=== PATIENT | male | born 1945 | race Caucasian/White ===

== ENCOUNTER 2019-12-11 08:37 | Outpatient (CLI) | payer MEDICARE, MEDICAID, SELFPAY ==
[2019-12-11 08:50] VITALS: BP 82/54; PULSE 64; RESP 16; TEMP 36.8; O2SAT 98
[2019-12-11 09:40] VITALS: BP 81/53; BP 83/53; BP 90/60; PULSE 62; PULSE 67; PULSE 70
[2019-12-11 09:55] VITALS: BP 73/52; BP 75/48; BP 79/50; PULSE 61; PULSE 66; PULSE 79
[2019-12-11] MEDS: sodium chloride 0.9% 500 ML IV (10:30)
[2019-12-11 11:35] VITALS: BP 100/58; BP 101/57; BP 89/53; PULSE 61; PULSE 66; PULSE 71
[2019-12-11] MEDS: sodium chloride 0.9% 250 ML IV (11:50)
[2019-12-11] MEDS: rituximab 1,000 MG in sodium chloride 0.9% 250 ML, primary tubing onc 1 EACH 70 MG IV (12:26)
[2019-12-11] MEDS: diphenhydrAMINE 50 mg/mL SDV 1mL IVP (12:47)
--- NOTE | 2019-12-11 14:34 | PC.NURSE ---
0905 Noted hypotension. Pt states not feeling good, states tired with cramps in abd, pain in hands and legs. States recently lost weight and poor appetite. States recent medication change. Lungs clear. No swelling. Color yariel umanzor. Dr. Grayson notified. Dr. Grayson assessed pt. New orders noted.
[2019-12-11 14:44] VITALS: BP 110/64; PULSE 64; RESP 18; O2SAT 96
--- NOTE | 2019-12-11 14:45 | PC.NURSE ---
1135 NS Bolus 500ml complete. VS and status reported to Dr. Grayson. Orders for NS Bolus 250ml and proceed with Rituxin infusion. Continue to monitor.
--- NOTE | 2019-12-11 14:46 | PC.NURSE ---
1440 VS noted. A&O. Denies SOB. loose Cough clears exp wheezes. Fine faint rales noted bilat bases. States still smokes. Dr. Grayson notified.
--- NOTE | 2019-12-11 17:30 | PC.NURSE ---
[address] Foster's nurse and Dr. Frazier's nurse notified of hypotension, bolus orders, and labs.
[2019-12-11 18:18] VITALS: BP 107/61; PULSE 64; RESP 16; TEMP 36.5; O2SAT 96
--- NOTE | 2019-12-11 18:19 | PC.NURSE ---
1800 Fine rales in bilat bases. Loose cough noted, pt states has always had from smoking. Denies SOB. Instructed to take BP twice daily. Instructed to call cardiology office with bp results and if he feels he needs sooner appt. Instructed to go to ER if he develops SOB tonight. Discussed with pt we gave him fluid bolus for BP. Verbalized understanding.
== END 2019-12-11 08:38 | disposition home or self-care (01) ==
LOC: RHEOACUTE 08:39
PROVIDERS: Family Provider Internal Medicine; PCP Internal Medicine; Visit Provider Internal Medicine Rheumatology
DX: M05.79 Rheumatoid arthritis with rheumatoid factor of multiple sites without organ or systems involvement (principal); Z79.899 Other long term (current) drug therapy
CPT/HCPCS: 36415; 80048; 80076; 82728; 83540; 83550; 83735; 85025; 85651; 86140; 96365; 96366; 96374; 96375; J1200; J2930; J7040; J7050; J9312

== ENCOUNTER 2019-12-15 21:30 | Inpatient (IN) | payer MEDICARE, MEDICAID, SELFPAY ==
[2019-12-15 21:39] VITALS: BP 115/70; PULSE 84; RESP 14; TEMP 36.8; O2SAT 94; BMI 26.6
--- NOTE | 2019-12-15 21:58 | ECG_ITS ---
Measurements Intervals [place] Rate: 84 P: 52 NE: 146 QRS: 61 QRSD: 81 T: 76 QT: 353 QTc: 418 SINUS RHYTHM Compared to ECG 08/19/2018 11:35:38 Sinus bradycardia no longer present Electronically Signed On 12-16-2019 9:32:50 CDT by Jemma Gr M.D. [id number]
--- NOTE | 2019-12-15 21:59 | W.ED.GENADLT ---
HPI - General Adult General: Chief complaint: General Medical Stated complaint: ABNORMAL LABS/VITALS; FEVER; HX OF ANEMIA Time Seen by Provider: 12/15/19 21:49 History of Present Illness: HPI narrative: Mr. Lamb is a nice 74-year-old male who comes in complaining of generalized weakness, subjective fever and chills, black tarry stools and shortness of breath. States his symptoms have been going on for some time. Today he got progressively more weak and feels like he could not catch his breath and that is why he decided to come here to the hospital. The patient denies any headache, chest pain, abdominal pain or vomiting. The patient states that the symptoms have been going on for quite some time but this last week is gotten much worse. He has been monitoring his blood pressure and pulse oximetry at home he does notice his blood pressure is up and down and his pulse ox is been running as low as 86%. Again he denies any fever and denies any productive cough. He denies being exposed to anybody with the COVID virus. Associated symptoms: Reports dyspnea and malaise; Deny chest pain, confusion, diaphoresis, headache(s), nausea, rash, palpitations, syncope or vomiting Review of Systems Const: Reports: fatigue and malaise; Denies: fever(s), chills, body aches, night sweats or diaphoresis Eyes: Denies: change in vision, blurry vision or blind spots ENMT: Denies: throat pain, odynophagia, hoarseness, ear or mastoid pain, ear discharge, change in hearing or nasal discharge Card: Denies: chest pain, palpitations, irregular heart rhythm, lightheadedness, syncope, pre-syncope, dyspnea on exertion or orthopnea Resp: Reports: dyspnea; Denies: productive cough, non-productive cough, wheezing, hemoptysis or chest congestion GI: Reports: melena; Denies: abdominal pain, nausea, vomiting, hematemesis, coffee ground emesis, heartburn, diarrhea, constipation, GI cramping or hematochezia : Denies: flank pain, dysuria, urinary frequency, urinary urgency, oliguria, urinary incontinence or hematuria Musc: Denies: neck pain, back pain, extremity pain, extremity swelling, joint pain, joint swelling, joint redness, joint warmth or joint stiffness Skin/Breast: Denies: rash, pruritus, erythema, skin tenderness or jaundice Neuro: Denies: headache(s), numbness in extremities, weakness in extremities, sensory changes, lack of coordination, difficulty walking, dizziness, vertigo, confusion or Slurred speech present Endo: Denies: polyuria, polydipsia, tired all the time, cold intolerance, excessive sweating, flushing, hot flashes or heat intolerance Demar/Lymph: Denies: easy bruising, easy bleeding, petechiae, purpura or enlarged lymph nodes All/Imm: Denies: urticaria, throat swelling, tongue swelling, facial swelling or acute wheezing PFSH ED PFSH: Medical History Colon polyps COPD (chronic obstructive pulmonary disease) History of abdominal aortic aneurysm Mixed hyperlipidemia Pulmonary nodules Surgical History (Updated 11/29/19 @ 13:54 by Mike Foster MD) History of back surgery History of colonoscopy History of elbow surgery History of esophagogastroduodenoscopy (EGD) Family History Other Cancer Diabetes Social History Smoking and tobacco status: current every day smoker Alcohol intake: current Alcohol intake frequency: holidays/special occasions only Household members: spouse Housing: House Physical Exam Const: COMMON NORMALS: no acute distress, patient oriented x3, no limitations, healthy appearing and well nourished EXAM LIMITATIONS: no altered mental status GENERAL APPEARANCE: cooperative, well kempt and well developed HENMT: COMMON NORMALS: normocephalic, atraumatic, hearing grossly normal bilaterally, external ears normal, EAC's normal, Normal external nose present and moist oral mucous membranes HEAD & SCALP: normal to inspection, normocephalic and atraumatic FACE & SINUS: normal facial exam and face symmetric NOSE: Normal external nose present and Normal nares present EXTERNAL EAR: Yes external ears normal EXTERNAL AUDITORY CANAL: EAC's normal MOUTH: Normal oral and palatal mucosa present, lip normal and tongue normal Eye: COMMON NORMALS: Equal, round and reactive pupils present, EOMs intact bilaterally, conjunctivae normal and no scleral icterus GENERAL EYE: appearance normal, both eyes and all related structures ALIGNMENT: Yes alignment normal PERIORBITAL: periorbital findings normal EYELID: eyelids normal CONJUNCTIVA: Yes conjunctivae normal SCLERA: sclerae normal PUPIL: Yes Equal, round and reactive pupils present Neck/C-Spine: COMMON NORMALS: full ROM, no lymphadenopathy, supple, no meningeal signs and no JVD GENERAL: Yes normal visual inspection and Yes trachea midline CERVICAL SPINE: Yes cervical ROM normal Chest: COMMONS NORMALS: normal inspection of the chest and normal palpation of entire chest wall Resp: COMMON NORMALS: normal respiratory effort, No retractions, No use of accessory muscles and clear to auscultation bilaterally EFFORT & INSPECTION: Yes able to speak in complete sentences AUSCULTATION: clear to auscultation bilaterally, no crackles, no rales, no rhonchi and no wheezes Cardio: COMMON NORMALS: no JVD, regular rate, regular rhythm, S1 normal heart sound present, S2 normal heart sound present, No gallops present (Cardio), No clicks present (Cardio), No murmurs present (Cardio) and No rub (Cardio) RATE: regular rate RHYTHM: regular rhythm HEART SOUNDS: S1 normal heart sound present, S2 normal heart sound present, no click, no gallops, no murmurs and no rubs GI: COMMON NORMALS: Soft to palpation, non-tender, No hepatosplenomegaly present and no masses PALPATION: Yes Soft to palpation, No Tenderness to palpation present (GI), No Guarding due to palpation present (GI), No Rigid due to palpation, Yes No hepatosplenomegaly present, No Hernia present, No Palpable mass present and No Pulsatile mass present RECTAL EXAM: Yes normal sphincter tone and Yes heme positive stool OTHER: Melanotic stool : COMMON NORMALS: Yes no CVA tenderness BLADDER/KIDNEY EXAM: Yes no CVA tenderness Back/Pelvis: COMMON NORMALS: no CVA tenderness, thoracic and lumbar spine normal to inspection, no thoracic nor lumbar tenderness and thoraco-lumbar ROM normal Extremity: COMMON NORMALS: normal to inspection, full ROM, capillary refill normal, no joint enlargement, no clubbing, cyanosis or edema and no calf tenderness Neuro: COMMON NORMALS: patient oriented x3, CN's II-XII intact bilaterally, moves all extremities, no focal motor deficits and no sensory deficits noted MENINGEAL SIGNS: Yes no meningeal signs SPEECH: speech normal Psych: COMMON NORMALS: mental status grossly normal, Normal thought process present, cooperative, normal affect, speech normal and activity/motor behavior normal APPEARANCE: Yes well kempt SPEECH: Yes normal speech THOUGHT PROCESS: Normal thought process present Skin: COMMON NORMALS: no rashes or lesions noted, turgor normal, no jaundice, no petechiae and no mottling GENERAL SKIN EXAM: no rashes or lesions noted and turgor normal Course Vital Signs: Vital signs: Vital Signs Temperature 98.3 F 12/15/19 21:39 Pulse Rate 77 12/15/19 23:00 Respiratory Rate 14 12/15/19 21:39 Blood Pressure 113/70 12/15/19 23:00 Pulse Oximetry 94 12/15/19 21:39 MDM - General Adult MDM Narrative: Medical decision making narrative: Patient appears to be a GI bleed causing his dyspnea. This is likely from his anemia. He had melena present on exam here. The case was endorsed to Dr. Duran he agrees to admit for further evaluation and care and work-up. Lab Data: Attestation: I reviewed the patient's lab results. Labs: Lab Results 12/15/19 12/15/19 12/15/19 Range/Units 22:32 22:32 22:32 WBC 14.0 H (4.0-10.0) 10^3/ uL RBC 2.94 L (4.1-5.3) 10^6/u L Hgb 9.6 L (11.7-16.6) g/dL Hct 29.2 L (42.0-52.0) % MCV 99.3 H (80-94) fL MCH 32.7 (28.0-34.0) pg MCHC 32.9 (30.0-36.0) g/dL RDW 15.2 H (12.1-15.1) % Plt Count 207 (130-400) 10^3/c mm MPV 10.3 (7.4-10.4) fL Neut % (Auto) 79.8 % Lymph % (Auto) 8.7 % Meeker % (Auto) 7.7 % Eos % (Auto) 1.6 % Baso % (Auto) 0.2 % Neut # (Auto) 11.2 H (1.8-7.7) 10^3/u L Lymph # (Auto) 1.2 (0.8-4.8) 10^3/u L Meeker # (Auto) 1.1 H (0.2-0.9) 10^3/u L Eos # (Auto) 0.2 (0.0-0.8) 10^3/u L Baso # (Auto) 0.0 (0.0-0.1) 10^3/u L Nucleated RBC % (a uto) 0 % Nucleated RBCs # 0.0 /100WBC PT 13.40 H (10.5-13.3) SECO NDS INR 0.99 (0.8-1.2) APTT 30.6 (23.9-36.7) SECO NDS Specimen Type Sample Site ABG pH (7.35-7.45) ABG pCO2 (35-45) mmHg ABG pO2 (80.0-100.0) mmH g ABG HCO3 (22-26) mmol/L ABG Base Excess (-2.0-2.0) mmol/ L [place] Test Hematocrit (42-52) % O2 Delivery Device FiO2 % Business Analyst Intern ID Sodium 135 L (136-145) mmol/L Potassium 4.3 (3.5-5.1) mmol/L Chloride 97 L (98-107) mmol/L Carbon Dioxide 23 (22-29) mmol/L Anion Gap 19.3 H (5-19) BUN 30 H (8-23) mg/dL Creatinine 1.7 H (0.7-1.2) mg/dL Glucose 106 (65-115) mg/dL Calculated Osmolal ity 278 L (285-295) mOsm/k g Calcium 9.5 (8.5-10.5) mg/dL Magnesium 1.4 L (1.7-2.3) mg/dL Total Bilirubin 0.5 (0.15-1.2) mg/dL AST 12 (0-40) U/L ALT 18 (0-41) U/L Alkaline Phosphata se 78 (40-130) IU/L Creatine Kinase 29 L (39-308) U/L Troponin T Baselin e (0-15) ng/mL Troponin T 120 Min [place] (0-15) ng/mL Delta Troponin T (0-10) ABS# Total Protein 6.1 L (6.6-8.7) g/dL Albumin 3.7 (3.5-5.2) g/dL Globulin 2.4 (1.3-4.6) g/dL 12/15/19 12/15/19 12/16/19 Range/Units 22:32 22:40 00:40 WBC (4.0-10.0) 10^3/ uL RBC (4.1-5.3) 10^6/u L Hgb (11.7-16.6) g/dL Hct (42.0-52.0) % MCV (80-94) fL MCH (28.0-34.0) pg MCHC (30.0-36.0) g/dL RDW (12.1-15.1) % Plt Count (130-400) 10^3/c mm MPV (7.4-10.4) fL Neut % (Auto) % Lymph % (Auto) % [place]eker % (Auto) % Eos % (Auto) % Baso % (Auto) % Neut # (Auto) (1.8-7.7) 10^3/u L Lymph # (Auto) (0.8-4.8) 10^3/u L Meeker # (Auto) (0.2-0.9) 10^3/u L Eos # (Auto) (0.0-0.8) 10^3/u L Baso # (Auto) (0.0-0.1) 10^3/u L Nucleated RBC % (a uto) % Nucleated RBCs # /100WBC PT (10.5-13.3) SECO NDS INR (0.8-1.2) APTT (23.9-36.7) SECO NDS Specimen Type Arterial Sample Site Brachial, right ABG pH 7.42 (7.35-7.45) ABG pCO2 36.7 (35-45) mmHg ABG pO2 67.0 L (80.0-100.0) mmH g ABG HCO3 24.0 (22-26) mmol/L ABG Base Excess -0.2 (-2.0-2.0) mmol/ L [place] Test Pos Hematocrit 35.4 L (42-52) % O2 Delivery Device None FiO2 21.0 % Business Analyst Intern ID [id number] Sodium (136-145) mmol/L Potassium (3.5-5.1) mmol/L Chloride (98-107) mmol/L Carbon Dioxide (22-29) mmol/L Anion Gap (5-19) BUN (8-23) mg/dL Creatinine (0.7-1.2) mg/dL Glucose (65-115) mg/dL Calculated Osmolal ity (285-295) mOsm/k g Calcium (8.5-10.5) mg/dL Magnesium (1.7-2.3) mg/dL Total Bilirubin (0.15-1.2) mg/dL AST (0-40) U/L ALT (0-41) U/L Alkaline Phosphata se (40-130) IU/L Creatine Kinase (39-308) U/L Troponin T Baselin e 55 H (0-15) ng/mL Troponin T 120 Min [place] 42.34 H (0-15) ng/mL Delta Troponin T -12.66 L (0-10) ABS# Total Protein (6.6-8.7) g/dL Albumin (3.5-5.2) g/dL Globulin (1.3-4.6) g/dL EKG Data^: EKG 1: Attestation: I personally reviewed and interpreted this EKG as follows: EKG interpretation date: 12/15/19 EKG interpretation time: 22:25 Interpretation: Normal sinus rhythm at 84 beats a minute, nonspecific T wave findings, otherwise no acute findings. Computer generated interpretation: Abdomen/Pelvis CT 12/15/19 22:14 IMPRESSION: 1. No visible evidence of active or acute abdominal or pelvic pathologic process. 2. Active pulmonary parenchymal disease bilateral lung bases as detailed in text above that will require follow-up to exclude a potential for underlying malignancy. Please review details in text above. For patients at low risk (minimal or absent history of smoking and of other known risk factors), recommend CT at 3-6 months, then consider CT at 18-24 months. For patients at high risk (history of smoking or of other known risk factors), recommend CT at 3-6 months, then CT at 18-24 months. (Pollo et al., Fleischner Society, 2017) 3. Evidence of antecedent granulomatous disease. 4. Infrarenal fusiform abdominal aortic aneurysm with patent aorto bi-iliac stent in place. COMMENTS: Consistent with the [employer]'s Incidental Findings Committee white paper (J Am Ezio Radiol 2018): Any incidental cystic renal lesion classified in this report as too small to characterize or simple appearing is likely a benign cyst. No follow-up imaging is recommended for these lesions per consensus recommendations based on imaging criteria. Radiation Dose CTDIVOL = (mGy): DLP = 911.61 (mGy-cm) Discharge Plan Discharge Patient Disposition: Admitted As Inpatient Admit Provider: Nando Platt Clinical Impression: Acute GI bleeding, Acute dyspnea, Anemia Condition: Stable Coding Level of Care Code ED Marketing Trainee for Chg Fwd Exam Comprehensive
--- NOTE | 2019-12-15 22:14 | CTR_ITS ---
PROCEDURE INFORMATION: Exam: CT Abdomen And Pelvis With Contrast Exam date and time: 12/15/2019 10:15 PM Age: 74 years old Clinical indication: Abdominal pain; Generalized; Prior surgery; Surgery date: 6+ months; Surgery type: Aaa TECHNIQUE: Imaging protocol: Computed tomography of the abdomen and pelvis with intravenous contrast. Radiation optimization: All CT scans at this facility use at least one of these dose optimization techniques: automated exposure control; mA and/or kV adjustment per patient size (includes targeted exams where dose is matched to clinical indication); or iterative reconstruction. Contrast material: VISI; Contrast volume: 95 ml; Contrast route: IV; COMPARISON: CR Hips Bilat 3-4v wwo Pelv [id number] 12/28/2018 10:14 AM RADIATION DOSE METRICS: Total DLP: 911.61 mGy-cm FINDINGS: Lungs: Limited assessment lung bases reveals a densely consolidated nodular alveolar airspace disease process medial basal segment left lower lobe along the costovertebral margin measuring 25 mm in diameter. Shaggy borders. Surrounding patchy ground-glass and early consolidated alveolar airspace disease. Findings of coexistent bronchiolar disease. Where as this finding may represent round atelectasis or round pneumonia a neoplasm remains a differential consideration and follow-up is necessary. Coexistent active pneumonitis is a differential consideration. Also evidence of rare focus of peripheral acinar emphysema. In the right lower lobe is a 16 mm pulmonary nodule with shaggy borders. Same differential consideration. Evidence of antecedent granulomatous disease to include rare calcified pulmonary parenchyma granuloma. Liver: Calcified hepatic granulomas. No visible liver mass. Gallbladder and bile ducts: Tiny gallstone. No visible intra or extrahepatic biliary ectasia. Pancreas: Pancreas unremarkable. No visible pancreatic ductal ectasia. Spleen: Small calcified splenic granulomas. Adrenals: Adrenal glands unremarkable. Kidneys and ureters: Bilateral simple renal cortical cysts the largest inferior pole of the right kidney maximum diameter proximally 39 mm. No hydronephrosis or perinephric fluid. Stomach and bowel: Small hiatal hernia. Incomplete rotation of the gut with the duodenal jejunal junction right of midline. Nonobstructive bowel pattern. Diverticulosis coli without evidence for diverticulitis. No evidence for adynamic or reactive ileus. Appendix: The appendix is noninflamed. Intraperitoneal space: No visible intraperitoneal ascites. Vasculature: Infrarenal fusiform abdominal aortic aneurysm with aorto bi-iliac stent in place. The stent appears patent without leak. Maximum diameter the aneurysmal component at the stent site for 34 mm. 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 Moderately advanced arterial sclerotic disease. Lymph nodes: No visible mesenteritis/panniculitis or mesenteric lymphadenitis/lymphadenopathy. No visible retroperitoneal lymphadenopathy. Bladder: Unremarkable as visualized. Reproductive: Mild prostate hypertrophy. Bones/joints: Age-appropriate degenerative disease. No visible osteolytic or osteoblastic destructive process. Soft tissues: Unremarkable. CT/CT abdomen pelvis w con* [id number] IMPRESSION: 1. No visible evidence of active or acute abdominal or pelvic pathologic process. 2. Active pulmonary parenchymal disease bilateral lung bases as detailed in text above that will require follow-up to exclude a potential for underlying malignancy. Please review details in text above. For patients at low risk (minimal or absent history of smoking and of other known risk factors), recommend CT at 3-6 months, then consider CT at 18-24 months. For patients at high risk (history of smoking or of other known risk factors), recommend CT at 3-6 months, then CT at 18-24 months. (Pollo et al., Fleischner Society, 2017) 3. Evidence of antecedent granulomatous disease. 4. Infrarenal fusiform abdominal aortic aneurysm with patent aorto bi-iliac stent in place. COMMENTS: Consistent with the [employer]'s Incidental Findings Committee white paper (J Am Ezio Radiol 2018): Any incidental cystic renal lesion classified in this report as too small to characterize or simple appearing is likely a benign cyst. No follow-up imaging is recommended for these lesions per consensus recommendations based on imaging criteria. Radiation Dose CTDIVOL = (mGy): DLP = 911.61 (mGy-cm)
[2019-12-15 22:38] LABS: Basophils % 0.2 %; Eosinophils # 0.2 10^3/uL (0.0-0.8); Eosinophils % 1.6 %; Hematocrit 29.2 % (42.0-52.0); Hemoglobin 9.6 g/dL (11.7-16.6); Lymphocytes # 1.2 10^3/uL (0.8-4.8); Lymphocytes % 8.7 %; Mean Corpuscular HGB Conc 32.9 g/dL (30.0-36.0); Mean Corpuscular Hemoglobin 32.7 pg (28.0-34.0); Mean Corpuscular Volume 99.3 fL (80-94); Mean Platelet Volume 10.3 fL (7.4-10.4); Monocytes # 1.1 10^3/uL (0.2-0.9); Monocytes % 7.7 %; Neutrophils # 11.2 10^3/uL (1.8-7.7); Neutrophils % 79.8 %; Nucleated Red Blood Cells % 0 %; Platelet Count 207 10^3/cmm (130-400); Red Blood Count 2.94 10^6/uL (4.1-5.3); Red Cell Distribution Width 15.2 % (12.1-15.1)
[2019-12-15 22:46] LABS: INR 0.99 (0.8-1.2)
[2019-12-15 22:46] LABS: ABG PCO2 36.7 mmHg (35-45); ABG PH Result 7.42 (7.35-7.45); Arterial Blood Gas Hematocrit 35.4 % (42-52); Base Excess ABG -0.2 mmol/L (-2.0-2.0); Blood Gas Allen Test Pos; Blood Gas Sample Site Brachial, right; Blood Gas Sample Type Arterial
[2019-12-15 22:47] LABS: Partial Thromboplastin Time 30.6 SECONDS (23.9-36.7)
[2019-12-15 22:52] LABS: Alanine Aminotransferase 18 U/L (0-41); Albumin Level 3.7 g/dL (3.5-5.2); Alkaline Phosphatase 78 IU/L (40-130); Anion Gap 19.3 (5-19); Aspartate Amino Transferase 12 U/L (0-40); Blood Urea Nitrogen 30 mg/dL (8-23); Calcium 9.5 mg/dL (8.5-10.5); Carbon Dioxide 23 mmol/L (22-29); Chloride 97 mmol/L (98-107); Creatine Phosphokinase 29 U/L (39-308); Globulin 2.4 g/dL (1.3-4.6); Glucose 106 mg/dL (65-115); Magnesium 1.4 mg/dL (1.7-2.3); Osmolality Calculated 278 mOsm/kg (285-295); Potassium 4.3 mmol/L (3.5-5.1); Sodium 135 mmol/L (136-145); Total Bilirubin 0.5 mg/dL (0.15-1.2); Total Protein 6.1 g/dL (6.6-8.7)
[2019-12-15 22:53] LABS: Troponin(5th) Baseline 55 ng/mL (0-15)
[2019-12-15 23:00] VITALS: BP 113/70; BP 114/72; BP 125/66; PULSE 77; PULSE 82; PULSE 89
[2019-12-15] MEDS: iodixanol 320 mg/mL 100mL Btl IV (23:23)
--- NOTE | 2019-12-15 23:58 | ECG_ITS ---
Measurements Intervals [place] Rate: 127 P: [place]: 0 QRS: 118 QRSD: 104 T: -36 QT: 312 QTc: 455 ATRIAL FIBRILLATION WITH RAPID VENTRICULAR RESPONSE INDETERMINATE AXIS LOW QRS VOLTAGE IN PRECORDIAL LEADS INCOMPLETE RIGHT BUNDLE BRANCH BLOCK POSSIBLE INFERIOR MYOCARDIAL INFARCTION , OF INDETERMINATE AGE Compared to ECG 08/19/2018 11:35:38 Indeterminate axis now present Low QRS voltage now present Incomplete right bundle-branch block now present Myocardial infarct finding now present Sinus bradycardia no longer present Electronically Signed On 12-16-2019 9:44:49 CDT by Jemma Gr M.D. [id number]
[2019-12-16] VITALS (14 sets, daily range): BP systolic 100–129; BP diastolic 60–85; PULSE 16–106; RESP 16–72; TEMP 36.4–37.7; O2SAT 91–99
--- NOTE | 2019-12-16 00:12 | XRR_ITS ---
PROCEDURE INFORMATION: Exam: XR Chest, 1 View Exam date and time: 12/16/2019 12:29 AM Age: 74 years old Clinical indication: Cough and shortness of breath TECHNIQUE: Imaging protocol: XR of the chest Views: 1 view. COMPARISON: CR Chest 2 views* [id number] 12/28/2018 10:14 AM FINDINGS: Lungs: Minor oval configured opacity at the right upper lobe laterally measures 1.9 cm. Subtle retrocardiac left lower lung infiltrate likely present. Scattered punctate nodular densities which could be on the basis of granulomatous calcifications or underlying reticulonodular interstitial pattern. Pleural space: Unremarkable. No pleural effusion. No pneumothorax. Heart/Mediastinum: Accentuated heart size which could be on the basis of AP technique. Vasculature: Tortuous thoracic aorta. Bones/joints: Unremarkable. Soft tissues: Coarsening of the interstitium and slight accentuation of interstitial vasculature. XR/XR chest 1V portable [id number] IMPRESSION: 1. Suspect retrocardiac left lower lung infiltrate. 2. Oval nodular opacity of right upper lobe could not exclude pulmonary nodule. Surveillance CT follow-up of previously described pulmonary nodules and assessment for the possibility of newly developed right upper lobe nodule could be ascertain. 3. Scattered punctate nodular densities bilaterally and diffusely which could be on the basis of an underlying reticulonodular interstitial pattern or granulomatous calcifications. 4. Overall interstitial coarsening/thickening versus low-grade pulmonary venous congestion.
[2019-12-16 01:10] LABS: Troponin 5 2HR 42.34 ng/mL (0-15)
--- NOTE | 2019-12-16 02:03 | PM.HP ---
Providers/Chief Complaint Admitting Physician: Nando Platt Primary Care Provider: Mike Foster MD Chief Complaint: WEAKNESS, MELENA, DYSPNEA History of Present Illness Gabino Lamb is a 74 year old male with past medical history of rheumatoid arthritis, COPD, chronic kidney disease, AAA, aortic stent, peripheral neuropathy who presents with complaints of black tarry stool and generalized weakness. The patient is mildly hypoxic on presentation. He reports that he has been having black tarry stool for last week or so, several times a day. Denies associated nausea or vomiting, abdominal pain, dizziness or lightheadedness. Denies chest pain or shortness of breath. Reports cough with some mucus which is colored. No hemoptysis. He reports fever. Denies similar episodes in the past. Stool is occult positive. The patient has anemia which is currently stable. CT of the abdomen and pelvis was done. No acute intra-abdominal problems are identified. However the patient has bibasilar airspace disease. According to the radiologist it could be pneumonia versus malignancy. According to his chart he has history of pulmonary nodule which is being followed by his primary care physician. Review of Systems General: Reports: 10 or more systems reviewed and unremarkable except in HPI and below Medications/Allergies Home Medications Medication Instructions Recorded Confirmed Last Taken Type folic acid 1 mg tablet 1 mg PO DAILY #30 tab 09/10/19 11/29/19 Unknown Rx gabapentin 300 mg capsule 300 mg PO BID #60 cap 09/10/19 11/29/19 Unknown Rx pantoprazole 40 mg tablet,delayed 40 mg PO BID #60 tab 09/10/19 11/29/19 Unknown Rx release tizanidine 4 mg tablet 4 mg PO Q6H PRN #90 tab 09/10/19 11/29/19 Unknown Rx ipratropium bromide 42 mcg (0.06 1 spray INTRANASAL TID #15 ml 10/12/19 11/29/19 Unknown Rx %) nasal spray Allergies Allergy/AdvReac Type Severity Reaction Status Date / Time Penicillins Allergy unknown Verified 11/29/19 12:57 PFSH Acute PFSH: Medical History Colon polyps COPD (chronic obstructive pulmonary disease) History of abdominal aortic aneurysm Mixed hyperlipidemia Pulmonary nodules Surgical History (Updated 11/29/19 @ 13:54 by Mike Foster MD) History of back surgery History of colonoscopy History of elbow surgery History of esophagogastroduodenoscopy (EGD) Family History Other Cancer Diabetes Social History Smoking and tobacco status: current every day smoker Alcohol intake: current Alcohol intake frequency: holidays/special occasions only Household members: spouse Housing: House Vitals/I&O/Wt Last Vital Signs Temp 98.3 F 12/15/19 21:39 Pulse 77 12/15/19 23:00 Resp 14 12/15/19 21:39 BP 113/70 12/15/19 23:00 Pulse Ox 94 12/15/19 21:39 Weight last 48 hrs Weight 84.368 kg Physical Exam Narrative: EXAM NARRATIVE: The patient is awake alert and oriented. No acute distress. Mood and affect are appropriate. Looks tired. Skin is warm and dry. Moist mucous membranes. Eyes Jossie, extraocular muscles intact. No icterus. Neck supple. No JVD Lungs decreased breath sounds bibasilarly with very mild basilar crackles. No respiratory distress. Heart S1, S2, RRR Abdomen is soft, nontender, bowel sounds are present. Extremities trace edema no cyanosis no calf tenderness bilaterally Normal speech. No facial asymmetry. Moves all extremities Data : 12/15/19 22:32 12/15/19 22:32 Other Labs: Laboratory Results WBC 14.0 10^3/uL (4.0-10.0) H 12/15/19 22:32 RBC 2.94 10^6/uL (4.1-5.3) L 12/15/19 22:32 Hgb 9.6 g/dL (11.7-16.6) L 12/15/19 22:32 Hct 29.2 % (42.0-52.0) L 12/15/19 22:32 MCV 99.3 fL (80-94) H 12/15/19 22:32 MCH 32.7 pg (28.0-34.0) 12/15/19 22:32 MCHC 32.9 g/dL (30.0-36.0) 12/15/19 22:32 RDW 15.2 % (12.1-15.1) H 12/15/19 22:32 Plt Count 207 10^3/cmm (130-400) 12/15/19 22: MPV 10.3 fL (7.4-10.4) 12/15/19 22: Neut % (Auto) 79.8 % 12/15/19 22:32 Lymph % (Auto) 8.7 % 12/15/19: [place] % (Auto) 7.7 % 12/15/19: Eos % (Auto) 1.6 % 12/15/19: Baso % (Auto) 0.2 % 12/15/19: Neut # (Auto) 11.2 10^3/uL (1.8-7.7) H 12/15/19: Lymph # (Auto) 1.2 10^3/uL (0.8-4.8) 12/15/19: [place] # (Auto) 1.1 10^3/uL (0.2-0.9) H 12/15/19: Eos # (Auto) 0.2 10^3/uL (0.0-0.8) 12/15/19: Baso # (Auto) 0.0 10^3/uL (0.0-0.1) 12/15/19: Nucleated RBC % (auto) 0 % 12/15/19: Nucleated RBCs # 0.0 /100WBC 12/15/19: PT 13.40 SECONDS (10.5-13.3) H 12/15/19: INR 0.99 (0.8-1.2) 12/15/19: APTT 30.6 SECONDS (23.9-36.7) 12/15/19:32 Specimen Type Arterial 12/15/19 22:40 Sample Site Brachial, right 12/15/19 22:40 ABG pH 7.42 (7.35-7.45) 12/15/19:40 ABG pCO2 36.7 mmHg (35-45) 12/15/19 22:40 ABG pO2 67.0 mmHg (80.0-100.0) L 12/15/19 22:40 ABG HCO3 24.0 mmol/L (22-26) 12/15/19:40 ABG Base Excess -0.2 mmol/L (-2.0-2.0) 12/15/19 22:40 [place] Test Pos 12/15/19 22:40 Hematocrit 35.4 % (42-52) L 12/15/19 22:40 O2 Delivery Device None 12/15/19 22:40 FiO2 21.0 % 12/15/19 22:40 [employer] Scout ID [email or web address] 12/15/19 22:40 Sodium 135 mmol/L (136-145) L 12/15/19 22:32 Potassium 4.3 mmol/L (3.5-5.1) 12/15/19 22:32 Chloride 97 mmol/L (98-107) L 12/15/19 22:32 Carbon Dioxide 23 mmol/L (22-29) 12/15/19 22:32 Anion Gap 19.3 (5-19) H 12/15/19 22:32 BUN 30 mg/dL (8-23) H 12/15/19 22:32 Creatinine 1.7 mg/dL (0.7-1.2) H 12/15/19 22:32 Glucose 106 mg/dL (65-115) 12/15/19 22:32 Calculated Osmolality 278 mOsm/kg (285-295) L 12/15/19 22:32 Calcium 9.5 mg/dL (8.5-10.5) 12/15/19 22:32 Magnesium 1.4 mg/dL (1.7-2.3) L 12/15/19 22:32 Total Bilirubin 0.5 mg/dL (0.15-1.2) 12/15/19 22:32 AST 12 U/L (0-40) 12/15/19 22:32 ALT 18 U/L (0-41) 12/15/19 22:32 Alkaline Phosphatase 78 IU/L (40-130) 12/15/19 22:32 Creatine Kinase 29 U/L (39-308) L 12/15/19 22:32 Troponin T Baseline 55 ng/mL (0-15) H 12/15/19 22:32 Troponin T 120 Minute 42.34 ng/mL (0-15) H 12/16/19 00:40 Delta Troponin T -12.66 ABS# (0-10) L 12/16/19 00:40 Total Protein 6.1 g/dL (6.6-8.7) L 12/15/19 22:32 Albumin 3.7 g/dL (3.5-5.2) 12/15/19 22:32 Globulin 2.4 g/dL (1.3-4.6) 12/15/19 22:32 Impressions Abdomen/Pelvis CT 12/15/19 22:14 IMPRESSION: 1. No visible evidence of active or acute abdominal or pelvic pathologic process. 2. Active pulmonary parenchymal disease bilateral lung bases as detailed in text above that will require follow-up to exclude a potential for underlying malignancy. Please review details in text above. For patients at low risk (minimal or absent history of smoking and of other known risk factors), recommend CT at 3-6 months, then consider CT at 18-24 months. For patients at high risk (history of smoking or of other known risk factors), recommend CT at 3-6 months, then CT at 18-24 months. (Pollo et al., Fleischner Society, 2017) 3. Evidence of antecedent granulomatous disease. 4. Infrarenal fusiform abdominal aortic aneurysm with patent aorto bi-iliac stent in place. COMMENTS: Consistent with the [employer]'s Incidental Findings Committee white paper (J Am Ezio Radiol 2018): Any incidental cystic renal lesion classified in this report as too small to characterize or simple appearing is likely a benign cyst. No follow-up imaging is recommended for these lesions per consensus recommendations based on imaging criteria. Radiation Dose CTDIVOL = (mGy): DLP = 911.61 (mGy-cm) A&P Additional A&P Information 74-year-old male with past medical history of COPD, chronic kidney disease, rheumatoid arthritis, peripheral neuropathy, AAA who is presenting with complaints of black tarry stool. Suspected upper GI bleeding. Stool is positive for fecal occult. Hemodynamically stable. Hemoglobin is stable. Due to lack of ICU beds we will admit him to [facility] with close monitoring. I will ask for orthostatic vital signs each shift. We will closely monitor his H&H and transfuse if needed. He will receive PPI IV twice daily. Please consult surgery in the morning. Acute probably on top of chronic anemia secondary to acute blood loss and chronic disease. As above. Lung nodule versus pneumonia. The patient is allergic to penicillin. I will start him on Levaquin. Will order procalcitonin level. If it is negative please consider stopping the Levaquin. As for possible pulmonary nodule or malignancy probably the patient will need referral to see a air boatswain after stabilization and discharge or it can be deferred to his primary care physician. Mildly elevated troponin. This is probably secondary demand ischemia. He does not have any chest pain. If he develops any symptoms we will consider transfusion. Aspirin and beta-elena are not feasible at this time due to the bleeding. I will order Lipitor. Hypomagnesemia. Replace and monitor. COPD. Stable. PRN DuoNeb. CKD. Stable renal function. Continue monitoring. DVT prophylaxis. Teds and SCDs. No anticoagulation due to GI bleeding. CODE STATUS. The patient wants to be full code. The plan of care was discussed with the patient. He verbalized understanding and agreement. Attestations Medical Necessity Statement*: Based on my assessment of his current findings and condition and plan of care he will require more than 2 midnights in the hospital. Coding Level of Care Code Acute Clay Preparation Supervisor for Ne Haas
--- NOTE | 2019-12-16 03:58 | ECG_ITS ---
Measurements Intervals [place] Rate: 94 P: 50 OK: 148 QRS: 58 QRSD: 77 T: 67 QT: 332 QTc: 417 SINUS RHYTHM Compared to ECG 08/19/2018 11:35:38 Sinus bradycardia no longer present Electronically Signed On 12-16-2019 9:39:14 CDT by Jemma Gr M.D. [email or web address]
[2019-12-16 04:34] LABS: Urine Appearance Clear (CLEAR); Urine Color Yellow (Yellow); pH Urine 5 (5-7)
[2019-12-16 04:35] LABS: Bacteria Urine TRACE; Bilirubin Urine Neg (NEGATIVE); Blood Urine Neg (Negative); Glucose Urine UA Norm (Normal); Ketones Urine Negative (Negative); Leukocyte Esterase Urine Negative (Negative); Nitrate Urine Negative (Negative); Protein Urine Neg (Negative); RBC Urine RARE /hpf (0-2); Squamous Epithelial Cell Urine 0-4 (0-5); Urobilinogen Urine Norm (Negative); WBC Urine 0-4 /hpf (0-5)
[2019-12-16 04:36] LABS: Add Urine Culture? No; Hyaline Casts Urine 0-4; Mucus Urine TRACE
[2019-12-16] MEDS: magnesium sulfate premix 2 GM/50 ML PIGGYBACK IV ×2 (05:00→05:21)
[2019-12-16] MEDS: pantoprazole 40 mg SDV IVP ×2 (05:20→19:10)
[2019-12-16] MEDS: sodium chloride 0.9% 1,000 ML 75 ML IV ×2 (06:25→22:16)
[2019-12-16] MEDS: levofloxacin-dextrose 5 % 750 MG/150 ML PREMIX 100 MG IV (06:25)
[2019-12-16 06:52] LABS: Hematocrit 32.2 % (42.0-52.0); Hemoglobin 10.2 g/dL (11.7-16.6)
[2019-12-16 07:14] LABS: Magnesium 2.5 mg/dL (1.7-2.3); Phosphorus 3.3 mg/dL (2.5-4.5)
[2019-12-16 08:16] LABS: Troponin T (5th) Once 53 ng/mL (0-15)
[2019-12-16] MEDS: gabapentin 300 mg Capsule PO ×2 (09:09→17:09)
--- NOTE | 2019-12-16 13:35 | P.PN_ITS ---
Subjective Subjective: Interval history: History and physical reviewed. Patient reports dark tarry stools. He states he feels a little bit better than he did on admission. Believes this is been going on at least 3 to 4 days prior to him coming here. Denies any anti-inflammatory use. Medications: Reviewed: Yes Vitals/I&O/Wt Last Vital Signs Temp 98.8 F 12/16/19 11:45 Pulse 93 12/16/19 11:45 Resp 18 12/16/19 11:45 BP 100/62 12/16/19 11:45 Pulse Ox 91 12/16/19 11:45 12/15/19 12/16/19 12/16/19 22:59 06:59 14:59 Output Total 400 / 400 Balance -400 / -400 Weight last 48 hrs Weight 84.368 kg Physical Exam Narrative: EXAM NARRATIVE: General exam no apparent distress Cardiovascular regular rate and rhythm without murmur Lungs clear Abdomen is soft, positive bowel sounds. No tenderness. No obvious organomegaly Extremities no cyanosis clubbing or edema Data : 12/16/19 06:38 12/15/19 22:32 A&P Assessment and plan (1) Acute GI bleeding: Concern of upper GI bleed with history of black tarry stools. Hemoglobin is relatively stable. Stool Hemoccult is positive Surgery consult Continue Protonix IV Repeat CBC tomorrow Continue n.p.o. for now Status: Acute (2) Anemia: Acute on chronic anemia. Iron saturation recently done was normal, but in the face of an elevated ferritin. 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 Continue Levaquin at this point Status: Acute Additional A&P Information Acute kidney injury superimposed on chronic to the kidney disease. Repeat BMP tomorrow. Hydration. COPD, as needed nebulized treatments SCDs for DVT prophylaxis secondary to GI bleeding Full code Attestations Medical Necessity Statement*: Needs continued hospitalization for evaluation of GI bleeding. Coding Level of Care Code Acute Forensic Audit Expert for [employer] Haas Diagnoses Acute GI bleeding K92.2 Anemia D64.89 Anemia type: other cause Other causes of anemia: other cause, not classified Elevated troponin R79.89 Pneumonia J18.9
[2019-12-16 14:04] LABS: Hematocrit 36.1 % (42.0-52.0); Hemoglobin 11.1 g/dL (11.7-16.6)
--- NOTE | 2019-12-16 15:57 | PC.NURSE ---
Pt family notified regarding surgery tomorrow.
[2019-12-16] MEDS: atorvastatin 40 mg Tablet PO (17:09)
[2019-12-16 20:30] LABS: Hematocrit 31.7 % (42.0-52.0); Hemoglobin 10.4 g/dL (11.7-16.6)
[2019-12-17] VITALS (19 sets, daily range): BP systolic 89–122; BP diastolic 53–73; PULSE 69–93; RESP 16–21; TEMP 36.4–37.2; O2SAT 90–95
[2019-12-17] MEDS: pantoprazole 40 mg SDV IVP ×2 (05:53→21:14)
[2019-12-17 06:01] LABS: Basophils % 0.2 %; Eosinophils # 0.1 10^3/uL (0.0-0.8); Eosinophils % 0.9 %; Hematocrit 31.5 % (42.0-52.0); Hemoglobin 10.1 g/dL (11.7-16.6); Lymphocytes # 1.2 10^3/uL (0.8-4.8); Lymphocytes % 9.8 %; Mean Corpuscular HGB Conc 32.1 g/dL (30.0-36.0); Mean Corpuscular Hemoglobin 32.6 pg (28.0-34.0); Mean Corpuscular Volume 101.6 fL (80-94); Mean Platelet Volume 10.4 fL (7.4-10.4); Monocytes # 2.1 10^3/uL (0.2-0.9); Monocytes % 17.1 %; Neutrophils # 8.8 10^3/uL (1.8-7.7); Neutrophils % 71.1 %; Nucleated Red Blood Cells % 0 %; Platelet Count 218 10^3/cmm (130-400); Red Cell Distribution Width 15.6 % (12.1-15.1); White Blood Count 12.3 10^3/uL (4.0-10.0)
[2019-12-17 06:25] LABS: Anion Gap 19.5 (5-19); Blood Urea Nitrogen 29 mg/dL (8-23); Calcium 9.9 mg/dL (8.5-10.5); Carbon Dioxide 21 mmol/L (22-29); Chloride 102 mmol/L (98-107); Glucose 109 mg/dL (65-115); Osmolality Calculated 284 mOsm/kg (285-295); Potassium 4.5 mmol/L (3.5-5.1); Sodium 138 mmol/L (136-145)
--- NOTE | 2019-12-17 08:47 | P.HP_ITS ---
Same Day Surgery H&P Indication for Procedure/HPI DATE OF PROCEDURE: December 17, 2019 CHIEF COMPLAINT/INDICATIONFOR SURGICAL PROCEDURE: Melena, presumed GI bleed. PREOP DIAGNOSIS: gi bleed PLANNED PROCEDRUE: Operation Date: 12/17/19 11:35 Proposed Procedures p EGD with possible biopsy(Not Applicable) - Mike Foster MD Medications/Allergies* Allergies/Adverse Reactions Allergy/AdvReac Type Severity Reaction Status Date / Time Penicillins Allergy unknown Verified 11/29/19 12:57 Current Medications: Generic Name Dose Route Start Last Admin Trade Name Jerica PRN Reason Stop Dose Admin Atorvastatin Calcium 40 mg 12/16/19 02:05 12/16/19 21:06 Lipitor PO Not Given BEDTIME MAY Gabapentin 300 mg 12/16/19 09:00 12/16/19 17:09 Neurontin PO 300 mg BID MAY Administration Sodium Chloride 1,000 mls @ 75 mls/hr 12/16/19 02:00 12/16/19 22:16 Sodium Chloride 0.9% IV 75 mls/hr .[id number] MAY Administration Pantoprazole Sodium 40 mg 12/16/19 02:00 12/17/19 05:53 Protonix IVP 40 mg Q12H MAY Administration Pertinent History/Comorbid Conditions* Medical History (Updated 12/16/19 @ 13:39 by Slim Dixon MD) Colon polyps COPD (chronic obstructive pulmonary disease) History of abdominal aortic aneurysm Mixed hyperlipidemia Pulmonary nodules Surgical History (Updated 11/29/19 @ 13:54 by Mike Foster MD) History of back surgery History of colonoscopy History of elbow surgery History of esophagogastroduodenoscopy (EGD) Family History (Updated 11/29/19 @ 13:03 by Naina Chun LPN) Diabetes Cancer Social History Smoking and tobacco status: current every day smoker Alcohol intake: current Alcohol intake frequency: holidays/special occasions only Household members: spouse Housing: House Pertinent Exam Findings alert, oriented x 3, clear to auscultation bilaterally, regular rate & rhythm, operative site marked and procedure specific exam findings Recommendations Surgery/Procedure today Coding Level of Care Code Acute Human Factors Advisor Lead for [employer] [facility]
[2019-12-17] MEDS: gabapentin 300 mg Capsule PO (09:22)
--- NOTE | 2019-12-17 10:05 | PC.CHAP ---
Pastoral Care Encounter/Spiritual Assessment Type of Contact [] Declined customer liaison visit [] Patient/Family/Request visit [] Outpatient visit [] Follow-up visit [] Physician referral [] Code/Alert [x] Routine visit [] Staff referral [] Actively dying [] Patient sleeping [] Family support [] [] Out of room [] Palliative care [] [] Receiving care in room [] Pre-surgical visit [] Trauma [] Long length of stay [] ICU visit [] Other: Relational/Emotional Strength [] Patient feels connected with others/family/visitors/staff [] Distress [] Loneliness/isolation [] Abandonment Spirituality of Patient [] Person of Beatrice [] Attends Gnosticist of their Beatrice [] Believes in Prayer [] Reads Bible or Orthodox materials [] There are Spiritual issues to be addressed Engineering Technologist Interventions [x] Prayer [] Active listening [] Non-anxious presence [] Spiritual/emotional support [] Crisis/trauma care [] Spiritual counseling [] Bereavement support [] Provided bereavement packet [] Provided Bible/devotional materials [] Provided toy/stuffed animal, coloring book to patient or family member [] Provided Communion [] Anointing/[place] [] Salvation [x] Completed spiritual assessment [] Other: Impact on Illness or Injury [] Angry [] Fearful [] Anxious [] Often cries [] Exhaustion [] Unable to work [] Unable to attend moravian [] Unable to walk/stand [] Unable to read [] Unable to drive [] Unable to eat/drink [] Unable to sleep [] Unable to be with family [] Patient intubated [] Other: Summary Patient waiting for testing. We prayed for good results, and fast procedure . Time spent with patient 10min
[2019-12-17] MEDS: sodium chloride 0.9% 1,000 ML 75 ML IV (11:36)
--- NOTE | 2019-12-17 11:52 | PC.NURSE ---
PATIENT IS OFF UNIT IN OP SURGERY
[2019-12-17] MEDS: sodium chloride 0.9% 1,000 ML 30 ML IV (11:56)
--- NOTE | 2019-12-17 12:05 | ANES.PREANE2 ---
Pre-Anesthetic Assessment Pre-Anesthetic Assessment: Height/Weight: Height 1.78 m Weight 84.368 kg Temp Pulse Resp BP Pulse Ox 98.6 F 83 18 120/73 90 12/17/19 11:53 12/17/19 11:53 12/17/19 11:53 12/17/19 11:53 12/17/19 11:53 Preop Diagnosis: gi bleed Proposed Procedure: Operation Date: 12/17/19 11:35 Proposed Procedures p EGD with possible biopsy(Not Applicable) - Mike Foster MD Was Beta Manuel taken within 24 hours: N/A Last intake: Intake Last Liquid Date 12/17/19 Last Liquid Time 00:00 Last Solid Date 12/17/19 Last Solid Time 00:00 Social: Social History: Tobacco Exam: Pre-Anes Outpt Exam: alert, oriented x 3, clear to auscultation bilaterally and regular rate & rhythm Airway: Submandibular: WNL Cervical ROM: WNL MP: 2 Dentition: False (upper) History/ROS: No significant history except as noted Pulmonary: Pulmonary: COPD, Cough, GONGORA and SOB CV/HEM: CV/HEM: Anemia and HTN : : None reported Hepatic: Hepatic: None reported GI: GI: Hiatus hernia Metabolic: Metabolic: Hyperlipidemia Musc/skel: Musc/skel: RA Neuropsych: Neuropsych: None reported Anesthetic Plan: ASA status: 3 Anesthesia: Anesthesia Evaluation and MAC Risk of > 500 ml blood loss (7ml/kg in children): No Meds/Allergies Current Medications: Current Medications Generic Name Dose Route Start Last Admin Trade Name Freq PRN Reason Stop Dose Admin Atorvastatin Calci um 40 mg 12/16/19 02:05 12/16/19 21:06 Lipitor PO Not Given BEDTIME MAY Gabapentin 300 mg 12/16/19 09:00 12/17/19 09:22 Neurontin PO 300 mg BID MAY Administration Sodium Chloride 1,000 mls @ 75 ml s/hr 12/16/19 02:00 12/17/19 11:36 Sodium Chloride 0.9% IV 75 mls/hr .[id number] MAY Administration Sodium Chloride 1,000 mls @ 30 ml s/hr 12/17/19 12:00 12/17/19 11:56 Sodium Chloride 0.9% IV 12/18/19 11:59 30 mls/hr .Q24H MAY Administration Pantoprazole Sodiu m 40 mg 12/16/19 02:00 12/17/19 05:53 Protonix IVP 40 mg Q12H MAY Administration PFSH Anesthesia PFSH: Medical History Colon polyps COPD (chronic obstructive pulmonary disease) History of abdominal aortic aneurysm Mixed hyperlipidemia Pulmonary nodules Surgical History (Updated 11/29/19 @ 13:54 by Mike Foster MD) History of back surgery History of colonoscopy History of elbow surgery History of esophagogastroduodenoscopy (EGD) Family History Other Cancer Diabetes Social History Smoking and tobacco status: current every day smoker Alcohol intake: current Alcohol intake frequency: holidays/special occasions only Household members: spouse Housing: House Data Anesthesia CBC & Chem 7: 12/17/19 05:35 12/17/19 05:35 Other Labs: Laboratory Results - last 48 hr 12/15/19 12/15/19 12/15/19 22:32 22:32 22:32 WBC 14.0 H RBC 2.94 L Hgb 9.6 L Hct 29.2 L MCV 99.3 H MCH 32.7 MCHC 32.9 RDW 15.2 H Plt Count 207 MPV 10.3 Neut % (Auto) 79.8 Lymph % (Auto) 8.7 [place] % (Auto) 7.7 Eos % (Auto) 1.6 Baso % (Auto) 0.2 Neut # (Auto) 11.2 H Lymph # (Auto) 1.2 [place] # (Auto) 1.1 H Eos # (Auto) 0.2 Baso # (Auto) 0.0 Nucleated RBC % (auto) 0 Nucleated RBCs # 0.0 PT 13.40 H INR 0.99 APTT 30.6 Specimen Type Sample Site ABG pH ABG pCO2 ABG pO2 ABG HCO3 ABG Base Excess Uche Test Hematocrit O2 Delivery Device FiO2 Terminal Clerk ID Sodium 135 L Potassium 4.3 Chloride 97 L Carbon Dioxide 23 Anion Gap 19.3 H BUN 30 H Creatinine 1.7 H Glucose 106 Calculated Osmolality 278 L Calcium 9.5 Phosphorus Magnesium 1.4 L Total Bilirubin 0.5 AST 12 ALT 18 Alkaline Phosphatase 78 Creatine Kinase 29 L Troponin I 6 Hour Troponin I Hi Sens Del Troponin T Gen 5 ng/L Troponin T Baseline Troponin T 120 Minute Delta Troponin T Total Protein 6.1 L Albumin 3.7 Globulin 2.4 Procalcitonin Urine Color Urine Appearance Urine pH Ur Specific [place] Urine Protein Urine Glucose (UA) Urine Ketones Urine Blood Urine Nitrate Urine Bilirubin Urine Urobilinogen Ur Leukocyte Esterase Urine RBC Urine WBC Ur Squamous Epith Cells Urine Bacteria Hyaline Casts Urine Mucus 12/15/19 12/15/19 12/16/19 22:32 22:40 00:30 WBC RBC Hgb Hct MCV MCH MCHC RDW Plt Count MPV Neut % (Auto) Lymph % (Auto) [place] % (Auto) Eos % (Auto) Baso % (Auto) Neut # (Auto) Lymph # (Auto) [place] # (Auto) Eos # (Auto) Baso # (Auto) Nucleated RBC % (auto) Nucleated RBCs # PT INR APTT Specimen Type Arterial Sample Site Brachial, right ABG pH 7.42 ABG pCO2 36.7 ABG pO2 67.0 L ABG HCO3 24.0 ABG Base Excess -0.2 Uche Test Pos Hematocrit 35.4 L O2 Delivery Device None FiO2 21.0 Terminal Clerk ID [email or web address] Sodium Potassium Chloride Carbon Dioxide Anion Gap BUN Creatinine Glucose Calculated Osmolality Calcium Phosphorus Magnesium Total Bilirubin AST ALT Alkaline Phosphatase Creatine Kinase Troponin I 6 Hour Troponin I Hi Sens Del Troponin T Gen 5 ng/L Troponin T Baseline 55 H Troponin T 120 Minute Delta Troponin T Total Protein Albumin Globulin Procalcitonin Urine Color Yellow Urine Appearance Clear Urine pH 5 Ur Specific [place] 1.010 Urine Protein Neg Urine Glucose (UA) Norm Urine Ketones Negative Urine Blood Neg Urine Nitrate Negative Urine Bilirubin Neg Urine Urobilinogen Norm Ur Leukocyte Esterase Negative Urine RBC Rare Urine WBC 0-4 H Ur Squamous Epith Cells 0-4 H Urine Bacteria Trace Hyaline Casts 0-4 H Urine Mucus Trace 12/16/19 12/16/19 12/16/19 00:40 00:40 06:30 WBC RBC Hgb Hct MCV MCH MCHC RDW Plt Count MPV Neut % (Auto) Lymph % (Auto) [place] % (Auto) Eos % (Auto) Baso % (Auto) Neut # (Auto) Lymph # (Auto) [place] # (Auto) Eos # (Auto) Baso # (Auto) Nucleated RBC % (auto) Nucleated RBCs # PT INR APTT Specimen Type Sample Site ABG pH ABG pCO2 ABG pO2 ABG HCO3 ABG Base Excess Uche Test Hematocrit O2 Delivery Device FiO2 Terminal Clerk ID Sodium Potassium Chloride Carbon Dioxide Anion Gap BUN Creatinine Glucose Calculated Osmolality Calcium Phosphorus Magnesium Total Bilirubin AST ALT Alkaline Phosphatase Creatine Kinase Troponin I 6 Hour Troponin I Hi Sens Del Troponin T Gen 5 ng/L 53 H Troponin T Baseline Troponin T 120 Minute 42.34 H Delta Troponin T -12.66 L Total Protein Albumin Globulin Procalcitonin 0.20 Urine Color Urine Appearance Urine pH Ur Specific [place] Urine Protein Urine Glucose (UA) Urine Ketones Urine Blood Urine Nitrate Urine Bilirubin Urine Urobilinogen Ur Leukocyte Esterase Urine RBC Urine WBC Ur Squamous Epith Cells Urine Bacteria Hyaline Casts Urine Mucus 12/16/19 12/16/19 12/16/19 06:38 06:38 06:38 WBC RBC Hgb 10.2 L Hct 32.2 L MCV MCH MCHC RDW Plt Count MPV Neut % (Auto) Lymph % (Auto) [place] % (Auto) Eos % (Auto) Baso % (Auto) Neut # (Auto) Lymph # (Auto) [place] # (Auto) Eos # (Auto) Baso # (Auto) Nucleated RBC % (auto) Nucleated RBCs # PT INR APTT Specimen Type Sample Site ABG pH ABG pCO2 ABG pO2 ABG HCO3 ABG Base Excess Uche Test Hematocrit O2 Delivery Device FiO2 Terminal Clerk ID Sodium Potassium Chloride Carbon Dioxide Anion Gap BUN Creatinine Glucose Calculated Osmolality Calcium Phosphorus 3.3 Magnesium 2.5 H Total Bilirubin AST ALT Alkaline Phosphatase Creatine Kinase Troponin I 6 Hour Cancelled Troponin I Hi Sens Del Cancelled Troponin T Gen 5 ng/L Troponin T Baseline Troponin T 120 Minute Delta Troponin T Total Protein Albumin Globulin Procalcitonin Urine Color Urine Appearance Urine pH Ur Specific [place] Urine Protein Urine Glucose (UA) Urine Ketones Urine Blood Urine Nitrate Urine Bilirubin Urine Urobilinogen Ur Leukocyte Esterase Urine RBC Urine WBC Ur Squamous Epith Cells Urine Bacteria Hyaline Casts Urine Mucus 12/16/19 12/16/19 12/17/19 13:42 20:20 05:35 WBC 12.3 H RBC 3.10 L Hgb 11.1 L 10.4 L 10.1 L Hct 36.1 L 31.7 L 31.5 L MCV 101.6 H MCH 32.6 MCHC 32.1 RDW 15.6 H Plt Count 218 MPV 10.4 Neut % (Auto) 71.1 Lymph % (Auto) 9.8 [place] % (Auto) 17.1 Eos % (Auto) 0.9 Baso % (Auto) 0.2 Neut # (Auto) 8.8 H Lymph # (Auto) 1.2 [place] # (Auto) 2.1 H Eos # (Auto) 0.1 Baso # (Auto) 0.0 Nucleated RBC % (auto) 0 Nucleated RBCs # 0.0 PT INR APTT Specimen Type Sample Site ABG pH ABG pCO2 ABG pO2 ABG HCO3 ABG Base Excess Uche Test Hematocrit O2 Delivery Device FiO2 Terminal Clerk ID Sodium Potassium Chloride Carbon Dioxide Anion Gap BUN Creatinine Glucose Calculated Osmolality Calcium Phosphorus Magnesium Total Bilirubin AST ALT Alkaline Phosphatase Creatine Kinase Troponin I 6 Hour Troponin I Hi Sens Del Troponin T Gen 5 ng/L Troponin T Baseline Troponin T 120 Minute Delta Troponin T Total Protein Albumin Globulin Procalcitonin Urine Color Urine Appearance Urine pH Ur Specific [place] Urine Protein Urine Glucose (UA) Urine Ketones Urine Blood Urine Nitrate Urine Bilirubin Urine Urobilinogen Ur Leukocyte Esterase Urine RBC Urine WBC Ur Squamous Epith Cells Urine Bacteria Hyaline Casts Urine Mucus 12/17/19 05:35 WBC RBC Hgb Hct MCV MCH MCHC RDW Plt Count MPV Neut % (Auto) Lymph % (Auto) [place] % (Auto) Eos % (Auto) Baso % (Auto) Neut # (Auto) Lymph # (Auto) [place] # (Auto) Eos # (Auto) Baso # (Auto) Nucleated RBC % (auto) Nucleated RBCs # PT INR APTT Specimen Type Sample Site ABG pH ABG pCO2 ABG pO2 ABG HCO3 ABG Base Excess Uche Test Hematocrit O2 Delivery Device FiO2 Terminal Clerk ID Sodium 138 Potassium 4.5 Chloride 102 Carbon Dioxide 21 L Anion Gap 19.5 H BUN 29 H Creatinine 1.6 H Glucose 109 Calculated Osmolality 284 L Calcium 9.9 Phosphorus Magnesium Total Bilirubin AST ALT Alkaline Phosphatase Creatine Kinase Troponin I 6 Hour Troponin I Hi Sens Del Troponin T Gen 5 ng/L Troponin T Baseline Troponin T 120 Minute Delta Troponin T Total Protein Albumin Globulin Procalcitonin Urine Color Urine Appearance Urine pH Ur Specific [place] Urine Protein Urine Glucose (UA) Urine Ketones Urine Blood Urine Nitrate Urine Bilirubin Urine Urobilinogen Ur Leukocyte Esterase Urine RBC Urine WBC Ur Squamous Epith Cells Urine Bacteria Hyaline Casts Urine Mucus Cardiac Studies: No Data to Display
--- NOTE | 2019-12-17 12:36 | SUR.PHASEI ---
1230 PATIENT TO PACU AT THIS TIME. NO DISTRESS. RR EVEN AND UNLABORED. PLACED ON 3L NC, SPO2 93%.
--- NOTE | 2019-12-17 12:53 | SUR.PHASEI ---
1241 PATIENT TO MED SURG VIA GURPURYEAR. NO DISTRESS. DENIES PAIN. TOLERATING ICE CHIPS.
--- NOTE | 2019-12-17 13:08 | P.PN_ITS ---
Subjective Subjective: Interval history: He is doing okay after his procedure. Complains that he is hungry and requests for a diet to be started. Vitals/I&O/Wt Last Vital Signs Temp 98.6 F 12/17/19 12:45 Pulse 76 12/17/19 12:55 Resp 16 12/17/19 12:45 BP 103/64 12/17/19 12:55 Pulse Ox 94 12/17/19 12:45 12/16/19 12/17/19 12/17/19 22:59 06:59 14:59 Intake Total 1000 / 1000 0 / 1000 1000 / 1000 Output Total 325 / 725 300 / 1025 400 / 400 Balance 675 / 275 -300 / -25 600 / 600 Weight last 48 hrs Weight 84.368 kg Physical Exam Const: COMMON NORMALS: no acute distress and patient oriented x3 OTHER: Awake, alert, feeling comfortable. Pleasant, conversant gentleman. HENMT: COMMON NORMALS: oropharynx normal Neck/C-Spine: COMMON NORMALS: no JVD Resp: COMMON NORMALS: normal respiratory effort and clear to auscultation bilaterally AUSCULTATION: clear to auscultation bilaterally Cardio: COMMON NORMALS: no JVD, regular rhythm, S1 normal heart sound present, S2 normal heart sound present and No murmurs present (Cardio) RHYTHM: regular rhythm HEART SOUNDS: S1 normal heart sound present and S2 normal heart sound present GI: COMMON NORMALS: Normal to inspection, nondistended, normoactive bowel sounds present, Soft to palpation and non-tender PALPATION: Yes Soft to palpation Extremity: COMMON NORMALS: no joint enlargement and no pedal edema Neuro: COMMON NORMALS: patient oriented x3 and moves all extremities Skin: COMMON NORMALS: no rashes or lesions noted GENERAL SKIN EXAM: no rashes or lesions noted Data : 12/17/19 05:35 12/17/19 05:35 A&P Assessment and plan (1) Acute GI bleeding: Status post EGD this morning. Noted to have an IV esophageal diverticulum, but otherwise no active bleeding or source of bleeding identified. So far hemoglobin appears stable at 10.1. He reports he had a colonoscopy about 5 years ago at which time some polyps were found. He denies fresh blood. He does state have his stools were dark/black-colored. He asked whether he could return home today. Discussed with him that we would want to monitor his blood counts through the night, recheck hemoglobin in the morning. He denies taking any aspirin, blood thinners or NSAIDs at home. We would continue PPI twice a day as discussed with her primary care provider, and if everything is stable he could then follow-up with PCP in office for recheck hemoglobin, and further assessment and management. Discussed with him potentially that if there are signs of continuing/ongoing bleeding, he may at that point need referral for additional diagnostic evaluation, possibly deep enteroscopy or capsule endoscopy, likely in [place] as these procedures are not available here. He verbalized understanding and agreement. He is agreeable to staying overnight to monitor his hemoglobin with planned discharge tomorrow. Continue Protonix IV Repeat CBC tomorrow CLD Status: Acute (2) Anemia: Acute on chronic anemia. Iron saturation recently done was normal, but in the face of an elevated ferritin. 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 Clinically he is doing well. Appears there may be also degree of chronic underlying interstitial lung disease, possibly related to his abdomen condition. May benefit from additional follow-up with pulmonology if he is not already. Status: Acute Additional A&P Information Pulmonary nodules: This may be part of the overall reticulonodular pattern, but may need additional reassessment with CT for follow-up to exclude increases in size. Acute kidney injury superimposed on chronic to the kidney disease. Improving. COPD, as needed nebulized treatments SCDs for DVT prophylaxis secondary to GI bleeding Full code Attestations Medical Necessity Statement*: Continue admission for assessment of management of GI bleeding. 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
[2019-12-17] MEDS: sodium chloride 0.9% 250 ML IV (19:43)
[2019-12-17] MEDS: ipratropium-albuterol 3 mL Neb INHALATION (19:59)
[2019-12-17] MEDS: atorvastatin 40 mg Tablet PO (22:01)
[2019-12-17 22:50] LABS: Hemoglobin 6.9 g/dL (11.7-16.6)
[2019-12-18] VITALS (22 sets, daily range): BP systolic 91–149; BP diastolic 52–75; PULSE 63–93; RESP 16–20; TEMP 36.3–37.1; O2SAT 90–96
[2019-12-18] MEDS: ipratropium-albuterol 3 mL Neb INHALATION ×3 (03:11→14:47)
[2019-12-18] MEDS: sodium chloride 0.9% (100 ml) 100 ML 10 ML (04:05)
[2019-12-18] MEDS: pantoprazole 40 mg SDV IVP (08:43)
[2019-12-18 12:04] LABS: Basophils % 0.3 %; Eosinophils # 0.1 10^3/uL (0.0-0.8); Hematocrit 33.3 % (42.0-52.0); Lymphocytes # 0.7 10^3/uL (0.8-4.8); Lymphocytes % 7.6 %; Mean Corpuscular HGB Conc 32.4 g/dL (30.0-36.0); Mean Corpuscular Hemoglobin 30.9 pg (28.0-34.0); Mean Corpuscular Volume 95.4 fL (80-94); Mean Platelet Volume 11.2 fL (7.4-10.4); Monocytes # 2.2 10^3/uL (0.2-0.9); Monocytes % 23.9 %; Neutrophils % 66.5 %; Nucleated Red Blood Cells % 0 %; Platelet Count 252 10^3/cmm (130-400); Red Blood Count 3.49 10^6/uL (4.1-5.3); Red Cell Distribution Width 15.6 % (12.1-15.1)
[2019-12-18 12:16] LABS: Hemoglobin 10.8 g/dL (11.7-16.6)
[2019-12-18 12:27] LABS: Anion Gap 18.2 (5-19); Blood Urea Nitrogen 22 mg/dL (8-23); Calcium 9.1 mg/dL (8.5-10.5); Carbon Dioxide 22 mmol/L (22-29); Chloride 102 mmol/L (98-107); Glucose 138 mg/dL (65-115); Osmolality Calculated 285 mOsm/kg (285-295); Potassium 4.2 mmol/L (3.5-5.1); Sodium 138 mmol/L (136-145)
[2019-12-18] MEDS: nicotine 21 mg Patch 1 PATCH TRANSDERMA (14:35)
--- NOTE | 2019-12-18 14:53 | PC.NURSE ---
PT TO BE TRANSFERRED TO [facility] IN [place], [place]. REPORT GIVEN TO JAMILA TAPIA RN
--- NOTE | 2019-12-18 17:04 | PC.NURSE ---
1602 patient left facility via [facility] to [facility]
--- NOTE | 2019-12-18 18:36 | PM.TDS ---
Transfer Summary Providers Date of Admission: 12/16/19 00:50 Date of Discharge: 12/18/19 Attending Provider at Admission: Nando Platt Attending Provider at Transfer: Hemal Gamble Primary Care Provider: Mike Foster MD Anticipated Date of Transfer: Anticipated date of transfer: 12/18/19 Receiving Facility & Provider: Receiving Provider: [] Receiving facility: [] Diagnoses at Discharge Discharge Diagnosis (1) Acute GI bleeding: Status: Acute (2) Anemia: Status: Acute Qualifiers: Anemia type: other cause Other causes of anemia: other cause, not classified Qualified Code(s): D64.89 - Other specified anemias (3) Elevated troponin: Status: Acute (4) Pneumonia: Status: Acute Reason for Visit Reason for Visit: Reason For Visit: WEAKNESS, MELENA, DYSPNEA Hospital Course Hospital Course: Very pleasant 74-year-old gentleman with history of rheumatoid arthritis, COPD, chronic kidney disease, AAA status post aortic stent, peripheral neuropathy, was admitted after presenting on 12/15 with persistent black tarry stools, generalized weakness, with noted anemia hemoglobin 9.6, worse usual is 10-11, with multiple dark stools in the hospital, on presentation on CT scan in the chest portion noted with multiple areas of nodular interstitial disease which are chronic, also with larger new 25 mm appearing lesion, and possibly rounded atelectasis, but could not exclude pneumonia, or even possible malignancy for which will need follow-up imaging, but in the intervening time was started empirically on Levaquin. Mild troponin elevation on presentation thought to be secondary to demand ischemia, without any chest pain, suggestion of acute [place]. He received IV hydration, replacement of hypomagnesemia, and hemodynamic status and hemoglobin were monitored. Despite temperature of 99 9 at home on Tuesday, as well as possibility of pneumonia, his suspicion of COVID-19 was very low. He has been self isolating per discussion with him at home for the past 3 months on behest of his children, as well as his who is chronically ill with COPD and on oxygen. He says he is not left home at all, and he has been getting his groceries delivered by his children who would leave them outside, and the bags would all be disinfected prior to taking them in. He has been afebrile while in the hospital, and has not required any oxygen support. He is empirically continued on Levaquin at this time, and likely will need follow-up, possibly with pulmonology after discharge for additional evaluation of the chronic lung findings with acute worsening. With regards to acute blood loss anemia and recurrent black stools he was evaluated by EGD by his primary care provider on 12/16 with finding of perhaps small esophageal diverticulosis, multiple regain the stomach, but overall no active bleeding, and no suspicious source of bleeding. On the evening after the EGD her hemoglobin was rechecked, and was down to 6.9 necessitating blood transfusion, of which he received 2 units of PRBC. He does appear to have responded well with hemoglobin up to 10.8 this morning. Still again with dark stools this morning. He does report having a colonoscopy about 6 years ago which had shown some polyps. Due to recurrent GI bleeding without identified source on upper endoscopy, and despite not being on any antiplatelets or anticoagulation, as well as maintained on chronic twice daily PPI, per discussion with his PCP as well as with him decision was made for him to be closer evaluated on inpatient basis by gastroenterology, possibly with deep enteroscopy or capsule endoscopy, and likely with little additional benefit of trying to perform colonoscopy here beforehand, and he was kindly accepted for additional evaluation and care over at [facility]. His condition, as well as assessments and treatments done during his hospitalization were discussed in detail with both hospitalist team with Dr. Glass as well as gastroenterology Dr. [place]. Physical Exam Const: COMMON NORMALS: no acute distress and patient oriented x3 OTHER: Awake, alert, feeling comfortable. Pleasant, conversant gentleman. HENMT: COMMON NORMALS: oropharynx normal Neck/C-Spine: COMMON NORMALS: no JVD Resp: COMMON NORMALS: normal respiratory effort and clear to auscultation bilaterally AUSCULTATION: clear to auscultation bilaterally Cardio: COMMON NORMALS: no JVD, regular rhythm, S1 normal heart sound present, S2 normal heart sound present and No murmurs present (Cardio) RHYTHM: regular rhythm HEART SOUNDS: S1 normal heart sound present and S2 normal heart sound present GI: COMMON NORMALS: Normal to inspection, nondistended, normoactive bowel sounds present, Soft to palpation and non-tender PALPATION: Yes Soft to palpation Extremity: COMMON NORMALS: no joint enlargement and no pedal edema Neuro: COMMON NORMALS: patient oriented x3 and moves all extremities Skin: COMMON NORMALS: no rashes or lesions noted GENERAL SKIN EXAM: no rashes or lesions noted TS Data Data Completed and Pending: Completed Studies During Hospitalization Category Date Time Status CT abdomen pelvis w con* [id number] Stat Cat Scan 12/15/19 22:14 Completed XR chest 1V vinicio ble [id number] Stat Exams 12/16/19 00:12 Completed Labs from last 24 hours 12/18/19 12/18/19 12/17/19 11:29 11:29 19:50 WBC 9.0 RBC 3.49 L Hgb 10.8 L D 6.9 L D Hct 33.3 L D 21.0 L D MCV 95.4 H MCH 30.9 MCHC 32.4 RDW 15.6 H Plt Count 252 MPV 11.2 H Neut % (Auto) 66.5 Lymph % (Auto) 7.6 [place] % (Auto) 23.9 Eos % (Auto) 1.0 Baso % (Auto) 0.3 Neut # (Auto) 6.0 Lymph # (Auto) 0.7 L [place] # (Auto) 2.2 H Eos # (Auto) 0.1 Baso # (Auto) 0.0 Nucleated RBC % (a uto) 0 Nucleated RBCs # 0.0 Sodium 138 Potassium 4.2 Chloride 102 Carbon Dioxide 22 Anion Gap 18.2 BUN 22 Creatinine 1.5 H Glucose 138 H Calculated Osmolal ity 285 Calcium 9.1 Blood Type Rho(D) Type Antibody Screen Crossmatch 12/16/19 06:38 WBC RBC Hgb Hct MCV MCH MCHC RDW Plt Count MPV Neut % (Auto) Lymph % (Auto) [place] % (Auto) Eos % (Auto) Baso % (Auto) Neut # (Auto) Lymph # (Auto) [place] # (Auto) Eos # (Auto) Baso # (Auto) Nucleated RBC % (a uto) Nucleated RBCs # Sodium Potassium Chloride Carbon Dioxide Anion Gap BUN Creatinine Glucose Calculated Osmolal ity Calcium Blood Type A Positive Rho(D) Type Positive Antibody Screen Negative Crossmatch See Detail Vitals: Last Vital Signs Temp 98.1 F 12/18/19 17:07 Pulse 68 12/18/19 17:07 Resp 18 12/18/19 17:07 BP 116/72 12/18/19 17:07 Pulse Ox 95 12/18/19 17:07 TS Medications Medications Home Medications folic acid 1 mg tablet 1 mg PO DAILY #30 tab 09/10/19 [Rx Confirmed 11/29/19] gabapentin 300 mg capsule 300 mg PO BID #60 cap 09/10/19 [Rx Confirmed 11/29/19] pantoprazole 40 mg tablet,delayed release 40 mg PO BID #60 tab 09/10/19 [Rx Confirmed 11/29/19] tizanidine 4 mg tablet 4 mg PO Q6H PRN #90 tab 09/10/19 [Rx Confirmed 11/29/19] ipratropium bromide 42 mcg (0.06 %) nasal spray 1 spray INTRANASAL TID #15 ml 10/12/19 [Rx Confirmed 11/29/19] Discharge Plan Discharge Patient Disposition: Xfer Other Condition: Stable Prescriptions: No Action pantoprazole [Protonix] 40 mg tablet,delayed release (DR/EC) 40 mg PO BID Qty: 60 RF: 0 tizanidine 4 mg tablet 4 mg PO Q6H PRN (Reason: muscle spasticity) Qty: 90 RF: 0 folic acid 1 mg tablet 1 mg PO DAILY Qty: 30 RF: 3 gabapentin 300 mg capsule 300 mg PO BID Qty: 60 RF: 3 ipratropium bromide 42 mcg (0.06 %) spray,non-aerosol 1 spray INTRANASAL TID Qty: 15 RF: 5 Discharge Date/Time: 12/18/19 16:02 Transfer Attestations Time Spent in Transfer Care*: greater than 30 min Quality Metrics Clinical Quality Measures: During this hospital stay, did patient experience: None Coding Level of Care Code 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
== END 2019-12-18 16:02 | disposition short-term general hospital (02) | DRG 377 ==
LOC: ER 12-16 01:11 → MEDSURG 12-16 03:58
PROVIDERS: Internal Medicine; Admitting Provider Internal Medicine; Emergency Provider Emergency Medicine; Family Provider Internal Medicine; PCP Internal Medicine; Visit Provider Internal Medicine
PROC: 0DJ08ZZ Inspection of Upper Intestinal Tract, Via Natural or Artificial Opening Endoscopic (ICD-10-PCS; CPT 43235; principal; 2019-12-17 11:30)
DX: K92.2 Gastrointestinal hemorrhage, unspecified (principal); J18.9 Pneumonia, unspecified organism; N17.9 Acute kidney failure, unspecified; Q39.6 Congenital diverticulum of esophagus; M06.9 Rheumatoid arthritis, unspecified; J44.9 Chronic obstructive pulmonary disease, unspecified; N18.9 Chronic kidney disease, unspecified; G62.9 Polyneuropathy, unspecified; D64.9 Anemia, unspecified; Z86.010 Personal history of colon polyps; E78.2 Mixed hyperlipidemia; R91.8 Other nonspecific abnormal finding of lung field; F17.210 Nicotine dependence, cigarettes, uncomplicated; Z88.0 Allergy status to penicillin; E83.42 Hypomagnesemia; K44.9 Diaphragmatic hernia without obstruction or gangrene
CPT/HCPCS: 12345; 36415; 36430; 36600; 43235; 71045; 74177; 80048; 80053; 81001; 82550; 82803; 83735; 84100; 84145; 84484; 85014; 85018; 85025; 85610; 85730; 86850; 86900; 86920; 93005; 94640; 94762; 96375; 99284; A9270; C9113; J1956; J2704; J3475; J7030; J7050; P9016; Q9967

== ENCOUNTER → 2019-12-27 15:18 | Outpatient (BNVA) | payer MEDICARE, MEDICAID, SELFPAY | PROVIDERS: Family Provider Internal Medicine; PCP Internal Medicine; Visit Provider Internal Medicine | DX: Z72.0 Tobacco use (principal); D50.0 Iron deficiency anemia secondary to blood loss (chronic); M06.9 Rheumatoid arthritis, unspecified; J44.9 Chronic obstructive pulmonary disease, unspecified | CPT/HCPCS: 85025 ==

== ENCOUNTER 2020-01-24 14:33 | Inpatient (IN) | payer MEDICARE, MEDICAID, SELFPAY ==
[2020-01-24] VITALS (7 sets, daily range): BP systolic 107–125; BP diastolic 61–70; PULSE 68–95; RESP 14–32; TEMP 36.2–37.2; O2SAT 93–97; BMI 25.8; BMI 25.7
--- NOTE | 2020-01-24 15:03 | XR_ITS ---
WS: [id number] PORTABLE CHEST HISTORY: cough COMPARISON: 12/16/2019 Increased consolidation at the LEFT lung base is new. Superimposed on changes of emphysema. No pleura l effusion or pneumothorax. Cardiac size: Normal. Mediastinum/Aorta: Mild atherosclerosis aorta. No osseous abnormality seen. XR/XR chest 1V portable [id number] IMPRESSION: New LEFT basilar pneumonia or pneumonitis. Chronic emphysema.
--- NOTE | 2020-01-24 15:12 | P.HP_ITS ---
Providers/Chief Complaint Primary Care Provider: Mike Foster MD Chief Complaint: abnormal labs History of Present Illness Gabino Lamb is a 74 year old male who presents to the hospital with history of shortness of breath, severe fatigue, cough productive of whitish sputum, low- grade temperatures worse in the last week but has been going on since the end of November. Some nausea and at least one episode of vomiting 3 days ago. No diarrhea, or significant abdominal pain. No history of COVID exposure but has not been tested. 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 Patient reports no blood in his stool, black tarry stool, hematemesis since discharge there. He reports no hemoptysis. He states he is on medication for rheumatoid arthritis, and typically receives infusions of Rituxan but has not had one in the last 3 months. He visited his physician earlier today, received some lab work and was called back for admission secondary to concern of possible pneumonia and elevated white blood cell count. He has had multiple tick bites as well, and when seen by his primary care provider doxycycline was going to be initiated. No calf tenderness. Review of Systems General: Reports: 10 or more systems reviewed and unremarkable except in HPI and below Const: Reports: fever(s), chills, body aches, change in appetite and malaise Eyes: Denies: change in vision ENMT: Denies: throat pain Card: Denies: chest pain Resp: Reports: dyspnea and productive cough GI: Denies: abdominal pain : Denies: flank pain Musc: Denies: neck pain Skin/Breast: Denies: rash Neuro: Denies: headache(s) Psych: Denies: anxiety or depression Endo: Denies: polyuria Demar/Lymph: Denies: easy bruising All/Imm: Denies: urticaria Medications/Allergies Home Medications Medication Instructions Recorded Confirmed Last Taken Type tizanidine 4 mg tablet 4 mg PO Q6H PRN #90 tab 09/10/19 01/24/20 Unknown Rx ipratropium bromide 42 mcg (0.06 1 spray INTRANASAL TID #15 ml 10/12/19 01/24/20 Unknown Rx %) nasal spray celecoxib 200 mg capsule mg PO 12/27/19 01/24/20 Unknown History esomeprazole magnesium 40 mg ea PO 12/27/19 01/24/20 Unknown History capsule,delayed release fluticasone furoate 200 ea INHALATION 12/27/19 01/24/20 Unknown History mcg-vilanterol 25 mcg/dose inhalation powder ropinirole 2 mg tablet ea PO 12/27/19 01/24/20 Unknown History varenicline 0.5 mg (11)-1 mg (42) See Rx Instructions PO PER PKG DIR 12/27/19 01/24/20 Unknown Rx tablets in a dose pack #53 each cetirizine 10 mg tablet 10 mg PO DAILY #30 tab 01/08/20 01/24/20 Unknown Rx folic acid 1 mg tablet See Rx Instructions .ROUTE 01/08/20 01/24/20 Unknown Rx .COMPLEX #30 tab gabapentin 300 mg capsule 300 mg PO BID #60 cap 01/08/20 01/24/20 Unknown Rx doxycycline hyclate 100 mg capsule 100 mg PO BID #20 cap 01/24/20 01/24/20 Unknown Rx hydrocodone 5 mg-acetaminophen 325 1 tab PO Q8H PRN 30 Days #60 tab 01/24/20 01/24/20 Unknown Rx mg tablet Allergies Allergy/AdvReac Type Severity Reaction Status Date / Time Penicillins Allergy unknown Verified 01/24/20 11:32 PFSH Acute PFSH: Medical History (Updated 01/24/20 @ 15:27 by Slim Dixon MD) Chronic back pain Colon polyps COPD (chronic obstructive pulmonary disease) Essential (primary) hypertension GERD (gastroesophageal reflux disease) History of abdominal aortic aneurysm Mixed hyperlipidemia Neuropathy Personal history of arterial venous malformation (AVM) Pulmonary nodules Restless leg syndrome Rheumatic arteritis Surgical History History of back surgery History of colonoscopy History of elbow surgery History of esophagogastroduodenoscopy (EGD) Family History Other Cancer Diabetes Social History Smoking and tobacco status: current every day smoker Alcohol intake: current Alcohol intake frequency: holidays/special occasions only Household members: spouse Housing: House History of recent travel: No Vitals/I&O/Wt Last Vital Signs Temp 97.1 F L 06/25/20 14:43 Pulse 68 01/24/20 14:43 Resp 14 01/24/20 14:43 BP 107/63 01/24/20 14:43 Pulse Ox 95 01/24/20 14:43 Weight last 48 hrs Weight 81.647 kg Physical Exam Narrative: EXAM NARRATIVE: General exam demonstrates an elderly white male, who appears tired but is in no distress HEENT: Pupils equally round. Oropharynx clear. Neck is supple no lymphadenopathy or thyromegaly Cardiovascular regular rate and rhythm without murmur, no S3 or S4 Lungs clear but diminished bilaterally. No wheezing. Abdomen is soft nontender with positive bowel sounds. No obvious organomegaly was deferred Extremities no cyanosis clubbing or edema, cap refill brisk Skin no rash Neuro no focal deficits Data Other data: White blood cell count 24.2, hemoglobin 9.5, platelet count 298,000, left shift is noted. Sodium 136, potassium 5.0, chloride 102, bicarb 21, BUN 28, creatinine 1.5, glucose 280, LFTs normal, albumin 3.3 Will order a blood culture, lactate, TSH, sedimentation rate, CRP, pro calcitonin, chest x-ray, sputum culture, tick panel A&P Assessment and plan (1) Cough: Worsening cough over the last 3 weeks. Concern with his dyspnea that he may have pneumonia. Primary care provider wanted admission to the hospital which was arranged. He does have significant fatigue, history of fever at home. Check chest x-ray, sputum culture, blood culture Will await chest x-ray prior to initiation of IV antibiotics to determine if bronchitis or pneumonia is present. Combivent every 4 hours COVID testing, appropriate isolation. Doubt sepsis but will check lactate. Check procalcitonin. Status: Acute (2) Dyspnea: See above Status: Acute (3) Leukocytosis: See above Status: Acute (4) Tick bite: Continue doxycycline. Send tick panel. Status: Acute (5) Fatigue: Check sedimentation rate, CRP, TSH Status: Acute Additional A&P Information History of anemia with recent therapeutic intervention to artery vein malformation of the colon secondary to GI bleeding. Hemoglobin appears stable Rheumatoid arthritis with last Rituxan infusion 3 months ago Chronic back pain Restless leg syndrome GERD History of hypertension COPD with no evidence of exacerbation Multiple other medical problems as outlined in past medical history Full code SCDs for DVT prophylaxis. No anticoagulation secondary to recent GI bleeding. Attestations Medical Necessity Statement*: Will need greater than 2 midnight stay concerning probable pneumonia, clinical diagnosis . Time Spent in Patient Care: Greater than 35 minutes Coding Level of Care Code Acute Intensive Care Medicine Specialist for [facility] Fwd Diagnoses Cough R05 Dyspnea R06.00 Leukocytosis D72.829 Tick bite W57.XXXA Fatigue R53.83
[2020-01-24 17:04] LABS: Procalcitonin 0.19 ng/mL (0-0.5); Thyroid Stimulating Hormone 0.04 uIU/mL (0.27-4.20)
[2020-01-24 17:06] LABS: Erythrocyte Sedimentation Rate 113 mm/hr (0-10)
[2020-01-24] MEDS: sodium chloride 0.9% 1,000 ML 75 ML IV (17:09)
[2020-01-24] MEDS: levofloxacin-dextrose 5 % 750 MG/150 ML PREMIX 100 MG IV (17:13)
[2020-01-24 17:15] LABS: C Reactive Protein 82.5 mg/L (0.0-4.9); Lactate Dehydrogenase 268 U/L (135-225)
[2020-01-24] MEDS: doxycycline 100 mg Tablet PO (17:15)
[2020-01-24] MEDS: gabapentin 300 mg Capsule PO (17:16)
[2020-01-24] MEDS: ropinirole 2 mg Tablet PO (20:22)
--- NOTE | 2020-01-24 20:43 | PC.NURSE ---
Password: green Patient was offered a bed bath and stated not tonight.
--- NOTE | 2020-01-24 20:52 | PC.NURSE ---
Pt resting in bed. Cough persists. Instructed patient to cough sputum into cup for culture. Pt verbalized understanding. No complaints of pain. Remains on room air at this time. Spoke with patients daughter via telephone after password in place. No further needs at this time. Urine sent to lab per orders.
[2020-01-24 21:48] LABS: Bilirubin Urine Neg (NEGATIVE); Blood Urine Neg (Negative); Glucose Urine UA Norm (Normal); Ketones Urine Negative (Negative); Leukocyte Esterase Urine Negative (Negative); Nitrate Urine Negative (Negative); Protein Urine Neg (Negative); Urine Appearance Clear (CLEAR); Urine Color Yellow (Yellow); Urobilinogen Urine 1 mg/dL (Negative); pH Urine 5 (5-7)
[2020-01-24 21:49] LABS: Add Urine Culture? No; Bacteria Urine TRACE; Mucus Urine 1+; RBC Urine 0-4 /hpf (0-2)
[2020-01-25] VITALS (15 sets, daily range): BP systolic 93–119; BP diastolic 56–67; PULSE 67–92; RESP 16–26; TEMP 36.8–37.1; O2SAT 94–96
[2020-01-25 05:01] LABS: Basophils # 0.1 10^3/uL (0.0-0.1); Basophils % 0.5 %; Eosinophils # 0.9 10^3/uL (0.0-0.8); Eosinophils % 3.4 %; Hematocrit 28.8 % (42.0-52.0); Hemoglobin 8.9 g/dL (11.7-16.6); Lymphocytes # 2.8 10^3/uL (0.8-4.8); Lymphocytes % 10.8 %; Mean Corpuscular HGB Conc 30.9 g/dL (30.0-36.0); Mean Corpuscular Hemoglobin 30.8 pg (28.0-34.0); Mean Corpuscular Volume 99.7 fL (80-94); Mean Platelet Volume 10.5 fL (7.4-10.4); Monocytes # 2.5 10^3/uL (0.2-0.9); Monocytes % 9.6 %; Neutrophils # 19.3 10^3/uL (1.8-7.7); Neutrophils % 73.6 %; Nucleated Red Blood Cells % 0 %; Platelet Count 298 10^3/cmm (130-400); Red Blood Count 2.89 10^6/uL (4.1-5.3); Red Cell Distribution Width 16.4 % (12.1-15.1); White Blood Count 26.2 10^3/uL (4.0-10.0)
[2020-01-25] MEDS: sodium chloride 0.9% 1,000 ML 75 ML IV ×2 (05:22→17:52)
[2020-01-25 05:38] LABS: Anion Gap 13.9 (5-19); Blood Urea Nitrogen 25 mg/dL (8-23); Calcium 9.5 mg/dL (8.5-10.5); Carbon Dioxide 22 mmol/L (22-29); Chloride 104 mmol/L (98-107); Glucose 128 mg/dL (65-115); Osmolality Calculated 278 mOsm/kg (285-295); Potassium 4.9 mmol/L (3.5-5.1); Sodium 135 mmol/L (136-145)
--- NOTE | 2020-01-25 05:44 | PC.NURSE ---
Pt stable during this shift. Applied 2 L NC due to pulse ox 85-87%. Remains 92-94% with O2. No complaints of pain. Urine and sputum specimens sent to lab. Resting well in bed. Denies any needs.
[2020-01-25] MEDS: gabapentin 300 mg Capsule PO ×2 (09:32→17:51)
[2020-01-25] MEDS: losartan 50 mg Tablet PO (09:32)
[2020-01-25] MEDS: doxycycline 100 mg Tablet PO ×2 (09:32→17:50)
[2020-01-25] MEDS: pantoprazole DR 40 mg Tablet PO (09:32)
--- NOTE | 2020-01-25 11:03 | PC.CHAP ---
Pastoral Care Encounter/Spiritual Assessment Type of Contact [] Declined piping supervisor visit [] Patient/Family/Request visit [] Outpatient visit [] Follow-up visit [] Physician referral [] Code/Alert [x] Routine visit [] Staff referral [] Actively dying [] Patient sleeping [] Family support [] [] Out of room [] Palliative care [] [] Receiving care in room [] Pre-surgical visit [] Trauma [] Long length of stay [] ICU visit [x] Other: Isolated Relational/Emotional Strength [] Patient feels connected with others/family/visitors/staff [] Distress [] Loneliness/isolation [] Abandonment Spirituality of Patient [] Person of Beatrice [] Attends Islam of their Beatrice [] Believes in Prayer [] Reads Bible or Hoahaoism materials [] There are Spiritual issues to be addressed Cane Stripper Interventions [] Prayer [] Active listening [] Non-anxious presence [] Spiritual/emotional support [] Crisis/trauma care [] Spiritual counseling [] Bereavement support [] Provided bereavement packet [] Provided Bible/devotional materials [] Provided toy/stuffed animal, coloring book to patient or family member [] Provided Communion [] Anointing/Raritan [] Salvation [x] Completed spiritual assessment [] Other: Impact on Illness or Injury [] Angry [] Fearful [] Anxious [] Often cries [] Exhaustion [] Unable to work [] Unable to attend alevism [] Unable to walk/stand [] Unable to read [] Unable to drive [] Unable to eat/drink [] Unable to sleep [] Unable to be with family [] Patient intubated [] Other: Summary Time spent with patient
--- NOTE | 2020-01-25 12:29 | PM.PN ---
Subjective Subjective: Interval history: Gabino no chills overnight. Still short of breath and coughing. Medications: Reviewed: Yes Vitals/I&O/Wt Last Vital Signs Temp 98.8 F 01/25/20 04:00 Pulse 91 01/25/20 09:23 Resp 17 01/25/20 09:23 BP 103/67 01/25/20 04:00 Pulse Ox 96 01/25/20 09:23 01/24/20 01/25/20 01/25/20 22:59 06:59 14:59 Intake Total 400 / 400 766.25 / 1166.25 Output Total 300 / 300 875 / 1175 Balance 100 / 100 -108.75 / -8.75 Weight last 48 hrs Weight 80.603 kg Weight 81.284 kg Weight 81.647 kg Physical Exam Narrative: EXAM NARRATIVE: General exam demonstrates no apparent distress Cardiovascular regular rate and rhythm without murmur, no S3 or S4 Lungs clear but diminished bilaterally. No wheezing. Abdomen is soft nontender with positive bowel sounds. No obvious organomegaly Extremities without cyanosis clubbing or edema Data : 01/25/20 04:30 01/25/20 04:30 Micro: Microbiology 01/25/20 04:35 Gram Stain - Final Sputum - Expectorated Sputum 01/24/20 16:05 Blood Culture - Preliminary Blood SPECIMEN COLLECTED 01/24/20 16:08 Blood Culture - Preliminary Blood SPECIMEN COLLECTED A&P Assessment and plan (1) Cough: Worsening cough over the last 3 weeks. Concern with his dyspnea that he may have pneumonia. Primary care provider wanted admission to the hospital which was arranged. He does have significant fatigue, history of fever at home. Chest x-ray demonstrated pneumonia. Levaquin initiated. Combivent every 4 hours COVID testing, appropriate isolation. Awaiting results No evidence of sepsis Status: Acute (2) Dyspnea: See above Status: Acute (3) Leukocytosis: Still significantly elevated but early in course of illness Status: Acute (4) Tick bite: Continue doxycycline. Send tick panel. Status: Acute (5) Fatigue: TSH significantly diminished. 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 Hemoglobin appears stable Rheumatoid arthritis with last Rituxan infusion 3 months ago Chronic back pain Restless leg syndrome GERD History of hypertension COPD with no evidence of exacerbation Multiple other medical problems as outlined in past medical history Full code SCDs for DVT prophylaxis. No anticoagulation secondary to recent GI bleeding. Reduce fluids Attestations Medical Necessity Statement*: Needs continued hospitalization for IV antibiotics secondary to pneumonia. Coding Level of Care Code Acute Hot Plate Plywood Press Operator for [facility] Fwd Diagnoses Cough R05 Dyspnea R06.00 Leukocytosis D72.829 Tick bite W57.XXXA Fatigue R53.83
[2020-01-25 13:31] LABS: Lyme AB Screen <0.90 index
[2020-01-25 13:44] LABS: Free T4 Free Thyroxine 1.47 ng/dL (0.82-1.77); T3 Free 2.9 PG/ML (2.0-4.4)
[2020-01-25 14:53] LABS: Coronavirus Lab Test PTC NOT DETECTED
[2020-01-25] MEDS: ropinirole 2 mg Tablet PO (20:45)
[2020-01-26] VITALS (16 sets, daily range): BP systolic 124–142; BP diastolic 68–83; PULSE 73–92; RESP 16–30; TEMP 36.6–37.1; O2SAT 90–94
[2020-01-26 06:00] LABS: Basophils # 0.1 10^3/uL (0.0-0.1); Basophils % 0.6 %; Eosinophils # 0.6 10^3/uL (0.0-0.8); Hematocrit 30.2 % (42.0-52.0); Hemoglobin 9.3 g/dL (11.7-16.6); Lymphocytes % 14.1 %; Mean Corpuscular HGB Conc 30.8 g/dL (30.0-36.0); Mean Corpuscular Hemoglobin 30.4 pg (28.0-34.0); Mean Corpuscular Volume 98.7 fL (80-94); Mean Platelet Volume 10.4 fL (7.4-10.4); Monocytes # 2.2 10^3/uL (0.2-0.9); Monocytes % 10.7 %; Neutrophils # 14.4 10^3/uL (1.8-7.7); Neutrophils % 68.8 %; Nucleated Red Blood Cells % 0 %; Platelet Count 318 10^3/cmm (130-400); Red Blood Count 3.06 10^6/uL (4.1-5.3); Red Cell Distribution Width 16.2 % (12.1-15.1); White Blood Count 20.9 10^3/uL (4.0-10.0)
[2020-01-26 06:34] LABS: Anion Gap 18.9 (5-19); Blood Urea Nitrogen 21 mg/dL (8-23); Calcium 10.1 mg/dL (8.5-10.5); Carbon Dioxide 22 mmol/L (22-29); Chloride 104 mmol/L (98-107); Glucose 110 mg/dL (65-115); Osmolality Calculated 287 mOsm/kg (285-295); Potassium 4.9 mmol/L (3.5-5.1); Sodium 140 mmol/L (136-145)
--- NOTE | 2020-01-26 07:34 | PC.NURSE ---
Initial Rounding Pt in right side lying position. Noted his been coughing non-productive cough. I have been coughing my head off since last night. Asked pt if he has any pain and he reported of chest pain from coughing hard all night. Rate pain of 6. Pt stated he has taken cough medicine at home. Will notify doctor. VS- 98.2, HR-92, BP-124/68, RR-29. Will ask doctor if we can order a cough medicine.
[2020-01-26] MEDS: pantoprazole DR 40 mg Tablet PO (09:35)
[2020-01-26] MEDS: losartan 50 mg Tablet PO (09:35)
[2020-01-26] MEDS: doxycycline 100 mg Tablet PO ×2 (09:35→17:07)
[2020-01-26] MEDS: gabapentin 300 mg Capsule PO ×2 (09:35→17:07)
--- NOTE | 2020-01-26 11:50 | P.PN_ITS ---
Subjective Subjective: Interval history: Gabino reports he feels better. Still coughing and would like something for this. No nausea. Feels stronger. Less short of breath. Medications: Reviewed: Yes Vitals/I&O/Wt Last Vital Signs Temp 98.7 F 01/26/20 08:01 Pulse 83 01/26/20 08:41 Resp 18 01/26/20 08:39 BP 124/68 01/26/20 09:35 Pulse Ox 92 01/26/20 08:39 01/25/20 01/26/20 01/26/20 22:59 06:59 14:59 Intake Total 1527.5 / 2577.5 240 / 2817.5 1118 / 1118 Output Total 700 / 1900 700 / 700 Balance 827.5 / 677.5 240 / 917.5 418 / 418 Weight last 48 hrs Weight 80.603 kg Weight 81.284 kg Weight 81.647 kg Physical Exam Narrative: EXAM NARRATIVE: General exam demonstrates no apparent distress, seems happier Cardiovascular regular rate and rhythm without murmur, no S3 or S4 Lungs clear but diminished bilaterally. No wheezing. Abdomen is soft nontender with positive bowel sounds. No obvious organomegaly Extremities without cyanosis clubbing or edema Data : 01/26/20 04:57 01/26/20 04:57 Micro: Microbiology 01/25/20 14:55 MRSA Culture - Final Nose 01/25/20 04:35 Gram Stain - Final Sputum - Expectorated Sputum Sputum Culture - Preliminary 01/24/20 16:05 Blood Culture - Preliminary Blood NEGATIVE TO DATE 01/24/20 16:08 Blood Culture - Preliminary Blood NEGATIVE TO DATE A&P Assessment and plan (1) Cough: Worsening cough over the last 3 weeks. Concern with his dyspnea that he may have pneumonia. Primary care provider wanted admission to the hospital [facility] was arranged. He does have significant fatigue, history of fever at home. Chest x-ray demonstrated pneumonia. Levaquin initiated. Combivent every 4 hours COVID testing negative No evidence of sepsis He appears to be clinically improving and his white blood cell count is decreasing. Continue Levaquin. Status: Acute (2) Dyspnea: See above Status: Acute (3) Leukocytosis: Improving Status: Acute (4) Tick bite: Continue doxycycline. Tick panel was sent and pending Status: Acute (5) Fatigue: TSH significantly diminished. 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 Hemoglobin appears stable Rheumatoid arthritis with last Rituxan infusion 3 months ago Chronic back pain Restless leg syndrome GERD History of hypertension COPD with no evidence of exacerbation Multiple other medical problems as outlined in past medical history Full code SCDs for DVT prophylaxis. No anticoagulation secondary to recent GI bleeding. Discontinue fluids at this time Repeat laboratory tomorrow Attestations Medical Necessity Statement*: Needs continued hospital stay for IV antibiotics secondary to pneumonia. Coding Level of Care Code Acute Naphthalene Operator for Chg Fwd Diagnoses Cough R05 Dyspnea R06.00 Leukocytosis D72.829 Tick bite W57.XXXA Fatigue R53.83
[2020-01-26] MEDS: nicotine 21 mg Patch 1 PATCH TRANSDERMA (13:08)
[2020-01-26] MEDS: sodium chloride 0.9% (100 ml) 100 ML (17:06)
[2020-01-26] MEDS: levofloxacin-dextrose 5 % 750 MG/150 ML PREMIX 100 MG IV (17:06)
[2020-01-26] MEDS: ropinirole 2 mg Tablet PO (20:51)
[2020-01-27] VITALS (8 sets, daily range): BP systolic 106–122; BP diastolic 71–80; PULSE 76–90; RESP 16–25; TEMP 36.7–37.2; O2SAT 91–95
--- NOTE | 2020-01-27 03:45 | PC.NURSE ---
PT HAS HAD AN UNEVENTFUL NIGHT. PT REQUESTED THIS NURSE BRING SOME COUGH SYRUP WHEN THEY ARE READY FOR BE. PT NEVER CALLED FOR NURSE. WILL CONTINUE TO MONITOR.
[2020-01-27 04:57] LABS: Basophils # 0.2 10^3/uL (0.0-0.1); Basophils % 0.9 %; Eosinophils # 0.5 10^3/uL (0.0-0.8); Hematocrit 30.4 % (42.0-52.0); Hemoglobin 9.6 g/dL (11.7-16.6); Lymphocytes # 2.5 10^3/uL (0.8-4.8); Lymphocytes % 15.3 %; Mean Corpuscular HGB Conc 31.6 g/dL (30.0-36.0); Mean Corpuscular Hemoglobin 30.7 pg (28.0-34.0); Mean Corpuscular Volume 97.1 fL (80-94); Mean Platelet Volume 10.4 fL (7.4-10.4); Monocytes % 11.8 %; Neutrophils # 10.7 10^3/uL (1.8-7.7); Neutrophils % 64.8 %; Nucleated Red Blood Cells % 0 %; Platelet Count 339 10^3/cmm (130-400); Red Blood Count 3.13 10^6/uL (4.1-5.3); Red Cell Distribution Width 16.1 % (12.1-15.1); White Blood Count 16.5 10^3/uL (4.0-10.0)
[2020-01-27] MEDS: guaiFENesin-dextromethorphan UDC 10 mL PO (05:52)
--- NOTE | 2020-01-27 06:40 | PC.NURSE ---
PT CALLED TO [facility] WANTING COUGH MEDICINE. I BROUGHT THE PT THE COUGH MEDICINE AND WAITED APPROXIMATELY 10 MINUTES UNTIL SYMPTOMS RELIEVED. WILL GIVE REPORT THE ONCOMING NURSE.
[2020-01-27] MEDS: nicotine 21 mg Patch 1 PATCH TRANSDERMA (09:02)
[2020-01-27] MEDS: doxycycline 100 mg Tablet PO (09:03)
[2020-01-27] MEDS: gabapentin 300 mg Capsule PO (09:03)
[2020-01-27] MEDS: pantoprazole DR 40 mg Tablet PO (09:03)
[2020-01-27] MEDS: losartan 50 mg Tablet PO (09:04)
--- NOTE | 2020-01-27 10:20 | PM.DCS ---
Discharge Providers Date of Admission: 01/24/20 15:03 Date of Discharge: January 27, 2020 Attending Provider at Admission: Slim Dixon MD Attending Provider at Discharge: Slim Dixon MD Primary Care Provider: Mike Foster MD Diagnoses at Discharge Discharge Diagnosis (1) Cough: Status: Acute Problem details: Improved (2) Dyspnea: Status: Acute Problem details: Secondary to pneumonia, resolved (3) Leukocytosis: Status: Acute Problem details: Improving (4) Tick bite: Status: Acute Problem details: Will finish doxycycline (5) Fatigue: Status: Acute Problem details: Improved Reason for Visit Reason for Visit: abnormal labs Hospital Course Hospital Course: Gabino is a 74-year-old white male who presented with cough, shortness of breath, severe fatigue. He had not had any fevers. White blood cell count was noted to be markedly elevated and his primary care providers office. Upon admission left lower lobe pneumonia was found. He was placed on Levaquin. Secondary to multiple recent tick bites he was given doxycycline p.o. and a tick panel was sent. While in the hospital he remained afebrile. He did not require oxygen. White blood cell decrease significantly from 26-16. He was feeling much better coughing less and less dyspneic. It was thought he could go home on oral Levaquin. He will continue doxycycline. Primary care provider will consider chest x-ray in 2 to 3 weeks for follow-up of pneumonia, follow-up of tick panel on blood work drawn here. Patient encouraged to stop smoking. Counseling occurred 3 to 5 minutes. His chlorthalidone was discontinued, Celebrex was discontinued secondary to some renal dysfunction. Methotrexate and other rheumatologic meds will be held secondary to diagnosis of pneumonia until okayed by his primary care provider. Losartan dose was decreased. Of note patient's blood pressures were well controlled in the hospital with the above changes. Physical Exam Narrative: EXAM NARRATIVE: General exam no apparent distress Cardiovascular regular rate and rhythm without murmur Lungs clear no wheezing or crackles Abdomen is soft nontender with positive bowel sounds Extremities no cyanosis clubbing or edema Discharge Data Data Completed and Pending: Completed Studies During Hospitalization Category Date Time Status XR chest 1V vinicio ble [id number] Urgent Exams 01/24/20 15:03 Completed Pending at discharge Category Date Time Status Blood Culture Sta t Lab 01/24/20 16:05 Results Sputum Culture an d Gram Stain Routi ne Lab 01/25/20 04:35 Results Tick Panel Urgent Lab 01/24/20 16:05 Results Labs from last 24 hours 01/27/20 04:22 WBC 16.5 H RBC 3.13 L Hgb 9.6 L Hct 30.4 L MCV 97.1 H MCH 30.7 MCHC 31.6 RDW 16.1 H Plt Count 339 MPV 10.4 Neut % (Auto) 64.8 Lymph % (Auto) 15.3 [place] % (Auto) 11.8 Eos % (Auto) 3.0 Baso % (Auto) 0.9 Neut # (Auto) 10.7 H Lymph # (Auto) 2.5 [place] # (Auto) 2.0 H Eos # (Auto) 0.5 Baso # (Auto) 0.2 H Nucleated RBC % (a uto) 0 Nucleated RBCs # 0.0 Vitals: Last Vital Signs Temp 98.9 F 01/27/20 09:22 Pulse 87 01/27/20 09:22 Resp 18 01/27/20 09:22 BP 121/80 01/27/20 09:22 Pulse Ox 93 01/27/20 09:22 Discharge Plan Discharge Patient Disposition: Home, Self-Care Condition: Stable Prescriptions: New losartan 50 mg Tablet 50 mg PO DAILY Qty: 30 RF: 0 levofloxacin [Levaquin] 750 mg tablet 750 mg PO DAILY 7 Days Qty: 7 RF: 0 Continued ropinirole 2 mg tablet 2 mg PO BEDTIME RF: 0 esomeprazole magnesium 40 mg capsule,delayed release(DR/EC) 40 mg PO DAILY RF: 0 Breo Ellipta 200-25 mcg/dose blister with device 1 inh INHALATION DAILY RF: 0 doxycycline hyclate 100 mg capsule 100 mg PO BID Qty: 20 RF: 0 hydrocodone-acetaminophen [[place]] 5-325 mg tablet 1 tab PO Q8H PRN (Reason: pain) 30 Days Qty: 60 RF: 0 tizanidine 4 mg tablet 4 mg PO Q6H PRN (Reason: muscle spasticity) Qty: 90 RF: 0 ipratropium bromide 42 mcg (0.06 %) spray,non-aerosol 1 spray INTRANASAL TID Qty: 15 RF: 5 folic acid 1 mg tablet See Rx Instructions .ROUTE .COMPLEX Qty: 30 RF: 3 gabapentin 300 mg capsule 300 mg PO BID Qty: 60 RF: 3 cetirizine 10 mg tablet 10 mg PO DAILY Qty: 30 RF: 6 Discontinued celecoxib 200 mg capsule 200 mg PO DAILY RF: 0 chlorthalidone 25 mg Tablet 25 mg PO DAILY RF: 0 methotrexate sodium 2.5 mg Tablet See Rx Instructions .ROUTE .COMPLEX RF: 0 losartan 100 mg Tablet 50 mg PO DAILY RF: 0 Discharge Orders: Discharge Order (Routine); Ordered 01/27/20 Ordered By: Slim Dixon Referrals: Mike Foster MD [Primary Care Provider] - 4-7 days (Repeat CBC on follow-up Chest x-ray PA and lateral 2 to 3 weeks follow-up of pneumonia) Discharge Diet: Cardiac Discharge Activity: Increase activity as tolerated Activity Restrictions/Additional Instructions: Take all medicine as prescribed Do not restart your methotrexate or rheumatologic medication at this time until okayed by your primary care provider or rib chopper Repeat chest x-ray 2 to 3 weeks for follow-up of pneumonia Your chlorthalidone has been discontinued and your losartan dose has been changed. Celebrex has been discontinued. This is secondary to your renal function and blood pressure and your primary care provider will address on follow-up. No smoking Discharge Attestations Time Spent in Discharge Care*: greater than 30 min Quality Metrics Clinical Quality Measures During this hospital stay, did patient experience: None Coding Level of Care Code Acute Public Relations Officer for [place] Fwd Diagnoses Cough R05 Dyspnea R06.00 Leukocytosis D72.829 Tick bite W57.XXXA Fatigue R53.83
--- NOTE | 2020-01-27 10:42 | PC.SOCIAL ---
IMM Update Pg2 of IMM given and explained to patient. Initialed, dated, and timed a copy and placed in chart as well.
--- NOTE | 2020-01-27 12:53 | PC.NURSE ---
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 Educated pt on new meds actions, dosing, timing and possible side effects. Educated pt on smoking cessation and pneumonia stoplight. Pt verbalizes understanding. Called [place] to [facility] per pt request. Notified Dr. Dixon on his Combivent inhaler and he is okay to put an order for it as well as a nicotine patch. Discharge papers provided to pt. [place] via wheelchair to their private vehicle.
[2020-01-29 17:10] LABS: RMSF IGG NOT DETECTED; RMSF IGM NOT DETECTED
[2020-01-29 17:40] LABS: E. Chaffeensis AB IGG <1:64; E. Chaffeensis AB IGM <1:20
== END 2020-01-27 13:16 | disposition home or self-care (01) | DRG 195 ==
LOC: ER 14:42 → CSU 15:44
PROVIDERS: Admitting Provider Internal Medicine; PCP Internal Medicine; Visit Provider Internal Medicine
DX: J18.9 Pneumonia, unspecified organism (principal); T14.8XXA Other injury of unspecified body region, initial encounter; X58.XXXA Exposure to other specified factors, initial encounter; G89.29 Other chronic pain; M54.9 Dorsalgia, unspecified; J44.9 Chronic obstructive pulmonary disease, unspecified; K21.9 Gastro-esophageal reflux disease without esophagitis; I10 Essential (primary) hypertension; G25.81 Restless legs syndrome; E78.2 Mixed hyperlipidemia; G62.9 Polyneuropathy, unspecified; F17.210 Nicotine dependence, cigarettes, uncomplicated
CPT/HCPCS: 12345; 36415; 71045; 80048; 80053; 81001; 83615; 84145; 84439; 84443; 84481; 85025; 85651; 86140; 86618; 86666; 86757; 87040; 87070; 87205; 87635; 87641; 94640; 99283; J1956; J3535; J7030

== ENCOUNTER → 2020-02-21 10:12 | Outpatient (BNVA) | payer MEDICARE, MEDICAID, SELFPAY | PROVIDERS: Family Provider Internal Medicine; PCP Internal Medicine; Visit Provider Internal Medicine Rheumatology | DX: M05.79 Rheumatoid arthritis with rheumatoid factor of multiple sites without organ or systems involvement (principal); Z79.899 Other long term (current) drug therapy; M75.52 Bursitis of left shoulder; D50.0 Iron deficiency anemia secondary to blood loss (chronic); F17.210 Nicotine dependence, cigarettes, uncomplicated | CPT/HCPCS: 20610; 99214; J1030 ==

== ENCOUNTER 2020-02-26 11:36 | Outpatient (CLI) | payer MEDICARE, MEDICAID, SELFPAY ==
--- NOTE | 2020-02-26 11:44 | XRR_ITS ---
PROCEDURE INFORMATION: Exam: XR Chest, 2 Views Exam date and time: 02/26/2020 11:54 AM Age: 74 years old Clinical indication: Other: Follow pneumonia; Patient HX: Follow up pneumonia. Previous XR 01/24/20; Additional info: Abnormal cxr TECHNIQUE: Imaging protocol: XR of the chest Views: 2 views. COMPARISON: CR XR chest 1V portable [id number] 01/24/2020 3:16 PM FINDINGS: Lungs: Left lower lung opacity decreased. Pleural space: No definite pleural effusion. Heart/Mediastinum: Unremarkable. No cardiomegaly. Vasculature: Aortic stent/graft partially seen. Bones/joints: No acute findings. XR/XR chest 2V* [id number] IMPRESSION: Left lower lung pneumonia decreased since 01/24/2020.
== END 2020-02-26 11:37 | disposition home or self-care (01) ==
PROVIDERS: Family Provider Internal Medicine; PCP Internal Medicine; Visit Provider Internal Medicine
DX: R93.89 Abnormal findings on diagnostic imaging of other specified body structures (principal); J18.8 Other pneumonia, unspecified organism
CPT/HCPCS: 71046

== ENCOUNTER 2020-04-10 09:34 | Outpatient (CLI) | payer MEDICARE, MEDICAID, SELFPAY ==
--- NOTE | 2020-04-10 09:52 | CT_ITS ---
WS: [id number] CT CHEST WITH INTRAVENOUS CONTRAST HISTORY: ABNORMAL CHEST CT TECHNIQUE: Contiguous 5 mm axial imaging performed on the thorax. Coronal and sagittal reformats are submitted. All CT scans at [facility] use at least one of these dose optimization techniq ues: automated exposure control; mA and/or kV adjustment per patient size (includes targeted exams wh ere dose is matched to clinical indication); or iterative reconstruction. CONTRAST: Visipaque 320; 95 mL IV. DLP: 872.37 mGycm COMPARISON: 04/10/2019 and 10/24/2017 Lungs and central airway: Moderate chronic emphysema and hyperexpansion. No change in the 4 mm nodule along the diaphragmatic surface the RIGHT lower lobe near the inferior fissure. Nodule actually proj ects towards the RIGHT middle lobe. No change in the ovoid 5 mm nodule LEFT lower lobe. Benign granul prema at the LEFT lung base. There are no new or suspicious or enlarging nodules. Pleura: Normal. No pleural effusion. Heart and pericardium: Normal size heart with no pericardial effusion. Mediastinum and yogi: No enlarging or suspicious mediastinal or hilar lymph nodes. Calcified benign l ymph node at the LEFT hilum. Vessels: Mild atherosclerosis. No aneurysm. Normal size pulmonary artery. Chest wall and lower neck: Mildly enlarged thyroid gland with LEFT nodules. Nodules are poorly visual ized today. Upper abdomen: Small hiatal hernia. Hepatic steatosis. Indeterminate exophytic nodule from the medial upper LEFT kidney is stable in size at 5 mm. There is an additional exophytic mass laterally which i s probably a cyst measuring 2.2 cm from the cyst LEFT kidney. No interval change. Indeterminate subce ntimeter nodule which is too small to characterize from the mid lateral RIGHT kidney. Partially visua lized aortic stent graft. Suspect cholelithiasis. Osseous structures: Increase in thoracic kyphosis. Moderate spondylitic changes. No osteoblastic or o steolytic disease. CT/CT chest w con* [id number] IMPRESSION: 1. No interval change in the bilateral pulmonary nodules since 10/24/2017. Due to long-term stability no additional follow-up necessary. 2. Chronic emphysema. 3. Partially calcified aorta. 4. Indeterminate bilateral renal cystic masses. Several of these nodules are t oo small to characterize due to small size. The larger measuring 2.2 cm from th e upper pole LEFT kidney is probably a cyst which is unchanged since 04/10/2019.
[2020-04-10 11:40] LABS: Blood Urea Nitrogen 21 mg/dL (8-23)
[2020-04-10] MEDS: iodixanol 320 mg/mL 100mL Btl IV (11:55)
== END 2020-04-10 09:35 | disposition home or self-care (01) ==
LOC: RADWPI 09:41
PROVIDERS: Family Provider Internal Medicine; PCP Internal Medicine; Visit Provider Internal Medicine
DX: R93.89 Abnormal findings on diagnostic imaging of other specified body structures (principal); J43.9 Emphysema, unspecified; I70.0 Atherosclerosis of aorta; N28.89 Other specified disorders of kidney and ureter
CPT/HCPCS: 71260; 82565; 84520; Q9967

== ENCOUNTER → 2020-05-26 08:49 | Outpatient (BNVA) | payer MEDICARE, MEDICAID, SELFPAY | PROVIDERS: Family Provider Internal Medicine; PCP Internal Medicine; Visit Provider Internal Medicine Rheumatology | DX: M05.79 Rheumatoid arthritis with rheumatoid factor of multiple sites without organ or systems involvement (principal); Z79.899 Other long term (current) drug therapy; M75.52 Bursitis of left shoulder; F17.210 Nicotine dependence, cigarettes, uncomplicated; N18.9 Chronic kidney disease, unspecified | CPT/HCPCS: 36415; 80076; 82565; 85025; 86140; 99214 ==

== ENCOUNTER 2020-06-12 08:47 | Outpatient (CLI) | payer MEDICARE, MEDICAID, SELFPAY ==
[2020-06-12 08:59] VITALS: BP 129/77; PULSE 75; RESP 16; TEMP 36.8; O2SAT 98
[2020-06-12] MEDS: diphenhydrAMINE 50 mg/mL SDV 1mL 25 MG IVP (09:40)
[2020-06-12] MEDS: rituximab 1,000 MG in sodium chloride 0.9% 250 ML, primary tubing onc 1 EACH 70 MG IV (09:52)
[2020-06-12 10:32] VITALS: BMI 25.9
--- NOTE | 2020-06-12 10:32 | PC.NURSE ---
Pt states took Tylenol at 0830.
--- NOTE | 2020-06-12 12:43 | PC.NURSE ---
Infusion rate increased every 15min per orders.
[2020-06-12 14:55] VITALS: BP 143/78; PULSE 72; RESP 16; O2SAT 98
== END 2020-06-12 08:48 | disposition home or self-care (01) ==
LOC: RHEOACUTE 08:48
PROVIDERS: Family Provider Internal Medicine; PCP Internal Medicine; Visit Provider Internal Medicine Rheumatology
DX: R79.89 Other specified abnormal findings of blood chemistry (principal); Z79.899 Other long term (current) drug therapy; M05.79 Rheumatoid arthritis with rheumatoid factor of multiple sites without organ or systems involvement
CPT/HCPCS: 85025; 96365; 96366; 96375; J1200; J2930; J7050; J9312

== ENCOUNTER 2020-06-30 08:33 | Outpatient (CLI) | payer MEDICARE, MEDICAID, SELFPAY ==
[2020-06-30 08:49] VITALS: BP 136/84; PULSE 83; RESP 16; TEMP 36.7; O2SAT 91
[2020-06-30] MEDS: diphenhydrAMINE 50 mg/mL SDV 1mL 25 MG IVP (09:15)
[2020-06-30] MEDS: rituximab 1,000 MG in sodium chloride 0.9% 250 ML, primary tubing onc 1 EACH 70 MG IV (09:32)
[2020-06-30 09:52] VITALS: BMI 25.9
--- NOTE | 2020-06-30 10:04 | PC.NURSE ---
0932 Infusion started at 25ml/hr. Will increase rate per orders as pt tolerates.
--- NOTE | 2020-06-30 11:02 | PC.NURSE ---
Infusion rate increased to 100ml/hr. Pt sleeping. Resp even and unlabored.
--- NOTE | 2020-06-30 11:44 | PC.NURSE ---
0900 Pt states he took Tylenol at home this am.
[2020-06-30 14:27] VITALS: BP 120/57; PULSE 48; RESP 16; O2SAT 98
== END 2020-06-30 08:34 | disposition home or self-care (01) ==
LOC: RHEOACUTE 08:34
PROVIDERS: Family Provider Internal Medicine; PCP Internal Medicine; Visit Provider Internal Medicine Rheumatology
DX: M05.79 Rheumatoid arthritis with rheumatoid factor of multiple sites without organ or systems involvement (principal)
CPT/HCPCS: 96365; 96366; 96375; J1200; J2930; J7050; J9312

== ENCOUNTER → 2020-08-06 13:37 | Outpatient (BNVA) | payer MEDICARE, MEDICAID, SELFPAY | PROVIDERS: Family Provider Internal Medicine; PCP Internal Medicine; Visit Provider Internal Medicine Rheumatology | DX: M05.79 Rheumatoid arthritis with rheumatoid factor of multiple sites without organ or systems involvement (principal); Z79.899 Other long term (current) drug therapy; R91.8 Other nonspecific abnormal finding of lung field; J41.0 Simple chronic bronchitis; M75.52 Bursitis of left shoulder; Y93.9 Activity, unspecified; F17.210 Nicotine dependence, cigarettes, uncomplicated | CPT/HCPCS: 36415; 80076; 82565; 85025; 85651; 86140; 99214 ==

== ENCOUNTER → 2020-09-09 10:10 | Outpatient (BNVA) | payer MEDICARE, MEDICAID, SELFPAY | PROVIDERS: Family Provider Internal Medicine; PCP Internal Medicine; Visit Provider Internal Medicine Rheumatology | DX: D50.0 Iron deficiency anemia secondary to blood loss (chronic) (principal); M05.79 Rheumatoid arthritis with rheumatoid factor of multiple sites without organ or systems involvement; M19.90 Unspecified osteoarthritis, unspecified site; Z79.899 Other long term (current) drug therapy | CPT/HCPCS: 80076; 82565; 85025; 86140 ==

== ENCOUNTER 2020-10-27 21:31 | Emergency (ER) | payer MEDICARE, MEDICAID, SELFPAY ==
[2020-10-27 21:40] VITALS: BP 147/78; PULSE 60; RESP 16; TEMP 36.6; O2SAT 94; BMI 25.8
[2020-10-28 00:36] LABS: Basophils # 0.1 10^3/uL (0.0-0.1); Basophils % 0.6 %; Eosinophils # 0.2 10^3/uL (0.0-0.8); Eosinophils % 1.5 %; Hematocrit 43.5 % (42.0-52.0); Hemoglobin 13.7 g/dL (11.7-16.6); Lymphocytes # 4.4 10^3/uL (0.8-4.8); Lymphocytes % 33.9 %; Mean Corpuscular HGB Conc 31.5 g/dL (30.0-36.0); Mean Corpuscular Hemoglobin 30.6 pg (28.0-34.0); Mean Corpuscular Volume 97.3 fL (80-94); Mean Platelet Volume 11.3 fL (7.4-10.4); Monocytes % 15.7 %; Neutrophils # 6.12 10^3/uL (1.8-7.7); Neutrophils % 47.1 %; Nucleated Red Blood Cells % 0 %; Platelet Count 206 10^3/cmm (130-400); Red Blood Count 4.47 10^6/uL (4.1-5.3); Red Cell Distribution Width 13.2 % (12.1-15.1)
[2020-10-28 00:37] VITALS: BP 155/78; PULSE 63; RESP 16; O2SAT 98
--- NOTE | 2020-10-28 00:48 | CTR_ITS ---
PROCEDURE INFORMATION: Exam: CT Head Without Contrast Exam date and time: 10/28/2020 12:51 AM Age: 74 years old Clinical indication: Pain; Patient HX: Headache with vomiting; Additional info: TREVIZO TECHNIQUE: Imaging protocol: Computed tomography of the head without contrast. Radiation optimization: All CT scans at this facility use at least one of these dose optimization techniques: automated exposure control; mA and/or kV adjustment per patient size (includes targeted exams where dose is matched to clinical indication); or iterative reconstruction. COMPARISON: No relevant prior studies available. RADIATION DOSE METRICS: Total DLP (mGy-cm): 824.58 FINDINGS: Brain: No acute intracranial hemorrhage or mass effect. There is decreased attenuation in the periventricular white matter, likely from microvascular disease. There are small old lacunar infarcts in the right basal ganglia region. No definite acute infarct by CT. Cerebral ventricles: Ventricle size is normal for age. Bones/joints: No definite acute skull fracture. Paranasal sinuses: Moderate opacity/fluid in the included upper maxillary sinuses. This could represent acute sinusitis, please correlate clinically. Very mild mucosal thickening in the ethmoid sinuses. Mastoid air cells: Complete opacification/fluid involving the left mastoid air cells, with a small amount of fluid in the left middle ear cavity. This appearance could be secondary to acute or chronic mastoiditis/otitis. Please correlate clinically. Vasculature: Vascular calcifications in the internal carotid arteries. CT/CT head wo con* [id number] IMPRESSION: 1. No acute intracranial hemorrhage or mass effect. 2. Changes of microvascular disease, and small right lacunar infarcts. 3. Paranasal and mastoid sinus findings as discussed above. 4. Other findings discussed above. Radiation Dose CTDIVOL = (mGy): DLP = 824.58 (mGy-cm)
--- NOTE | 2020-10-28 00:55 | ED_ITS ---
HPI - Headache General: Chief Complaint: Nausea/Vomiting/Diarrhea Stated Complaint: H/A, IRREG PULSE, VOMITING X 2 Time Seen by Provider: 10/28/20 00:23 Source: patient Mode of arrival: ambulatory Limitations: no limitations History of Present Illness: HPI Narrative: 74-year-old male who states over the last 2 days been having intermittent headaches. States he had a severe hea dache earlier today around noon. He states it caused him to vomiting. He states the right temporal region. He denies any worsening improving factors. Denies any history of headaches. He states his headache is now 4 out of 10. Denies any chest pain. Denies any fevers. Associated symptoms: Reports nausea and vomiting; Deny chest pain, fever(s) or rash Review of Systems Const: Denies: fever(s), chills, body aches or change in appetite Eyes: Denies: blurry vision or eye discomfort ENMT: Denies: throat pain or dental pain Card: Denies: chest pain Resp: Denies: dyspnea GI: Reports: nausea and vomiting : Denies: dysuria Musc: Denies: neck pain or back pain Skin/Breast: Denies: rash Neuro: Reports: headache(s) Psych: Denies: depression Demar/Lymph: Denies: easy bruising All/Imm: Denies: urticaria PFSH ED PFSH: Medical History (Updated 10/28/20 @ 02:22 by Andrea Mendez MD) Abdominal aortic aneurysm Status post repair Chronic back pain Colon polyps COPD (chronic obstructive pulmonary disease) Essential (primary) hypertension GERD (gastroesophageal reflux disease) High risk medication use History of abdominal aortic aneurysm Immunization counseling Mixed hyperlipidemia Neuropathy Personal history of arterial venous malformation (AVM) Pulmonary nodules Restless leg syndrome 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 Subacromial bursitis of left shoulder joint s/p steroid injection, resolved Tick bite Surgical History History of back surgery History of colonoscopy History of elbow surgery History of esophagogastroduodenoscopy (EGD) Family History Other CAD (coronary artery disease) Cancer Diabetes Denies family history of Rheumatoid arthritis Lupus Chronic kidney disease (CKD) Stroke Social History (Reviewed 02/22/21 @ 14:21 by MEHDI Waters Smoking and tobacco status: current every day smoker Alcohol intake: current Alcohol intake frequency: holidays/special occasions only Household members: spouse Housing: House History of recent travel: No Course Vital Signs: Vital signs: Vital Signs Temperature 97.9 F 10/27/20 21:40 Pulse Rate 78 10/28/20 01:30 Respiratory Rate 18 10/28/20 01:30 Blood Pressure 140/82 10/28/20 01:30 Pulse Oximetry 98 10/28/20 01:30 MDM - Headache MDM Narrative: Medical decision making narrative: Patient presents here with a headache that has been intermittent throughout the day. CT and CTA showed no sign of aneurysm. His headache is since improved. He has no signs of temporal arteritis. Patient's also concerned as he had some palpitations and already was bradycardic. His heart rate here was anywhere from 58 to mid 70s. He is on metoprolol. I informed him to watch his heart rate at home but he is well- appearing here. Blood work is all normal. He is to follow-up his PCP and return if worsening. Lab Data: Labs: Lab Results 10/27/20 10/27/20 10/28/20 Range/Units 00:29 00:29 00:29 WBC 13.0 H (4.0-10.0) 10^3/ uL RBC 4.47 (4.1-5.3) 10^6/u L Hgb 13.7 (11.7-16.6) g/dL Hct 43.5 (42.0-52.0) % MCV 97.3 H (80-94) fL MCH 30.6 (28.0-34.0) pg MCHC 31.5 (30.0-36.0) g/dL RDW 13.2 (12.1-15.1) % Plt Count 206 (130-400) 10^3/c mm MPV 11.3 H (7.4-10.4) fL Neut % (Auto) 47.1 % Lymph % (Auto) 33.9 % Stephenson % (Auto) 15.7 % Eos % (Auto) 1.5 % Baso % (Auto) 0.6 % Neut # (Auto) 6.12 (1.8-7.7) 10^3/u L Lymph # (Auto) 4.4 (0.8-4.8) 10^3/u L Stephenson # (Auto) 2.0 H (0.2-0.9) 10^3/u L Eos # (Auto) 0.2 (0.0-0.8) 10^3/u L Baso # (Auto) 0.1 (0.0-0.1) 10^3/u L Nucleated RBC % (a uto) 0 % Nucleated RBCs # 0.0 /100WBC ESR 75 H (0-10) mm/hr Sodium 138 (136-145) mmol/L Potassium 3.8 (3.5-5.1) mmol/L Chloride 104 (98-107) mmol/L Carbon Dioxide 23 (22-29) mmol/L Anion Gap 14.8 (5-19) BUN 17 (8-23) mg/dL Creatinine 1.2 (0.7-1.2) mg/dL GFR Calculation Not Reportable Glucose 94 (65-115) mg/dL Calculated Osmolal ity 287 (285-295) mOsm/k g Calcium 8.5 (8.5-10.5) mg/dL Total Bilirubin 0.2 (0.15-1.2) mg/dL AST 15 (0-40) U/L ALT 12 (0-41) U/L Alkaline Phosphata se 93 (40-130) IU/L C-Reactive Protein (0.0-4.9) mg/L Total Protein 6.3 L (6.6-8.7) g/dL Albumin 3.1 L (3.5-5.2) g/dL Globulin 3.2 (1.3-4.6) g/dL Lipase 90 H (13-60) U/L Urine Color (Yellow) Urine Appearance (CLEAR) Urine pH (5-7) Ur Specific Gravit y (1.005-1.030) Urine Protein (Negative) Urine Glucose (UA) (Normal) Urine Ketones (Negative) Urine Blood (Negative) Urine Nitrate (Negative) Urine Bilirubin (Negative) Urine Urobilinogen (Negative) mg/dL Ur Leukocyte Veronique ase (Negative) Urine RBC (0-2) /hpf Urine WBC (0-5) /hpf Ur Squamous Epith Cells (0-5) /hpf Ur Transition Epit h Cell /hpf Amorphous Sediment Urine Bacteria (NONE) /hpf Hyaline Casts /lpf 10/28/20 10/28/20 Range/Units 00:29 01:40 WBC (4.0-10.0) 10^3/ uL RBC (4.1-5.3) 10^6/u L Hgb (11.7-16.6) g/dL Hct (42.0-52.0) % MCV (80-94) fL MCH (28.0-34.0) pg MCHC (30.0-36.0) g/dL RDW (12.1-15.1) % Plt Count (130-400) 10^3/c mm MPV (7.4-10.4) fL Neut % (Auto) % Lymph % (Auto) % Stephenson % (Auto) % Eos % (Auto) % Baso % (Auto) % Neut # (Auto) (1.8-7.7) 10^3/u L Lymph # (Auto) (0.8-4.8) 10^3/u L Stephenson # (Auto) (0.2-0.9) 10^3/u L Eos # (Auto) (0.0-0.8) 10^3/u L Baso # (Auto) (0.0-0.1) 10^3/u L Nucleated RBC % (a uto) % Nucleated RBCs # /100WBC ESR (0-10) mm/hr Sodium (136-145) mmol/L Potassium (3.5-5.1) mmol/L Chloride (98-107) mmol/L Carbon Dioxide (22-29) mmol/L Anion Gap (5-19) BUN (8-23) mg/dL Creatinine (0.7-1.2) mg/dL GFR Calculation Glucose (65-115) mg/dL Calculated Osmolal ity (285-295) mOsm/k g Calcium (8.5-10.5) mg/dL Total Bilirubin (0.15-1.2) mg/dL AST (0-40) U/L ALT (0-41) U/L Alkaline Phosphata se (40-130) IU/L C-Reactive Protein 16.3 H (0.0-4.9) mg/L Total Protein (6.6-8.7) g/dL Albumin (3.5-5.2) g/dL Globulin (1.3-4.6) g/dL Lipase (13-60) U/L Urine Color Yellow (Yellow) Urine Appearance Clear (CLEAR) Urine pH 5 (5-7) Ur Specific Gravit y 1.005 (1.005-1.030) Urine Protein 3+ H (Negative) Urine Glucose (UA) Norm (Normal) Urine Ketones Negative (Negative) Urine Blood Neg (Negative) Urine Nitrate Negative (Negative) Urine Bilirubin Neg (Negative) Urine Urobilinogen Norm (Negative) mg/dL Ur Leukocyte Veronique ase Negative (Negative) Urine RBC None (0-2) /hpf Urine WBC None (0-5) /hpf Ur Squamous Epith Cells 0-4 H (0-5) /hpf Ur Transition Epit h Cell None /hpf Amorphous Sediment Not Reportable Urine Bacteria None (NONE) /hpf Hyaline Casts 0-4 H /lpf Imaging Data^: CT Head: Radiologist's impression: [place] [address] CT Scan Report Signed Patient: Gabino Lamb Unit #: [id number] : 1945 Age/Sex: 74 / M ADM Date: 10/27/20 Loc: ER Room/Bed: Attending Dr: Ordering Provider/Ordering MD: Andrea Mendez MD Date of Service: 10/28/20 Procedure(s): CT head wo con* [id number] Accession Number(s): [id number] Report Number: [id number] PROCEDURE INFORMATION: Exam: CT Head Without Contrast Exam date and time: 10/28/2020 12:51 AM Age: 74 years old Clinical indication: Pain; Patient HX: Headache with vomiting; Additional info: TREVIZO TECHNIQUE: Imaging protocol: Computed tomography of the head without contrast. Radiation optimization: All CT scans at this facility use at least one of these dose optimization techniques: automated exposure control; mA and/or kV adjustment per patient size (includes targeted exams where dose is matched to clinical indication); or iterative reconstruction. COMPARISON: No relevant prior studies available. RADIATION DOSE METRICS: Total DLP (mGy-cm): 824.58 FINDINGS: Brain: No acute intracranial hemorrhage or mass effect. There is decreased attenuation in the periventricular white matter, likely from microvascular disease. There are small old lacunar infarcts in the right basal ganglia region. No definite acute infarct by CT. Cerebral ventricles: Ventricle size is normal for age. Bones/joints: No definite acute skull fracture. Paranasal sinuses: Moderate opacity/fluid in the included upper maxillary sinuses. This could represent acute sinusitis, please correlate clinically. Very mild mucosal thickening in the ethmoid sinuses. Mastoid air cells: Complete opacification/fluid involving the left mastoid air cells, with a small amount of fluid in the left middle ear cavity. This appearance could be secondary to acute or chronic mastoiditis/otitis. Please correlate clinically. Vasculature: Vascular calcifications in the internal carotid arteries. CT/CT head wo con* [id number] IMPRESSION: 1. No acute intracranial hemorrhage or mass effect. 2. Changes of microvascular disease, and small right lacunar infarcts. 3. Paranasal and mastoid sinus findings as discussed above. 4. Other findings discussed above. Radiation Dose CTDIVOL = (mGy): DLP = 824.58 (mGy Other CT: Radiologist's impression: [facility] [place] [address] CT Scan Report Signed Patient: Gabino Lamb Unit #: [id number] : 1945 Acct#:[id number] Age/Sex: 74 / M ADM Date: 10/27/20 Loc: ER Room/Bed: Attending Dr: Ordering Provider/Ordering MD: Andrea Mendez MD Date of Service: 10/28/20 Procedure(s): CT angio headneck* [id number] Accession Number(s): [id number] Report Number: [id number] PROCEDURE INFORMATION: Exam: CT Angiography Head With Contrast Exam date and time: 10/28/2020 1:32 AM Age: 74 years old Clinical indication: Pain; Patient HX: Headache with vomiting. ; Additional info: TREVIZO TECHNIQUE: Imaging protocol: Computed tomography angiography of the head with intravenous contrast. 3D rendering (Not supervised by radiologist): MIP and/or 3D reconstructed images were created by the technologist. Radiation optimization: All CT scans at this facility use at least one of these dose optimization techniques: automated exposure control; mA and/or kV adjustment per patient size (includes targeted exams where dose is matched to clinical indication); or iterative reconstruction. Contrast material: OMNI 350; Contrast volume: 95 ml; Contrast route: INTRAVENOUS (IV); COMPARISON: CT head wo con* [id number] 10/28/2020 1:12 AM RADIATION DOSE METRICS: Total DLP (mGy-cm): 2315.44 FINDINGS: ANTERIOR CIRCULATION: Right internal carotid artery: Unremarkable. Intracranial segment is patent with no significant stenosis. No aneurysm. Right middle cerebral artery: Unremarkable. No occlusion or significant stenosis. No aneurysm. Right anterior cerebral artery: Unremarkable. No occlusion or significant stenosis. No aneurysm. Left internal carotid artery: Unremarkable. Intracranial segment is patent with no significant stenosis. No aneurysm. Left middle cerebral artery: Unremarkable. No occlusion or significant stenosis. No aneurysm. Left anterior cerebral artery: Unremarkable. No occlusion or significant stenosis. No aneurysm. POSTERIOR CIRCULATION: Right vertebral artery: Unremarkable. No occlusion or significant stenosis. No aneurysm. Left vertebral artery: Unremarkable. No occlusion or significant stenosis. No aneurysm. Basilar artery: Unremarkable. No occlusion or significant stenosis. No aneurysm. Right posterior cerebral artery: Unremarkable. No occlusion or significant stenosis. No aneurysm. Left posterior cerebral artery: Unremarkable. No occlusion or significant stenosis. No aneurysm. IMPRESSION: No large vessel stenosis or occlusion. PROCEDURE INFORMATION: Exam: CT Angiography Neck With Contrast Exam date and time: 10/28/2020 1:32 AM Age: 74 years old Clinical indication: Pain; Patient HX: Headache with vomiting. ; Additional info: TREVIZO TECHNIQUE: Imaging protocol: Computed tomography angiography of the neck with intravenous contrast. 3D rendering (Not supervised by radiologist): MIP and/or 3D reconstructed images were created by the technologist. Radiation optimization: All CT scans at this facility use at least one of these dose optimization techniques: automated exposure control; mA and/or kV adjustment per patient size (includes targeted exams where dose is matched to clinical indication); or iterative reconstruction. Contrast material: OMNI 350; Contrast volume: 95 ml; Contrast route: INTRAVENOUS (IV); COMPARISON: CT head wo con* [id number] 10/28/2020 1:12 AM RADIATION DOSE METRICS: Total DLP (mGy-cm): 2315.44 FINDINGS: Right common carotid artery: No stenosis. No dissection or occlusion. Right internal carotid artery: 25% stenosis of the proximal right internal carotid artery with calcified and noncalcified plaque. Right external carotid artery: No occlusion or stenosis of the origin. Right vertebral artery: No stenosis. No dissection or occlusion. Left common carotid artery: No stenosis. No dissection or occlusion. Left internal carotid artery: Approximately 50% stenosis of the left internal carotid artery with calcified/noncalcified plaque. Left external carotid artery: No occlusion or stenosis of the origin. Left vertebral artery: No stenosis. No dissection or occlusion. Bones/joints: No acute fracture. Soft tissues: Normal. No significant soft tissue swelling. CT/CT angio headneck* [id number] IMPRESSION: 1. Right: Approximately 25% stenosis of the proximal right internal carotid artery with calcified/noncalcified plaque. Vertebral artery is patent. 2. Left: Approximately 50% stenosis of the left internal carotid artery with calcified/noncalcified plaque. Vertebral artery is patent. EKG Data^: EKG 1: Attestation: I personally reviewed and interpreted this EKG as follows: EKG interpretation date: 10/27/20 EKG interpretation time: 21:47 Interpretation: sinus venessa hr [address] or t wave abnormalities qrs 67 qtc 417 Discharge Plan Discharge Patient Disposition: Home Clinical Impression: Head ache Qualifiers: Headache type: unspecified Condition: Stable Prescriptions: No Action Nicoderm CQ 21 mg/24 hr patch 24 hour 1 patch TRANSDERMA Q24H Qty: 28 RF: 8 rituximab 10 mg/mL concentrate See Rx Instructions IVP .COMPLEX RF: 0 chlorthalidone 25 mg tablet 25 mg PO DAILY RF: 0 hydrocodone-acetaminophen 10-325 mg tablet 1 tab PO Q4H PRNRF: 0 leflunomide 20 mg tablet 20 mg PO DAILY Qty: 30 RF: 4 esomeprazole magnesium 40 mg capsule,delayed release(DR/EC) 40 mg PO DAILY RF: 0 prednisone 10 mg tablet See Rx Instructions .Route .COMPLEX Qty: 1 RF: 0 losartan 100 mg tablet 100 mg PO DAILY Qty: 90 RF: 3 ropinirole 2 mg tablet 2 mg PO BEDTIME Qty: 90 RF: 3 Combivent Respimat 20-100 mcg/actuation mist 1 puff INHALATION Q6H Qty: 4 RF: 3 ipratropium bromide 42 mcg (0.06 %) spray,non-aerosol 1 spray INTRANASAL TID Qty: 15 RF: 5 cetirizine 10 mg tablet 10 mg PO DAILY Qty: 30 RF: 5 metoprolol tartrate 25 mg tablet 25 mg PO BID Qty: 60 RF: 5 fluticasone propionate [Flonase Allergy Relief] 50 mcg/actuation spray,suspension 1 spray intranasal BID Qty: 15.8 RF: 3 gabapentin 300 mg capsule 300 mg PO BID Qty: 60 RF: 3 folic acid 1 mg tablet 1 mg PO DAILY Qty: 30 RF: 3 prednisone 10 mg tablet See Rx Instructions PO .COMPLEX PRN (Reason: joint pain) Qty: 30 RF: 2 silver sulfadiazine 1 % cream 1 applic topical DAILY Qty: 50 RF: 0 Breo Ellipta 200-25 mcg/dose blister with device 1 inh inhalation Q24H Qty: 28 RF: 3 Discharge Orders: Discharge ED (Routine); Ordered 10/28/20 Ordered By: Andrea Mendez Referrals: Mike Foster MD [Primary Care Provider] - 1-3 days Discharge Diet: Advance as tolerated Discharge Activity: Resume usual activity Patient Instructions: Acute Headache (ED) Coding Level of Care Code ED Blower [employer] 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
[2020-10-28 01:00] VITALS: BP 142/87; PULSE 78; RESP 16; O2SAT 99
[2020-10-28 01:02] LABS: Alanine Aminotransferase 12 U/L (0-41); Albumin Level 3.1 g/dL (3.5-5.2); Alkaline Phosphatase 93 IU/L (40-130); Anion Gap 14.8 (5-19); Aspartate Amino Transferase 15 U/L (0-40); Blood Urea Nitrogen 17 mg/dL (8-23); Calcium 8.5 mg/dL (8.5-10.5); Carbon Dioxide 23 mmol/L (22-29); Chloride 104 mmol/L (98-107); Globulin 3.2 g/dL (1.3-4.6); Glucose 94 mg/dL (65-115); Lipase 90 U/L (13-60); Osmolality Calculated 287 mOsm/kg (285-295); Potassium 3.8 mmol/L (3.5-5.1); Sodium 138 mmol/L (136-145); Total Bilirubin 0.2 mg/dL (0.15-1.2); Total Protein 6.3 g/dL (6.6-8.7)
[2020-10-28 01:03] LABS: C Reactive Protein 16.3 mg/L (0.0-4.9)
--- NOTE | 2020-10-28 01:29 | CTR_ITS ---
PROCEDURE INFORMATION: Exam: CT Angiography Head With Contrast Exam date and time: 10/28/2020 1:32 AM Age: 74 years old Clinical indication: Pain; Patient HX: Headache with vomiting. ; Additional info: TREVIZO TECHNIQUE: Imaging protocol: Computed tomography angiography of the head with intravenous contrast. 3D rendering (Not supervised by radiologist): MIP and/or 3D reconstructed images were created by the technologist. Radiation optimization: All CT scans at this facility use at least one of these dose optimization techniques: automated exposure control; mA and/or kV adjustment per patient size (includes targeted exams where dose is matched to clinical indication); or iterative reconstruction. Contrast material: OMNI 350; Contrast volume: 95 ml; Contrast route: INTRAVENOUS (IV); COMPARISON: CT head wo con* [id number] 10/28/2020 1:12 AM RADIATION DOSE METRICS: Total DLP (mGy-cm): 2315.44 FINDINGS: ANTERIOR CIRCULATION: Right internal carotid artery: Unremarkable. Intracranial segment is patent with no significant stenosis. No aneurysm. Right middle cerebral artery: Unremarkable. No occlusion or significant stenosis. No aneurysm. Right anterior cerebral artery: Unremarkable. No occlusion or significant stenosis. No aneurysm. Left internal carotid artery: Unremarkable. Intracranial segment is patent with no significant stenosis. No aneurysm. Left middle cerebral artery: Unremarkable. No occlusion or significant stenosis. No aneurysm. Left anterior cerebral artery: Unremarkable. No occlusion or significant stenosis. No aneurysm. POSTERIOR CIRCULATION: Right vertebral artery: Unremarkable. No occlusion or significant stenosis. No aneurysm. Left vertebral artery: Unremarkable. No occlusion or significant stenosis. No aneurysm. Basilar artery: Unremarkable. No occlusion or significant stenosis. No aneurysm. Right posterior cerebral artery: Unremarkable. No occlusion or significant stenosis. No aneurysm. Left posterior cerebral artery: Unremarkable. No occlusion or significant stenosis. No aneurysm. IMPRESSION: No large vessel stenosis or occlusion. PROCEDURE INFORMATION: Exam: CT Angiography Neck With Contrast Exam date and time: 10/28/2020 1:32 AM Age: 74 years old Clinical indication: Pain; Patient HX: Headache with vomiting. ; Additional info: TREVIZO TECHNIQUE: Imaging protocol: Computed tomography angiography of the neck with intravenous contrast. 3D rendering (Not supervised by radiologist): MIP and/or 3D reconstructed images were created by the technologist. Radiation optimization: All CT scans at this facility use at least one of these dose optimization techniques: automated exposure control; mA and/or kV adjustment per patient size (includes targeted exams where dose is matched to clinical indication); or iterative reconstruction. Contrast material: OMNI 350; Contrast volume: 95 ml; Contrast route: INTRAVENOUS (IV); COMPARISON: CT head wo con* [id number] 10/28/2020 1:12 AM RADIATION DOSE METRICS: Total DLP (mGy-cm): 2315.44 FINDINGS: Right common carotid artery: No stenosis. No dissection or occlusion. Right internal carotid artery: 25% stenosis of the proximal right internal carotid artery with calcified and noncalcified plaque. Right external carotid artery: No occlusion or stenosis of the origin. Right vertebral artery: No stenosis. No dissection or occlusion. Left common carotid artery: No stenosis. No dissection or occlusion. Left internal carotid artery: Approximately 50% stenosis of the left internal carotid artery with calcified/noncalcified plaque. Left external carotid artery: No occlusion or stenosis of the origin. Left vertebral artery: No stenosis. No dissection or occlusion. Bones/joints: No acute fracture. Soft tissues: Normal. No significant soft tissue swelling. CT/CT angio headneck* [id number] IMPRESSION: 1. Right: Approximately 25% stenosis of the proximal right internal carotid artery with calcified/noncalcified plaque. Vertebral artery is patent. 2. Left: Approximately 50% stenosis of the left internal carotid artery with calcified/noncalcified plaque. Vertebral artery is patent. REFERENCES: NASCET CRITERIA. The degree of internal carotid artery stenosis is based on NASCET criteria. Normal is no stenosis. Mild is less than 50% stenosis. Moderate is 50-69% stenosis. Severe is 70% to 99% stenosis. Total occlusion is no detectable patent lumen. Radiation Dose CTDIVOL = (mGy): DLP = 2315.44~2315.44 (mGy-cm)
[2020-10-28 01:30] VITALS: BP 140/82; PULSE 78; RESP 18; O2SAT 98
[2020-10-28 01:41] LABS: Erythrocyte Sedimentation Rate 75 mm/hr (0-10)
[2020-10-28] MEDS: iohexol 350 mg/mL 100 mL Btl IV (01:45)
[2020-10-28 02:00] VITALS: BP 124/78; PULSE 78; RESP 18; O2SAT 97
[2020-10-28 02:01] LABS: Add Urine Microscopic? YES; Bilirubin Urine Neg (Negative); Blood Urine Neg (Negative); Glucose Urine UA Norm (Normal); Ketones Urine Negative (Negative); Leukocyte Esterase Urine Negative (Negative); Nitrate Urine Negative (Negative); Protein Urine 3+ (Negative); Specific Gravity, Urine 1.005 (1.005-1.030); Urine Appearance Clear (CLEAR); Urine Color Yellow (Yellow); Urobilinogen Urine Norm (Negative); pH Urine 5 (5-7)
[2020-10-28 02:02] LABS: Squamous Epithelial Cell Urine 0-4 /hpf (0-5)
[2020-10-28 02:03] LABS: Add Urine Culture? No; Hyaline Casts Urine 0-4 /lpf
[2020-10-28 02:30] VITALS: BP 142/78; PULSE 72; RESP 16; O2SAT 97
[2020-10-28 02:37] VITALS: BP 142/78; PULSE 71; RESP 16; O2SAT 95
== END 2020-10-28 02:38 | disposition home or self-care (01) ==
PROVIDERS: Nurse Practitioner Family; Emergency Provider Emergency Medicine; PCP Internal Medicine
DX: R51.9 Headache, unspecified (principal); J44.9 Chronic obstructive pulmonary disease, unspecified; I10 Essential (primary) hypertension; E78.2 Mixed hyperlipidemia; F17.210 Nicotine dependence, cigarettes, uncomplicated
CPT/HCPCS: 70450; 70496; 70498; 80053; 81001; 83690; 85025; 85651; 86140; 99284; Q9967

== ENCOUNTER → 2020-10-30 11:00 | Outpatient (BNVA) | payer MEDICARE, MEDICAID, SELFPAY | PROVIDERS: PCP Internal Medicine; Visit Provider Internal Medicine | DX: R51.9 Headache, unspecified (principal); R21 Rash and other nonspecific skin eruption; M05.79 Rheumatoid arthritis with rheumatoid factor of multiple sites without organ or systems involvement | CPT/HCPCS: 85651; 86140 ==

== ENCOUNTER → 2020-12-08 14:47 | Outpatient (BNVA) | payer MEDICARE, MEDICAID, SELFPAY | PROVIDERS: PCP Internal Medicine; Visit Provider Internal Medicine Rheumatology | DX: M05.79 Rheumatoid arthritis with rheumatoid factor of multiple sites without organ or systems involvement (principal); M31.6 Other giant cell arteritis; Z79.899 Other long term (current) drug therapy; Z79.52 Long term (current) use of systemic steroids; F17.210 Nicotine dependence, cigarettes, uncomplicated | CPT/HCPCS: 99214 ==

== ENCOUNTER 2021-01-05 14:53 | Outpatient (CLI) | payer MEDICARE, MEDICAID, SELFPAY ==
--- NOTE | 2021-01-05 15:04 | XRR_ITS ---
PROCEDURE INFORMATION: Exam: XR Left Femur Exam date and time: 01/05/2021 3:23 PM Age: 75 years old Clinical indication: Thigh; Patient HX: Left leg pain since Tuesday, no known injury; Additional info: Left thigh pain TECHNIQUE: Imaging protocol: XR Left femur. Views: 2 views. Total images: 4 COMPARISON: No relevant prior studies available. FINDINGS: Bones/joints: No visible acute osseous abnormality, fracture, subluxation, or dislocation. No radiographically visible joint effusion. 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 Moderately advanced primary osteoarthritis of the left knee with medial joint space height loss. Soft tissues: Soft tissues without evidence of edema, swelling, contusion, emphysema, or radiopaque foreign body. Vasculature: Arteriosclerosis. XR/XR femur LT min 2V* [id number] IMPRESSION: Nonacute.
--- NOTE | 2021-01-05 15:04 | USCV_ITS ---
Gabino Lamb Age: 75 Gender: M : 1945 Exam Date: 01/05/2021 15:12 Ordering Phys: Alyx De Leno APRN Technologist: Lizett Rodriguez Exam Location: [facility] [place]_ Indication: LLE PAIN HISTORY: Lower extremity pain. PROCEDURES: Venous duplex imaging was performed in only the left lower extremity. The following venous structures were evaluated: common femoral vein, profunda vein, proximal portion of the greater saphenous vein, superficial femoral vein, and the popliteal vein. In addition, the posterior tibial and peroneal trunk were evaluated. Serial compression, augmentation maneuvers, and spectral Doppler flow evaluation were performed. FINDINGS: Normal 2-D Doppler and augmentation and compressibility throughout the lower extremity venous structures. Additional imaging through the proximal calf veins also reveals no thrombus. Limited evaluation of the greater saphenous vein is patent with no thrombus.. Complex cystic mass with low level echos and no vascularity measuring 2.5 x 3.5 cm in the left popliteal fossa. CONCLUSIONS No DVT left lower extremity. Left popliteal fossa Seo's cyst. Dr. Lor Philip DO (Electronically Signed) Final Date: 06 January 2021 09:45 S
== END 2021-01-05 14:54 | disposition home or self-care (01) ==
PROVIDERS: PCP Internal Medicine; Visit Provider Internal Medicine
DX: M79.652 Pain in left thigh (principal); M79.605 Pain in left leg; M71.22 Synovial cyst of popliteal space [Baker], left knee
CPT/HCPCS: 73552; 93971

== ENCOUNTER 2021-01-07 10:34 | Inpatient (IN) | payer MEDICARE, MEDICAID, SELFPAY ==
[2021-01-07] VITALS (8 sets, daily range): BP systolic 101–124; BP diastolic 55–70; PULSE 63–79; RESP 16–20; TEMP 36.2–36.7; O2SAT 87–96; BMI 27.2
--- NOTE | 2021-01-07 11:04 | USCV_ITS ---
Gabino Lamb Age: 75 Gender: M : 1945 Exam Date: 01/07/2021 11:31 Ordering Phys: Ceasar Nathan DO Technologist: JOHNNA Exam Location: [facility] [place] Indication: SWELLING AND PAIN HISTORY: Lower extremity swelling. Lower extremity pain. PROCEDURES: Venous duplex imaging was performed in only the left lower extremity. The following venous structures were evaluated: common femoral vein, profunda vein, proximal portion of the greater saphenous vein, superficial femoral vein, and the popliteal vein. In addition, the posterior tibial and peroneal trunk were evaluated. Serial compression, augmentation maneuvers, and spectral Doppler flow evaluation were performed. FINDINGS: Normal 2-D Doppler and augmentation and compressibility throughout the lower extremity venous structures. Additional imaging through the proximal calf veins also reveals no thrombus. Limited evaluation of the greater saphenous vein is patent with no thrombus. Complex cystic mass with low level echos and no vascularity measuring 3.8 cm in the left popliteal fossa. CONCLUSIONS No DVT left lower extremity. Left popliteal fossa Seo's cyst. Dr. Lor Philip DO (Electronically Signed) Final Date: 07 January 2021 12:09 S
--- NOTE | 2021-01-07 11:17 | CT_ITS ---
WS: [id number] CT CHEST ANGIOGRAPHY WITH REFORMATS HISTORY: dyspnea, hypoxia TECHNIQUE: Contiguous axial images are obtained through the chest during arterial injection of intrav enous contrast. Images are reconstructed to evaluate the pulmonary arteries. MIP imaging also reviewe d. All CT scans at [facility] use at least one of these dose optimization techniques: aut omated exposure control; mA and/or kV adjustment per patient size (includes targeted exams where dose is matched to clinical indication); or iterative reconstruction. CONTRAST: Visipaque 320; 95 mL IV. DLP: 1238.31 mGy.cm COMPARISON: 04/10/2020 Limited opacification of the pulmonary arteries. Poor opacification of the upper lobe pulmonary arter ies. No pulmonary emboli identified. Normal size pulmonary artery. No RIGHT heart strain. Mild athero sclerosis thoracic aorta. Calcified plaque and intimal thickening. No aneurysm. Heart size is normal. No pericardial or pleural effusion. No mediastinal or hilar adenopathy. Lungs are hyperinflated. Multifocal areas of groundglass attenuation are new bilaterally but greatest in the RIGHT upper lobe. Ill-defined areas of groundglass attenuation. Similar findings to a lesser extent in the LEFT upper lobe. No dense areas of consolidation. Ovoid 6 mm nodule in the LEFT lower l obe is stable over multiple prior years. Mid to distal esophageal wall thickening with intraluminal debris. Small hiatal hernia. Substernal thyroid goiter. Bilateral renal masses are identified. Some of these are cyst and some are of increased density and m ild peripheral enhancement. These need to be further evaluated with a dedicated evaluation for renal masses. Proximal endovascular stent graft is noted. Cholelithiasis without acute cholecystitis. Increase in thoracic kyphosis. CT/CT angio chest PE protcl [id number] IMPRESSION: 1. Limited opacification of the pulmonary arteries. No large central or lower lobe pulmonary embolism. Poor opacification of the upper lobe pulmonary arterie s. 2. No RIGHT heart strain. 3. Multifocal bilateral ill-defined pulmonary opacifications are new since 04/01. Greatest distribution in the RIGHT upper lobe. Differential includes pn eumonitis and septic embolic disease. 4. Mild esophageal wall thickening with debris in the lumen. Probably due to r eflux disease. 5. Mild atherosclerosis aorta. 6. Bilateral renal cystic and complex cystic or solid masses. These are not si mple cysts. Recommend follow-up dedicated renal mass CT protocol to evaluate fo r solid renal mass.
--- NOTE | 2021-01-07 11:18 | W.ED.EXTPRO ---
HPI - Extremity Problem General: Chief complaint: Extremity Injury, Lower Stated complaint: LLE pain and swelling Time Seen by Provider: 01/07/21 10:53 History of Present Illness: HPI Narrative: 75-year-old male comes in complaining of left leg pain he has some redness on the medial side he was seen yesterday and evaluated for leg pain and swelling a venous duplex. . There is no DVT but did show left popliteal fossa Seo's cyst. He is having increased discomfort today in addition to that he is having some shortness of breath and was mildly hypoxic on arrival here. And is requiring oxygen use 87% on room air. He denies any chest pain or fever. MD Complaint: extremity pain and extremity swelling Onset (ago): minute(s) Pain Consistency: constant Location: left and lower extremity Quality: aching Radiation: none Relieving factors: nothing Exacerbating factors: nothing Associated symptoms: Deny arthralgias, chest pain, fever(s), myalgias, rash or short of breath Review of Systems Const: Denies: fever(s) ENMT: Denies: throat pain, ear or mastoid pain, nasal discharge or nasal congestion Card: Denies: chest pain Resp: Denies: dyspnea, productive cough or non-productive cough GI: Denies: abdominal pain, nausea, vomiting, hematemesis, coffee ground emesis, diarrhea, constipation, bloating, hematochezia or melena : Denies: flank pain, dysuria, urinary frequency or urinary urgency Skin/Breast: Denies: rash PFSH ED PFSH: Medical History Abdominal aortic aneurysm Status post repair Chronic back pain Chronic steroid use Colon polyps COPD (chronic obstructive pulmonary disease) Essential (primary) hypertension GERD (gastroesophageal reflux disease) Giant cell arteritis clinical diagnosis High risk medication use History of abdominal aortic aneurysm Immunization counseling Immunization counseling Mixed hyperlipidemia Neuropathy Personal history of arterial venous malformation (AVM) Pulmonary nodules Restless leg syndrome 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 Subacromial bursitis of left shoulder joint s/p steroid injection, resolved Tick bite Surgical History History of back surgery History of colonoscopy History of elbow surgery History of esophagogastroduodenoscopy (EGD) Family History Other CAD (coronary artery disease) Cancer Diabetes Denies family history of Rheumatoid arthritis Lupus Chronic kidney disease (CKD) Stroke Social History Smoking and tobacco status: current every day smoker Alcohol intake: current Alcohol intake frequency: holidays/special occasions only Household members: spouse Housing: House History of recent travel: No Physical Exam Const: COMMON NORMALS: no acute distress GENERAL APPEARANCE: cooperative and comfortable ORIENTATION/CONSCIOUSNESS: Yes awake, Yes oriented to person, Yes oriented to place and Yes oriented to time HENMT: COMMON NORMALS: normocephalic, atraumatic, hearing grossly normal bilaterally and external ears normal HEAD & SCALP: normocephalic and atraumatic EXTERNAL EAR: Yes external ears normal Neck/C-Spine: COMMON NORMALS: no JVD Resp: COMMON NORMALS: normal respiratory effort, No retractions, No use of accessory muscles and clear to auscultation bilaterally AUSCULTATION: clear to auscultation bilaterally Cardio: COMMON NORMALS: no JVD, regular rate, regular rhythm and No murmurs present (Cardio) RATE: regular rate RHYTHM: regular rhythm GI: COMMON NORMALS: Soft to palpation and No hepatosplenomegaly present AUSCULTATION: Yes normoactive bowel sounds PALPATION: Yes Soft to palpation, No Tenderness to palpation present (GI), No Guarding due to palpation present (GI) and Yes No hepatosplenomegaly present Extremity: NARRATIVE EXTREMITY EXAM: Swelling of the medial L thigh with mild erythema and slightly warm to the touch no induration. Neuro: SENSORIUM/ORIENTATION: Yes oriented to person, Yes oriented to place and Yes oriented to time Skin: COMMON NORMALS: no rashes or lesions noted GENERAL SKIN EXAM: no rashes or lesions noted Course Vital Signs: Vital signs: Vital Signs Temperature 97.2 F L 01/07/21 11:00 Pulse Rate 78 01/07/21 15:12 Respiratory Rate 18 01/07/21 15:12 Blood Pressure 124/55 01/07/21 15:12 Pulse Oximetry 94 01/07/21 15:12 MDM - Extremity (Nontraumatic) MDM Narrative: Medical decision making narrative: Patient has pneumonitis on CT with questionable septic pulmonary emboli. There is no abscess in the leg and no DVT. Repeated the scan today there is still what looks like a Seo's cyst. He is symptomatically hypoxic. Will admit him start him on antibiotics. Lab Data: Labs: Lab Results 01/07/21 01/07/21 01/07/21 Range/Units 11:17 11:17 11:17 WBC 20.0 H (4.0-10.0) 10^3/ uL RBC 4.06 L (4.1-5.3) 10^6/u L Hgb 12.5 (11.7-16.6) g/dL Hct 37.8 L (42.0-52.0) % MCV 93.1 (80-94) fL MCH 30.8 (28.0-34.0) pg MCHC 33.1 (30.0-36.0) g/dL RDW 15.9 H (12.1-15.1) % Plt Count 144 (130-400) 10^3/c mm MPV 11.6 H (7.4-10.4) fL Neut % (Auto) 89.2 % Lymph % (Auto) 5.1 % [place] % (Auto) 2.7 % Eos % (Auto) 0.8 % Baso % (Auto) 0.3 % Neut # (Auto) 17.82 H (1.8-7.7) 10^3/u L Lymph # (Auto) 1.0 (0.8-4.8) 10^3/u L [place] # (Auto) 0.5 (0.2-0.9) 10^3/u L Eos # (Auto) 0.2 (0.0-0.8) 10^3/u L Baso # (Auto) 0.1 (0.0-0.1) 10^3/u L Nucleated RBC % (a uto) 0 % Nucleated RBCs # 0.0 /100WBC Sodium 134 L (136-145) mmol/L Potassium 4.6 (3.5-5.1) mmol/L Chloride 99 (98-107) mmol/L Carbon Dioxide 25 (22-29) mmol/L Anion Gap 14.6 (5-19) BUN 27 H (8-23) mg/dL Creatinine 1.4 H (0.7-1.2) mg/dL GFR Calculation Not Reportable Glucose 178 H (65-115) mg/dL Calculated Osmolal ity 288 (285-295) mOsm/k g Calcium 8.2 L (8.5-10.5) mg/dL Total Bilirubin 0.4 (0.15-1.2) mg/dL AST 15 (0-40) U/L ALT 19 (0-41) U/L Alkaline Phosphata se 94 (40-130) IU/L Troponin T Baselin e 56 H (0-15) ng/L Troponin T 120 Min [place] (0-15) ng/L Delta Troponin T (0-10) ABS# Total Protein 4.9 L (6.6-8.7) g/dL Albumin 3.0 L (3.5-5.2) g/dL Globulin 1.9 (1.3-4.6) g/dL 01/07/21 Range/Units 13:05 WBC (4.0-10.0) 10^3/ uL RBC (4.1-5.3) 10^6/u L Hgb (11.7-16.6) g/dL Hct (42.0-52.0) % MCV (80-94) fL MCH (28.0-34.0) pg MCHC (30.0-36.0) g/dL RDW (12.1-15.1) % Plt Count (130-400) 10^3/c mm MPV (7.4-10.4) fL Neut % (Auto) % Lymph % (Auto) % [place] % (Auto) % Eos % (Auto) % Baso % (Auto) % Neut # (Auto) (1.8-7.7) 10^3/u L Lymph # (Auto) (0.8-4.8) 10^3/u L [place] # (Auto) (0.2-0.9) 10^3/u L Eos # (Auto) (0.0-0.8) 10^3/u L Baso # (Auto) (0.0-0.1) 10^3/u L Nucleated RBC % (a uto) % Nucleated RBCs # /100WBC Sodium (136-145) mmol/L Potassium (3.5-5.1) mmol/L Chloride (98-107) mmol/L Carbon Dioxide (22-29) mmol/L Anion Gap (5-19) BUN (8-23) mg/dL Creatinine (0.7-1.2) mg/dL GFR Calculation Glucose (65-115) mg/dL Calculated Osmolal ity (285-295) mOsm/k g Calcium (8.5-10.5) mg/dL Total Bilirubin (0.15-1.2) mg/dL AST (0-40) U/L ALT (0-41) U/L Alkaline Phosphata se (40-130) IU/L Troponin T Baselin e (0-15) ng/L Troponin T 120 Min [place] 44.85 H (0-15) ng/L Delta Troponin T -11.15 L (0-10) ABS# Total Protein (6.6-8.7) g/dL Albumin (3.5-5.2) g/dL Globulin (1.3-4.6) g/dL Discharge Plan Discharge Patient Disposition: Admitted As Inpatient Admit Provider: Farida Reyes Clinical Impression: Pneumonia, Pulmonary emboli Condition: Stable Coding Level of Care Code ED [employer] Waste Technician for Chg Fwd Exam Detailed
[2021-01-07 11:36] LABS: Basophils # 0.1 10^3/uL (0.0-0.1); Basophils % 0.3 %; Eosinophils # 0.2 10^3/uL (0.0-0.8); Eosinophils % 0.8 %; Hematocrit 37.8 % (42.0-52.0); Hemoglobin 12.5 g/dL (11.7-16.6); Lymphocytes % 5.1 %; Mean Corpuscular HGB Conc 33.1 g/dL (30.0-36.0); Mean Corpuscular Hemoglobin 30.8 pg (28.0-34.0); Mean Corpuscular Volume 93.1 fL (80-94); Mean Platelet Volume 11.6 fL (7.4-10.4); Monocytes # 0.5 10^3/uL (0.2-0.9); Monocytes % 2.7 %; Neutrophils # 17.82 10^3/uL (1.8-7.7); Neutrophils % 89.2 %; Nucleated Red Blood Cells % 0 %; Platelet Count 144 10^3/cmm (130-400); Positive M 1; Red Blood Count 4.06 10^6/uL (4.1-5.3); Red Cell Distribution Width 15.9 % (12.1-15.1)
[2021-01-07 11:58] LABS: Alanine Aminotransferase 19 U/L (0-41); Alkaline Phosphatase 94 IU/L (40-130); Anion Gap 14.6 (5-19); Aspartate Amino Transferase 15 U/L (0-40); Blood Urea Nitrogen 27 mg/dL (8-23); Calcium 8.2 mg/dL (8.5-10.5); Carbon Dioxide 25 mmol/L (22-29); Chloride 99 mmol/L (98-107); Globulin 1.9 g/dL (1.3-4.6); Glucose 178 mg/dL (65-115); Osmolality Calculated 288 mOsm/kg (285-295); Potassium 4.6 mmol/L (3.5-5.1); Sodium 134 mmol/L (136-145); Total Bilirubin 0.4 mg/dL (0.15-1.2); Total Protein 4.9 g/dL (6.6-8.7)
[2021-01-07 12:09] LABS: Slide Review Slide Review Perform
[2021-01-07] MEDS: iodixanol 320 mg/mL 100mL Btl IV ×2 (12:37→12:40)
--- NOTE | 2021-01-07 12:55 | ECG_ITS ---
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 Measurements Intervals [place] Rate: 80 P: 53 MN: 132 QRS: 60 QRSD: 86 T: 68 QT: 364 QTc: 420 Interpretive Statements SINUS RHYTHM MODERATE ST DEPRESSION [0.05+ mV ST DEPRESSION] Compared to ECG 12/16/2019 05:59:17 ST (T wave) deviation now present Electronically Signed On 01-07-2021 16:26:27 CDT by Jemma Gr M.D. [email or web address] general [id number]
[2021-01-07 13:36] LABS: Troponin 5 2HR 44.85 ng/L (0-15)
[2021-01-07 13:36] LABS: Troponin(5th) Baseline 56 ng/L (0-15)
[2021-01-07 13:42] LABS: Troponin 5 2HR Delta -11.15 ABS# (0-10)
[2021-01-07] MEDS: sodium chloride 0.9% 500 ML 999 ML IV (13:48)
--- NOTE | 2021-01-07 14:55 | ECG_ITS ---
[facility] Test Date: 2021-01-07 Pat Name: Gabino Lamb Department: Room: 261 Gender: Male Is Manager: : 1945 Requested By: Ceasar Harvey Order Number: [id number] Tania MD: Jemma Gr M.D. Measurements Intervals [place] Rate: 78 P: 46 [place]: 136 QRS: 55 QRSD: 85 T: 65 QT: 366 QTc: 419 Interpretive Statements SINUS RHYTHM WITH OCCASIONAL SUPRAVENTRICULAR PREMATURE COMPLEXES Compared to ECG 01/07/2021 13:06:53 ST (T wave) deviation no longer present Electronically Signed On 01-07-2021 16:31:50 CDT by Jemma Gr M.D. [email or web address] [email or web address] ([id number]
--- NOTE | 2021-01-07 16:25 | PM.HP ---
Providers/Chief Complaint Admitting Physician: Farida Reyes MD Primary Care Provider: Mike Foster MD Chief Complaint: LLE pain and swelling History of Present Illness Gabino Lamb is a 75 year old male with complicated PMH as noted below , chiefly GCA, RA on rituximab until one month ago, switched to Actemra, Leflulonamide, prednisone 30g daily presents with left medial thigh swelling, warmth and redness that started on Tuesday (today is tuesday) and continued to become more painful. He was seen by PCP On tuesday and LE duplex was perfromed-negative for DVT. No fever. Rash also noted over left hand radial aspect, however different in appearance in looking more vesicular. Few scattered follicles also noted over abdomen and right arm. Also c/o cough, sputum production and dyspnea over the same period. On presentation to ER saturation was noted to be 80% on RA, improved to 96% on 3lpm NC. Does not usually wear 02 at home. NO fever. ROS+ for left side flank pain radiating to groin area. Review of Systems General: Reports: 10 or more systems reviewed and unremarkable except in HPI and below Const: Denies: fever(s), chills or body aches Eyes: Denies: change in vision, blurry vision or photophobia ENMT: Reports: hoarseness; Denies: throat pain, enlarged tonsils, odynophagia or nasal congestion Card: Denies: chest pain, palpitations, irregular heart rhythm, edema, swelling of feet/ankles, lightheadedness, pre-syncope, dyspnea on exertion or orthopnea Resp: Denies: dyspnea, productive cough, non-productive cough, wheezing, stridor, pain on inspiration, change in phlegm color, hemoptysis or chest congestion GI: Denies: abdominal pain, nausea, vomiting, hematemesis, coffee ground emesis, dysphagia, heartburn, diarrhea, constipation, GI cramping, change in stool character, hematochezia or melena : Denies: flank pain, dysuria, urinary frequency, urinary urgency, urinary hesitancy or hematuria Musc: Denies: neck pain, back pain, extremity pain, joint swelling, joint warmth or deformity Neuro: Denies: headache(s), numbness in extremities, weakness in extremities, sensory changes, difficulty walking, frequent falls, dizziness, vertigo, behavioral changes, Slurred speech present or seizure-like activity Psych: Denies: anxiety, depression, suicidal ideation or homicidal ideation Endo: Denies: polyuria, polydipsia, tired all the time, cold intolerance or hot flashes Demar/Lymph: Denies: easy bruising or easy bleeding Medications/Allergies Home Medications Medication Instructions Recorded Confirmed Last Taken Type losartan 100 mg tablet 100 mg PO DAILY #90 tab 04/08/20 01/07/21 01/07/21 Rx ropinirole 2 mg tablet 2 mg PO BEDTIME #90 tab 07/08/20 01/07/21 01/06/21 Rx ipratropium bromide 42 mcg (0.06 1 spray INTRANASAL TID #15 ml 08/05/20 01/07/21 Unknown Rx %) nasal spray metoprolol tartrate 25 mg tablet 25 mg PO BID #60 tab 08/08/20 01/07/21 01/07/21 Rx gabapentin 300 mg capsule 300 mg PO BID #60 cap 09/12/20 01/07/21 01/07/21 Rx silver sulfadiazine 1 % topical 1 applic TOPICAL DAILY #50 g 09/26/20 01/07/21 Unknown Rx cream fluticasone furoate 200 1 inh INHALATION Q24H #28 ea 10/09/20 01/07/21 01/07/21 Rx mcg-vilanterol 25 mcg/dose inhalation powder ipratropium 20 mcg-albuterol 100 1 puff INHALATION Q6H #4 gm 11/10/20 01/07/21 Unknown Rx mcg/actuation mist for inhalation nicotine 21 mg/24 hr daily 1 patch TRANSDERMA Q24H #28 each 11/10/20 01/07/21 Unknown Rx transdermal patch leflunomide 20 mg tablet 20 mg PO DAILY #30 tab 12/08/20 01/07/21 01/07/21 Rx fluticasone propionate 50 1 spray INTRANASAL BID #15.8 ml 12/10/20 01/07/21 Unknown Rx mcg/actuation nasal spray,suspension cholecalciferol (vitamin D3) 50 50 mcg PO DAILY #30 cap 12/16/20 01/07/21 01/07/21 Rx mcg (2,000 unit) capsule pantoprazole 40 mg tablet,delayed 40 mg PO QAM #30 tab 05/01/07/21 01/07/21 Rx release amlodipine 10 mg tablet 10 mg PO DAILY #30 tab 12/17/20 01/07/21 01/07/21 Rx glycopyrrolate 1 mg tablet 1 mg PO TID #90 tab 12/31/20 01/07/21 01/07/21 Rx hydrocodone 10 mg-acetaminophen 1 tab PO Q4H PRN 30 Days #60 tab 12/31/20 01/07/21 01/07/21 Rx 325 mg tablet prednisone 20 mg tablet 30 mg PO QAM #45 tab 12/31/20 01/07/21 01/07/21 Rx aspirin 81 mg PO DAILY 01/07/21 01/07/21 01/07/21 History cetirizine 10 mg PO DAILY PRN 01/07/21 01/07/21 Unknown History tocilizumab [Actemra] 162 mg SUBCUT Q7D 01/07/21 01/07/21 01/01/21 History Allergies Allergy/AdvReac Type Severity Reaction Status Date / Time Penicillins Allergy unknown Verified 01/05/21 13:58 PFSH Acute PFSH: Medical History Abdominal aortic aneurysm Status post repair Chronic back pain Chronic steroid use Colon polyps COPD (chronic obstructive pulmonary disease) Essential (primary) hypertension GERD (gastroesophageal reflux disease) Giant cell arteritis clinical diagnosis High risk medication use History of abdominal aortic aneurysm Immunization counseling Immunization counseling Mixed hyperlipidemia Neuropathy Personal history of arterial venous malformation (AVM) Pulmonary nodules Restless leg syndrome 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 Subacromial bursitis of left shoulder joint s/p steroid injection, resolved Tick bite Surgical History History of back surgery History of colonoscopy History of elbow surgery History of esophagogastroduodenoscopy (EGD) Family History Other CAD (coronary artery disease) Cancer Diabetes Denies family history of Rheumatoid arthritis Lupus Chronic kidney disease (CKD) Stroke Social History Smoking and tobacco status: current every day smoker Alcohol intake: current Alcohol intake frequency: holidays/special occasions only Household members: spouse Housing: House History of recent travel: No Vitals/I&O/Wt Last Vital Signs Temp 98.1 F 01/07/21 16:00 Pulse 78 01/07/21 16:00 Resp 17 01/07/21 16:00 BP 118/70 01/07/21 16:00 Pulse Ox 94 01/07/21 16:00 01/07/21 01/07/21 01/07/21 06:59 14:59 22:59 Intake Total 600 / 600 Balance 600 / 600 Weight last 48 hrs Weight 86.183 kg Physical Exam Narrative: EXAM NARRATIVE: General: No acute distress, AO x3 HEENT: NC in place HEENT: PERRLA, pupils bilaterally equal and reactive, pallors not present Chest: Normal vesicular breath sounds, no added sounds, equal good air entry bilaterally CVS: S1-S2 regular, no murmurs, no tachycardia, no gallops, no rubs Abdomen: Soft, nontender, no organomegaly, bowel sounds present Neuro: No focal deficits, no facial deformity, AO x3, power 5/5 in all limbs Extremities: left medial thigh with area of warmth, tenderness and erythema, no joint swelling, left hand radial aspect with herpetic appearing skin rash with few lesions crusted over, multiple areas of skin excoriation noted over right hand, abdomen Data : 01/07/21 11:17 01/07/21 11:17 Other Labs: Laboratory Results WBC 20.0 10^3/uL (4.0-10.0) H 01/07/21 11:17 RBC 4.06 10^6/uL (4.1-5.3) L 01/07/21 11:17 Hgb 12.5 g/dL (11.7-16.6) 01/07/21 11:17 Hct 37.8 % (42.0-52.0) L 01/07/21 11:17 MCV 93.1 fL (80-94) 01/07/21 11:17 MCH 30.8 pg (28.0-34.0) 01/07/21 11:17 MCHC 33.1 g/dL (30.0-36.0) 01/07/21 11:17 RDW 15.9 % (12.1-15.1) H 01/07/21 11:17 Plt Count 144 10^3/cmm (130-400) 01/07/21 11:17 MPV 11.6 fL (7.4-10.4) H 01/07/21 11:17 Neut % (Auto) 89.2 % 01/07/21 11:17 Lymph % (Auto) 5.1 % 01/07/21 11:17 [place] % (Auto) 2.7 % 01/07/21 11:17 Eos % (Auto) 0.8 % 01/07/21 11:17 Baso % (Auto) 0.3 % 01/07/21 11:17 Neut # (Auto) 17.82 10^3/uL (1.8-7.7) H 01/07/21 11:17 Lymph # (Auto) 1.0 10^3/uL (0.8-4.8) 01/07/21 11:17 [place] # (Auto) 0.5 10^3/uL (0.2-0.9) 01/07/21 11:17 Eos # (Auto) 0.2 10^3/uL (0.0-0.8) 01/07/21 11:17 Baso # (Auto) 0.1 10^3/uL (0.0-0.1) 01/07/21 11:17 Nucleated RBC % (auto) 0 % 01/07/21 11:17 Nucleated RBCs # 0.0 /100WBC 01/07/21 11:17 Sodium 134 mmol/L (136-145) L 01/07/21 11:17 Potassium 4.6 mmol/L (3.5-5.1) 01/07/21 11:17 Chloride 99 mmol/L (98-107) 01/07/21 11:17 Carbon Dioxide 25 mmol/L (22-29) 01/07/21 11:17 Anion Gap 14.6 (5-19) 01/07/21 11:17 BUN 27 mg/dL (8-23) H 01/07/21 11:17 Creatinine 1.4 mg/dL (0.7-1.2) H 01/07/21 11:17 GFR Calculation Not Reportable 01/07/21 11:17 Glucose 178 mg/dL (65-115) H 01/07/21 11:17 Calculated Osmolality 288 mOsm/kg (285-295) 01/07/21 11:17 Calcium 8.2 mg/dL (8.5-10.5) L 01/07/21 11:17 Total Bilirubin 0.4 mg/dL (0.15-1.2) 01/07/21 11:17 AST 15 U/L (0-40) 01/07/21 11:17 ALT 19 U/L (0-41) 01/07/21 11:17 Alkaline Phosphatase 94 IU/L (40-130) 01/07/21 11:17 Troponin T Baseline 56 ng/L (0-15) H 01/07/21 11:17 Troponin T 120 Minute 44.85 ng/L (0-15) H 01/07/21 13:05 Delta Troponin T -11.15 ABS# (0-10) L 01/07/21 13:05 Total Protein 4.9 g/dL (6.6-8.7) L 01/07/21 11:17 Albumin 3.0 g/dL (3.5-5.2) L 01/07/21 11:17 Globulin 1.9 g/dL (1.3-4.6) 01/07/21 11:17 Impressions Chest CTA 01/07/21 11:17 IMPRESSION: 1. Limited opacification of the pulmonary arteries. No large central or lower lobe pulmonary embolism. Poor opacification of the upper lobe pulmonary arteries. 2. No RIGHT heart strain. 3. Multifocal bilateral ill-defined pulmonary opacifications are new since 04/10/2020. Greatest distribution in the RIGHT upper lobe. Differential includes pneumonitis and septic embolic disease. 4. Mild esophageal wall thickening with debris in the lumen. Probably due to reflux disease. 5. Mild atherosclerosis aorta. 6. Bilateral renal cystic and complex cystic or solid masses. These are not simple cysts. Recommend follow-up dedicated renal mass CT protocol to evaluate for solid renal mass. Micro: Microbiology 01/07/21 12:13 Blood Culture - Preliminary Blood SPECIMEN COLLECTED 01/07/21 12:10 Blood Culture - Preliminary Blood SPECIMEN COLLECTED A&P Assessment and plan (1) Cellulitis: Over left medial thigh Cefepime, vancomycin empirically for treatment Blood culture monitor clinically Status: Acute Qualifiers: Site of cellulitis: extremity Site of cellulitis of extremity: lower extremity Laterality: left Qualified Code(s): L03.116 - Cellulitis of left lower limb (2) Ground glass opacity present on imaging of lung: GGOs noted over B/L lung sanchez Radiology report with possible septic emboli however I am unable to appreciate at this time Blood culture as noted above GGOs may be related to acute viral illness- check COVID ag and influenza ag Alternatively could be representataive of air trapping as result of emphysema low suspicion for PJP given lack of characeteristic CT findings however patient has risk factors by way of mcc steroid use. Check peripheral markers incl serum LDH, BDG and induced sputum PJP PCR. Add bactrim ppx in the interim Status: Acute (3) Giant cell arteritis: continue prednisone at home dose Status: Acute (4) High risk medication use: Status: Acute (5) Seropositive rheumatoid arthritis of multiple sites: Hold actemra for now continue steroids Status: Acute (6) Acute dyspnea: CTA negative for PE may be related to COPD Status: Acute (7) COPD (chronic obstructive pulmonary disease): duonebs every 6h scheduled + budesonide 0.5mg BID inhalaation Status: Acute Qualifiers: COPD type: chronic bronchitis Chronic bronchitis type: simple Qualified Code(s): J41.0 - Simple chronic bronchitis (8) Shingles rash: rash over left hand appeasr to be herpetic has a h/o recurrent mucocutaneous herpes simplex around lips start valtrex 1000mg bid , monitor renal function standard precautions Status: Acute Attestations Medical Necessity Statement*: anticipate >2midnight admission for need of iv antibiotics, close monitoring for sepsis in immunocompromised patient Coding Level of Care Code Acute Oracle Pl Sql Developer for [facility] Fwd Diagnoses Cellulitis L03.116 Site of cellulitis: extremity Site of cellulitis of extremity: lower extremity Laterality: left Ground glass opacity present on imaging of lung R91.8 Giant cell arteritis M31.6 High risk medication use Z79.899 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 Acute dyspnea R06.00 COPD (chronic obstructive pulmonary disease) J41.0 COPD type: chronic bronchitis Chronic bronchitis type: simple Shingles rash B02.9
[2021-01-07] MEDS: enoxaparin 100 mg/mL Syringe 90 MG SUBCUT (16:58)
[2021-01-07] MEDS: cefepime 2,000 MG in sodium chloride 0.9% (plus) 50 ML 100 MG IV (17:22)
[2021-01-07] MEDS: gabapentin 300 mg Capsule PO (17:23)
[2021-01-07] MEDS: valACYclovir 1,000 mg Tablet 1000 MG PO (17:23)
[2021-01-07] MEDS: nicotine 21 mg Patch 1 PATCH TRANSDERMA (17:23)
[2021-01-07] MEDS: metoprolol tartrate 25 mg Tablet PO (17:23)
[2021-01-07] MEDS: nystatin 100,000 unit/mL UDC 5 mL 500000 UNIT PO ×2 (17:26→22:00)
--- NOTE | 2021-01-07 17:29 | CTR_ITS ---
PROCEDURE INFORMATION: Exam: CT Abdomen And Pelvis Without Contrast Exam date and time: 01/07/2021 5:29 PM Age: 75 years old Clinical indication: Abnormal findings; Abnormal radiologic finding of the abdomen; Radiologic exam and body structure: Renal mass identified on CT of chest w contrast; Prior surgery; Surgery type: Aaa; Additional info: Incidentaly identified new renal masses on CT chest TECHNIQUE: Imaging protocol: Computed tomography of the abdomen and pelvis without contrast. Radiation optimization: All CT scans at this facility use at least one of these dose optimization techniques: automated exposure control; mA and/or kV adjustment per patient size (includes targeted exams where dose is matched to clinical indication); or iterative reconstruction. COMPARISON: CT abdomen pelvis w con* [id number] 12/15/2019 11:34 PM RADIATION DOSE METRICS: Total DLP (mGy-cm): 1291.81 FINDINGS: Liver: Normal. No mass. Gallbladder and bile ducts: Normal. No calcified stones. No ductal dilation. Pancreas: Normal. No ductal dilation. Spleen: Stable calcified splenic granulomas. Adrenal glands: Normal. No mass. Kidneys and ureters: Residual contrast in the collecting system from previous CTA chest with contrast earlier today. Stable multiple simple bilateral renal cysts with the largest measuring > 1.0 cm. Stable 1.4 cm low-density partially exophytic lesion in lower pole left kidney which on the previous CT with contrast appeared somewhat complex. Nonemergent MRI abdomen with and without contrast may be helpful to compare with previous MRI dated August 27, 2019. Stomach and bowel: Unremarkable. No obstruction. No mucosal thickening. Appendix: No evidence of appendicitis. Intraperitoneal space: Unremarkable. No free air. No significant fluid collection. Vasculature: Stable aortic bilateral iliac artery endovascular stent. 4 cm fusiform abdominal aortic aneurysm without rupture. Lymph nodes: Unremarkable. No enlarged lymph nodes. Urinary bladder: Unremarkable as visualized. Reproductive: Unremarkable as visualized. Bones/joints: Moderate to severe multilevel spine degenerative changes including degenerative disc disease, spondylosis and facet degenerative changes. Soft tissues: Unremarkable. Other findings: Mild to moderate retained feces. CT/CT abdomen pelvis wo con [id number] IMPRESSION: 1. Residual contrast in the collecting system from previous CTA chest with contrast earlier today. 2. Stable multiple simple bilateral renal cysts with the largest measuring > 1.0 cm. 3. Stable 1.4 cm low-density partially exophytic lesion in lower pole left kidney which on the previous CT with contrast appeared somewhat complex. Nonemergent MRI abdomen with and without contrast may be helpful to compare with previous MRI dated August 27, 2019. Radiation Dose CTDIVOL = (mGy): DLP = 1291.81 (mGy-cm)
[2021-01-07 17:34] LABS: Add Urine Microscopic? NO; Charge for UA Resulting for Rev
[2021-01-07 17:52] LABS: SARS Covid-2 Antigen Negative (Negative)
[2021-01-07 18:07] LABS: Bilirubin Urine Neg (Negative); Blood Urine Neg (Negative); Glucose Urine UA 2+ (Normal); Ketones Urine Negative (Negative); Leukocyte Esterase Urine Negative (Negative); Nitrate Urine Negative (Negative); Protein Urine 3+ (Negative); Urine Appearance Clear (CLEAR); Urine Color Yellow (Yellow); Urobilinogen Urine Norm (Negative); pH Urine 5 (5-7)
[2021-01-07 18:08] LABS: Influenza A by IFA Negative (Negative); Influenza B by IFA Negative (Negative)
[2021-01-07 18:17] LABS: Troponin 5 6HR 35.17 ng/L (0-15)
[2021-01-07] MEDS: sulfamethoxazole-trimeth DS 160-800 mg Tablet 1 TAB PO (18:49)
[2021-01-07] MEDS: vancomycin 1,250 MG/250 ML PIGGYBACK 250 MG IV (18:50)
--- NOTE | 2021-01-07 18:55 | ECG_ITS ---
[facility] ED Test Date: 2021-01-07 Pat Name: Gabino Lamb Department: Room: 261 Gender: Male Travel Ot: : 1945 Requested By: Ceasar Harvey Order Number: [id number] Tania MD: Jemma Gr M.D. Measurements Intervals [place] Rate: 77 P: 56 TX: 141 QRS: 69 QRSD: 73 T: 81 QT: 366 QTc: 415 Interpretive Statements SINUS RHYTHM WITH MARKED SINUS ARRHYTHMIA Compared to ECG 01/07/2021 14:51:20 No significant changes Electronically Signed On 01-07-2021 22:07:00 CDT by Jemma Gr M.D. [id number]
[2021-01-07] MEDS: ipratropium-albuterol 3 mL Neb INHALATION (21:52)
[2021-01-07] MEDS: budesonide 0.5 mg/2 mL Neb INHALATION (21:52)
[2021-01-07] MEDS: ropinirole 2 mg Tablet PO (22:00)
[2021-01-08] VITALS (17 sets, daily range): BP systolic 90–142; BP diastolic 54–70; PULSE 73–97; RESP 14–18; TEMP 36.8–37.4; O2SAT 90–97
[2021-01-08] MEDS: ipratropium-albuterol 3 mL Neb INHALATION ×4 (03:12→22:26)
[2021-01-08] MEDS: cefepime 2,000 MG in sodium chloride 0.9% (plus) 50 ML 100 MG IV ×2 (05:12→16:06)
[2021-01-08] MEDS: pantoprazole DR 40 mg Tablet PO (05:13)
[2021-01-08] MEDS: predniSONE 20 mg Tablet 30 MG PO (05:13)
[2021-01-08 06:41] LABS: Hematocrit 37.2 % (42.0-52.0); Hemoglobin 11.6 g/dL (11.7-16.6); Mean Corpuscular HGB Conc 31.2 g/dL (30.0-36.0); Mean Corpuscular Hemoglobin 30.8 pg (28.0-34.0); Mean Corpuscular Volume 98.7 fL (80-94); Mean Platelet Volume 12.4 fL (7.4-10.4); Platelet Count 134 10^3/cmm (130-400); Red Blood Count 3.77 10^6/uL (4.1-5.3); Red Cell Distribution Width 15.9 % (12.1-15.1); White Blood Count 21.8 10^3/uL (4.0-10.0)
[2021-01-08 07:05] LABS: Anion Gap 14.4 (5-19); Blood Urea Nitrogen 31 mg/dL (8-23); Calcium 7.9 mg/dL (8.5-10.5); Carbon Dioxide 25 mmol/L (22-29); Chloride 103 mmol/L (98-107); Glucose 150 mg/dL (65-115); Osmolality Calculated 295 mOsm/kg (285-295); Potassium 4.4 mmol/L (3.5-5.1); Sodium 138 mmol/L (136-145)
[2021-01-08 07:17] LABS: Lactate Dehydrogenase 262 U/L (135-225)
[2021-01-08 07:32] LABS: Slide Review Slide Review Perform
[2021-01-08 07:34] LABS: Absolute Segmented Neutrophil 9.4 10/cmm (1.6-7.1); Band Neutrophils Absolute 10.2 10^3/cmm (0.0-1.2); Lymphocytes 7 %; Monocytes Absolute 0.4 10^3/cmm (0.1-0.6); Segmented Neutrophils 43 %; Total Cells Counted 100 (0-100)
[2021-01-08 07:35] LABS: Absolute Neutrophil 19.6 10^3/cmm (1.4-6.5); Platelet Estimate Normal (Normal); Toxic Granulation 1+
[2021-01-08 07:36] LABS: Eosinophils 0 %; Lymphocytes Absolute 1.5 10^3/cmm (1.2-3.4)
[2021-01-08] MEDS: nystatin 100,000 unit/mL UDC 5 mL 500000 UNIT PO ×4 (09:14→21:21)
[2021-01-08] MEDS: metoprolol tartrate 25 mg Tablet PO ×2 (09:14→17:21)
[2021-01-08] MEDS: losartan 50 mg Tablet 100 MG PO (09:14)
[2021-01-08] MEDS: gabapentin 300 mg Capsule PO ×2 (09:15→17:21)
[2021-01-08] MEDS: valACYclovir 1,000 mg Tablet 1000 MG PO ×2 (09:15→17:21)
[2021-01-08] MEDS: aspirin 81 mg Chew Tablet PO (09:15)
[2021-01-08] MEDS: amlodipine 10 mg Tablet PO (09:15)
[2021-01-08] MEDS: budesonide 0.5 mg/2 mL Neb INHALATION (09:25)
[2021-01-08] MEDS: silver sulfadiazine cream 1% 50 gm 1 APPLIC TOPICAL (10:53)
--- NOTE | 2021-01-08 11:14 | PC.CHAP ---
Pastoral Care Encounter/Spiritual Assessment Type of Contact [] Declined change management director visit [] Patient/Family/Request visit [] Outpatient visit [] Follow-up visit [] Physician referral [] Code/Alert [] Routine visit [] Staff referral [] Actively dying [] Patient sleeping [] Family support [] [] Out of room [] Palliative care [] [] Receiving care in room [] Pre-surgical visit [] Trauma [] Long length of stay [] ICU visit [x] Other: Isolation Relational/Emotional Strength [] Patient feels connected with others/family/visitors/staff [] Distress [] Loneliness/isolation [] Abandonment Spirituality of Patient [] Person of Beatrice [] Attends Mu-Ism of their Beatrice [] Believes in Prayer [] Reads Bible or Episcopalian materials [] There are Spiritual issues to be addressed Physician Gynecologist Interventions [] Prayer [] Active listening [] Non-anxious presence [] Spiritual/emotional support [] Crisis/trauma care [] Spiritual counseling [] Bereavement support [] Provided bereavement packet [] Provided Bible/devotional materials [] Provided toy/stuffed animal, coloring book to patient or family member [] Provided Communion [] Anointing/[place] [] Salvation [] Completed spiritual assessment [] Other: Impact on Illness or Injury [] Angry [] Fearful [] Anxious [] Often cries [] Exhaustion [] Unable to work [] Unable to attend sabianism [] Unable to walk/stand [] Unable to read [] Unable to drive [] Unable to eat/drink [] Unable to sleep [] Unable to be with family [] Patient intubated [] Other: Summary Isolation Time spent with patient 5 mins
--- NOTE | 2021-01-08 11:34 | PC.NURSE ---
Retook blood pressure and it was 95/53. Nurse Ame Ta notified.
[2021-01-08] MEDS: vancomycin 1,250 MG/250 ML PIGGYBACK 250 MG IV (12:16)
[2021-01-08] MEDS: enoxaparin 40 mg/0.4 mL Syringe SUBCUT (16:06)
[2021-01-08] MEDS: nicotine 21 mg Patch 1 PATCH TRANSDERMA (16:06)
--- NOTE | 2021-01-08 17:52 | P.PN_ITS ---
Subjective Subjective: Interval history: 75-year-old male with a past medical history significant for hypertension, hyperlipidemia, abdominal aortic aneurysm status post repair, neuropathy, restless leg syndrome, rheumatoid arthritis on Actemra, Leflulonamide, prednisone 30g daily , and chronic obstructive pulmonary disease presented to the hospital with left lower extremity cellulitis. Patient did have a recent LE duplex which was negative for DVT. Patient was also noted to have a rash over left hand which appear to be shingles. Upon arrival to ER he had also noted have hypoxia with oxygen saturation in the 80s. He was placed on supplemental o2. Required 3L of o2 via NC. Laboratory workup on arrival showed a WBC of 20.0, hemoglobin 12.5, hematocrit of 37.8 and a platelet count of 144. Sodium 134, potassium 4.6, chloride 99, bicarb 25, BUN 27 and creatinine of 1.4. Glucose of 178. Delta troponin T was -11 and -20. Influenza A/B and covered antigen were negative. CTA chest PE protocol was done which showed multifocal bilateral ill-defined pulmonary opacifications with her new since prior imaging in April 2020. Also noted to have mild esophageal wall thickening with debris in the lumen. Incidentally also noted to have a stable 1.4 cm low-density partially exophytic lesion in lower pole left kidney. He was started on cefepime 2g IV q12hr and vancomycin pharmacy to dose. Additionally continued on Bactrim DS M/W/ for PCP ppx and valtrex 1g PO BID for left hand shingles. Subjective 01/08/21 No new clinical events. Patient denied any respiratory distress. Noted left lower extremity swelling, tenderness and difficulty ambulating due to edema Medications: Reviewed: Yes Vitals/I&O/Wt Last Vital Signs Temp 98.2 F 01/08/21 15:30 Pulse 81 01/08/21 15:30 Resp 15 01/08/21 15:30 BP 110/69 01/08/21 15:30 Pulse Ox 90 01/08/21 15:30 01/08/21 01/08/21 01/08/21 06:59 14:59 22:59 Intake Total 440 / 1440.000 850 / 850 50 / 900 Output Total 1225 / 1225 520 / 520 Balance -785 / 215.000 330 / 330 50 / 380 Weight last 48 hrs Weight 86.183 kg Physical Exam Narrative: EXAM NARRATIVE: General: No acute distress, AO x3 HEENT: Grossly unremarkable Chest: Normal vesicular breath sounds, no added sounds, equal good air entry bilaterally CVS: S1-S2 regular, no murmurs, no tachycardia, no gallops, no rubs Abdomen: Soft, nontender, no organomegaly, bowel sounds present Neuro: No focal deficits, no facial deformity, AO x3, power 5/5 in all limbs Extremities: left medial thigh with area of warmth, tenderness and erythema, no joint swelling, left hand radial aspect with herpetic appearing skin rash with few lesions crusted over, multiple areas of skin excoriation noted over right hand, abdomen- unchanged since admission Data : 01/08/21 06:02 01/08/21 06:02 Micro: Microbiology 01/07/21 12:13 Blood Culture - Preliminary Blood NEGATIVE TO DATE 01/07/21 12:10 Blood Culture - Preliminary Blood NEGATIVE TO DATE 01/07/21 16:20 MARTA Preparation - Final Mouth A&P Assessment and plan (1) Cellulitis: Status: Acute Qualifiers: Site of cellulitis: extremity Site of cellulitis of extremity: lower extremity Laterality: left Qualified Code(s): L03.116 - Cellulitis of left lower limb (2) Ground glass opacity present on imaging of lung: Status: Acute (3) Shingles rash: Status: Acute (4) Pneumonia: Status: Acute (5) Chronic steroid use: Status: Acute (6) PMR (polymyalgia rheumatica): Status: Acute (7) Rheumatoid arthritis: Status: Acute (8) COPD (chronic obstructive pulmonary disease): Status: Acute Qualifiers: COPD type: chronic bronchitis Chronic bronchitis type: simple Qual ified Code(s): J41.0 - Simple chronic bronchitis (9) Mixed hyperlipidemia: Status: Acute Left Proximal LE Cellulitis - Vancomycin pharmacy to dose - Cefepime 2g IV BID - Follow up on blood culture x 2 - Keep elevated when possible - Recent LE venous duplex - No DVT - May consider CT LLE if no improvement Left Hand Shingles - Started on Valtrex 1g PO BID - Pain control - Contact precautions Acute respiratory failure with hypoxia due to possible pneumonia with underlying COPD - CTA chest - Multifocal opacification - Wean o2 as tolerated - Breo resumed - Will d/c pulmicort. - Antibiotics as above - Will d/w pulmonary - Obtain ECHO - Pneumocystis sent Rheumatoid Arthritis - Hold actemera - Continue prednisone 30 mg Po qam - Bactrim DS M/W/F for PCP ppx Hypertension - Norvasc 10 mg PO daily - Metoprolol 25 mg PO BID - Losartan 100 mg PO daily Restless Leg syndrome - Requip 2 mg PO qhs GI ppx - Protonix 40 mg PO daily DVT ppx - Lovenox 40 mg SQ q24hr Attestations Medical Necessity Statement*: Will require further hospitalization for management of left lower extremity cellulitis, respiratory distress requiring IV antibiotics Time Spent in Patient Care: Greater than 35 minutes (>than 50% of time spent in counselling and/or direct pt care on unit) . Coding Level of Care Code Acute Cigarette Carton Sealer for [facility] Fwd Diagnoses Cellulitis L03.116 Site of cellulitis: extremity Site of cellulitis of extremity: lower extremity Laterality: left Ground glass opacity present on imaging of lung R91.8 Shingles rash B02.9 Pneumonia J18.9 Chronic steroid use PMR (polymyalgia rheumatica) M35.3 Rheumatoid arthritis M06.9 COPD (chronic obstructive pulmonary disease) J41.0 COPD type: chronic bronchitis Chronic bronchitis type: simple Mixed hyperlipidemia E78.2
[2021-01-08] MEDS: ropinirole 2 mg Tablet PO (21:21)
[2021-01-09] VITALS (15 sets, daily range): BP systolic 96–134; BP diastolic 63–84; PULSE 71–92; RESP 15–20; TEMP 36.6–37.2; O2SAT 92–97
[2021-01-09] MEDS: ipratropium-albuterol 3 mL Neb INHALATION ×4 (04:15→21:56)
[2021-01-09] MEDS: cefepime 2,000 MG in sodium chloride 0.9% (plus) 50 ML 100 MG IV ×2 (04:45→16:52)
[2021-01-09] MEDS: vancomycin 1,250 MG/250 ML PIGGYBACK 250 MG IV (05:27)
[2021-01-09] MEDS: pantoprazole DR 40 mg Tablet PO (05:29)
[2021-01-09] MEDS: predniSONE 20 mg Tablet 30 MG PO (05:29)
[2021-01-09] MEDS: valACYclovir 1,000 mg Tablet 1000 MG PO ×2 (08:07→17:10)
[2021-01-09] MEDS: amlodipine 10 mg Tablet PO (08:07)
[2021-01-09] MEDS: nystatin 100,000 unit/mL UDC 5 mL 500000 UNIT PO ×4 (08:07→21:12)
[2021-01-09] MEDS: metoprolol tartrate 25 mg Tablet PO ×2 (08:07→17:10)
[2021-01-09] MEDS: losartan 50 mg Tablet 100 MG PO (08:07)
[2021-01-09] MEDS: gabapentin 300 mg Capsule PO ×2 (08:08→17:10)
[2021-01-09] MEDS: silver sulfadiazine cream 1% 50 gm 1 APPLIC TOPICAL (08:08)
[2021-01-09] MEDS: aspirin 81 mg Chew Tablet PO (08:08)
--- NOTE | 2021-01-09 15:23 | PC.RESP ---
Smoking Cessation and Pulmonary Rehab information sent to patient
[2021-01-09] MEDS: HYDROcodone-acetaminophen 10-325 mg Tablet 1 TAB PO (15:47)
[2021-01-09] MEDS: nicotine 21 mg Patch 1 PATCH TRANSDERMA (15:48)
[2021-01-09] MEDS: enoxaparin 40 mg/0.4 mL Syringe SUBCUT (15:48)
[2021-01-09] MEDS: sulfamethoxazole-trimeth DS 160-800 mg Tablet 1 TAB PO (16:53)
--- NOTE | 2021-01-09 17:59 | P.PN_ITS ---
Subjective Subjective: Interval history: 75-year-old male with a past medical history significant for hypertension, hyperlipidemia, abdominal aortic aneurysm status post repair, neuropathy, restless leg syndrome, rheumatoid arthritis on Actemra, Leflulonamide, prednisone 30g daily , and chronic obstructive pulmonary disease presented to the hospital with left lower extremity cellulitis. Patient did have a recent LE duplex which was negative for DVT. Patient was also noted to have a rash over left hand which appear to be shingles. Upon arrival to ER he had also noted have hypoxia with oxygen saturation in the 80s. He was placed on supplemental o2. Required 3L of o2 via [place]. Laboratory workup on arrival showed a WBC of 20.0, hemoglobin 12.5, hematocrit of 37.8 and a platelet count of 144. Sodium 134, potassium 4.6, chloride 99, bicarb 25, BUN 27 and creatinine of 1.4. Glucose of 178. Delta troponin T was -11 and -20. Influenza A/B and covered antigen were negative. CTA chest PE protocol was done which showed multifocal bilateral ill-defined pulmonary opacifications with her new since prior imaging in April 2020. Also noted to have mild esophageal wall thickening with debris in the lumen. Incidentally also noted to have a stable 1.4 cm low-density partially exophytic lesion in lower pole left kidney. He was started on cefepime 2g IV q12hr and vancomycin pharmacy to dose. Additionally continued on Bactrim DS M/W/ for PCP ppx and valtrex 1g PO BID for left hand shingles. Subjective 01/08/21 No new clinical events. Patient denied any respiratory distress. Noted left lower extremity swelling, tenderness and difficulty ambulating due to edema 01/09/21 Unchanged no new clinical events. continued to have difficult moving left lower extremity Medications: Reviewed: Yes Vitals/I&O/Wt Last Vital Signs Temp 98.3 F 01/09/21 15:34 Pulse 92 01/09/21 15:41 Resp 20 H 01/09/21 15:35 BP 123/72 01/09/21 15:34 Pulse Ox 95 01/09/21 15:35 01/09/21 01/09/21 01/09/21 06:59 14:59 22:59 Intake Total 300 / 1680 290 / 290 Output Total 350 / 870 350 / 350 375 / 725 Balance -50 / 810 -350 / -350 -85 / -435 Physical Exam Narrative: EXAM NARRATIVE: General: No acute distress, AO x3 HEENT: Grossly unremarkable Chest: Normal vesicular breath sounds, no added sounds, equal good air entry bilaterally CVS: S1-S2 regular, no murmurs, no tachycardia, no gallops, no rubs Abdomen: Soft, nontender, no organomegaly, bowel sounds present Neuro: No focal deficits, no facial deformity, AO x3, power 5/5 in all limbs Extremities: left medial thigh with area of warmth, tenderness and erythema, no joint swelling, left hand radial aspect with herpetic appearing skin rash with few lesions crusted over, multiple areas of skin excoriation noted over right hand, abdomen- unchanged since admission Data : 01/08/21 06:02 01/08/21 06:02 A&P Assessment and plan (1) Cellulitis: Status: Acute Qualifiers: Site of cellulitis: extremity Site of cellulitis of extremity: lower extremity Laterality: left Qualified Code(s): L03.116 - Cellulitis of left lower limb (2) Ground glass opacity present on imaging of lung: Status: Acute (3) Shingles rash: Status: Acute (4) Pneumonia: Status: Acute (5) Chronic steroid use: Status: Acute (6) PMR (polymyalgia rheumatica): Status: Acute (7) Rheumatoid arthritis: Status: Acute (8) COPD (chronic obstructive pulmonary disease): Status: Acute Qualifiers: COPD type: chronic bronchitis Chronic bronchitis type: simple Qualifi ed Code(s): J41.0 - Simple chronic bronchitis (9) Mixed hyperlipidemia: Status: Acute Left Proximal LE Cellulitis - Vancomycin pharmacy to dose - Cefepime 2g IV BID - Follow up on blood culture x 2 - Keep elevated when possible - Recent LE venous duplex - No DVT - Minimal to no improvemnet - CT left leg w contrast for eval - Fall precautions - May consider ID consult Left Hand Shingles - Started on Valtrex 1g PO BID - Pain control - Contact precautions Acute respiratory failure with hypoxia due to possible pneumonia with underlying COPD - CTA chest - Multifocal opacification - Wean o2 as tolerated - Breo resumed - Will d/c pulmicort. - Antibiotics as above - Will d/w pulmonary - Obtain ECHO - pending - Pneumocystis sent Rheumatoid Arthritis - Hold actemera - Continue prednisone 30 mg Po qam - Bactrim DS M/W/F for PCP ppx Hypertension - Norvasc 10 mg PO daily - Metoprolol 25 mg PO BID - Losartan 100 mg PO daily Restless Leg syndrome - Requip 2 mg PO qhs GI ppx - Protonix 40 mg PO daily DVT ppx - Lovenox 40 mg SQ q24hr Attestations Medical Necessity Statement*: Will require further hospialization for management of LLE cellulitis on IV abx Time Spent in Patient Care: Greater than 35 minutes (>than 50% of time spent in counselling and/or direct pt care on unit) . 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
--- NOTE | 2021-01-09 21:00 | CTR_ITS ---
PROCEDURE INFORMATION: Exam: CT Left Lower Extremity With Contrast; Thigh Exam date and time: 01/09/2021 9:00 PM Age: 75 years old Clinical indication: Hip and knee and thigh; Patient HX: Cellulitis to left upper leg. ; Additional info: Cellulitis - difficulty ambulating - minimal improvement TECHNIQUE: Imaging protocol: CT of the Left lower extremity with intravenous contrast was performed. Exam focused on the thigh. Radiation optimization: All CT scans at this facility use at least one of these dose optimization techniques: automated exposure control; mA and/or kV adjustment per patient size (includes targeted exams where dose is matched to clinical indication); or iterative reconstruction. Contrast material: VISI 320; Contrast volume: 95 ml; Contrast route: INTRAVENOUS (IV); COMPARISON: CR XR femur LT min 2V* [id number] 01/05/2021 3:36 PM RADIATION DOSE METRICS: Total DLP (mGy-cm): 1777.05 FINDINGS: Bones/joints: Normal. No acute fracture or dislocation. Soft tissues: Strandy opacities are seen in the subcutaneous fat and fascia of the left thigh likely representing edema. However, inflammatory changes and cellulitis cannot be entirely excluded. There is some fluid attenuation within the fascial planes between the rectus femoris, vastus medialis and sartorius muscles. There is mild enhancement of the investing fascia the rectus femoris muscle and the sartorius muscle. A small fat attenuation lesion is seen within the posterior aspect of the semimembranosis muscle measuring approximately 8.6 mm transverse dimension by 18.6 mm AP dimension by 39 mm craniocaudal dimension compatible with a intramuscular lipoma. A small amount fluid is seen surrounding the muscle in this region. There is inhomogeneous perfusion seen within the vastus medialis muscle. Relative low attenuation is surrounded by thin parameter of hypoperfusion within the vastus medialis muscle measuring 2 cm AP dimension by 2.3 cm transverse dimension and extending approximately 6 cm in craniocaudal dimension, findings could represent myositis versus intramuscular abscess formation. 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 There is some mural thrombus seen within the aneurysm anteriorly. CT/CT femur LT w con [id number] IMPRESSION: 1. Diffuse subcutaneous edema versus cellulitis of the left thigh 2. There is inhomogeneous perfusion of the vastus medialis muscle with low attenuation surrounded by a thin perimeter of hyperperfusion, findings that may represent myositis versus an intramuscular abscess as described above. 3. Some fluid attenuation seen between the rectus femoris, vastus medialis and sartorius muscles in this region. There is mild enhancement of the investing fascia the rectus femoris and sartorius muscle as well. 4. 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 5. 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 There is no evidence for dissection or extravasation. There is no evidence for pseudoaneurysm. Radiation Dose CTDIVOL = (mGy): DLP = 1777.05 (mGy-cm)
[2021-01-09] MEDS: ropinirole 2 mg Tablet PO (21:12)
[2021-01-09] MEDS: iodixanol 320 mg/mL 100mL Btl IV (22:43)
[2021-01-10] VITALS (12 sets, daily range): BP systolic 111–123; BP diastolic 65–73; PULSE 63–91; RESP 15–20; TEMP 36.6–37.1; O2SAT 92–96
[2021-01-10 00:04] LABS: Vancomycin Trough 16.8 ug/mL (10-15)
[2021-01-10] MEDS: vancomycin 1,250 MG/250 ML PIGGYBACK 250 MG IV ×2 (00:27→18:44)
[2021-01-10] MEDS: ipratropium-albuterol 3 mL Neb INHALATION ×3 (02:43→20:18)
[2021-01-10] MEDS: cefepime 2,000 MG in sodium chloride 0.9% (plus) 50 ML 100 MG IV ×2 (05:08→17:34)
[2021-01-10] MEDS: HYDROcodone-acetaminophen 10-325 mg Tablet 1 TAB PO (05:58)
[2021-01-10] MEDS: predniSONE 20 mg Tablet 30 MG PO (05:58)
[2021-01-10] MEDS: pantoprazole DR 40 mg Tablet PO (05:59)
[2021-01-10 07:00] LABS: Basophils # 0.1 10^3/uL (0.0-0.1); Basophils % 0.7 %; Eosinophils # 0.2 10^3/uL (0.0-0.8); Hemoglobin 11.1 g/dL (11.7-16.6); Lymphocytes # 1.3 10^3/uL (0.8-4.8); Lymphocytes % 6.1 %; Mean Corpuscular HGB Conc 31.7 g/dL (30.0-36.0); Mean Corpuscular Hemoglobin 31.1 pg (28.0-34.0); Mean Platelet Volume 11.8 fL (7.4-10.4); Monocytes # 0.4 10^3/uL (0.2-0.9); Monocytes % 1.8 %; Neutrophils # 18.65 10^3/uL (1.8-7.7); Neutrophils % 88.3 %; Nucleated Red Blood Cells % 0 %; Platelet Count 161 10^3/cmm (130-400); Red Blood Count 3.57 10^6/uL (4.1-5.3); Red Cell Distribution Width 15.9 % (12.1-15.1); White Blood Count 21.1 10^3/uL (4.0-10.0)
[2021-01-10 07:29] LABS: Alanine Aminotransferase 20 U/L (0-41); Albumin Level 2.5 g/dL (3.5-5.2); Alkaline Phosphatase 124 IU/L (40-130); Anion Gap 13.4 (5-19); Aspartate Amino Transferase 14 U/L (0-40); Blood Urea Nitrogen 34 mg/dL (8-23); Calcium 8.2 mg/dL (8.5-10.5); Carbon Dioxide 24 mmol/L (22-29); Chloride 103 mmol/L (98-107); Globulin 2.2 g/dL (1.3-4.6); Glucose 139 mg/dL (65-115); Osmolality Calculated 292 mOsm/kg (285-295); Potassium 4.4 mmol/L (3.5-5.1); Sodium 136 mmol/L (136-145); Total Bilirubin 0.2 mg/dL (0.15-1.2); Total Protein 4.7 g/dL (6.6-8.7)
[2021-01-10 07:30] LABS: Procalcitonin 0.49 ng/mL (0-0.5)
[2021-01-10 07:37] LABS: Slide Review Slide Review Perform
--- NOTE | 2021-01-10 07:56 | PC.NURSE ---
at approximately 0630Patient called nurse into room and stated that he should be honest about something. When asked to elaborate, patient stated that his daughter has assisted him into the bathroom without help of staff. He stated I had to use the bathroom and while I was in there I fell. That is probably why my leg and back hurts this morning. I did hit my head on the toilet but not very hard. I didn't tell anyone about it and told my daughter not to either. Patient was educated about the importance of informing staff about falls in the future. Physician was notified and no new orders received.
[2021-01-10] MEDS: nystatin 100,000 unit/mL UDC 5 mL 500000 UNIT PO ×4 (09:09→21:38)
[2021-01-10] MEDS: valACYclovir 1,000 mg Tablet 1000 MG PO ×2 (09:10→17:35)
[2021-01-10] MEDS: aspirin 81 mg Chew Tablet PO (09:10)
[2021-01-10] MEDS: metoprolol tartrate 25 mg Tablet PO ×2 (09:10→17:35)
[2021-01-10] MEDS: losartan 50 mg Tablet 100 MG PO (09:10)
[2021-01-10] MEDS: gabapentin 300 mg Capsule PO ×2 (09:11→17:35)
[2021-01-10] MEDS: amlodipine 10 mg Tablet PO (09:11)
[2021-01-10] MEDS: silver sulfadiazine cream 1% 50 gm 1 APPLIC TOPICAL (09:12)
[2021-01-10] MEDS: enoxaparin 40 mg/0.4 mL Syringe SUBCUT (15:44)
[2021-01-10] MEDS: nicotine 21 mg Patch 1 PATCH TRANSDERMA (15:44)
--- NOTE | 2021-01-10 17:40 | DCPLANNER ---
Pg 2 of IM updated and reviewed with pt via the phone, copy sent in with his nurse.
--- NOTE | 2021-01-10 17:48 | PM.PN ---
Subjective Subjective: Interval history: 75-year-old male with a past medical history significant for hypertension, hyperlipidemia, abdominal aortic aneurysm status post repair, neuropathy, restless leg syndrome, rheumatoid arthritis on Actemra, Leflulonamide, prednisone 30g daily , and chronic obstructive pulmonary disease presented to the hospital with left lower extremity cellulitis. Patient did have a recent LE duplex which was negative for DVT. Patient was also noted to have a rash over left hand which appear to be shingles. Upon arrival to ER he had also noted have hypoxia with oxygen saturation in the 80s. He was placed on supplemental o2. Required 3L of o2 via [place]. Laboratory workup on arrival showed a WBC of 20.0, hemoglobin 12.5, hematocrit of 37.8 and a platelet count of 144. Sodium 134, potassium 4.6, chloride 99, bicarb 25, BUN 27 and creatinine of 1.4. Glucose of 178. Delta troponin T was -11 and -20. Influenza A/B and covered antigen were negative. CTA chest PE protocol was done which showed multifocal bilateral ill-defined pulmonary opacifications with her new since prior imaging in April 2020. Also noted to have mild esophageal wall thickening with debris in the lumen. Incidentally also noted to have a stable 1.4 cm low-density partially exophytic lesion in lower pole left kidney. He was started on cefepime 2g IV q12hr and vancomycin pharmacy to dose. Additionally continued on Bactrim DS M/W/ for PCP ppx and valtrex 1g PO BID for left hand shingles. Subjective 01/08/21 No new clinical events. Patient denied any respiratory distress. Noted left lower extremity swelling, tenderness and difficulty ambulating due to edema 01/09/21 Unchanged no new clinical events. continued to have difficult moving left lower extremity 01/10/21 continued to have LE cellulitis, afebrile Medications: Reviewed: Yes Vitals/I&O/Wt Last Vital Signs Temp 97.8 F 01/10/21 16:00 Pulse 65 01/10/21 16:00 Resp 16 01/10/21 16:00 BP 120/66 01/10/21 16:00 Pulse Ox 95 01/10/21 16:00 01/10/21 01/10/21 01/10/21 06:59 14:59 22:59 Intake Total 300 / 590 600 / 600 Output Total 0 / 925 425 / 425 250 / 675 Balance 300 / -335 175 / 175 -250 / -75 Physical Exam Narrative: EXAM NARRATIVE: General: No acute distress, AO x3 HEENT: Grossly unremarkable Chest: Normal vesicular breath sounds, no added sounds, equal good air entry bilaterally CVS: S1-S2 regular, no murmurs, no tachycardia, no gallops, no rubs Abdomen: Soft, nontender, no organomegaly, bowel sounds present Neuro: No focal deficits, no facial deformity, AO x3, power 5/5 in all limbs Extremities: left medial thigh with area of warmth, tenderness and erythema, no joint swelling, left hand radial aspect with herpetic appearing skin rash with few lesions crusted over, multiple areas of skin excoriation noted over right hand, abdomen- unchanged since admission Data : 01/10/21 06:29 01/10/21 06:29 A&P Assessment and plan (1) Cellulitis: Status: Acute Qualifiers: Laterality: left Site of cellulitis: extremity Site of cellulitis of extremity: lower extremity Qualified Code(s): L03.116 - Cellulitis of left lower limb (2) Ground glass opacity present on imaging of lung: Status: Acute (3) Shingles rash: Status: Acute (4) Pneumonia: Status: Acute (5) Chronic steroid use: Status: Acute (6) PMR (polymyalgia rheumatica): Status: Acute (7) Rheumatoid arthritis: Status: Acute (8) COPD (chronic obstructive pulmonary disease): Status: Acute Qualifiers: COPD type: chronic bronchitis Chronic bronchitis type: simple Qualified Code(s): J41.0 - Simple chronic bronchitis (9) Mixed hyperlipidemia: Status: Acute Left Proximal LE Cellulitis - Vancomycin pharmacy to dose - Cefepime 2g IV BID - Follow up on blood culture x 2 - Keep elevated when possible - Recent LE venous duplex - No DVT - Minimal to no improvemnet - CT left leg w contrast Possible intramuscular abscess/myositis - Will consult surgery in am - Fall precautions - May consider ID consult Acute Renal Failure - Cr 1.4 - Will check CPK - May consider nephrology consult - Hold losartan Left Hand Shingles - Started on Valtrex 1g PO BID - Pain control - Contact precautions Acute respiratory failure with hypoxia due to possible pneumonia with underlying COPD - CTA chest - Multifocal opacification - Wean o2 as tolerated - Breo resumed - Will d/c pulmicort. - Antibiotics as above - Will d/w pulmonary - ECHO - Pneumocystis sent Rheumatoid Arthritis - Hold actemera - Continue prednisone 30 mg Po qam - Bactrim DS M/W/F for PCP ppx Hypertension - Norvasc 10 mg PO daily - Metoprolol 25 mg PO BID - Losartan 100 mg PO daily - Hold Restless Leg syndrome - Requip 2 mg PO qhs GI ppx - Protonix 40 mg PO daily DVT ppx - Lovenox 40 mg SQ q24hr Attestations Medical Necessity Statement*: Continue hospitalization for managmenet of cellulitis Time Spent in Patient Care: Greater than 35 minutes (>than 50% of time spent in counselling and/or direct pt care on unit). 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
[2021-01-10 19:30] LABS: Creatine Phosphokinase 46 U/L (39-308)
[2021-01-10] MEDS: ropinirole 2 mg Tablet PO (21:37)
[2021-01-11] VITALS (13 sets, daily range): BP systolic 107–148; BP diastolic 64–96; PULSE 71–84; RESP 16–22; TEMP 36.4–37; O2SAT 92–96
[2021-01-11] MEDS: ipratropium-albuterol 3 mL Neb INHALATION ×3 (03:13→20:27)
[2021-01-11] MEDS: HYDROcodone-acetaminophen 10-325 mg Tablet 1 TAB PO ×3 (03:49→14:53)
[2021-01-11] MEDS: predniSONE 20 mg Tablet 30 MG PO (06:47)
[2021-01-11] MEDS: cefepime 2,000 MG in sodium chloride 0.9% (plus) 50 ML 100 MG IV ×2 (06:47→16:28)
[2021-01-11] MEDS: pantoprazole DR 40 mg Tablet PO (06:47)
[2021-01-11] MEDS: metoprolol tartrate 25 mg Tablet PO ×2 (08:21→16:53)
[2021-01-11] MEDS: gabapentin 300 mg Capsule PO ×2 (08:21→16:53)
[2021-01-11] MEDS: nystatin 100,000 unit/mL UDC 5 mL 500000 UNIT PO ×4 (08:22→20:52)
[2021-01-11] MEDS: silver sulfadiazine cream 1% 50 gm 1 APPLIC TOPICAL (08:22)
[2021-01-11] MEDS: aspirin 81 mg Chew Tablet PO (08:22)
[2021-01-11] MEDS: losartan 50 mg Tablet 100 MG PO (08:22)
[2021-01-11] MEDS: amlodipine 10 mg Tablet PO (08:22)
[2021-01-11] MEDS: valACYclovir 1,000 mg Tablet 1000 MG PO ×2 (08:30→16:53)
[2021-01-11] MEDS: vancomycin 1,250 MG/250 ML PIGGYBACK 250 MG IV (11:21)
[2021-01-11 14:42] LABS: Fungitell 1-3-B Glucan Assay >500; Interpretation POSITIVE
[2021-01-11] MEDS: enoxaparin 40 mg/0.4 mL Syringe SUBCUT (14:54)
--- NOTE | 2021-01-11 15:31 | P.PN_ITS ---
Subjective Subjective: Interval history: 75-year-old male with a past medical history significant for hypertension, hyperlipidemia, abdominal aortic aneurysm status post repair, neuropathy, restless leg syndrome, rheumatoid arthritis on Actemra, Leflulonamide, prednisone 30g daily , and chronic obstructive pulmonary disease presented to the hospital with left lower extremity cellulitis. Patient did have a recent LE duplex which was negative for DVT. Patient was also noted to have a rash over left hand which appear to be shingles. Upon arrival to ER he had also noted have hypoxia with oxygen saturation in the 80s. He was placed on supplemental o2. Required 3L of o2 via [place]. Laboratory workup on arrival showed a WBC of 20.0, hemoglobin 12.5, hematocrit of 37.8 and a platelet count of 144. Sodium 134, potassium 4.6, chloride 99, bicarb 25, BUN 27 and creatinine of 1.4. Glucose of 178. Delta troponin T was -11 and -20. Influenza A/B and covered antigen were negative. CTA chest PE protocol was done which showed multifocal bilateral ill-defined pulmonary opacifications with her new since prior imaging in April 2020. Also noted to have mild esophageal wall thickening with debris in the lumen. Incidentally also noted to have a stable 1.4 cm low-density partially exophytic lesion in lower pole left kidney. He was started on cefepime 2g IV q12hr and vancomycin pharmacy to dose. Additionally continued on Bactrim DS M/W/ for PCP ppx and valtrex 1g PO BID for left hand shingles. Subjective 01/08/21 No new clinical events. Patient denied any respiratory distress. Noted left lower extremity swelling, tenderness and difficulty ambulating due to edema 01/09/21 Unchanged no new clinical events. continued to have difficult moving left lower extremity 01/10/21 Continued to have LE cellulitis, afebrile 01/11/21 Unchanged Left proximal LE cellulitis/pain/tenderness. Medications: Reviewed: Yes Vitals/I&O/Wt Last Vital Signs Temp 98.5 F 01/11/21 12:00 Pulse 71 01/11/21 12:00 Resp 17 01/11/21 12:00 BP 112/65 01/11/21 12:00 Pulse Ox 92 01/11/21 12:00 01/11/21 01/11/21 01/11/21 06:59 14:59 22:59 Intake Total 300 / 300 Output Total 200 / 1175 850 / 850 Balance -200 / -35 -550 / -550 Physical Exam Narrative: EXAM NARRATIVE: General: No acute distress, AO x3 HEENT: Grossly unremarkable Chest: Normal vesicular breath sounds, no added sounds, equal good air entry bilaterally CVS: S1-S2 regular, no murmurs, no tachycardia, no gallops, no rubs Abdomen: Soft, nontender, no organomegaly, bowel sounds present Neuro: No focal deficits, no facial deformity, AO x3, power 5/5 in all limbs Extremities: left medial thigh with area of warmth, tenderness and erythema, no joint swelling, left hand radial aspect with herpetic appearing skin rash with few lesions crusted over, multiple areas of skin excoriation noted over right hand, abdomen- unchanged since admission Data : 01/10/21 06:29 01/10/21 06:29 A&P Assessment and plan (1) Cellulitis: Status: Acute Qualifiers: Site of cellulitis: extremity Site of cellulitis of extremity: lower extremity Laterality: left Qualified Code(s): L03.116 - Cellulitis of left lower limb (2) Ground glass opacity present on imaging of lung: Status: Acute (3) Shingles rash: Status: Acute (4) Pneumonia: Status: Acute (5) Chronic steroid use: Status: Acute (6) PMR (polymyalgia rheumatica): Status: Acute (7) Rheumatoid arthritis: Status: Acute (8) COPD (chronic obstructive pulmonary disease): Status: Acute Qualifiers: COPD type: chronic bronchitis Chronic bronchitis type: simple Qualified Code(s): J41.0 - Simple chronic bronchitis (9) Mixed hyperlipidemia: Status: Acute Left Proximal LE Cellulitis possible Intramuscular abscess - Vancomycin pharmacy to dose - Cefepime 2g IV BID - Follow up on blood culture x 2 - Keep elevated when possible - Recent LE venous duplex - No DVT - Minimal to no improvement - CT left leg w contrast Possible intramuscular abscess/myositis - Will consult surgery vs IR for possible drainage. - Fall precautions - May consider ID consult Acute Renal Failure - Cr 1.4 - CPK - negative - May consider nephrology consult - Hold losartan - BMP today Left Hand Shingles - Valtrex 1g PO BID - Pain control - Contact precautions - Improved Acute respiratory failure with hypoxia due to possible pneumonia with underlying COPD - CTA chest - Multifocal opacification - Wean o2 as tolerated - Breo daily - Antibiotics as above - Will d/w pulmonary - ECHO - pending - Pneumocystis pending - Home o2 eval prior to d/c Rheumatoid Arthritis - Hold actemera - Continue prednisone 30 mg Po qam - Bactrim DS M/W/F for PCP ppx Hypertension - Norvasc 10 mg PO daily - Metoprolol 25 mg PO BID - Losartan 100 mg PO daily - Hold Restless Leg syndrome - Requip 2 mg PO qhs GI ppx - Protonix 40 mg PO daily DVT ppx - Lovenox 40 mg SQ q24hr Attestations Medical Necessity Statement*: Will continue hospitalization for management of cellulitis possible abscess rq IV abx Time Spent in Patient Care: Greater than 35 minutes (>than 50% of time spent in counselling and/or direct pt care on unit) . 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
[2021-01-11] MEDS: nicotine 21 mg Patch 1 PATCH TRANSDERMA (16:28)
[2021-01-11 18:00] LABS: Blood Urea Nitrogen 37 mg/dL (8-23); Calcium 7.8 mg/dL (8.5-10.5); Carbon Dioxide 16 mmol/L (22-29); Chloride 100 mmol/L (98-107); Osmolality Calculated 307 mOsm/kg (285-295); Sodium 129 mmol/L (136-145)
[2021-01-11 18:01] LABS: Anion Gap 18.6 (5-19); Potassium 5.6 mmol/L (3.5-5.1)
[2021-01-11 18:02] LABS: Glucose 647 mg/dL (65-115)
[2021-01-11 18:11] LABS: Glucose Point of Care > 600 mg/dL (70-110)
--- NOTE | 2021-01-11 18:21 | PC.NURSE ---
Lab called critical lab result see documentation, this nurse to room, accucheck tested meter read high, patient awake alert and oriented, denies pain, no distress noted, physician notified and reports will place appropriate orders.
[2021-01-11] MEDS: sodium polystyrene sulfonate 15 gm/60 mL Btl PO (18:38)
--- NOTE | 2021-01-11 18:40 | PC.NURSE ---
insulin given per Dr. Montero order of 14units SQ now and recheck fingerstick in 4 hours.
[2021-01-11] MEDS: ropinirole 2 mg Tablet PO (20:52)
[2021-01-11] MEDS: acetaminophen 325 mg Tablet 650 MG PO (20:52)
[2021-01-11 21:05] LABS: Glucose Point of Care 404 mg/dL (70-110)
[2021-01-12] VITALS (14 sets, daily range): BP systolic 95–123; BP diastolic 44–73; PULSE 67–89; RESP 12–20; TEMP 36.4–36.7; O2SAT 88–97
--- NOTE | 2021-01-12 | CT_ITS ---
WS: [id number] INDICATION: Abscess drainage TECHNIQUE: CT-guided abscess aspiration FINDINGS: The procedure including risks, benefits, and complications were discussed with the patient who agreed to proceed. Conscious sedation was utilized. After 1% lidocaine, using fluoroscopic guidan ce, the fluid collection in the left upper thigh was localized. Subsequently a 13-gauge 5 cm needle w as advanced into the fluid collection and 15 cc of bloody purulent fluid was aspirated. Fluid was sen t for cultures. No immediate complications. CT/CT drain terry/ero/fluid [id number] IMPRESSION: 1. CT-guided aspiration left proximal thigh abscess with drainage of 15 cc pur ulent bloody fluid. Fluid was sent for cultures. 2. No immediate complications.
[2021-01-12 00:44] LABS: Glucose Point of Care 163 mg/dL (70-110)
[2021-01-12 01:37] LABS: Potassium 4.3 mmol/L (3.5-5.1)
[2021-01-12] MEDS: ipratropium-albuterol 3 mL Neb INHALATION ×4 (02:52→20:36)
[2021-01-12] MEDS: acetaminophen 325 mg Tablet 650 MG PO (03:36)
[2021-01-12] MEDS: cefepime 2,000 MG in sodium chloride 0.9% (plus) 50 ML 100 MG IV (04:54)
[2021-01-12] MEDS: predniSONE 20 mg Tablet 30 MG PO (05:00)
[2021-01-12] MEDS: pantoprazole DR 40 mg Tablet PO (05:00)
[2021-01-12 05:25] LABS: Basophils # 0.1 10^3/uL (0.0-0.1); Basophils % 0.8 %; Eosinophils # 0.2 10^3/uL (0.0-0.8); Eosinophils % 0.9 %; Hematocrit 35.2 % (42.0-52.0); Hemoglobin 11.2 g/dL (11.7-16.6); Lymphocytes % 5.8 %; Mean Corpuscular HGB Conc 31.8 g/dL (30.0-36.0); Mean Corpuscular Hemoglobin 31.1 pg (28.0-34.0); Mean Corpuscular Volume 97.8 fL (80-94); Mean Platelet Volume 11.1 fL (7.4-10.4); Monocytes # 0.5 10^3/uL (0.2-0.9); Monocytes % 2.7 %; Neutrophils # 14.99 10^3/uL (1.8-7.7); Neutrophils % 87.7 %; Nucleated Red Blood Cells % 0 %; Platelet Count 184 10^3/cmm (130-400); Red Cell Distribution Width 15.8 % (12.1-15.1); White Blood Count 17.1 10^3/uL (4.0-10.0)
[2021-01-12] MEDS: vancomycin 1,250 MG/250 ML PIGGYBACK 250 MG IV (05:30)
[2021-01-12 05:50] LABS: Procalcitonin 0.51 ng/mL (0-0.5)
[2021-01-12 05:51] LABS: Alanine Aminotransferase 34 U/L (0-41); Albumin Level 2.6 g/dL (3.5-5.2); Alkaline Phosphatase 115 IU/L (40-130); Anion Gap 14.3 (5-19); Aspartate Amino Transferase 19 U/L (0-40); Blood Urea Nitrogen 34 mg/dL (8-23); Calcium 8.4 mg/dL (8.5-10.5); Carbon Dioxide 22 mmol/L (22-29); Chloride 107 mmol/L (98-107); Globulin 2.1 g/dL (1.3-4.6); Glucose 139 mg/dL (65-115); Osmolality Calculated 298 mOsm/kg (285-295); Potassium 4.3 mmol/L (3.5-5.1); Sodium 139 mmol/L (136-145); Total Bilirubin 0.2 mg/dL (0.15-1.2); Total Protein 4.7 g/dL (6.6-8.7)
[2021-01-12 06:02] LABS: Glucose Point of Care 147 mg/dL (70-110)
[2021-01-12] MEDS: aspirin 81 mg Chew Tablet PO (10:35)
[2021-01-12] MEDS: amlodipine 10 mg Tablet PO (10:35)
[2021-01-12] MEDS: gabapentin 300 mg Capsule PO ×2 (10:35→17:39)
[2021-01-12] MEDS: valACYclovir 1,000 mg Tablet 1000 MG PO ×2 (10:35→17:39)
[2021-01-12] MEDS: metoprolol tartrate 25 mg Tablet PO ×2 (10:35→17:40)
[2021-01-12] MEDS: nystatin 100,000 unit/mL UDC 5 mL 500000 UNIT PO ×4 (10:36→20:47)
[2021-01-12] MEDS: silver sulfadiazine cream 1% 50 gm 1 APPLIC TOPICAL (10:36)
--- NOTE | 2021-01-12 10:43 | PM.CONSULT ---
Providers/Reason For Consult Consulting Physician/Specialty*: Adolfo Mena MD Reason for Consult*: Left thigh myositis/cellulitis Attending Physician: Sarina Montero Primary Care Provider: Mike Foster MD History of Present Illness History of Present Illness Chief Complaint: Left leg hurts History of present illness: Mr. 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 Concern of DVT was ruled out based on ultrasound of the left lower extremity yet as the cellulitis got worse a CT scan of the left lower extremity was obtained that showed; 1. Diffuse subcutaneous edema versus cellulitis of the left thigh 2. There is inhomogeneous perfusion of the vastus medialis muscle with low attenuation surrounded by a thin perimeter of hyperperfusion, findings that may represent myositis versus an intramuscular abscess as described above. 3. Some fluid attenuation seen between the rectus femoris, vastus medialis and sartorius muscles in this region. There is mild enhancement of the investing fascia the rectus femoris and sartorius muscle as well. 4. 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 5. 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 There is no evidence for dissection or extravasation. There is no evidence for pseudoaneurysm. Ultrasound left thigh venous duplex shows Normal 2-D Doppler and augmentation and compressibility throughout the lower extremity venous structures. Additional imaging through the proximal calf veins also reveals no thrombus. Limited evaluation of the greater saphenous vein is patent with no thrombus.. Complex cystic mass with low level echos and no vascularity measuring 2.5 x 3.5 cm in the left popliteal fossa. CONCLUSIONS No DVT left lower extremity. Left popliteal fossa Seo's cyst. Per patient's daughter reporting that the swelling was appreciated 10 days ago with worsening pain and then cellulitis started last Tuesday, patient reports no fevers or chills. In the interim he did develop vesicular rash of the left hand particularly on the dorsum consistent with shingles. Patient also denies any history of trauma or tick bites to the area WBC count went up to 21.1 thousand and today is 17.1 General surgery was consulted for further evaluation and potential intervention Review of Systems General: Reports: 10 or more systems reviewed and unremarkable except in HPI and below Meds/Allergies Home Medications and Allergies Home Medications Medication Instructions Recorded Confirmed Last Taken Type losartan 100 mg tablet 100 mg PO DAILY #90 tab 04/08/20 01/07/21 01/07/21 Rx ropinirole 2 mg tablet 2 mg PO BEDTIME #90 tab 07/08/20 01/07/21 01/06/21 Rx ipratropium bromide 42 mcg (0.06 1 spray INTRANASAL TID #15 ml 08/05/20 01/07/21 Unknown Rx %) nasal spray metoprolol tartrate 25 mg tablet 25 mg PO BID #60 tab 08/08/20 01/07/21 01/07/21 Rx gabapentin 300 mg capsule 300 mg PO BID #60 cap 09/12/20 01/07/21 01/07/21 Rx silver sulfadiazine 1 % topical 1 applic TOPICAL DAILY #50 g 09/26/20 01/07/21 Unknown Rx cream fluticasone furoate 200 1 inh INHALATION Q24H #28 ea 10/09/20 01/07/21 01/07/21 Rx mcg-vilanterol 25 mcg/dose inhalation powder ipratropium 20 mcg-albuterol 100 1 puff INHALATION Q6H #4 gm 11/10/20 01/07/21 Unknown Rx mcg/actuation mist for inhalation nicotine 21 mg/24 hr daily 1 patch TRANSDERMA Q24H #28 each 11/10/20 01/07/21 Unknown Rx transdermal patch leflunomide 20 mg tablet 20 mg PO DAILY #30 tab 12/08/20 01/07/21 01/07/21 Rx fluticasone propionate 50 1 spray INTRANASAL BID #15.8 ml 12/10/20 01/07/21 Unknown Rx mcg/actuation nasal spray,suspension cholecalciferol (vitamin D3) 50 50 mcg PO DAILY #30 cap 12/16/20 01/07/21 01/07/21 Rx mcg (2,000 unit) capsule pantoprazole 40 mg tablet,delayed 40 mg PO QAM #30 tab 12/16/20 01/07/21 01/07/21 Rx release amlodipine 10 mg tablet 10 mg PO DAILY #30 tab 12/17/20 01/07/21 01/07/21 Rx glycopyrrolate 1 mg tablet 1 mg PO TID #90 tab 12/31/20 01/07/21 01/07/21 Rx hydrocodone 10 mg-acetaminophen 1 tab PO Q4H PRN 30 Days #60 tab 12/31/20 01/07/21 01/07/21 Rx 325 mg tablet prednisone 20 mg tablet 30 mg PO QAM #45 tab 12/31/20 01/07/21 01/07/21 Rx aspirin 81 mg PO DAILY 01/07/21 01/07/21 01/07/21 History cetirizine 10 mg PO DAILY PRN 01/07/21 01/07/21 Unknown History tocilizumab [Actemra] 162 mg SUBCUT Q7D 01/07/21 01/07/21 01/01/21 History Allergies Allergy/AdvReac Type Severity Reaction Status Date / Time Penicillins Allergy unknown Verified 01/05/21 13:58 Current Medications Current Medications Generic Name Dose Route Start Last Admin Trade Name Freq PRN Reason Stop Dose Admin Acetaminophen 650 mg 01/07/21 16:13 01/12/21 03:36 Acetaminophen 325 Mg Tablet PO 650 mg Q6H PRN Administration Mild/Mod Pain Or Temp >/= 101 Albuterol/Ipratropium 3 ml 01/07/21 21:00 01/12/21 09:09 Ipratropium-Albuterol 3 Ml Neb INHALATION 3 ml Q6H.RESPIRATORY MAY Administration Amlodipine Besylate 10 mg 01/08/21 09:00 01/11/21 08:22 Amlodipine 10 Mg Tablet PO 10 mg DAILY MAY Administration Aspirin 81 mg 01/08/21 09:00 01/11/21 08:22 Aspirin 81 Mg Chew Tablet PO 81 mg DAILY MAY Administration Enoxaparin Sodium 40 mg 01/08/21 16:00 01/11/21 14:54 Enoxaparin 40 Mg/0.4 Ml Syringe SUBCUT 40 mg Q24H MAY Administration Gabapentin 300 mg 01/07/21 18:00 01/11/21 16:53 Gabapentin 300 Mg Capsule PO 300 mg BID MAY Administration Cefepime HCl 2,000 mg/ Sodium 50 mls @ 100 mls/hr 01/07/21 17:00 01/12/21 05:38 Chloride IV Infused Q12H MAY Infusion Protocol Vancomycin/PEG/NADA/Lysine/Water 1,250 mg in 250 mls @ 250 mls/hr 01/07/21 18:00 01/12/21 06:39 Vancocin IV Infused Q18H MAY Infusion Insulin Aspart 0 unit 01/11/21 18:45 01/12/21 07:34 Insulin Aspart 100 Unit/1 Ml SUBCUT 2 unit WM&BEDTIME MAY Administration Protocol Metoprolol Tartrate 25 mg 01/07/21 18:00 01/11/21 16:53 Metoprolol Tartrate 25 Mg Tablet PO 25 mg BID MAY Administration Nicotine 1 patch 01/07/21 16:30 01/11/21 16:28 Nicotine 21 Mg Patch TRANSDERMA 1 patch Q24H MAY Administration Non-Formulary 1 each 01/09/21 09:00 01/11/21 09:15 Medication: Breo INHALATION 1 each DAILY MAY Administration Nystatin 500,000 unit 01/07/21 17:00 01/11/21 20:52 Nystatin 100,000 Unit/Ml Udc 5 Ml PO 500,000 unit QID MAY Administration Pantoprazole Sodium 40 mg 01/08/21 06:00 01/12/21 05:[address] 40 Mg Tablet PO 40 mg QAM MAY Administration Prednisone 30 mg 01/08/21 06:00 01/12/21 05:00 Prednisone 20 Mg Tablet PO 30 mg QAM MAY Administration Ropinirole HCl 2 mg 01/07/21 21:00 01/11/21 20:52 Ropinirole 2 Mg Tablet PO 2 mg BEDTIME MAY Administration Silver Sulfadiazine 1 applic 01/08/21 09:00 01/11/21 08:22 Silver Sulfadiazine Cream 1% 50 Gm TOPICAL 1 applic DAILY MAY Administration Trimethoprim/Sulfamethoxazole 1 tab 01/07/21 17:00 01/09/21 16:53 Sulfamethoxazole-Trimeth Ds 160-800 Mg Tablet PO 1 tab MOWEFR MAY Administration Protocol Valacyclovir HCl 1,000 mg 01/07/21 18:00 01/11/21 16:53 Valacyclovir 1,000 Mg Tablet PO 1,000 mg BID MAY Administration PFSH Acute PFSH: Medical History Abdominal aortic aneurysm Status post repair Chronic back pain Chronic steroid use Colon polyps COPD (chronic obstructive pulmonary disease) Essential (primary) hypertension GERD (gastroesophageal reflux disease) Giant cell arteritis clinical diagnosis High risk medication use History of abdominal aortic aneurysm Immunization counseling Immunization counseling Mixed hyperlipidemia Neuropathy Personal history of arterial venous malformation (AVM) Pulmonary nodules Restless leg syndrome 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 Subacromial bursitis of left shoulder joint s/p steroid injection, resolved Tick bite Surgical History History of back surgery History of colonoscopy History of elbow surgery History of esophagogastroduodenoscopy (EGD) Family History Other CAD (coronary artery disease) Cancer Diabetes Denies family history of Rheumatoid arthritis Lupus Chronic kidney disease (CKD) Stroke Social History Smoking and tobacco status: current every day smoker Alcohol intake: current Alcohol intake frequency: holidays/special occasions only Household members: spouse Housing: House History of recent travel: No Vitals/I&O/Wt Last Vital Signs Temp 97.6 F 01/12/21 08:00 Pulse 87 01/12/21 09:18 Resp 18 01/12/21 09:12 BP 109/73 01/12/21 08:00 Pulse Ox 96 01/12/21 09:12 01/11/21 01/12/21 01/12/21 22:59 06:59 14:59 Intake Total 645 / 945 300 / 1245 0 / 0 Output Total 725 / 1575 Balance -80 / -630 300 / -330 0 / 0 Physical Exam Narrative: EXAM NARRATIVE: Patient is conscious alert oriented X3 BMI 27.3 Head and neck examination PERRLA no masses no cervical lymphadenopathy no jaundice Cardiac examination audible S1-S2 no murmurs no gallops no arrhythmias Chest is clear bilateral,abscence of Rhonchi or wheezes,no surgical emphysema Abdomen nontender nondistended soft no organomegaly guarding or rigidity/no signs of peritonitis Left thigh shows circumferential cellulitic changes of the skin with tenderness appreciated more towards the medial compartment on deeper palpation, neurovascular examination grossly intact. No signs of compartment syndrome of the left lower extremity at this point.Cellulitis is not involving the perineum or genitalia or left buttock. No skin breaks appreciated of the left foot or other injuries or wounds of the left lower extremity A&P Assessment and plan (1) Cellulitis: After thorough history physical examination reviewing the chart and images with my personal interpretation of the CT scan of the left femur, there is a concern and suspicious of deep-seated abscess and surrounding myositis yet it is not distinct on the images at this point consideration of image guided percutaneous drainage and obtaining fluid for culture and sensitivity may help with narrowing the antimicrobial therapy. Otherwise with regard to the myositis and further involvement of the surrounding muscle group I would recommend at this point to have Ortho consultation for their professional opinion and potential intervention if indicated from their perspective. I did discuss the case in person with Dr. Grewal interventional radiologist and he will be able to aspirate some of the fluid and send it for cultures but less likely he would be able to leave a drain behind. Patient and daughter agree on the plan of care. Thank you for consulting general surgery to participate taking care Mr. Lamb Status: Acute Qualifiers: Laterality: left Site of cellulitis: extremity Site of cellulitis of extremity: lower extremity Qualified Code(s): L03.116 - Cellulitis of left lower limb Consult Attestations Medical Necessity Statement: Patient required inpatient hospitalization passing 2 midnights for medical care and IV antimicrobial therapy Time Spent in Patient Care: (>than 50% of time spent in counselling and/or direct pt care on unit). Coding Level of Care Code Acute Supervisor Cd Area for [employer] [facility] Diagnoses Cellulitis L03.116 Laterality: left Site of cellulitis: extremity Site of cellulitis of extremity: lower extremity
--- NOTE | 2021-01-12 10:58 | PM.PN ---
Subjective Subjective: Interval history: Daughter RN at bedside. She speaks for patient. Patient initally says he is fine, but then admits to frustration. Dgter gives hx of temporal artertitis, placed on prednsione, drooling side effect. Leg pain started 1.5 weeks ago. 3 days later started to get streaks on left inner thigh. Became increasingly red. Very painful especially at night. also has shingles left hand Medications: Reviewed: Yes Vitals/I&O/Wt Last Vital Signs Temp 97.6 F 01/12/21 08:00 Pulse 87 01/12/21 09:18 Resp 18 01/12/21 09:12 BP 109/73 01/12/21 08:00 Pulse Ox 96 01/12/21 09:12 01/11/21 01/12/21 01/12/21 22:59 06:59 14:59 Intake Total 645 / 945 300 / 1245 0 / 0 Output Total 725 / 1575 Balance -80 / -630 300 / -330 0 / 0 Physical Exam Narrative: EXAM NARRATIVE: Gen: NAD appears stated age Reg without sign murmur L: diminished throughtout no wheezes, poor expiration A: soft nt/nd nl BS E: large clearly demarcated erythematous and edematous area over medial and anterior thigh to ingulinal area. Induration in medial aspect. N: alert and oriented, non focal Data : 01/12/21 05:00 01/12/21 05:00 Other Labs: improved WBC from 21.1 stable BUN/sCr. Albumin low at 2.6 Procalcitonin just high at 0.51 A&P Assessment and plan (1) Cellulitis: Currently on Vancomycin and maxipime without improvement. Status: Acute Qualifiers: Site of cellulitis: extremity Site of cellulitis of extremity: lower extremity Laterality: left Qualified Code(s): L03.116 - Cellulitis of left lower limb (2) Shingles rash: left hand. on ValAcyclovir Status: Acute (3) Chronic steroid use: Currently taking prednisone 30 mg. Feel strongly that must wean inorder to control and prevent further infections. Reduced to 20 mg. Status: Acute (4) Giant cell arteritis: Not certain the time frame, currently on prednisone 30--20mg daily. Status: Acute (5) PMR (polymyalgia rheumatica): similar to above Status: Acute (6) Essential (primary) hypertension: stable on current meds Status: Acute (7) Seropositive rheumatoid arthritis of multiple sites: Status: Acute (8) Tobacco abuse: on nicotine patch Status: Acute (9) COPD (chronic obstructive pulmonary disease): appears stable on home regimen Status: Acute Qualifiers: COPD type: chronic bronchitis Chronic bronchitis type: simple Qualified Code(s): J41.0 - Simple chronic bronchitis (10) Acute pain: due to left thigh infection. added tramadol 100 mg q6 hr prn. may need something to assist with sleep. will re-eval Status: Acute (11) Myositis: per CT report. Possible abscess. consulted surgery Dr. Mena. Recommends ortho consult. waiting on return phone call. also attempting to reach an ID consult. Spoke to pharmacist who believes Id is consulted behind the scenes. It appears an abx change would be advised? Status: Acute Attestations Medical Necessity Statement*: pt remains acutely ill with infection in innumocompromised states. very concerned with worsening. will require more than 2 MN. Coding Level of Care Code Acute Survey Research Analyst for [facility] Diagnoses Cellulitis L03.116 Site of cellulitis: extremity Site of cellulitis of extremity: lower extremity Laterality: left Shingles rash B02.9 Chronic steroid use Giant cell arteritis M31.6 PMR (polymyalgia rheumatica) M35.3 Essential (primary) hypertension I10 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 Tobacco abuse Z72.0 COPD (chronic obstructive pulmonary disease) J41.0 COPD type: chronic bronchitis Chronic bronchitis type: simple Acute pain R52 Myositis M60.9
[2021-01-12 12:24] LABS: Glucose Point of Care 343 mg/dL (70-110)
--- NOTE | 2021-01-12 12:47 | P.CONIM_ITS ---
Providers/Reason For Consult Consulting Physician/Specialty*: Bear Vega MD; orthopedic surgery Reason for Consult*: Infection left leg Attending Physician: Sarina Montero Primary Care Provider: Mike Foster MD History of Present Illness History of Present Illness Gabino Lamb is a 75 year old immunocompromise male with a history of pain and swelling in his left leg. He has a history of giant cell arteritis and rheumatoid arthritis and is managed with multiple immunosuppressive's and within the past 2 weeks higher doses of prednisone. He describes Tuesday 10 days ago developing tenderness and swelling on the medial aspect of his left leg. He states that it continued to progress over time. This past Tuesday he was seen by his primary care physician and a Doppler ultrasound was obtained which was negative. He was seen in the emergency room on 01/07/2021 and diagnosed with cellulitis. He was admitted for IV antibiotics but really states that he has not had that much more improvement. A CT scan obtained on 01/09/2021 revealed irregular perfusion the vastus medialis with some areas of low signal attenuation suggestive possibly of small areas of myositis versus intramuscular abscesses. The patient was seen by general surgery who suggested orthopedic evaluation. Meds/Allergies Home Medications and Allergies Home Medications Medication Instructions Recorded Confirmed Last Taken Type losartan 100 mg tablet 100 mg PO DAILY #90 tab 04/08/20 01/07/21 01/07/21 Rx ropinirole 2 mg tablet 2 mg PO BEDTIME #90 tab 07/08/20 01/07/21 01/06/21 Rx ipratropium bromide 42 mcg (0.06 1 spray INTRANASAL TID #15 ml 08/05/20 01/07/21 Unknown Rx %) nasal spray metoprolol tartrate 25 mg tablet 25 mg PO BID #60 tab 08/08/20 01/07/21 01/07/21 Rx gabapentin 300 mg capsule 300 mg PO BID #60 cap 09/12/20 01/07/21 01/07/21 Rx silver sulfadiazine 1 % topical 1 applic TOPICAL DAILY #50 g 09/26/20 01/07/21 Unknown Rx cream fluticasone furoate 200 1 inh INHALATION Q24H #28 ea 10/09/20 01/07/21 01/07/21 Rx mcg-vilanterol 25 mcg/dose inhalation powder ipratropium 20 mcg-albuterol 100 1 puff INHALATION Q6H #4 gm 04/12/21 06/09/21 Unknown Rx mcg/actuation mist for inhalation nicotine 21 mg/24 hr daily 1 patch TRANSDERMA Q24H #28 each 11/10/20 01/07/21 Unknown Rx transdermal patch leflunomide 20 mg tablet 20 mg PO DAILY #30 tab 12/08/20 01/07/21 01/07/21 Rx fluticasone propionate 50 1 spray INTRANASAL BID #15.8 ml 12/10/20 01/07/21 Unknown Rx mcg/actuation nasal spray,suspension cholecalciferol (vitamin D3) 50 50 mcg PO DAILY #30 cap 12/16/20 01/07/21 01/07/21 Rx mcg (2,000 unit) capsule pantoprazole 40 mg tablet,delayed 40 mg PO QAM #30 tab 12/16/20 01/07/21 01/07/21 Rx release amlodipine 10 mg tablet 10 mg PO DAILY #30 tab 12/17/20 01/07/21 01/07/21 Rx glycopyrrolate 1 mg tablet 1 mg PO TID #90 tab 12/31/20 01/07/21 01/07/21 Rx hydrocodone 10 mg-acetaminophen 1 tab PO Q4H PRN 30 Days #60 tab 12/31/20 01/07/21 01/07/21 Rx 325 mg tablet prednisone 20 mg tablet 30 mg PO QAM #45 tab 12/31/20 01/07/21 01/07/21 Rx aspirin 81 mg PO DAILY 01/07/21 01/07/21 01/07/21 History cetirizine 10 mg PO DAILY PRN 01/07/21 01/07/21 Unknown History tocilizumab [Actemra] 162 mg SUBCUT Q7D 01/07/21 01/07/21 01/01/21 History Allergies Allergy/AdvReac Type Severity Reaction Status Date / Time Penicillins Allergy unknown Verified 01/05/21 13:58 Current Medications Current Medications Generic Name Dose Route Start Last Admin Trade Name Freq PRN Reason Stop Dose Admin Acetaminophen 650 mg 01/07/21 16:13 01/12/21 03:36 Acetaminophen 325 Mg Tablet PO 650 mg Q6H PRN Administration Mild/Mod Pain Or Temp >/= 101 Albuterol/Ipratropium 3 ml 01/07/21 21:00 01/12/21 09:09 Ipratropium-Albuterol 3 Ml Neb INHALATION 3 ml Q6H.RESPIRATORY MAY Administration Amlodipine Besylate 10 mg 01/08/21 09:00 01/12/21 10:35 Amlodipine 10 Mg Tablet PO 10 mg DAILY MAY Administration Aspirin 81 mg 01/08/21 09:00 01/12/21 10:35 Aspirin 81 Mg Chew Tablet PO 81 mg DAILY MAY Administration Enoxaparin Sodium 40 mg 01/08/21 16:00 01/11/21 14:54 Enoxaparin 40 Mg/0.4 Ml Syringe SUBCUT 40 mg Q24H MAY Administration Gabapentin 300 mg 01/07/21 18:00 01/12/21 10:35 Gabapentin 300 Mg Capsule PO 300 mg BID MAY Administration Vancomycin/PEG/NADA/Lysine/Water 1,250 mg in 250 mls @ 250 mls/hr 01/07/21 18:00 01/12/21 06:39 Vancocin IV Infused Q18H MAY Infusion Insulin Aspart 0 unit 01/11/21 18:45 01/12/21 07:34 Insulin Aspart 100 Unit/1 Ml SUBCUT 2 unit WM&BEDTIME MAY Administration Protocol Metoprolol Tartrate 25 mg 01/07/21 18:00 01/12/21 10:35 Metoprolol Tartrate 25 Mg Tablet PO 25 mg BID MAY Administration Nicotine 1 patch 01/07/21 16:30 01/11/21 16:28 Nicotine 21 Mg Patch TRANSDERMA 1 patch Q24H MAY Administration Non-Formulary 1 each 01/09/21 09:00 01/12/21 10:48 Medication: Breo INHALATION 1 each DAILY MAY Administration Nystatin 500,000 unit 01/07/21 17:00 01/12/21 10:36 Nystatin 100,000 Unit/Ml Udc 5 Ml PO 500,000 unit QID AMY Administration Pantoprazole Sodium 40 mg 01/08/21 06:00 01/12/21 05:[address] 40 Mg Tablet PO 40 mg QAM MAY Administration Ropinirole HCl 2 mg 01/07/21 21:00 01/11/21 20:52 Ropinirole 2 Mg Tablet PO 2 mg BEDTIME MAY Administration Silver Sulfadiazine 1 applic 01/08/21 09:00 01/12/21 10:36 Silver Sulfadiazine Cream 1% 50 Gm TOPICAL 1 applic DAILY MAY Administration Trimethoprim/Sulfamethoxazole 1 tab 01/07/21 17:00 01/09/21 16:53 Sulfamethoxazole-Trimeth Ds 160-800 Mg Tablet PO 1 tab MOWEFR MAY Administration Protocol Valacyclovir HCl 1,000 mg 01/07/21 18:00 01/12/21 10:35 Valacyclovir 1,000 Mg Tablet PO 1,000 mg BID MAY Administration PFSH Acute PFSH: Medical History Abdominal aortic aneurysm Status post repair Chronic back pain Chronic steroid use Colon polyps COPD (chronic obstructive pulmonary disease) Essential (primary) hypertension GERD (gastroesophageal reflux disease) Giant cell arteritis clinical diagnosis High risk medication use History of abdominal aortic aneurysm Immunization counseling Immunization counseling Mixed hyperlipidemia Neuropathy Personal history of arterial venous malformation (AVM) Pulmonary nodules Restless leg syndrome 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 Subacromial bursitis of left shoulder joint s/p steroid injection, resolved Tick bite Surgical History History of back surgery History of colonoscopy History of elbow surgery History of esophagogastroduodenoscopy (EGD) Family History Other CAD (coronary artery disease) Cancer Diabetes Denies family history of Rheumatoid arthritis Lupus Chronic kidney disease (CKD) Stroke Social History Smoking and tobacco status: current every day smoker Alcohol intake: current Alcohol intake frequency: holidays/special occasions only Household members: spouse Housing: House History of recent travel: No Vitals/I&O/Wt Last Vital Signs Temp 97.7 F 01/12/21 12:00 Pulse 75 01/12/21 12:00 Resp 18 01/12/21 12:00 BP 118/67 01/12/21 12:00 Pulse Ox 92 01/12/21 12:00 01/11/21 01/12/21 01/12/21 22:59 06:59 14:59 Intake Total 645 / 945 300 / 1245 0 / 0 Output Total 725 / 1575 Balance -80 / -630 300 / -330 0 / 0 Physical Exam Narrative: EXAM NARRATIVE: Patient has diffuse enlargement of his left thigh. There is erythema beginning from proximal thigh extending down medially to the level of the knee extending a bit more distally medially and laterally. There is some induration of the posterior medial skin no fluctuant I can appreciate. He is able to fully extend his knee and flex to 110 degrees. There is some pain with extremes of flexion. He will flex his toes and his ankle without any motor deficits. Sensation intact light touch. Data Micro: Micro: Microbiology 01/07/21 12:13 Blood Culture - Fi nal Blood NO GROWTH AFTER 5 DAYS 01/07/21 12:10 Blood Culture - Fi nal Blood NO GROWTH AFTER 5 DAYS A&P Assessment and plan (1) Cellulitis: The patient at least has cellulitis in the left upper thigh. It is difficult for me to make surgical decisions on the minimal CT scan findings. I think an MRI would provide better imaging for surgical purposes. There are no contraindications to the MRI that I can identify. I will review the MRI and make a subsequent treatment plan. Status: Acute Qualifiers: Site of cellulitis: extremity Site of cellulitis of extremity: lower extremity Laterality: left Qualified Code(s): L03.116 - Cellulitis of left lower limb Coding Level of Care Code Acute Sand Mixer Operator for [facility] Diagnoses Cellulitis L03.116 Site of cellulitis: extremity Site of cellulitis of extremity: lower extremity Laterality: left
[2021-01-12 14:19] LABS: Lactate (Lactic Acid level) 3.3 mmol/L (0.5-2.2)
--- NOTE | 2021-01-12 16:12 | PC.NURSE ---
Patient to have MRI. Radiology gas plant technician called and asked that more information be obtained from patient's abdominal aortic aneurism graft surgery he had in 2013. Patient signed Medical Records release form to be faxed to [facility] in [place]. MRI checklist completed by patient's daughter and faxed to [facility].
[2021-01-12] MEDS: enoxaparin 40 mg/0.4 mL Syringe SUBCUT (16:43)
[2021-01-12] MEDS: sulfamethoxazole-trimeth DS 160-800 mg Tablet 1 TAB PO (16:43)
[2021-01-12] MEDS: nicotine 21 mg Patch 1 PATCH TRANSDERMA (16:44)
--- NOTE | 2021-01-12 16:49 | DCPLANNER ---
Pg 2 of IM updated and reviewed with pt via the phone. Copy sent into the room.
[2021-01-12 17:07] LABS: Glucose Point of Care 391 mg/dL (70-110)
[2021-01-12] MEDS: HYDROcodone-acetaminophen 10-325 mg Tablet 1 TAB PO (17:39)
[2021-01-12] MEDS: ropinirole 2 mg Tablet PO (20:47)
[2021-01-12 21:18] LABS: Glucose Point of Care 337 mg/dL (70-110)
[2021-01-13] VITALS (20 sets, daily range): BP systolic 101–134; BP diastolic 64–78; PULSE 67–88; RESP 11–20; TEMP 36.2–36.8; O2SAT 92–98; BMI 27.2
[2021-01-13 00:11] LABS: Vancomycin Trough 22.7 ug/mL (10-15)
[2021-01-13] MEDS: ipratropium-albuterol 3 mL Neb INHALATION ×3 (02:13→15:23)
[2021-01-13] MEDS: HYDROcodone-acetaminophen 10-325 mg Tablet 1 TAB PO ×3 (02:19→15:13)
[2021-01-13 06:20] LABS: Glucose Point of Care 179 mg/dL (70-110)
[2021-01-13] MEDS: predniSONE 20 mg Tablet PO (06:23)
[2021-01-13] MEDS: vancomycin 1,250 MG/250 ML PIGGYBACK 250 MG IV (06:23)
[2021-01-13] MEDS: pantoprazole DR 40 mg Tablet PO (06:23)
[2021-01-13] MEDS: amlodipine 10 mg Tablet PO (08:24)
[2021-01-13] MEDS: metoprolol tartrate 25 mg Tablet PO (08:24)
[2021-01-13] MEDS: gabapentin 300 mg Capsule PO (08:24)
[2021-01-13] MEDS: aspirin 81 mg Chew Tablet PO (08:24)
[2021-01-13] MEDS: valACYclovir 1,000 mg Tablet 1000 MG PO (08:25)
[2021-01-13] MEDS: silver sulfadiazine cream 1% 50 gm 1 APPLIC TOPICAL (08:25)
[2021-01-13] MEDS: nystatin 100,000 unit/mL UDC 5 mL 500000 UNIT PO (08:35)
[2021-01-13 08:55] LABS: INR 0.88 (0.8-1.2)
[2021-01-13 12:26] LABS: Glucose Point of Care 218 mg/dL (70-110)
--- NOTE | 2021-01-13 12:26 | PC.NUTR ---
Nutritional assessment: Assessed for LOS. Recommend obtain HgbA1C given glucose in 300-400s. Recommend to encourage po intakes of meals/fluids to optimize nutrition. Goal: pt will consume 75% or greater at meals. See RD assessment for further details.
[2021-01-13] MEDS: sodium chloride 0.9% 1,000 ML 30 ML IV (12:55)
[2021-01-13] MEDS: fentaNYL 50 mcg/mL INJ 2mL 25 MCG IVP ×2 (13:05→13:09)
[2021-01-13] MEDS: midazolam 1 mg/mL INJ 2 mL IVP (13:08)
[2021-01-13] MEDS: midazolam 1 mg/mL INJ 2 mL 2 MG IVP (13:09)
--- NOTE | 2021-01-13 13:50 | PC.NURSE ---
Report called to Roselyn PERSON with [facility].
--- NOTE | 2021-01-13 16:30 | PM.DCS ---
Discharge Providers Date of Admission: 01/07/21 13:33 Date of Discharge: January 13, 2021 Attending Provider at Admission: Farida Reyes MD Attending Provider at Discharge: Gonzalo Rodriguez DO Primary Care Provider: Mike Foster MD Diagnoses at Discharge Discharge Diagnosis (1) Cellulitis: Status: Acute Qualifiers: Site of cellulitis: extremity Site of cellulitis of extremity: lower extremity Laterality: left Qualified Code(s): L03.116 - Cellulitis of left lower limb (2) Myositis: Status: Acute (3) Acute pain: Status: Acute (4) Shingles rash: Status: Acute (5) Chronic steroid use: Status: Acute (6) Giant cell arteritis: Status: Acute Permanent problem details: clinical diagnosis (7) PMR (polymyalgia rheumatica): Status: Acute (8) Essential (primary) hypertension: Status: Acute (9) Seropositive rheumatoid arthritis of multiple sites: Status: Acute (10) Tobacco abuse: Status: Acute (11) COPD (chronic obstructive pulmonary disease): Status: Acute Qualifiers: COPD type: chronic bronchitis Chronic bronchitis type: simple Qualified Code(s): J41.0 - Simple chronic bronchitis Reason for Visit Reason for Visit: LLE pain and swelling Hospital Course Hospital Course Patient was admitted for suspected cellulitis. Patient was started on broad-spectrum antibiotics. Patient was admitted on January 07 by January 12 5 days later the patient has no improvement in symptoms. CT scan of the leg showed myositis of the medial aspect of left thigh and possible fluid collection. With much concern vocalized by both the patient and his daughter who is an RN as well as his lack of improvement from antibiotics I discussed with 2 surgeons and ID physician about the appropriate approach. Since the patient is immunocompromised there is much concern about atypical infection or opportunistic infection. It is likely that the patient will require biopsy we plan to do an aspiration of the fluid seen on CAT scan. It does not look like it was able to be done prior to transfer. 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 Physical Exam Narrative: EXAM NARRATIVE: EXAM NARRATIVE: Gen: NAD appears stated age Reg without sign murmur L: diminished throughout no wheezes, poor expiration A: soft nt/nd nl BS E: large clearly demarcated erythematous and edematous area over medial and anterior thigh to inguinal area. Induration in medial aspect. unchanged to worse. N: alert and oriented, non focal Discharge Data Data Completed and Pending: Completed Studies During Hospitalization Category Date Time Status CT abdomen pelvis wo con [id number] Rout ine Cat Scan 01/07/21 17:[address] angio chest PE protcl [id number] Stat Cat Scan 01/07/21 11:[address] femur LT w con [id number] Routine Cat Scan 01/09/21 21:00 [place] [id number] Stat Ultrasound 01/07/21 11:04 Completed Pending at discharge Category Date [place] [id number] Urgent Cat Scan 01/13/21 12:00 Taken Body Fluid Cultur e & GS Routine Lab 01/13/21 13:10 Received Fungal Culture no t HR/SK/BL Routine Lab 01/13/21 13:10 Received Pneumocystis jiro veci Qual PCR Rout ine Lab 01/07/21 06:30 Received MR femur LT wo/w con [id number] Routine MRI 01/13/21 12:27 Ordered Labs from last 24 hours 01/13/21 01/13/21 01/13/21 12:08 08:28 06:11 PT 12.20 INR 0.88 POC Glucose 218 H 179 H Vancomycin Trough Pneumocystis Sourc e Pneumocyst jirovec i PCR 01/12/21 01/12/21 01/12/21 23:16 21:04 16:39 PT INR POC Glucose 337 H 391 H Vancomycin Trough 22.7 H Pneumocystis Sourc e Pneumocyst jirovec i PCR 01/07/21 06:30 PT INR POC Glucose Vancomycin Trough Pneumocystis Sourc e Pending Pneumocyst jirovec i PCR Pending Vitals: Last Vital Signs Temp 97.9 F 01/13/21 15:49 Pulse 67 01/13/21 15:49 Resp 18 01/13/21 15:49 BP 117/73 01/13/21 15:49 Pulse Ox 97 01/13/21 15:49 Discharge Plan Discharge Patient Disposition: Xfer Short-Term Hosp Condition: Stable Prescriptions: No Action glycopyrrolate 1 mg tablet 1 mg PO TID Qty: 90 RF: 8 hydrocodone-acetaminophen 10-325 mg tablet 1 tab PO Q4H PRN (Reason: pain) 30 Days Qty: 60 RF: 0 leflunomide 20 mg tablet 20 mg PO DAILY Qty: 30 RF: 4 losartan 100 mg tablet 100 mg PO DAILY Qty: 90 RF: 3 ropinirole 2 mg tablet 2 mg PO BEDTIME Qty: 90 RF: 3 ipratropium bromide 42 mcg (0.06 %) spray,non-aerosol 1 spray INTRANASAL TID Qty: 15 RF: 5 silver sulfadiazine 1 % cream 1 applic topical DAILY Qty: 50 RF: 0 Breo Ellipta 200-25 mcg/dose blister with device 1 inh inhalation Q24H Qty: 28 RF: 3 Combivent Respimat 20-100 mcg/actuation mist 1 puff INHALATION Q6H Qty: 4 RF: 3 Nicoderm CQ 21 mg/24 hr patch 24 hour 1 patch TRANSDERMA Q24H Qty: 28 RF: 8 fluticasone propionate [Flonase Allergy Relief] 50 mcg/actuation spray,suspension 1 spray intranasal BID Qty: 15.8 RF: 3 cholecalciferol (vitamin D3) 50 mcg (2,000 unit) capsule 50 mcg PO DAILY Qty: 30 RF: 3 pantoprazole 40 mg tablet,delayed release (DR/EC) 40 mg PO QAM Qty: 30 RF: 3 amlodipine 10 mg tablet 10 mg PO DAILY Qty: 30 RF: 0 prednisone 20 mg tablet 30 mg PO QAM Qty: 45 RF: 1 gabapentin 300 mg capsule 300 mg PO BID Qty: 60 RF: 3 metoprolol tartrate 25 mg tablet 25 mg PO BID Qty: 60 RF: 5 cetirizine 10 mg tablet 10 mg PO DAILY PRN (Reason: Allergy Symptoms) RF: 0 Actemra 162 mg/0.9 mL syringe 162 mg SUBCUT Q7D RF: 0 aspirin 81 mg Tablet,Chewable 81 mg PO DAILY RF: 0 Patient Instructions: Opioid Safety Discharge Attestations Time Spent in Discharge Care*: greater than 30 min Specific Discharge Activities: educating and/or supporting family/caregiver, discussing with pcp/other providers, discussing with rehabilitation caseworker/social workers/dc planners and documenting/other paperwork Quality Metrics Clinical Quality Measures During this hospital stay, did patient experience: None Coding Level of Care Code Acute Chg FW DC note Diagnoses Cellulitis L03.116 Site of cellulitis: extremity Site of cellulitis of extremity: lower extremity Laterality: left Myositis M60.9 Acute pain R52 Shingles rash B02.9 Chronic steroid use Giant cell arteritis M31.6 PMR (polymyalgia rheumatica) M35.3 Essential (primary) hypertension I10 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 Tobacco abuse Z72.0 COPD (chronic obstructive pulmonary disease) J41.0 COPD type: chronic bronchitis Chronic bronchitis type: simple
[2021-01-16 05:07] LABS: P. Jirovecii DNA QL PCR DETECTED; P. Jirovecii DNA QL PCR Source SPUTUM
== END 2021-01-13 15:51 | disposition short-term general hospital (02) | DRG 602 ==
LOC: ER 14:11 → MEDSURG 14:40
PROVIDERS: Hospitalist; Radiology Neuroradiology; Student in an Organized Health Care Education/Training Program; Surgery; Admitting Provider Student in an Organized Health Care Education/Training Program; Emergency Provider Family Medicine; PCP Internal Medicine; Visit Provider Internal Medicine
DX: L03.116 Cellulitis of left lower limb (principal); J18.9 Pneumonia, unspecified organism; J96.01 Acute respiratory failure with hypoxia; J44.0 Chronic obstructive pulmonary disease with (acute) lower respiratory infection; I76 Septic arterial embolism; N17.9 Acute kidney failure, unspecified; L02.416 Cutaneous abscess of left lower limb; M05.9 Rheumatoid arthritis with rheumatoid factor, unspecified; Z79.899 Other long term (current) drug therapy; Z79.52 Long term (current) use of systemic steroids; I71.4 Abdominal aortic aneurysm, without rupture; G89.29 Other chronic pain; M54.9 Dorsalgia, unspecified; Z86.010 Personal history of colon polyps; I10 Essential (primary) hypertension; K21.9 Gastro-esophageal reflux disease without esophagitis; E78.2 Mixed hyperlipidemia; G62.9 Polyneuropathy, unspecified; R91.8 Other nonspecific abnormal finding of lung field; G25.81 Restless legs syndrome; F17.210 Nicotine dependence, cigarettes, uncomplicated; B02.9 Zoster without complications; Z79.82 Long term (current) use of aspirin; M60.9 Myositis, unspecified; M31.5 Giant cell arteritis with polymyalgia rheumatica
CPT/HCPCS: 10030; 36415; 36416; 71275; 73552; 73701; 74176; 77012; 80048; 80053; 80202; 81003; 82550; 82962; 83605; 83615; 84132; 84145; 84484; 85007; 85025; 85610; 87040; 87070; 87075; 87077; 87102; 87186; 87205; 87206; 87210; 87426; 87449; 87798; 87804; 93005; 93971; 94640; 96365; 96367; 96372; 96374; 96375; 97110; 97116; 97161; 97165; 99285; J0692; J0743; J1650; J1815; J1956; J2250; J3010; J3370; J7030; J7040; J7512; J7626; Q9967

== ENCOUNTER 2021-01-25 08:40 | Inpatient (IN) | payer MEDICARE, MEDICAID, SELFPAY ==
[2021-01-25] VITALS (15 sets, daily range): BP systolic 88–128; BP diastolic 54–88; PULSE 78–99; RESP 18–23; TEMP 37; O2SAT 95–100; BMI 24.7
--- NOTE | 2021-01-25 08:47 | XRR_ITS ---
PROCEDURE INFORMATION: Exam: XR Chest Exam date and time: 01/25/2021 8:47 AM Age: 75 years old Clinical indication: Cough TECHNIQUE: Imaging protocol: XR of the chest. Views: 1 view. COMPARISON: CT angio chest PE protcl [id number] 01/07/2021 12:29 PM FINDINGS: Lungs: Patchy left upper and lower lobe ground-glass opacities increased from prior. Diffuse prominent interstitial markings. No focal consolidation seen on the right. Pleural spaces: No pleural effusion or pneumothorax. Heart/Mediastinum: Cardiac silhouette upper normal. Bones/joints: No acute bony abnormality. XR/XR chest 1V portable [id number] IMPRESSION: Increasing patchy left upper and lower lobe ground-glass opacities, correlate for atypical pneumonia.
--- NOTE | 2021-01-25 08:48 | CTR_ITS ---
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 ; Additional info: Pelvic abscess PT had surgery day for necrotizing faciatis of the l-thigh, he has a wound vac in place. TECHNIQUE: Imaging protocol: Computed tomography of the abdomen and pelvis without contrast. Radiation optimization: All CT scans at this facility use at least one of these dose optimization techniques: automated exposure control; mA and/or kV adjustment per patient size (includes targeted exams where dose is matched to clinical indication); or iterative reconstruction. COMPARISON: 1. CT abdomen pelvis wo con [id number] 01/07/2021 7:[address] chest w con* [id number] 04/10/2020 11:44:[address] angio chest PE protcl [id number] 01/07/2021 12:29:[address] chest w con* [id number] 04/10/2019 8:47:[address] abdomen pelvis w con* [id number] 12/15/2019 11:34:[address] chest w con* [id number] 10/24/2017 9:21:02 AM 7. MRI Abdomen w/wo* [id number] 02/22/2020 8:30:00 AM RADIATION DOSE METRICS: Total DLP (mGy-cm): 1393.62 FINDINGS: Lungs: Basilar atelectasis/scarring. Patchy ground-glass opacity left lower lobe laterally on image 1 series 2 is partially imaged and new since January 07, 2021 CT chest. Subcentimeter left lower lobe base calcified granuloma incidentally noted. Liver: Normal. Gallbladder and bile ducts: Gallbladder partially filled with a few punctate dependent calcified stones. No evidence of cholecystitis or biliary obstruction on noncontrast CT. Pancreas: Normal. No ductal dilation. Spleen: Normal. No splenomegaly. Adrenal glands: Normal. No mass. Kidneys and ureters: No hydroureteronephrosis or urinary tract calculi. There are again multiple bilateral hyperattenuating renal lesions previously characterize as Bosniak type 1 and type 2 by MRI and appearing grossly unchanged; largest of these include 2.3 cm 20 Hounsfield units at the left lateral upper pole on image 28 series 2 and right lower pole 4.0 cm 18 Hounsfield units on image 42 series 2. 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 Stomach and bowel: Sigmoid diverticulosis. No evidence of active diverticulitis. Appendix: No evidence of appendicitis. Intraperitoneal space: No free air. No significant fluid collection. 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 Lymph nodes: Unremarkable. No enlarged lymph nodes. Urinary bladder: Bladder partially filled. No stones. Reproductive: Unremarkable as visualized. Bones/joints: Unremarkable. No acute fracture. Soft tissues: Left anterior upper thigh wound with wound VAC device noted. No associated fluid collection identified on non-contrast CT. CT/CT abdomen pelvis wo con [id number] IMPRESSION: 1. Wound VAC noted left anterior upper thigh. No fluid collection/abscess visible on non-contrast CT. 2. Patchy ground-glass opacity left lower lobe is partially imaged and new since January 07, 2021 CT chest, which did show multiple additional patchy ground-glass opacities, nonspecific but consistent with atypical pneumonia. 3. Uncomplicated cholelithiasis. 4. Sigmoid diverticulosis. No evidence of active diverticulitis. 5. 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 6. Bilateral hypodense and hyperdense renal lesions are grossly unchanged and previously characterized by MRI. Radiation Dose CTDIVOL = (mGy): DLP = 1393.62 (mGy-cm)
--- NOTE | 2021-01-25 08:49 | ED_ITS ---
HPI - General Adult General: Chief complaint: Fever Stated complaint: FEVER; FATIGUE Time Seen by Provider: 01/25/21 08:46 History of Present Illness: HPI narrative: This patient is a 75-year-old male who presents to the emergency department complaint of fever. Patient recently was discharged out of the hospital at [facility] after having necrotizing fasciitis and debridement left groin area. Patient does have a wound VAC in place. Patient is being treated with 2 g of Rocephin as an outpatient daily. Through a midline left upper arm. Patient states he been feeling well but had a fever of 103 earlier today. Also complained of shortness of breath. Patient does wear oxygen has been placed on oxygen since discharge from [facility]. Due to low oxygen sats with ambulation. Patient has had 2 - Covid test. Patient states that he just started having these breathing issues. Patient states he is coughing up phlegm and other family members in the household do have upper respiratory infection. Wound VAC is in place and is here to be working properly. Patient does have a history of COPD will do medical evaluation treat as needed Onset (ago): hour(s) Associated symptoms: Deny chest pain, dyspnea, headache(s), nausea, rash, palpitations or vomiting Review of Systems General: Reports: 10 or more systems reviewed and unremarkable except in HPI and below Const: Reports: fever(s); Denies: chills, body aches or fatigue Eyes: Denies: change in vision or blurry vision ENMT: Denies: throat pain, hoarseness or mouth pain Card: Denies: chest pain, palpitations, irregular heart rhythm, edema, swelling of feet/ankles or lightheadedness Resp: Reports: productive cough; Denies: dyspnea, non-productive cough, wheezing or pain on inspiration GI: Denies: abdominal pain, nausea or vomiting : Denies: flank pain, dysuria, urinary frequency, urinary urgency or urinary hesitancy Musc: Denies: neck pain, back pain, extremity pain, extremity swelling, joint pain, joint swelling, joint redness, joint warmth or limited range of motion Skin/Breast: Reports: surgical incision and other (Wound VAC left groin); Denies: rash, pruritus, erythema or skin tenderness Neuro: Denies: headache(s), numbness in extremities or weakness in extremities Psych: Denies: anxiety or depression PFSH ED PFSH: Medical History Abdominal aortic aneurysm Status post repair Chronic back pain Chronic steroid use Colon polyps COPD (chronic obstructive pulmonary disease) Essential (primary) hypertension GERD (gastroesophageal reflux disease) Giant cell arteritis clinical diagnosis High risk medication use History of abdominal aortic aneurysm Immunization counseling Immunization counseling Mixed hyperlipidemia Neuropathy Personal history of arterial venous malformation (AVM) Pulmonary emboli Pulmonary nodules Restless leg syndrome Rheumatic arteritis Rheumatoid arthritis Seropositive rheumatoid arthritis of multiple sites Subacromial bursitis of left shoulder joint s/p steroid injection, resolved Tick bite Surgical History History of back surgery History of colonoscopy History of elbow surgery History of esophagogastroduodenoscopy (EGD) Family History Other CAD (coronary artery disease) Cancer Diabetes Denies family history of Rheumatoid arthritis Lupus Chronic kidney disease (CKD) Stroke Social History Smoking and tobacco status: current every day smoker Alcohol intake: current Alcohol intake frequency: holidays/special occasions only Household members: spouse Housing: House History of recent travel: No Physical Exam Const: COMMON NORMALS: no acute distress, average body habitus, patient oriented x3, no limitations, healthy appearing, alert and well nourished HENMT: COMMON NORMALS: normocephalic, atraumatic, hearing grossly normal bilaterally, external ears normal, EAC's normal, TM's normal bilaterally, Normal external nose present, Normal nasal mucous membranes and turbinates present, moist oral mucous membranes, oropharynx normal, dentition normal and gingiva normal HEAD & SCALP: normocephalic and atraumatic NOSE: Normal external nose present and Normal nasal mucous membranes and turbinates present EXTERNAL EAR: Yes external ears normal EXTERNAL AUDITORY CANAL: EAC's normal TYMPANIC MEMBRANE: TM's normal bilaterally Neck/C-Spine: COMMON NORMALS: full ROM, no lymphadenopathy, supple, no meningeal signs, no JVD, Thyroid normal and No carotid bruits THYROID: Thyroid normal Chest: COMMONS NORMALS: normal inspection of the chest, normal palpation of entire chest wall, normal inspection of the breasts and normal palpation of the breasts Breast/axilla inspection: Yes normal inspection of the breasts BREAST/AXILLA PALPATION: Yes normal palpation of the breasts Resp: COMMON NORMALS: normal respiratory effort, No retractions, No use of accessory muscles, clear to auscultation bilaterally and percussion normal EFFORT & INSPECTION: Yes able to speak in complete sentences AUSCULTATION: clear to auscultation bilaterally PERCUSSION: percussion normal Cardio: COMMON NORMALS: no JVD, regular rate, regular rhythm, S1 normal heart sound present, S2 normal heart sound present, No gallops present (Cardio), No clicks present (Cardio), No murmurs present (Cardio), No rub (Cardio) and Peripheral pulses 2+ throughout RATE: regular rate RHYTHM: regular rhythm HEART SOUNDS: S1 normal heart sound present and S2 normal heart sound present PERIPHERAL PULSES: Peripheral pulses 2+ throughout GI: COMMON NORMALS: Normal to inspection, nondistended, normoactive bowel sounds present, Soft to palpation, non-tender, No hepatosplenomegaly present, no masses and no bruits PALPATION: Yes Soft to palpation and Yes No hepatosplenomegaly present : COMMON NORMALS: Yes no CVA tenderness BLADDER/KIDNEY EXAM: Yes no CVA tenderness Back/Pelvis: COMMON NORMALS: no CVA tenderness, thoracic and lumbar spine normal to inspection, no thoracic nor lumbar tenderness, thoraco-lumbar ROM normal and straight leg raise negative bilaterally Extremity: COMMON NORMALS: normal to inspection, full ROM, capillary refill normal, no joint enlargement, no clubbing, cyanosis or edema, no calf tenderness and no pedal edema Neuro: COMMON NORMALS: patient oriented x3 SENSORIUM/ORIENTATION: Yes alert MENINGEAL SIGNS: Yes no meningeal signs Skin: SKIN IMAGES (MALE): 1. Wound VAC in place left groin. No erythema Course Reevaluation(s): Reevaluation #1: Patient is stable at this time O2 saturation 97% on 3 L by nasal cannula blood pressure stable 116/60. Patient is agreeable to admission. Patient be admitted to the floor for pneumonia. Time: 11:21 Consultations: Consultation #1: I did discuss at length with Dr. Gamble hospitalist. He is accepted this patient to the cardiac stepdown unit. Time: 11:22 Vital Signs: Vital signs: Vital Signs Temperature 98.6 F 01/25/21 08:42 Pulse Rate 90 01/25/21 11:09 Respiratory Rate 22 H 01/25/21 11:09 Blood Pressure 117/56 01/25/21 11:09 Pulse Oximetry 97 01/25/21 11:09 MDM - General Adult MDM Narrative: Medical decision making narrative: This patient is a 75-year-old male who presents to the emergency department complaint of fever. Patient recently was discharged out of the hospital at [facility] after having necrotizing fasciitis and debridement left groin area. Patient does have a wound VAC in place. Patient is being treated with 2 g of Rocephin as an outpatient daily. Through a midline left upper arm. Patient states he been feeling well but had a fever of 103 earlier today. Also complained of shortness of breath. Patient does wear oxygen has been placed on oxygen since discharge from [facility]. Due to low oxygen sats with ambulation. Patient has had 2 - Covid test. Patient states that he just started having these breathing issues. Patient states he is coughing up phlegm and other family members in the household do have upper respiratory infection. Wound VAC is in place and is here to be working properly. Patient does have a history of COPD Lab Data: Labs: Lab Results 01/25/21 01/25/21 01/25/21 Range/Units 08:54 08:54 08:54 WBC 23.9 H (4.0-10.0) 10^3/ uL RBC 3.13 L (4.1-5.3) 10^6/u L Hgb 9.7 L (11.7-16.6) g/dL Hct 31.5 L (42.0-52.0) % MCV 100.6 H (80-94) fL MCH 31.0 (28.0-34.0) pg MCHC 30.8 (30.0-36.0) g/dL RDW 14.8 (12.1-15.1) % Plt Count 248 (130-400) 10^3/c mm MPV 11.7 H (7.4-10.4) fL Neut % (Auto) 73.9 % Lymph % (Auto) 8.7 % [place] % (Auto) 13.0 % Eos % (Auto) 0.4 % Baso % (Auto) 0.7 % Neut # (Auto) 17.65 H (1.8-7.7) 10^3/u L Lymph # (Auto) 2.1 (0.8-4.8) 10^3/u L [place] # (Auto) 3.1 H (0.2-0.9) 10^3/u L Eos # (Auto) 0.1 (0.0-0.8) 10^3/u L Baso # (Auto) 0.2 H (0.0-0.1) 10^3/u L Nucleated RBC % (a uto) 0 % Nucleated RBCs # 0.0 /100WBC Sodium 139 (136-145) mmol/L Potassium 4.3 (3.5-5.1) mmol/L Chloride 100 (98-107) mmol/L Carbon Dioxide 28 (22-29) mmol/L Anion Gap 15.3 (5-19) BUN 25 H (8-23) mg/dL Creatinine 1.7 H (0.7-1.2) mg/dL GFR Calculation Not Reportable Glucose 124 H (65-115) mg/dL Calculated Osmolal ity 294 (285-295) mOsm/k g Lactic Acid 0.8 (0.5-2.2) mmol/L Calcium 8.5 (8.5-10.5) mg/dL Total Bilirubin 0.3 (0.15-1.2) mg/dL AST 15 (0-40) U/L ALT < 5 (0-41) U/L Alkaline Phosphata se 103 (40-130) IU/L Troponin T Baselin e (0-15) ng/L Troponin T [address] [place] (0-15) ng/L Delta Troponin T (0-10) ABS# Total Protein 5.3 L (6.6-8.7) g/dL Albumin 2.6 L (3.5-5.2) g/dL Globulin 2.7 (1.3-4.6) g/dL SARS-CoV-2 Ag (Rap id) (Negative) 01/25/21 01/25/21 01/25/21 Range/Units 08:54 09:00 10:45 WBC (4.0-10.0) 10^3/ uL RBC (4.1-5.3) 10^6/u L Hgb (11.7-16.6) g/dL Hct (42.0-52.0) % MCV (80-94) fL MCH (28.0-34.0) pg MCHC (30.0-36.0) g/dL RDW (12.1-15.1) % Plt Count (130-400) 10^3/c mm MPV (7.4-10.4) fL Neut % (Auto) % Lymph % (Auto) % [place] % (Auto) % Eos % (Auto) % Baso % (Auto) % Neut # (Auto) (1.8-7.7) 10^3/u L Lymph # (Auto) (0.8-4.8) 10^3/u L [place] # (Auto) (0.2-0.9) 10^3/u L Eos # (Auto) (0.0-0.8) 10^3/u L Baso # (Auto) (0.0-0.1) 10^3/u L Nucleated RBC % (a uto) % Nucleated RBCs # /100WBC Sodium (136-145) mmol/L Potassium (3.5-5.1) mmol/L Chloride (98-107) mmol/L Carbon Dioxide (22-29) mmol/L Anion Gap (5-19) BUN (8-23) mg/dL Creatinine (0.7-1.2) mg/dL GFR Calculation Glucose (65-115) mg/dL Calculated Osmolal ity (285-295) mOsm/k g Lactic Acid (0.5-2.2) mmol/L Calcium (8.5-10.5) mg/dL Total Bilirubin (0.15-1.2) mg/dL AST (0-40) U/L ALT (0-41) U/L Alkaline Phosphata se (40-130) IU/L Troponin T Baselin e 98 H (0-15) ng/L Troponin T [address] [place] 92.77 H (0-15) ng/L Delta Troponin T -5.23 L (0-10) ABS# Total Protein (6.6-8.7) g/dL Albumin (3.5-5.2) g/dL Globulin (1.3-4.6) g/dL SARS-CoV-2 Ag (Rap id) Negative (Negative) Imaging Data^: CXR: Attestation: I personally reviewed and interpreted this imaging study as follows: Radiologist's impression: IMPRESSION: Increasing patchy left upper and lower lobe ground-glass opacities, correlate for atypical pneumonia. CT Abd/Pel: Attestation: I personally reviewed and interpreted this imaging study as follows: Radiologist's impression: MPRESSION: 1. Wound VAC noted left anterior upper thigh. No fluid collection/abscess visible on non-contrast CT. 2. Patchy ground-glass opacity left lower lobe is partially imaged and new since January 07, 2021 CT chest, which did show multiple additional patchy ground-glass opacities, nonspecific but consistent with atypical pneumonia. 3. Uncomplicated cholelithiasis. 4. Sigmoid diverticulosis. No evidence of active diverticulitis. 5. 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 6. Bilateral hypodense and hyperdense renal lesions are grossly unchanged and previously characterized by MRI EKG Data^: EKG 1: Attestation: I personally reviewed and interpreted this EKG as follows: EKG interpretation date: 01/25/21 EKG interpretation time: 09:07 Prior EKG tracings: not available for review Interpretation: Sinus rhythm with multiple PVCs heart rate 92. Computer analysis is trying to read a type II heart block second-degree questionable. We will have cardiology review Computer generated interpretation: Chest X-Ray 01/25/21 08:47 IMPRESSION: Increasing patchy left upper and lower lobe ground-glass opacities, correlate for atypical pneumonia. Abdomen/Pelvis CT 01/25/21 08:48 IMPRESSION: 1. Wound VAC noted left anterior upper thigh. No fluid collection/abscess visible on non-contrast CT. 2. Patchy ground-glass opacity left lower lobe is partially imaged and new since January 07, 2021 CT chest, which did show multiple additional patchy ground-glass opacities, nonspecific but consistent with atypical pneumonia. 3. Uncomplicated cholelithiasis. 4. Sigmoid diverticulosis. No evidence of active diverticulitis. 5. 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 6. Bilateral hypodense and hyperdense renal lesions are grossly unchanged and previously characterized by MRI. Radiation Dose CTDIVOL = (mGy): DLP = 1393.62 (mGy-cm) EKG 2: Attestation: I personally reviewed and interpreted this EKG as follows: EKG interpretation date: 01/25/21 EKG interpretation time: 10:57 Prior EKG tracings: available for review Interpretation: Sinus rhythm with frequent PVCs. Bigeminal pattern. Heart rate 91 Computer generated interpretation: Chest X-Ray 01/25/21 08:47 IMPRESSION: Increasing patchy left upper and lower lobe ground-glass opacities, correlate for atypical pneumonia. Abdomen/Pelvis CT 01/25/21 08:48 IMPRESSION: 1. Wound VAC noted left anterior upper thigh. No fluid collection/abscess visible on non-contrast CT. 2. Patchy ground-glass opacity left lower lobe is partially imaged and new since January 07, 2021 CT chest, which did show multiple additional patchy ground-glass opacities, nonspecific but consistent with atypical pneumonia. 3. Uncomplicated cholelithiasis. 4. Sigmoid diverticulosis. No evidence of active diverticulitis. 5. 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 6. Bilateral hypodense and hyperdense renal lesions are grossly unchanged and previously characterized by MRI. Radiation Dose CTDIVOL = (mGy): DLP = 1393.62 (mGy-cm) Discharge Plan Discharge Patient Disposition: Admitted As Inpatient Clinical Impression: Pneumonia, Cellulitis, Encounter for management of wound VAC, Bigeminy, COPD (chronic obstructive pulmonary disease) Condition: Stable Prescriptions: No Action glycopyrrolate 1 mg tablet 1 mg PO TID Qty: 90 RF: 8 hydrocodone-acetaminophen 10-325 mg tablet 1 tab PO Q4H PRN (Reason: pain) 30 Days Qty: 60 RF: 0 leflunomide 20 mg tablet 20 mg PO DAILY Qty: 30 RF: 4 losartan 100 mg tablet 100 mg PO DAILY Qty: 90 RF: 3 ropinirole 2 mg tablet 2 mg PO BEDTIME Qty: 90 RF: 3 ipratropium bromide 42 mcg (0.06 %) spray,non-aerosol 1 spray INTRANASAL TID Qty: 15 RF: 5 silver sulfadiazine 1 % cream 1 applic topical DAILY Qty: 50 RF: 0 Breo Ellipta 200-25 mcg/dose blister with device 1 inh inhalation Q24H Qty: 28 RF: 3 Combivent Respimat 20-100 mcg/actuation mist 1 puff INHALATION Q6H Qty: 4 RF: 3 Nicoderm CQ 21 mg/24 hr patch 24 hour 1 patch TRANSDERMA Q24H Qty: 28 RF: 8 fluticasone propionate [Flonase Allergy Relief] 50 mcg/actuation spray,suspension 1 spray intranasal BID Qty: 15.8 RF: 3 cholecalciferol (vitamin D3) 50 mcg (2,000 unit) capsule 50 mcg PO DAILY Qty: 30 RF: 3 pantoprazole 40 mg tablet,delayed release (DR/EC) 40 mg PO QAM Qty: 30 RF: 3 amlodipine 10 mg tablet 10 mg PO DAILY Qty: 30 RF: 0 prednisone 20 mg tablet 30 mg PO QAM Qty: 45 RF: 1 gabapentin 300 mg capsule 300 mg PO BID Qty: 60 RF: 3 metoprolol tartrate 25 mg tablet 25 mg PO BID Qty: 60 RF: 5 cetirizine 10 mg tablet 10 mg PO DAILY PRN (Reason: Allergy Symptoms) RF: 0 Actemra 162 mg/0.9 mL syringe 162 mg SUBCUT Q7D RF: 0 aspirin 81 mg Tablet,Chewable 81 mg PO DAILY RF: 0 Referrals: Mike Foster MD [Primary Care Provider] - Coding Level of Care Code ED Head Mixer for Chg Fwd Exam Comprehensive
--- NOTE | 2021-01-25 08:55 | ECG_ITS ---
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 Measurements Intervals [place] Rate: 92 P: [place]: QRS: 57 QRSD: 86 T: 73 QT: 359 QTc: 446 Interpretive Statements SINUS RHYTHM WITH FREQUENT VENTRICULAR PREMATURE COMPLEXES IN A BIGEMINAL PATTERN MODERATE ST DEPRESSION [0.05+ mV ST DEPRESSION] Compared to ECG 01/07/2021 18:19:46 ST (T wave) deviation now present Sinus arrhythmia no longer present Electronically Signed On 01-26-2021 21:02:46 CDT by Nadiya Carlson M.D. [id number]
[2021-01-25] MEDS: sodium chloride 0.9% 500 ML IV (09:11)
[2021-01-25 09:12] LABS: Basophils # 0.2 10^3/uL (0.0-0.1); Basophils % 0.7 %; Eosinophils # 0.1 10^3/uL (0.0-0.8); Eosinophils % 0.4 %; Hematocrit 31.5 % (42.0-52.0); Hemoglobin 9.7 g/dL (11.7-16.6); Lymphocytes # 2.1 10^3/uL (0.8-4.8); Lymphocytes % 8.7 %; Mean Corpuscular HGB Conc 30.8 g/dL (30.0-36.0); Mean Corpuscular Volume 100.6 fL (80-94); Mean Platelet Volume 11.7 fL (7.4-10.4); Monocytes # 3.1 10^3/uL (0.2-0.9); Neutrophils # 17.65 10^3/uL (1.8-7.7); Neutrophils % 73.9 %; Nucleated Red Blood Cells % 0 %; Platelet Count 248 10^3/cmm (130-400); Red Blood Count 3.13 10^6/uL (4.1-5.3); Red Cell Distribution Width 14.8 % (12.1-15.1); White Blood Count 23.9 10^3/uL (4.0-10.0)
[2021-01-25 09:37] LABS: Lactic Sepsis W/Reflex 0.8 mmol/L (0.5-2.2)
[2021-01-25 09:41] LABS: Alanine Aminotransferase < 5 U/L (0-41); Albumin Level 2.6 g/dL (3.5-5.2); Alkaline Phosphatase 103 IU/L (40-130); Anion Gap 15.3 (5-19); Aspartate Amino Transferase 15 U/L (0-40); Blood Urea Nitrogen 25 mg/dL (8-23); Calcium 8.5 mg/dL (8.5-10.5); Carbon Dioxide 28 mmol/L (22-29); Chloride 100 mmol/L (98-107); Globulin 2.7 g/dL (1.3-4.6); Glucose 124 mg/dL (65-115); Osmolality Calculated 294 mOsm/kg (285-295); Potassium 4.3 mmol/L (3.5-5.1); Sodium 139 mmol/L (136-145); Total Bilirubin 0.3 mg/dL (0.15-1.2); Total Protein 5.3 g/dL (6.6-8.7)
[2021-01-25 09:52] LABS: SARS Covid-2 Antigen Negative (Negative)
[2021-01-25 09:59] LABS: Troponin(5th) Baseline 98 ng/L (0-15)
[2021-01-25] MEDS: vancomycin 1,000 MG in sodium chloride 0.9% 250 ML 250 MG IV (10:48)
[2021-01-25] MEDS: azithromycin 500 MG in sodium chloride 0.9% 250 ML 250 MG IV (10:48)
[2021-01-25] MEDS: sodium chloride 0.9% 1,000 ML 999 ML IV (10:48)
[2021-01-25 11:06] LABS: Troponin 5 2HR 92.77 ng/L (0-15)
--- NOTE | 2021-01-25 11:11 | ECG_ITS ---
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 Measurements Intervals [place] Rate: 91 P: 53 NV: 141 QRS: 64 QRSD: 86 T: 70 QT: 370 QTc: 456 Interpretive Statements SINUS RHYTHM WITH FREQUENT VENTRICULAR PREMATURE COMPLEXES IN A BIGEMINAL PATTERN ABNORMAL RHYTHM ECG Compared to ECG 01/25/2021 09:07:04 Ventricular premature complex(es) now present ST (T wave) deviation no longer present Electronically Signed On 01-26-2021 21:23:02 CDT by Nadiya Carlson M.D. [id number]
[2021-01-25 11:13] LABS: Troponin 5 2HR Delta -5.23 ABS# (0-10)
[2021-01-25] MEDS: pantoprazole DR 40 mg Tablet PO (13:52)
[2021-01-25] MEDS: aspirin 81 mg Chew Tablet PO (13:52)
[2021-01-25] MEDS: nicotine 21 mg Patch 1 PATCH TRANSDERMA (13:52)
[2021-01-25] MEDS: heparin 5,000 unit/mL INJ 1 mL 5000 UNIT SUBCUT ×2 (13:52→20:57)
--- NOTE | 2021-01-25 14:08 | P.HP_ITS ---
Providers/Chief Complaint Admitting Physician: Hemal Gamble Primary Care Provider: Mike Foster MD Chief Complaint: FEVER; FATIGUE History of Present Illness Pleasant 75 gentleman recently discharged from [facility] after treatment of pyomyositis and possible necrotizing fasciitis of left upper thigh, herpes zoster of dorsal left hand, and new oxygen requirement, discharged on last week with wound VAC, midline catheter with IV Rocephin treatment for 2 weeks at 2 g daily. At his and daughter who is an RN noted fever 103.4. He has been having shortness of breath, intermittent cough. He says otherwise has been doing all right. Thigh has been doing quite well, swelling has decreased quite significantly. He is due for first wound VAC [facility] on and has an appointment in [place] which she intends to attend. Chest x-ray in ER with noted increasing patchy left upper and lower lobe groundglass opacities suspicious of atypical pneumonia. CT abdomen pelvis obtained in ER showing wound VAC in left upper anterior thigh without fluid collection or abscess on the noncontrast study. Patchy groundglass opacity left lower lobe partially imaged and new since January 07, 2021. At that time chest CT did show multiple additional patchy groundglass opacities, nonspecific but consistent with atypical pneumonia. Incidentally noted uncomplicated cholelithiasis, sigmoid diverticulosis, aorto biiliac stent graft with excluded AAA measuring 4.1 cm in caliber. Bilateral hypodense and hyperdense renal lesions grossly unchanged and previously seen on MRI. He is found to have leukocytosis 23.9, predominantly neutrophilic. BP 124/69, pulse 83, respiratory rate 22, saturating 98% on 5 L nasal cannula. Rapid COVID-19 is negative. With known chronic kidney disease, creatinine here is noted 1.7, BUN 25. Normal liver parameters. Troponin noted 98 and a 2 hours 92.77. EKG-one of the studies computer read as second-degree Mobitz type II block, but not observed on telemetry as per ER physician. Is noted to have frequent bigeminy. Review of Systems Const: Denies: fever(s), chills, body aches or malaise Eyes: Denies: change in vision or eye redness ENMT: Denies: throat pain, oral sores or ear or mastoid pain Card: Denies: chest pain, edema, pre-syncope or dyspnea on exertion Resp: Reports: dyspnea and non-productive cough; Denies: hemoptysis GI: Denies: abdominal pain, nausea, vomiting, diarrhea, constipation, hematoch ezia or melena : Denies: flank pain, difficulty urinating, urinary frequency or hematuria Musc: Reports: other (l thigh swelling resolved. Wound vac); Denies: back pain, joint swelling or joint redness Skin/Breast: Denies: rash, sores or new lesions Neuro: Denies: headache(s), numbness in extremities, weakness in extremities, dizziness, confusion or seizure-like activity Endo: Denies: polyuria or polydipsia Demar/Lymph: Denies: easy bleeding or purpura All/Imm: Denies: urticaria, throat swelling or tongue swelling Medications/Allergies Home Medications Medication Instructions Recorded Confirmed Last Taken Type losartan 100 mg tablet 100 mg PO DAILY #90 tab 04/08/20 01/25/21 01/24/21 Rx ropinirole 2 mg tablet 2 mg PO BEDTIME #90 tab 07/08/20 01/25/21 01/24/21 Rx ipratropium bromide 42 mcg (0.06 1 spray INTRANASAL TID #15 ml 08/05/20 01/25/21 Unknown Rx %) nasal spray silver sulfadiazine 1 % topical 1 applic TOPICAL DAILY #50 g 09/26/20 01/25/21 Unknown Rx cream fluticasone furoate 200 1 inh INHALATION Q24H #28 ea 10/09/20 01/25/21 01/24/21 Rx mcg-vilanterol 25 mcg/dose inhalation powder ipratropium 20 mcg-albuterol 100 1 puff INHALATION Q6H #4 gm 11/10/20 01/25/21 Unknown Rx mcg/actuation mist for inhalation nicotine 21 mg/24 hr daily 1 patch TRANSDERMA Q24H #28 each 11/10/20 01/25/21 Unknown Rx transdermal patch fluticasone propionate 50 1 spray INTRANASAL BID #15.8 ml 12/10/20 01/25/21 01/24/21 Rx mcg/actuation nasal spray,suspension cholecalciferol (vitamin D3) 50 50 mcg PO DAILY #30 cap 12/16/20 01/25/21 01/24/21 Rx mcg (2,000 unit) capsule hydrocodone 10 mg-acetaminophen 1 tab PO Q4H PRN 30 Days #60 tab 12/31/2012/3101/07/21 Rx 325 mg tablet aspirin 81 mg PO DAILY 01/07/21 01/25/21 01/24/21 History cetirizine 10 mg PO DAILY PRN 01/07/21 01/25/21 Unknown History tocilizumab [Actemra] 162 mg SUBCUT Q7D 01/07/21 01/25/21 01/22/21 History gabapentin 300 mg capsule 300 mg PO BID #60 cap 01/12/21 01/25/21 01/24/21 Rx ceftriaxone 2 g IV DAILY 01/25/21 01/25/21 01/24/21 History esomeprazole magnesium [Nexium] 40 mg PO DAILY 01/25/21 01/25/21 01/24/21 History ferrous sulfate 325 mg PO DAILY 01/25/21 01/25/21 01/24/21 History krill oil 1 cap PO DAILY 01/25/21 01/25/21 01/24/21 History multivitamin 1 tab PO DAILY 01/25/21 01/25/21 01/24/21 History naloxone [Narcan] 1 spray INTRANASAL Q3M PRN 01/25/21 01/25/21 Unknown History Allergies Allergy/AdvReac Type Severity Reaction Status Date / Time Penicillins Allergy unknown Verified 01/05/21 13:58 PFSH Acute PFSH: Medical History (Updated 01/25/21 @ 14:26 by Hemal Gamble MD) Abdominal aortic aneurysm Status post repair Chronic back pain Chronic steroid use Colon polyps COPD (chronic obstructive pulmonary disease) Essential (primary) hypertension GERD (gastroesophageal reflux disease) Giant cell arteritis clinical diagnosis High risk medication use History of abdominal aortic aneurysm Immunization counseling Immunization counseling Mixed hyperlipidemia Neuropathy Personal history of arterial venous malformation (AVM) Pulmonary emboli Pulmonary nodules Restless leg syndrome Rheumatic arteritis Rheumatoid arthritis Seropositive rheumatoid arthritis of multiple sites Shingles rash Subacromial bursitis of left shoulder joint s/p steroid injection, resolved Tick bite Surgical History (Updated 01/25/21 @ 14:21 by Hemal Gamble MD) History of back surgery History of colonoscopy History of elbow surgery History of esophagogastroduodenoscopy (EGD) S/P excisional debridement Family History Other CAD (coronary artery disease) Cancer Diabetes Denies family history of Rheumatoid arthritis Lupus Chronic kidney disease (CKD) Stroke Social History Smoking and tobacco status: current every day smoker cigarettes [ Other cigarette details: trying to quit, wearing patches ] Alcohol intake: current Alcohol intake frequency: holidays/special occasions only Substance/Drug Use: never Lives independently: Yes Household members: spouse Housing: House Marital status: Current occupational status: retired History of recent travel: No Vitals/I&O/Wt Last Vital Signs Temp 98.6 F 01/25/21 08:42 Pulse 83 01/25/21 13:00 Resp 22 H 01/25/21 13:00 BP 124/69 01/25/21 13:00 Pulse Ox 98 01/25/21 13:00 01/24/21 01/25/21 01/25/21 22:59 06:59 14:59 Intake Total 1999 Balance 1999 Weight last 48 hrs Weight 78.018 kg Physical Exam Const: COMMON NORMALS: no acute distress, patient oriented x3 and alert GENERAL APPEARANCE: cooperative and frail appearing ORIENTATION/CONSCIOUSNESS: Yes awake HENMT: COMMON NORMALS: oropharynx normal Neck/C-Spine: COMMON NORMALS: no JVD Resp: COMMON NORMALS: normal respiratory effort and clear to auscultation bilaterally AUSCULTATION: clear to auscultation bilaterally Cardio: COMMON NORMALS: no JVD, regular rhythm, S1 normal heart sound present, S2 normal heart sound present and No murmurs present (Cardio) RHYTHM: regular rhythm HEART SOUNDS: S1 normal heart sound present and S2 normal heart sound present GI: COMMON NORMALS: Normal to inspection, nondistended, normoactive bowel sounds present, Soft to palpation and non-tender PALPATION: Yes Soft to palpation Extremity: COMMON NORMALS: no joint enlargement and no pedal edema Neuro: COMMON NORMALS: patient oriented x3 and moves all extremities Skin: COMMON NORMALS: no rashes or lesions noted GENERAL SKIN EXAM: no rashes or lesions noted Data : 01/25/21 08:54 01/25/21 08:54 A&P Assessment and plan (1) Sepsis with acute hypoxic respiratory failure: Leukocytosis 23.9, respiratory rate 23, sepsis without septic shock. Lactic acid normal. Blood cultures collected in ER, but requested repeat cultures specifically collected from periphery and midline catheter and labeled individually. Continue ceftriaxone. And vancomycin. Received azithromycin in ER as well. Recent staphylococcal infections with pyomyositis with staph growing from the wound, another culture noted staphylococcal positive growth at [facility], but was not labeled specifically whether it was blood culture. Formal records requested. Suspect he may be having bacteremia with septic embolic disease responsible for his pulmonary findings, sepsis, hypoxia. I do not see that a TTE or GAUTAM was performed at [facility]. Again please see records. Patient and daughter deny the study being done, and I did not see it on my [facility] when we reviewed it with his daughter. Requested additional work-up with CT cervical, thoracic, lumbar spine as well as CT chest for closer evaluation of embolic disease. He does not appear to have stigmata on his skin. Please monitor. Requested ESR, CRP. The CT studies are noncontrast due to chronic kidney disease, however, in case of suspicious findings or clinically not improving, consider additional evaluation by contrast study or MRI depending on additional findings. Requested TTE. Discussed with his daughter, would also plan for GAUTAM unless TTE shows vegetation. Discussed with him, discussed with his daughter. Status: Acute (2) Ground glass opacity present on imaging of lung: Covid 19 tested several times including COVID-19 PCR at [facility] negative on 01/14. Of note he has not had vaccinations. Rapid COVID-19 negative today. Requested respiratory viral panel, but again suspect groundglass opacities are likely secondary to septic embolic disease rather than pulmonary infection. Continue Rocephin, vancomycin. Follow-up cultures. Sputum culture if able to provide. Possible pneumonia. Status: Acute (3) Bigeminy: Additional work-up with TTE, with plan for GAUTAM as well unless TTE is positive. Complete troponin and EKG series. He denies any chest pain or pressure. Potassium is normal. Check magnesium. Status: Acute (4) Pyomyositis: Continue ceftriaxone for MSSA. Underwent debridement/drainage at [facility] wound VAC placement. Has first appointment for first wound VAC change on next week. Status: Acute (5) Giant cell arteritis: Previously on chronic prednisone but was taken off, has not taken any prednisone since being admitted at [facility]. Monitor for adrenal insufficiency. Status: Acute (6) Chronic steroid use: Has not taken any prednisone since being admitted at [facility]. Monitor for adrenal insufficiency. Status: Acute (7) Seropositive rheumatoid arthritis of multiple sites: States he is off leflunomide. Has not had any Actemra since recent hospitalization. Status: Acute (8) Tobacco abuse: States he is quitting, has been wearing nicotine patches, not smoking since recent hospitalizations. Continue to encourage cessation. Status: Acute (9) PAD (peripheral artery disease): Noted at [facility], please see full report. Appears to have some significant stenosis on the left noted at transition from common iliac to external iliac artery, and again at femoral artery. Has history of aortobiiliac stent graft for AAA. Status: Acute Additional A&P Information Iron deficiency: Hold iron with active infection. COPD: Does not appear in current exacerbation. Not previously on supplemental oxygen therapy. Continue beta agonist, anticholinergic. Neb treatments. Re ceived steroid in ER, will not continue for now. HTN: Resume losartan at lower dose for now, monitor blood pressures. GERD: Continue PPI History of AAA status post aortobiiliac stent graft Other chronic medical problems noted. Attestations Medical Necessity Statement*: Admission of over 2 midnights is going to be needed for assessment of management of hypoxic respiratory failure, possible pneumonia, in the setting of chronic immunosuppression, possible septic embolic disease with recent staphylococcal infection, pyomyositis in a gentleman with multiple underlying comorbidities. Coding Level of Care Code Acute Media Relations Coordinator for [facility] Diagnoses Sepsis with acute hypoxic respiratory failure A41.9; R65.20; J96.01 Ground glass opacity present on imaging of lung R91.8 Bigeminy I49.8 Pyomyositis M60.009 Giant cell arteritis M31.6 Chronic steroid use 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 Tobacco abuse Z72.0 PAD (peripheral artery disease) I73.9
--- NOTE | 2021-01-25 14:08 | USCV_ITS ---
Gabino Lamb Age: 75 Gender: M : 1945 Exam Date: 01/25/2021 16:07 Ordering Phys: Hemal Gamble MD Technologist: Doris Toussaint Exam Location: [facility] [place] Indication: Staph infection, possible septic embolic disease BP: 124 / 69 HR: 90 Rhythm: Sinus Technical Quality: Technically difficult study MEASUREMENTS (Male / Female) Normal Values 2D ECHO LV Diastolic Diameter PLAX 4.3 cm 4.2 - 5.9 / 3.9 - 5.3 cm LV Systolic Diameter PLAX 2.4 cm LV Chamber Size 4.2 cm IVS Diastolic Thickness 1.1 cm 0.6 - 1.0 / 0.6 - 0.9 cm IVS Systolic Thickness 1.6 cm LVPW Diastolic Thickness 1.2 cm 0.6 - 1.0 / 0.6 - 0.9 cm LVPW Systolic Thickness 1.0 cm RV Chamber Size 3.5 cm LVOT Diameter 2.1 cm LV Ejection Fraction 2D Teich 77.1 % LV Ejection Fraction MOD 2C 53.3 % LV Ejection Fraction 2C AL 54.2 % LA Diameter 2.7 cm LA Width 3.0 cm LA Height 6.8 cm RA Width 3.7 cm RA Height 4.9 cm Aorta at Sinotubular Diameter 2.4 cm M-MODE Aortic Annulus Diameter 3.5 cm LA Ao Ratio MM 0.9 DOPPLER AV Peak Velocity 139.0 cm/s LVOT Peak Velocity 105.0 cm/s AV Area Cont Eq vti 2.6 cm squared AV Area Cont Eq pk 2.5 cm squared MV Area PHT 2.8 cm squared Mitral E to A Ratio 0.7 MV E' Velocity 42.0 cm/s Mitral E to MV E' Ratio 7.5 Mitral E to LV E' Lateral Ratio 7.3 Mitral E to LV E' Septal Ratio 7.8 TV Peak E Velocity 73.0 cm/s Right Atrial Pressure 3.0 mmHg PV Peak Velocity 81.0 cm/s RV Acceleration Time 0.1 s RV Ejection Time 0.3 s RV AcT/ET 0.4 FINDINGS Left Ventricle Normal left ventricular size and systolic function, EF 63 %. No regional wall motion abnormalities. Grade I/IV diastolic dysfunction (abnormal relaxation filling pattern), normal to mildly elevated filling pressures. Mild left ventricular hypertrophy. Right Ventricle The right ventricle is normal in size and function. Right Atrium The right atrium is normal in size. Left Atrium The left atrium is normal in size. Mitral Valve Trace mitral valve regurgitation. No masses or vegetations noted Aortic Valve Thickened aortic valve. Tricuspid Valve The tricuspid leaflet could not visualized well. No obvious masses or vegetations noted. No significant regurgitation Pulmonic Valve Pulmonic valve not well visualized. Pericardium Mildly dilated inferior vena cava measuring 2.2 cm Aorta Normal ascending aorta dimension. CONCLUSIONS Normal left ventricular size and systolic function, EF 63 %. No regional wall motion abnormalities. Grade I/IV diastolic dysfunction (abnormal relaxation filling pattern), normal to mildly elevated filling pressures. Mild left ventricular hypertrophy. Trace mitral valve regurgitation. No masses or vegetations noted. The tricuspid leaflet could not visualized well. No obvious masses or vegetations noted. Thickened aortic valve. There is no pericardial effusion. Technically somewhat difficult study because of the suboptimal apical window. Consider GAUTAM, if clinically indicated Dr Nadiya Carlson MD FACC (Electronically Signed) Final Date: 25 January 2021 18:54 S
--- NOTE | 2021-01-25 14:09 | CTR_ITS ---
PROCEDURE INFORMATION: Exam: CT Thoracic Spine Without Contrast Exam date and time: 01/25/2021 2:09 PM Age: 75 years old Clinical indication: Pain in thoracic spine; Without myelpathy or radiculopathy; Patient HX: Fever, infection, body aches; Additional info: Staph infection, suspected septic embolic disease TECHNIQUE: Imaging protocol: Computed tomography images of the thoracic spine without contrast. Radiation optimization: All CT scans at this facility use at least one of these dose optimization techniques: automated exposure control; mA and/or kV adjustment per patient size (includes targeted exams where dose is matched to clinical indication); or iterative reconstruction. COMPARISON: 1. CT abdomen pelvis wo con [id number] 01/25/2021 9:[address] lumbar spine wo con* [id number] 01/25/2021 3:39:[address] chest wo con [id number] 01/25/2021 3:42:[address] cervical spin wo con* [id number] 01/25/2021 3:33:28 PM RADIATION DOSE METRICS: Total DLP (mGy-cm): 2171.89 FINDINGS: Vertebrae: Vertebral bodies and posterior elements intact and normally aligned. Discs/Spinal canal/Neural foramina: Disc space narrowing and small osteophytes throughout the thoracic spine. No evidence of significant stenosis. Soft tissues: Soft tissues unremarkable. CT/CT thoracic spin wo con* [id number] IMPRESSION: No acute findings on non-contrast CT. Radiation Dose CTDIVOL = (mGy): DLP = 2171.89 (mGy-cm)
--- NOTE | 2021-01-25 14:09 | CTR_ITS ---
PROCEDURE INFORMATION: Exam: CT Cervical Spine Without Contrast Exam date and time: 01/25/2021 2:09 PM Age: 75 years old Clinical indication: Neck pain; Patient HX: Fever, infection, body aches; Additional info: Staph infection, suspected septic embolic disease TECHNIQUE: Imaging protocol: Computed tomography images of the cervical spine without contrast. Radiation optimization: All CT scans at this facility use at least one of these dose optimization techniques: automated exposure control; mA and/or kV adjustment per patient size (includes targeted exams where dose is matched to clinical indication); or iterative reconstruction. COMPARISON: CT angio headneck* [id number] 10/28/2020 1:58 AM RADIATION DOSE METRICS: Total DLP (mGy-cm): 517.53 FINDINGS: Bones/joints: Vertebral bodies and posterior elements intact and normally aligned. Discs/Spinal canal/Neural foramina: Cervical degenerative changes with marked loss of disc height at C3/4 and C5 through 7, with uncovertebral joint hypertrophy and small osteophytes contributing to mild stenosis of the central canal. Moderate to severe bilateral neural foraminal stenosis at C3 through 7. Mastoid air cells: Fluid throughout the bilateral mastoid air cells and left middle ear cavity. Included paranasal sinuses clear. Lungs: Lung apices are normal. Soft tissues: Soft tissues unremarkable. CT/CT cervical spin wo con* [id number] IMPRESSION: 1. Cervical spine intact and normally aligned. 2. Cervical spondylosis. 3. Fluid throughout the bilateral mastoid air cells and left middle ear cavity, correlate for otomastoiditis. Radiation Dose CTDIVOL = (mGy): DLP = 517.53 (mGy-cm)
--- NOTE | 2021-01-25 14:09 | CTR_ITS ---
PROCEDURE INFORMATION: Exam: CT Chest Without Contrast; Diagnostic Exam date and time: 01/25/2021 2:09 PM Age: 75 years old Clinical indication: Fever and shortness of breath; Patient HX: Fever, infection, body aches; Additional info: Staph infection, suspected septic embolic disease TECHNIQUE: Imaging protocol: Diagnostic computed tomography of the chest without contrast. Radiation optimization: All CT scans at this facility use at least one of these dose optimization techniques: automated exposure control; mA and/or kV adjustment per patient size (includes targeted exams where dose is matched to clinical indication); or iterative reconstruction. COMPARISON: 1. CT angio chest PE protcl [id number] 01/07/2021 12:[address] thoracic spin wo con* [id number] 01/25/2021 3:36:[address] abdomen pelvis wo con [id number] 01/25/2021 9:29:44 AM RADIATION DOSE METRICS: Total DLP (mGy-cm): 758.22 FINDINGS: Lungs: Patchy ground-glass opacities in a centrilobular distribution throughout the left upper lobe and superior segment the left lower lobe, increased since January [address] There is also a small area of more confluent consolidation in the posterior segment of the left upper lobe (image 24 series 3) is new. There are similar but milder findings within the right lung which are not significantly changed in compared to January 07. No dense lobar consolidation. Dependent atelectasis at the lung bases with trace left pleural effusion. The central airways are normal in caliber and patent. No pneumothorax. Heart: Unremarkable. No cardiomegaly. No pericardial effusion. Aorta: Unremarkable. No aortic aneurysm. Lymph nodes: No evidence of lymphadenopathy on non-contrast CT. Bones/joints: Unremarkable. No acute fracture. Soft tissues: Unremarkable. CT/CT chest wo con [id number] IMPRESSION: Patchy centrilobular ground-glass opacities throughout the left upper lobe and superior segment of the lower lobe, as well as a small more confluent area within the left upper lobe posterior segment, progressing since January 07, 2021. There are similar but milder findings within the right lung which appears similar on the comparison exam. Pattern is consistent with atypical pneumonia. This is not a typical pattern for septic emboli. Radiation Dose CTDIVOL = (mGy): DLP = 758.22 (mGy-cm)
--- NOTE | 2021-01-25 14:09 | CTR_ITS ---
PROCEDURE INFORMATION: Exam: CT Lumbar Spine Without Contrast Exam date and time: 01/25/2021 2:09 PM Age: 75 years old Clinical indication: Low back pain; Patient HX: Fever, infection, body aches; Additional info: Staph infection, suspected septic embolic disease TECHNIQUE: Imaging protocol: Computed tomography images of the lumbar spine without contrast. Radiation optimization: All CT scans at this facility use at least one of these dose optimization techniques: automated exposure control; mA and/or kV adjustment per patient size (includes targeted exams where dose is matched to clinical indication); or iterative reconstruction. COMPARISON: 1. CR Lumbar Spine 2-3 views* [id number] 12/28/2018 10:[address] thoracic spin wo con* [id number] 01/25/2021 3:36:[address] abdomen pelvis wo con [id number] 01/25/2021 9:29:[address] abdomen pelvis wo con [id number] 01/07/2021 7:42:11 PM RADIATION DOSE METRICS: Total DLP (mGy-cm): 1967.13 FINDINGS: Vertebrae: Lumbar vertebral bodies and posterior elements intact and normally aligned. Discs/Spinal canal/Neural foramina: L1/2: Complete loss of the disc space with small osteophytes. Mild stenosis of the central canal and bilateral neural foramina. L2/3: Disc height preserved. Mild broad-based disc bulge. No significant stenosis. L3/4: Moderate loss of disc height with vacuum phenomenon. Mild broad-based disc bulge causing mild narrowing the central canal. No significant neural foraminal narrowing. L4/5: Near complete loss of the disc height with vacuum phenomenon. Osteophytes contributing to mild stenosis of the central canal and moderate stenosis of the left neural foramen. L5/S1: Mild loss of disc height with vacuum phenomenon. Mild Ross days broad-base disc bulge with no significant narrowing the central canal. Facet arthropathy contributes to moderate stenosis of the left neural foramen. Soft tissues: Paraspinal soft tissues unremarkable. CT/CT lumbar spine wo con* [id number] IMPRESSION: 1. No acute findings on non-contrast CT. 2. Lumbar degenerative changes as described. Radiation Dose CTDIVOL = (mGy): DLP = 1967.13 (mGy-cm)
[2021-01-25 14:54] LABS: C Reactive Protein 113.3 mg/L (0.0-4.9)
--- NOTE | 2021-01-25 15:11 | ECG_ITS ---
[facility] Test Date: 2021-01-25 Pat Name: Gabino Lamb Department: Room: 105 Gender: Male Press Writer: : 1945 Requested By: Desmond Theodore Order Number: [id number] Tania MD: Nadiya Carlson M.D. Measurements Intervals [place] Rate: 91 P: 50 MS: 149 QRS: 46 QRSD: 84 T: 75 QT: 367 QTc: 453 Interpretive Statements SINUS RHYTHM WITH FREQUENT VENTRICULAR PREMATURE COMPLEXES IN A BIGEMINAL PATTERN ABNORMAL RHYTHM ECG Compared to ECG 01/25/2021 10:57:07 No significant changes Electronically Signed On 01-28-2021 0:32:32 CDT by Nadiya Carlson M.D. [email or web address]
[2021-01-25] MEDS: cefTRIAXone 2,000 MG in sodium chloride 0.9% (plus) 50 ML 100 MG IV (15:20)
[2021-01-25 15:31] LABS: Add Urine Microscopic? YES; Bilirubin Urine Neg (Negative); Blood Urine 2+ (Negative); Glucose Urine UA Norm (Normal); Ketones Urine Negative (Negative); Leukocyte Esterase Urine Negative (Negative); Nitrate Urine Negative (Negative); Protein Urine 2+ (Negative); Urine Appearance Clear (CLEAR); Urine Color Yellow (Yellow); Urobilinogen Urine Norm (Negative); pH Urine 5 (5-7)
[2021-01-25 15:32] LABS: Bacteria Urine TRACE /hpf; Mucus Urine TRACE /hpf
[2021-01-25 15:33] LABS: Add Urine Culture? No
[2021-01-25 15:46] LABS: Erythrocyte Sedimentation Rate 104 mm/hr (0-10)
[2021-01-25 15:55] LABS: Troponin 5 6HR 68.89 ng/L (0-15)
[2021-01-25 16:00] LABS: Magnesium 1.4 mg/dL (1.7-2.3)
[2021-01-25] MEDS: ipratropium-albuterol 3 mL Neb INHALATION ×2 (16:55→20:13)
[2021-01-25 18:11] LABS: Glucose Point of Care 507 mg/dL (70-110)
[2021-01-25 18:11] LABS: Glucose Point of Care 427 mg/dL (70-110)
[2021-01-25] MEDS: gabapentin 300 mg Capsule PO (18:13)
[2021-01-25] MEDS: fluticasone nasal spray 16gm Btl 1 SPRAY INTRANASAL (18:13)
[2021-01-25 20:20] LABS: Glucose Point of Care 438 mg/dL (70-110)
[2021-01-25] MEDS: ropinirole 2 mg Tablet PO (20:57)
[2021-01-26] VITALS (18 sets, daily range): BP systolic 101–132; BP diastolic 59–81; PULSE 75–103; RESP 15–25; TEMP 36.3–37.2; O2SAT 95–99
[2021-01-26] MEDS: ipratropium-albuterol 3 mL Neb INHALATION ×4 (03:11→20:33)
[2021-01-26 04:26] LABS: Basophils # 0.1 10^3/uL (0.0-0.1); Basophils % 0.4 %; Hematocrit 28.2 % (42.0-52.0); Hemoglobin 8.5 g/dL (11.7-16.6); Lymphocytes # 0.8 10^3/uL (0.8-4.8); Lymphocytes % 4.1 %; Mean Corpuscular HGB Conc 30.1 g/dL (30.0-36.0); Mean Corpuscular Hemoglobin 30.9 pg (28.0-34.0); Mean Corpuscular Volume 102.5 fL (80-94); Mean Platelet Volume 12.5 fL (7.4-10.4); Monocytes # 1.3 10^3/uL (0.2-0.9); Monocytes % 6.4 %; Neutrophils # 17.02 10^3/uL (1.8-7.7); Neutrophils % 85.7 %; Nucleated Red Blood Cells % 0 %; Platelet Count 251 10^3/cmm (130-400); Red Blood Count 2.75 10^6/uL (4.1-5.3); Red Cell Distribution Width 14.7 % (12.1-15.1); White Blood Count 19.8 10^3/uL (4.0-10.0)
[2021-01-26] MEDS: heparin 5,000 unit/mL INJ 1 mL 5000 UNIT SUBCUT ×2 (05:27→14:06)
[2021-01-26 05:36] LABS: Alanine Aminotransferase 6 U/L (0-41); Albumin Level 2.1 g/dL (3.5-5.2); Alkaline Phosphatase 93 IU/L (40-130); Blood Urea Nitrogen 26 mg/dL (8-23); Calcium 8.2 mg/dL (8.5-10.5); Carbon Dioxide 22 mmol/L (22-29); Chloride 102 mmol/L (98-107); Globulin 2.8 g/dL (1.3-4.6); Glucose 252 mg/dL (65-115); Osmolality Calculated 295 mOsm/kg (285-295); Sodium 136 mmol/L (136-145); Total Bilirubin 0.2 mg/dL (0.15-1.2); Total Protein 4.9 g/dL (6.6-8.7)
[2021-01-26 05:52] LABS: Anion Gap 16.2 (5-19); Aspartate Amino Transferase 17 U/L (0-40); Potassium 4.2 mmol/L (3.5-5.1)
--- NOTE | 2021-01-26 06:11 | PC.NURSE ---
NURSE NOTE: PT'S ACCUCHECK AT HS = 438. NOTIFIED DR. BAILEY OF RESULTS/NO SS ORDERED AT HS AND RECEIVED ORDERS FOR NOVOLOG 15 UNITS NOW X1. INSULIN GIVEN ORDERED.
[2021-01-26 06:36] LABS: Glucose Point of Care 243 mg/dL (70-110)
[2021-01-26] MEDS: losartan 50 mg Tablet 25 MG PO (07:50)
[2021-01-26] MEDS: gabapentin 300 mg Capsule PO ×2 (07:50→17:46)
[2021-01-26] MEDS: aspirin 81 mg Chew Tablet PO (07:50)
[2021-01-26] MEDS: pantoprazole DR 40 mg Tablet PO (07:52)
--- NOTE | 2021-01-26 09:47 | PC.NURSE ---
pt wants bath tonight
[2021-01-26 11:00] LABS: Glucose Point of Care 407 mg/dL (70-110)
[2021-01-26] MEDS: vancomycin 1,000 MG in sodium chloride 0.9% 250 ML 250 MG IV (11:03)
[2021-01-26] MEDS: fluticasone nasal spray 16gm Btl 1 SPRAY INTRANASAL ×2 (12:29→17:51)
--- NOTE | 2021-01-26 13:30 | PC.NURSE ---
Wound Vac removal Dr. Rhodes at bedside and remove pt's wound vac on left upper inner thigh. verbal order for wound dressing in the wound area. wet to dry dressing as ordered.
--- NOTE | 2021-01-26 13:49 | P.PN_ITS ---
Vitals/I&O/Wt Last Vital Signs Temp 97.4 F L 01/26/21 10:40 Pulse 92 01/26/21 10:40 Resp 20 H 01/26/21 10:40 BP 103/59 01/26/21 10:40 Pulse Ox 96 01/26/21 10:40 01/25/21 01/26/21 01/26/21 22:59 06:59 14:59 Intake Total 410 / 2410 490 / 490 Output Total 825 / 825 225 / 1050 Balance -415 / 1585 -225 / 1360 490 / 490 Weight last 48 hrs Weight 78.018 kg Data : 01/26/21 02:34 01/26/21 02:34 Micro: Microbiology 01/25/21 13:42 Blood Culture - Preliminary Blood SPECIMEN COLLECTED 01/25/21 13:40 Blood Culture - Preliminary Blood SPECIMEN COLLECTED A&P Assessment and plan (1) Sepsis with acute hypoxic respiratory failure: Status: Acute (2) Pneumocystis jiroveci pneumonia: Status: Acute (3) Ground glass opacity present on imaging of lung: PJP PNA. D- glucan elevated. PJP PCR positive. Covid 19 tested several times including COVID-19 PCR at [facility] negative on 01/14. Of note he has not had vaccinations. Rapid COVID-19 negative today. Respiratory viral panel awaited. Status: Acute (4) Pyomyositis: Continue ceftriaxone for MSSA. Underwent debridement/drainage at [facility] with wound VAC placement. Has first appointment for first wound VAC change on next week. Status: Acute (5) Encounter for management of wound VAC: Status: Acute (6) Chronic steroid use: Has not taken any prednisone since being admitted at [facility]. Monitor for adrenal insufficiency. Status: Acute (7) Chronic kidney disease: Status: Acute (8) Essential (primary) hypertension: Status: Acute (9) Giant cell arteritis: Previously on chronic prednisone but was taken off, has not taken any prednisone since being admitted at [facility]. Monitor for adrenal insufficiency. Status: Acute (10) Bigeminy: Additional work-up with TTE, with plan for GAUTAM as well unless TTE is positive. Complete troponin and EKG series. He denies any chest pain or pressure. Potassium is normal. Check magnesium. Status: Acute (11) PAD (peripheral artery disease): Noted at [facility], please see full report. Appears to have some significant stenosis on the left noted at transition from common iliac to external iliac artery, and again at femoral artery. Has history of aortobiiliac stent graft for AAA. Status: Acute (12) Tobacco abuse: States he is quitting, has been wearing nicotine patches, not smoking since recent hospitalizations. Continue to encourage cessation. Status: Acute (13) Seropositive rheumatoid arthritis of multiple sites: States he is off leflunomide. Has not had any Actemra since recent hospitalization. Status: Acute Additional A&P Information Sepsis: Could be multifactorial. Recent admission for MSSA pyomyositis. Post Wound vac placement, PNA- Hospital acquired along PJP. UA negative for UTI, Bcx prelim negative. Sputum Cx awaited. CT spine and GAUTAM negative any source Check Procal, MRSA, Bacterial Antigen, Legionella Antigen, Stool for Cdiff C/w Vanc and Ceftriaxone 1 gm QD. Will d/c Abx as per Cx results. Add bactrim IV 5-10 mg/kg wt Q8h. Torres scan w/o contrast to r/o infection source. Consult Sx for Wound vac management. Consult ID for further recs. Keep MAP over 65. Iron deficiency: Check Iron panel, Ferritin, Vit B12, folate. COPD: Mild exacerberation. Not previously on supplemental oxygen therapy. Duoneb Q6h, Budesonide BID HTN: Goal bp less than 140/90 mmhg. bp soft. Hold home losartan for now, monitor blood pressures. CKD: Baseline creat 1.1-1.4 Mildly elevated. Med reconciliation done. IVF NS @ 50 cc/hr Hyperglycemia: Check HBA1c ISS at high dose protocol. GERD: Continue PPI History of AAA status post aortobiiliac stent graft Other chronic medical problems noted. Check TIBC, ferritin, Vit B12, Folate, TSH Limited resuscitation. Protonix Heparin Q8h Attestations Medical Necessity Statement*: Management of sepsis, Hypoxia, PJP PNA Time Spent in Patient Care: Greater than 35 minutes (>than 50% of time spent in counselling and/or direct pt care on unit) . Coding Level of Care Code Acute Computer Compositor for [facility] Fwd Diagnoses Sepsis with acute hypoxic respiratory failure A41.9; R65.20; J96.01 Pneumocystis jiroveci pneumonia B59 Ground glass opacity present on imaging of lung R91.8 Pyomyositis M60.009 Encounter for management of wound VAC Z46.89 Chronic steroid use Chronic kidney disease N18.9 Essential (primary) hypertension I10 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
--- NOTE | 2021-01-26 13:49 | P.CONIM_ITS ---
Providers/Reason For Consult Consulting Physician/Specialty*: General Surgery Dr. Rhodes Reason for Consult*: Left thigh wound Attending Physician: Marshal Mixon MD Primary Care Provider: Mike Foster MD History of Present Illness History of Present Illness Gabino Lamb is a 75 year old male who was discharged from [facility] in [place] after being treated for polymyositis and wound debridement of the left thigh with wound VAC in place. Patient presented to the ER with complaint of fever and fatigue and was noted to have findings on chest x-ray concerning for atypical pneumonia CT abdomen pelvis did not any acute pathology. Patient states that he has been tolerating the wound VAC well and is due for a wound VAC change this week.He has been having low-grade fevers. Review of Systems General: Reports: 10 or more systems reviewed and unremarkable except in HPI and below Meds/Allergies Home Medications and Allergies Home Medications Medication Instructions Recorded Confirmed Last Taken Type losartan 100 mg tablet 100 mg PO DAILY #90 tab 04/08/20 01/25/21 01/24/21 Rx ropinirole 2 mg tablet 2 mg PO BEDTIME #90 tab 07/08/20 01/25/21 01/24/21 Rx ipratropium bromide 42 mcg (0.06 1 spray INTRANASAL TID #15 ml 08/05/20 01/25/21 Unknown Rx %) nasal spray silver sulfadiazine 1 % topical 1 applic TOPICAL DAILY #50 g 09/26/20 01/25/21 Unknown Rx cream fluticasone furoate 200 1 inh INHALATION Q24H #28 ea 10/09/20 01/25/21 01/24/21 Rx mcg-vilanterol 25 mcg/dose inhalation powder ipratropium 20 mcg-albuterol 100 1 puff INHALATION Q6H #4 gm 11/10/20 01/25/21 Unknown Rx mcg/actuation mist for inhalation nicotine 21 mg/24 hr daily 1 patch TRANSDERMA Q24H #28 each 11/10/20 01/25/21 Unknown Rx transdermal patch fluticasone propionate 50 1 spray INTRANASAL BID #15.8 ml 12/10/20 01/25/21 01/24/21 Rx mcg/actuation nasal spray,suspension cholecalciferol (vitamin D3) 50 50 mcg PO DAILY #30 cap 12/16/20 01/25/21 01/24/21 Rx mcg (2,000 unit) capsule hydrocodone 10 mg-acetaminophen 1 tab PO Q4H PRN 30 Days #60 tab 12/31/20 01/25/21 01/07/21 Rx 325 mg tablet aspirin 81 mg PO DAILY 01/07/21 01/25/21 01/24/21 History cetirizine 10 mg PO DAILY PRN 01/07/21 01/25/21 Unknown History tocilizumab [Actemra] 162 mg SUBCUT Q7D 01/07/21 01/25/21 01/22/21 History gabapentin 300 mg capsule 300 mg PO BID #60 cap 01/12/21 01/25/21 01/24/21 Rx ceftriaxone 2 g IV DAILY 01/25/21 01/25/21 01/24/21 History esomeprazole magnesium [Nexium] 40 mg PO DAILY 01/25/21 01/25/21 01/24/21 History ferrous sulfate 325 mg PO DAILY 01/25/21 01/25/21 01/24/21 History krill oil 1 cap PO DAILY 01/25/21 01/25/21 01/24/21 History multivitamin 1 tab PO DAILY 01/25/21 01/25/21 01/24/21 History naloxone [Narcan] 1 spray INTRANASAL Q3M PRN 01/25/21 01/25/21 Unknown History Allergies Allergy/AdvReac Type Severity Reaction Status Date / Time Penicillins Allergy unknown Verified 01/05/21 13:58 Current Medications Current Medications Generic Name Dose Route Start Last Admin Trade Name Freq PRN Reason Stop Dose Admin Albuterol/Ipratropium 3 ml 01/25/21 15:00 01/26/21 08:56 Ipratropium-Albuterol 3 Ml Neb INHALATION 3 ml Q6H.RESPIRATORY MAY Administration Aspirin 81 mg 01/25/21 13:35 01/26/21 07:50 Aspirin 81 Mg Chew Tablet PO 81 mg DAILY MAY Administration Fluticasone Propionate 1 spray 01/25/21 18:00 01/26/21 12:29 Fluticasone Nasal Union 16gm Btl INTRANASAL 1 spray BID MAY Administration Gabapentin 300 mg 01/25/21 18:00 01/26/21 07:50 Gabapentin 300 Mg Capsule PO 300 mg BID MAY Administration Heparin Sodium (Beef Lung) 5,000 unit 01/25/21 14:00 01/26/21 05:27 Heparin 5,000 Unit/Ml Inj 1 Ml SUBCUT 5,000 unit Q8H MAY Administration Ceftriaxone Sodium 2,000 mg/ 50 mls @ 100 mls/hr 01/25/21 15:00 01/25/21 16:22 Sodium Chloride IV Infused Q24H MAY Infusion Vancomycin HCl 1,000 mg/ 250 mls @ 250 mls/hr 01/26/21 11:00 01/26/21 12:15 Sodium Chloride IV Infused Q24H MAY Infusion Protocol Insulin Aspart 0 unit 01/25/21 18:00 01/26/21 12:27 Insulin Aspart 100 Unit/1 Ml SUBCUT 14 unit TIDWM MAY Administration Protocol Nicotine 1 patch 01/25/21 13:30 01/25/21 13:52 Nicotine 21 Mg Patch TRANSDERMA 1 patch Q24H MAY Administration Pantoprazole Sodium 40 mg 01/25/21 14:00 01/26/21 07:[address] 40 Mg Tablet PO 40 mg DAILY MAY Administration Ropinirole HCl 2 mg 01/25/21 21:00 01/25/21 20:57 Ropinirole 2 Mg Tablet PO 2 mg BEDTIME MAY Administration PFSH Acute PFSH: Medical History (Updated 01/26/21 @ 13:48 by Renaldo Rhodes MD) Abdominal aortic aneurysm Status post repair Chronic back pain Colon polyps COPD (chronic obstructive pulmonary disease) Essential (primary) hypertension GERD (gastroesophageal reflux disease) Giant cell arteritis clinical diagnosis Mixed hyperlipidemia Neuropathy Personal history of arterial venous malformation (AVM) Pulmonary emboli Restless leg syndrome 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 Subacromial bursitis of left shoulder joint s/p steroid injection, resolved Tick bite Surgical History History of back surgery History of colonoscopy History of elbow surgery History of esophagogastroduodenoscopy (EGD) S/P excisional debridement Family History Other CAD (coronary artery disease) Cancer Diabetes Denies family history of Rheumatoid arthritis Lupus Chronic kidney disease (CKD) Stroke Social History Smoking and tobacco status: current every day smoker cigarettes [ Other cigarette details: trying to quit, wearing patches ] Alcohol intake: current Alcohol intake frequency: holidays/special occasions only Substance/Drug Use: never Lives independently: Yes Household members: spouse Housing: House Marital status: Current occupational status: retired History of recent travel: No Vitals/I&O/Wt Last Vital Signs Temp 97.4 F L 01/26/21 10:40 Pulse 92 01/26/21 10:40 Resp 20 H 01/26/21 10:40 BP 103/59 01/26/21 10:40 Pulse Ox 96 01/26/21 10:40 01/25/21 01/26/21 01/26/21 22:59 06:59 14:59 Intake Total 410 / 2410 490 / 490 Output Total 825 / 1050 225 / 1050 Balance -415 / 1360 -225 / 1360 490 / 490 Weight last 48 hrs Weight 172 lb Physical Exam Narrative: EXAM NARRATIVE: HEENT: Normocephalic Eye: Sclera /conjunctiva normal Abdomen: Soft to palpation Neurological: Oriented to place person and time Skin: Intact, wound left thigh: Excellent granulation tissue, no significant purulent drainage or cellulitis noted Data Micro: Micro: Microbiology 01/25/21 13:42 Blood Culture - Pr eliminary Blood SPECIMEN [facility] 01/25/21 13:40 Blood Culture - Pr eliminary Blood SPECIMEN [facility] A&P Assessment and plan (1) Leg wound, left: 75-year-old male with history of polymyositis status post debridement of left thigh for suspected necrotizing fasciitis. Patient has been running low- grade fevers with white count of 23.4. He had a wound VAC placed last week. Will discontinue the wound VAC for now and start him on wet-to-dry once daily dressing changes with Kerlix. Once he is ready for discharge will place the wound VAC again. 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
[2021-01-26] MEDS: nicotine 21 mg Patch 1 PATCH TRANSDERMA (14:03)
[2021-01-26 14:09] LABS: Estmated Average Glucose 157; Hemoglobin A1C 7.1 % (4.0-6.0)
[2021-01-26 14:14] LABS: Iron 18 ug/dL (59-158)
[2021-01-26 14:16] LABS: Total Iron Binding Capacity 120 mcg/dl; Unsaturated Iron Binding 102 ug/dL (112-347)
[2021-01-26 14:28] LABS: Vitamin B12 1601 pg/mL (232-1245)
[2021-01-26 14:30] LABS: Folate Level 13.1 ng/mL (4.5-32.2)
[2021-01-26 14:49] LABS: Thyroid Stimulating Hormone 0.08 uIU/mL (0.27-4.20)
--- NOTE | 2021-01-26 15:07 | PC.RESP ---
Sputum sample taken to lab @ 0916 today.Duplicate order for sample.
[2021-01-26] MEDS: insulin glargine 100 units/1 mL 10 UNIT SUBCUT (15:12)
[2021-01-26] MEDS: sulfamethoxazole-trimeth inj 480 MG in dextrose 5 % 500 ML 500 MG IV ×2 (15:15→22:07)
[2021-01-26] MEDS: cefTRIAXone 2,000 MG in sodium chloride 0.9% (plus) 50 ML 100 MG IV (15:18)
[2021-01-26 16:23] LABS: Influenza A by IFA Negative (Negative); Influenza B by IFA Negative (Negative)
[2021-01-26] MEDS: sodium chloride 0.9% 1,000 ML 50 ML IV (16:24)
[2021-01-26] MEDS: iron sucrose 200 MG in sodium chloride 0.9% (100 ml) 100 ML 220 MG IV (16:26)
[2021-01-26 16:33] LABS: Glucose Point of Care 315 mg/dL (70-110)
--- NOTE | 2021-01-26 19:49 | PM.CONSULT ---
Providers/Reason For Consult Consulting Physician/Specialty*: Farida Reyes MD/Infectious Disease Reason for Consult*: Pneumocytis pneumonia, pyomyositis Attending Physician: Marshal Mixon MD Primary Care Provider: Mike Foster MD History of Present Illness History of Present Illness Gabino Lamb is a 75 year old male with complicated PMH as noted below , chiefly GCA, RA on rituximab until one month ago, switched to Actemra, Leflulonamide, prednisone 30g daily for presumed GCA [place] [facility] thigh swelling, warmth and redness and CT leg imaging indicative of pyomyositis. He underwent I&D of underlying abscess and cx grew out MSSA. Other significant findings on previous admission included new hypoxia 80% on RA, B/L GGOs on CT chest, elevated BDG >500 and sputum + for PJP PCR. He was eventually transferred to [facility] where he underwent I&D and placement of a wound vac over the thigh. This is currently improving. he was discharged with iv ceftriaxone 2g daily. Blood cx remained negative. His steroids were discontinued, actemra continued. He also had shingles over his left hand which eventually resolved with treatment with Valtrex. Results of PJP PCR were not available at the tome of transfer and per his daughter he was not treated for this condition. He was started on bactrim ppx prior to transfer, uncertain if this was continued at [place]. He was discharged last week. He returned to the ER on 01/25 with c/o fever to 103.4F. CT abdomen pelvis obtained in ER showing wound VAC in left upper anterior thigh without fluid collection or abscess on the noncontrast study. Patchy groundglass opacity left lower lobe partially imaged and new since January 07, 2021. His continues to have persistent leukocytosis >20K. He underwent extnsive w/up as summarized below to evaluate for any secondary MSSA seeding. CT chest demonstrates increased B/L GGOs. CT abd/pelvis/spine without any gross signs of infection. TTE without gross vegetations, blood cx negative to date Review of Systems General: Reports: 10 or more systems reviewed and unremarkable except in HPI and below Const: Denies: fever(s), chills or body aches Eyes: Denies: change in vision, blurry vision or photophobia ENMT: Reports: hoarseness; Denies: throat pain, enlarged tonsils, odynophagia or nasal congestion Card: Denies: chest pain, palpitations, irregular heart rhythm, edema, swelling of feet/ankles, lightheadedness, pre-syncope, dyspnea on exertion or orthopnea Resp: Denies: dyspnea, productive cough, non-productive cough, wheezing, stridor, pain on inspiration, change in phlegm color, hemoptysis or chest congestion GI: Denies: abdominal pain, nausea, vomiting, hematemesis, coffee ground emesis, dysphagia, heartburn, diarrhea, constipation, GI cramping, change in stool character, hematochezia or melena : Denies: flank pain, dysuria, urinary frequency, urinary urgency, urinary hesitancy or hematuria Musc: Denies: neck pain, back pain, extremity pain, joint swelling, joint warmth or deformity Neuro: Denies: headache(s), numbness in extremities, weakness in extremities, sensory changes, difficulty walking, frequent falls, dizziness, vertigo, behavioral changes, Slurred speech present or seizure-like activity Psych: Denies: anxiety, depression, suicidal ideation or homicidal ideation Endo: Denies: polyuria, polydipsia, tired all the time, cold intolerance or hot flashes Demar/Lymph: Denies: easy bruising or easy bleeding Meds/Allergies Home Medications and Allergies Home Medications Medication Instructions Recorded Confirmed Last Taken Type losartan 100 mg tablet 100 mg PO DAILY #90 tab 04/08/20 01/25/21 01/24/21 Rx ropinirole 2 mg tablet 2 mg PO BEDTIME #90 tab 07/08/20 01/25/21 01/24/21 Rx ipratropium bromide 42 mcg (0.06 1 spray INTRANASAL TID #15 ml 08/05/20 01/25/21 Unknown Rx %) nasal spray silver sulfadiazine 1 % topical 1 applic TOPICAL DAILY #50 g 09/26/20 01/25/21 Unknown Rx cream fluticasone furoate 200 1 inh INHALATION Q24H #28 ea 10/09/20 01/25/21 01/24/21 Rx mcg-vilanterol 25 mcg/dose inhalation powder ipratropium 20 mcg-albuterol 100 1 puff INHALATION Q6H #4 gm 11/10/20 01/25/21 Unknown Rx mcg/actuation mist for inhalation nicotine 21 mg/24 hr daily 1 patch TRANSDERMA Q24H #28 each 11/10/20 01/25/21 Unknown Rx transdermal patch fluticasone propionate 50 1 spray INTRANASAL BID #15.8 ml 12/10/20 01/25/21 01/24/21 Rx mcg/actuation nasal spray,suspension cholecalciferol (vitamin D3) 50 50 mcg PO DAILY #30 cap 12/16/20 01/25/21 01/24/21 Rx mcg (2,000 unit) capsule hydrocodone 10 mg-acetaminophen 1 tab PO Q4H PRN 30 Days #60 tab 12/31/20 01/25/21 01/07/21 Rx 325 mg tablet aspirin 81 mg PO DAILY 01/07/21 01/25/21 01/24/21 History cetirizine 10 mg PO DAILY PRN 01/07/21 01/25/21 Unknown History tocilizumab [Actemra] 162 mg SUBCUT Q7D 01/07/21 01/25/21 01/22/21 History gabapentin 300 mg capsule 300 mg PO BID #60 cap 01/12/21 01/25/21 01/24/21 Rx ceftriaxone 2 g IV DAILY 01/25/21 01/25/21 01/24/21 History esomeprazole magnesium [Nexium] 40 mg PO DAILY 01/25/21 01/25/21 01/24/21 History ferrous sulfate 325 mg PO DAILY 01/25/21 01/25/21 01/24/21 History krill oil 1 cap PO DAILY 01/25/21 01/25/21 01/24/21 History multivitamin 1 tab PO DAILY 01/25/21 01/25/21 01/24/21 History naloxone [Narcan] 1 spray INTRANASAL Q3M PRN 01/25/21 01/25/21 Unknown History Allergies Allergy/AdvReac Type Severity Reaction Status Date / Time Penicillins Allergy unknown Verified 01/05/21 13:58 Current Medications Current Medications Generic Name Dose Route Start Last Admin Trade Name Freq PRN Reason Stop Dose Admin Albuterol/Ipratropium 3 ml 01/25/21 15:00 01/26/21 15:01 Ipratropium-Albuterol 3 Ml Neb INHALATION 3 ml Q6H.RESPIRATORY MAY Administration Aspirin 81 mg 01/25/21 13:35 01/26/21 07:50 Aspirin 81 Mg Chew Tablet PO 81 mg DAILY MAY Administration Fluticasone Propionate 1 spray 01/25/21 18:00 01/26/21 17:51 Fluticasone Nasal [place] 16gm Btl INTRANASAL 1 spray BID MAY Administration Gabapentin 300 mg 01/25/21 18:00 01/26/21 17:46 Gabapentin 300 Mg Capsule PO 300 mg BID MAY Administration Heparin Sodium (Beef Lung) 5,000 unit 01/25/21 14:00 01/26/21 14:06 Heparin 5,000 Unit/Ml Inj 1 Ml SUBCUT 5,000 unit Q8H MAY Administration Ceftriaxone Sodium 2,000 mg/ 50 mls @ 100 mls/hr 01/25/21 15:00 01/26/21 16:34 Sodium Chloride IV Infused Q24H MAY Infusion Vancomycin HCl 1,000 mg/ 250 mls @ 250 mls/hr 01/26/21 11:00 01/26/21 12:15 Sodium Chloride IV Infused Q24H MAY Infusion Protocol Sodium Chloride 1,000 mls @ 50 mls/hr 01/26/21 13:45 01/26/21 16:24 Sodium Chloride 0.9% IV 50 mls/hr .Q20H MAY Administration Trimethoprim/Sulfamethoxazole 530 mls @ 500 mls/hr 01/26/21 15:00 01/26/21 16:26 480 mg/ Dextrose IV Infused TID MAY Infusion Iron Sucrose 200 mg/ Sodium 110 mls @ 220 mls/hr 01/26/21 15:30 01/26/21 18:34 Chloride IV 01/30/21 15:59 Infused Q24H MAY Infusion Insulin Aspart 0 unit 01/26/21 18:00 01/26/21 17:47 Insulin Aspart 100 Unit/1 Ml SUBCUT 14 unit WM&BEDTIME MAY Administration Protocol Insulin Glargine 10 unit 01/26/21 13:45 01/26/21 15:12 Insulin Glargine 100 Units/1 Ml SUBCUT 10 unit QAM MAY Administration Nicotine 1 patch 01/25/21 13:30 01/26/21 14:03 Nicotine 21 Mg Patch TRANSDERMA 1 patch Q24H MAY Administration Pantoprazole Sodium 40 mg 01/25/21 14:00 01/26/21 07:[address] 40 Mg Tablet PO 40 mg DAILY MAY Administration Ropinirole HCl 2 mg 01/25/21 21:00 01/25/21 20:57 Ropinirole 2 Mg Tablet PO 2 mg BEDTIME MAY Administration PFSH Acute PFSH: Medical History Abdominal aortic aneurysm Status post repair Acute pain Chronic back pain Colon polyps COPD (chronic obstructive pulmonary disease) Essential (primary) hypertension Gastritis GERD (gastroesophageal reflux disease) Giant cell arteritis clinical diagnosis Immunization counseling Leg wound, left Mixed hyperlipidemia Neuropathy 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 Pulmonary emboli Renal cyst Restless leg syndrome 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 Subacromial bursitis of left shoulder joint s/p steroid injection, resolved Tick bite Trochanteric bursitis, right hip Surgical History History of back surgery History of colonoscopy History of elbow surgery History of esophagogastroduodenoscopy (EGD) S/P excisional debridement Family History Other CAD (coronary artery disease) Cancer Diabetes Denies family history of Rheumatoid arthritis Lupus Chronic kidney disease (CKD) Stroke Social History Smoking and tobacco status: current every day smoker cigarettes [ Other cigarette details: trying to quit, wearing patches ] Alcohol intake: current Alcohol intake frequency: holidays/special occasions only Substance/Drug Use: never Lives independently: Yes Household members: spouse Housing: House Marital status: Current occupational status: retired History of recent travel: No Vitals/I&O/Wt Last Vital Signs Temp 97.9 F 01/26/21 14:29 Pulse 92 01/26/21 15:02 Resp 20 H 01/26/21 15:02 BP 132/81 01/26/21 14:29 Pulse Ox 98 01/26/21 15:02 01/26/21 01/26/21 01/26/21 06:59 14:59 22:59 Intake Total 490 / 490 690 / 1180 Output Total 225 / 1050 300 / 300 Balance -225 / 1360 490 / 490 390 / 880 Weight last 48 hrs Weight 78.018 kg Physical Exam Narrative: EXAM NARRATIVE: GEN: Awake, alert and oriented, no acute distress CVS: S1S2 N RS: B/L scattered crackles Abd: Soft, nt/nd , bs+ HEALTH TECHNICAL WRITER: no focal neuro deficits Data Micro: Micro: Microbiology 01/25/21 13:42 Blood Culture - Pr eliminary Blood SPECIMEN [facility] 01/25/21 13:40 Blood Culture - Pr eliminary Blood SPECIMEN [facility] K[facility] Other Data: Attestation for Other Data: I personally reviewed and interpreted the following: Other data: Laboratory Results WBC 16.8 10^3/uL (4.0 -10.0) H 01/28/21 02:14 RBC 2.88 10^6/uL (4.1 -5.3) L 01/28/21 02:14 Hgb 8.9 g/dL (11.7-16 .6) L 01/28/21 02:14 Hct 28.9 % (42.0-52.0 ) L 01/28/21 02:14 MCV 100.3 fL (80-94) H 01/28/21 02:14 MCH 30.9 pg (28.0-34. 0) 01/28/21 02:14 MCHC 30.8 g/dL (30.0-3 6.0) 01/28/21 02:14 RDW 14.7 % (12.1-15.1 ) 01/28/21 02:14 Plt Count 319 10^3/cmm (130 -400) 01/28/21 02:14 MPV 11.7 fL (7.4-10.4 ) H 01/28/21 02:14 Neut % (Auto) 74.2 % 01/28/21 02:14 Lymph % (Auto) 11.0 % 01/28/21 02:14 [place] % (Auto) 11.5 % 01/28/21 02:14 Eos % (Auto) 0.1 % 01/28/21 02:14 Baso % (Auto) 0.5 % 01/28/21 02:14 Neut # (Auto) 12.45 10^3/uL (1. 8-7.7) H 01/28/21 02:14 Lymph # (Auto) 1.9 10^3/uL (0.8- 4.8) 01/28/21 02:14 [place]ran # (Auto) 1.9 10^3/uL (0.2- 0.9) H 01/28/21 02:14 Eos # (Auto) 0.0 10^3/uL (0.0- 0.8) 01/28/21 02:14 Baso # (Auto) 0.1 10^3/uL (0.0- 0.1) 01/28/21 02:14 Nucleated RBC % (a uto) 0 % 01/28/21 02:14 Nucleated RBCs # 0.0 /100WBC 01/28/21 02:14 ESR 73 mm/hr (0-10) H 01/27/21 04:37 Sodium 139 mmol/L (136-1 45) 01/28/21 02:14 Potassium 4.2 mmol/L (3.5-5 .1) 01/28/21 02:14 Chloride 104 mmol/L (98-10 7) 01/28/21 02:14 Carbon Dioxide 26 mmol/L (22-29) 01/28/21 02:14 Anion Gap 13.2 (5-19) 01/28/21 02:14 BUN 17 mg/dL (8-23) 01/28/21 02:14 Creatinine 1.5 mg/dL (0.7-1. 2) H 01/28/21 02:14 GFR Calculation Not Reportable 01/28/21 02:14 Glucose 95 mg/dL (65-115) 01/28/21 02:14 POC Glucose 123 mg/dL (70-110 ) H 01/28/21 20:36 Estimat Average Gl ucose 157 01/27/21 04:37 Hemoglobin A1c 7.1 % (4.0-6.0) H 01/27/21 04:37 Calculated Osmolal ity 289 mOsm/kg (285- 295) 01/28/21 02:14 Lactic Acid 0.8 mmol/L (0.5-2 .2) 01/25/21 08:54 Calcium 8.2 mg/dL (8.5-10 .5) L 01/28/21 02:14 Magnesium 1.4 mg/dL (1.7-2. 3) L 01/25/21 15:00 Iron 18 ug/dL (59-158) L 01/26/21 02:34 TIBC 120 mcg/dl 01/26/21 02:34 % Saturation 15.0 % (20-50) L 01/26/21 02:34 Unsat Iron Binding 102 ug/dL (112-34 7) L 01/26/21 02:34 Total Bilirubin 0.2 mg/dL (0.15-1 .2) 01/28/21 02:14 AST 16 U/L (0-40) 01/28/21 02:14 ALT 10 U/L (0-41) 01/28/21 02:14 Alkaline Phosphata se 86 IU/L (40-130) 01/28/21 02:14 Lactate Dehydrogen ase 259 U/L (135-225) H 01/28/21 02:14 Creatine Kinase 34 U/L (39-308) L 01/27/21 04:37 Troponin T Baselin e 98 ng/L (0-15) H 01/25/21 08:54 Troponin T 120 Min table [place] 92.77 ng/L (0-15) H 01/25/21 10:45 Delta Troponin T -5.23 ABS# (0-10) L 01/25/21 10:45 Troponin T Hi Sens 6Hr 68.89 ng/L (0-15) H 01/25/21 15:00 Troponin T Hi Sens 6Hr Delta -29.11 ng/L (0-12 ) L 01/25/21 15:00 C-Reactive Protein 46.1 mg/L (0.0-4. 9) H 01/27/21 04:37 NT-Pro-B Natriuret Pep 3123 pg/mL (0-125 ) H 01/28/21 02:14 Total Protein 4.3 g/dL (6.6-8.7 ) L 01/28/21 02:14 Albumin 2.6 g/dL (3.5-5.2 ) L 01/28/21 02:14 Globulin 1.7 g/dL (1.3-4.6 ) 01/28/21 02:14 Vitamin B12 1601 pg/mL (232-1 245) H 01/26/21 02:34 Folate 13.1 ng/mL (4.5-3 2.2) 01/26/21 02:34 Procalcitonin 0.40 ng/mL (0-0.5 ) 01/26/21 02:34 TSH 0.08 uIU/mL (0.27 -4.20) L 01/26/21 02:34 Free T4 1.89 ng/dL (0.82- 1.77) H 01/27/21 04:37 Free T3 3.8 PG/ML (2.0-4. 4) 01/27/21 04:37 Urine Color Yellow (Yellow) 01/25/21 15:10 Urine Appearance Clear (CLEAR) 01/25/21 15:10 Urine pH 5 (5-7) 01/25/21 15:10 Ur Specific Gravit y 1.010 (1.005-1.0 30) 01/25/21 15:10 Urine Protein 2+ (Negative) H 01/25/21 15:10 Urine Glucose (UA) Norm (Normal) 01/25/21 15:10 Urine Ketones Negative (Negati ve) 01/25/21 15:10 Urine Blood 2+ (Negative) H 01/25/21 15:10 Urine Nitrate Negative (Negati ve) 01/25/21 15:10 Urine Bilirubin Neg (Negative) 01/25/21 15:10 Urine Urobilinogen Norm mg/dL (Negat magdi) 01/25/21 15:10 Ur Leukocyte Veronique ase Negative (Negati ve) 01/25/21 15:10 Urine RBC None /hpf (0-2) 01/25/21 15:10 Urine WBC None /hpf (0-5) 01/25/21 15:10 Ur Squamous Epith Cells None /hpf (0-5) 01/25/21 15:10 Amorphous Sediment Not Reportable 01/25/21 15:10 Urine Bacteria Trace /hpf (NONE) 01/25/21 15:10 Urine Mucus Trace /hpf 01/25/21 15:10 Influenza Type A A g Negative (Negati ve) 01/26/21 14:45 Influenza Type B A g Negative (Negati ve) 01/26/21 14:45 SARS-CoV-2 Ag (Rap id) Negative (Negati ve) 01/25/21 09:00 Impressions Abdomen/Pelvis CT 01/25/21 08:48 IMPRESSION: 1. Wound VAC noted left anterior upper thigh. No fluid collection/abscess visible on non-contrast CT. 2. Patchy ground-glass opacity left lower lobe is partially imaged and new since January 07, 2021 CT chest, which did show multiple additional patchy ground-glass opacities, nonspecific but consistent with atypical pneumonia. 3. Uncomplicated cholelithiasis. 4. Sigmoid diverticulosis. No evidence of active diverticulitis. 5. 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 6. Bilateral hypodense and hyperdense renal lesions are grossly unchanged and previously characterized by MRI. Radiation Dose CTDIVOL = (mGy): DLP = 1393.62 (mGy-cm) Cervical Spine CT 01/25/21 14:09 IMPRESSION: 1. Cervical spine intact and normally aligned. 2. Cervical spondylosis. 3. Fluid throughout the bilateral mastoid air cells and left middle ear cavity, correlate for otomastoiditis. Radiation Dose CTDIVOL = (mGy): DLP = 517.53 (mGy-cm) Chest CT 01/25/21 14:09 IMPRESSION: Patchy centrilobular ground-glass opacities throughout the left upper lobe and superior segment of the lower lobe, as well as a small more confluent area within the left upper lobe posterior segment, progressing since January 07, 2021. There are similar but milder findings within the right lung which appears similar on the comparison exam. Pattern is consistent with atypical pneumonia. This is not a typical pattern for septic emboli. Radiation Dose CTDIVOL = (mGy): DLP = 758.22 (mGy-cm) Lumbar Spine CT 01/25/21 14:09 IMPRESSION: 1. No acute findings on non-contrast CT. 2. Lumbar degenerative changes as described. Radiation Dose CTDIVOL = (mGy): DLP = 1967.13 (mGy-cm) Thoracic Spine CT 01/25/21 14:09 IMPRESSION: No acute findings on non-contrast CT. Radiation Dose CTDIVOL = (mGy): DLP = 2171.89 (mGy-cm) Chest/Abdomen/Pelvis CT 01/26/21 20:49 IMPRESSION: 1. Aortic stent graft noted. The aorta currently measures 4.1 cm in transverse diameter. This is unchanged from 01/25/2021. 2. Tiny gallstones are demonstrated in the gallbladder. There are no secondary signs of cholecystitis. 3. Diverticulosis of the colon. No evidence of acute diverticulitis. 4. Multiple hypodense and hyperdense renal lesions are noted measuring up to 2 cm. These are unchanged from the previous study. 5. There is a surgical wound partially demonstrated in the anterior upper left thigh. 6. There is no interval change from the prior examination of 01/25/2021. COMMENTS: Consistent with the [employer]'s Incidental Findings Committee white paper (J Am Ezio Radiol 2018): Any incidental renal lesion less than 1 cm or classified as too small to characterize, or any incidental cystic renal lesion characterized as simple-appearing, is likely benign. No follow-up imaging is recommended for these lesions per consensus recommendations based on imaging criteria. Radiation Dose CTDIVOL = (mGy): DLP = 1532.47~1532.47 (mGy-cm) Chest X-Ray 01/28/21 11:31 Impression: 1. Patchy opacities have diminished in the left lung. 2. Atherosclerosis. Microbiology 01/26/21 14:45 Nose MRSA Culture - Final 01/25/21 13:42 Blood Blood Culture - Preliminary NEGATIVE TO DATE 01/25/21 13:40 Blood Blood Culture - Preliminary NEGATIVE TO DATE Ordered: Body FL Cult&GS Procedure Result Verified Site Gram Stain Final 01/14/21-1040 Result MANY WHITE BLOOD CELLS MODERATE GRAM POSITIVE COCCI IN PAIRS & CLUSTERS Body Fluid Culture Final 01/17/21-1433 Organism 1 Staphylococcus aureus Growth HEAVY S aureus M.I.C. RX --------- ------ * Amoxicillin/Clavulanate <=4/2 S * Ampicillin >8 R * Ampicillin/Sulbactam <=8/4 S * Ceftriaxone <=8 S * Ciprofloxacin <=1 S * Clindamycin <=0.5 S * Erythromycin <=0.5 S * Gentamicin <=4 S * Levofloxacin <=1 S * Linezolid 4 S * Oxacillin 1 S * Penicillin >8 R * Rifampin <=1 S * Tetracycline <=4 S * Trimethoprim/Sulfamethoxazole <=0.5/9.5 S Vancomycin 2 S Daptomycin 1 S 01/07/21 Spec Source SPUTUM QD P.Jirovecii DNA DETECTED A QD A&P Assessment and plan (1) Pneumocystis jiroveci pneumonia: elevated serum BDG >500, PJP PCR + from induced sputum, B/L GGOs on Ct chest, new hypoxia, risk factors by way of steroids prednisone >30mg a day, recent rituximab, leflunomide Start Bactrim iv 15-20mg/kg divided three times day r Status: Acute Qualifiers: Laterality: bilateral Lung location: unspecified part of lung Qualified Code(s): B59 - Pneumocystosis (2) Pyomyositis: s/p I&D currently on ceftriaxone 2g iv daily from recent admission continue same for now CT CAP, whole spine without signs of infection at other sites TTE without gross vegetations Blood cx negative to date Persisting leukocytosis check C diff PCR Sputum cx pending, GNR preliminary Status: Acute (3) PMR (polymyalgia rheumatica): Status: Acute (4) Giant cell arteritis: recently taken off steroids clinically diagnosed will discuss with his outpatient industrial psychologist regarding resuming Status: Acute (5) Chronic steroid use: Status: Acute Additional A&P Information recent shingles over left hand: resolved with treatment with Valtrex Coding Level of Care Code Acute [employer] M[employer] for [facility] Fwd Diagnoses Pneumocystis jiroveci pneumonia B59 Laterality: bilateral Lung location: unspecified part of lung Pyomyositis M60.009 PMR (polymyalgia rheumatica) M35.3 Giant cell arteritis M31.6 Chronic steroid use
[2021-01-26 20:21] LABS: Glucose Point of Care 220 mg/dL (70-110)
[2021-01-26] MEDS: budesonide 0.5 mg/2 mL Neb INHALATION (20:33)
--- NOTE | 2021-01-26 20:49 | CTR_ITS ---
PROCEDURE INFORMATION: Exam: CT Chest Without Contrast; Diagnostic Exam date and time: 01/26/2021 8:49 PM Age: 75 years old Clinical indication: Fever; Shortness of breath; Prior surgery; Surgery type: Aaa; Additional info: Infectious source TECHNIQUE: Imaging protocol: Diagnostic computed tomography of the chest without contrast. Radiation optimization: All CT scans at this facility use at least one of these dose optimization techniques: automated exposure control; mA and/or kV adjustment per patient size (includes targeted exams where dose is matched to clinical indication); or iterative reconstruction. COMPARISON: CT chest con [id number] 01/25/2021 3:42 PM RADIATION DOSE METRICS: Total DLP (mGy-cm): 1532.47 FINDINGS: Thyroid: Mild thyroid goiter. No dominant thyroid nodules. Lungs: Mild nonspecific left upper lobe airspace disease. Minimal left lower lobe airspace disease. The right lung is free of infiltrates. 6 mm calcified granuloma left lung base. Pleural spaces: Minimal bilateral pleural effusions. No pneumothorax. Heart: No cardiomegaly. No pericardial effusion. Aorta: Mild atherosclerosis of the thoracic aorta. Lymph nodes: Calcified subcarinal lymph node, consistent with old granulomatous disease. Bones/joints: Degenerative thoracic spine changes. No acute osseous abnormality. Soft tissues: The soft tissues appear unremarkable. IMPRESSION: 1. Mild nonspecific left upper lobe airspace disease. Minimal left lower lobe airspace disease. This has improved/decreased when compared to 01/25/2021. 2. The right lung is free of infiltrates. Previously noted mild right basilar infiltrates seen on 01/25/2021 have resolved. 3. Minimal bilateral pleural effusions. PROCEDURE INFORMATION: Exam: CT Abdomen And Pelvis Without Contrast Exam date and time: 01/26/2021 8:49 PM Age: 75 years old Clinical indication: Fever; Shortness of breath; Prior surgery; Surgery type: Aaa; Additional info: Infectious source TECHNIQUE: Imaging protocol: Computed tomography of the abdomen and pelvis without contrast. Radiation optimization: All CT scans at this facility use at least one of these dose optimization techniques: automated exposure control; mA and/or kV adjustment per patient size (includes targeted exams where dose is matched to clinical indication); or iterative reconstruction. COMPARISON: CT abdomen pelvis [facility] [id number] 01/25/2021 RADIATION DOSE METRICS: Total DLP (mGy-cm): 1532.47 FINDINGS: Lungs: Please see accompanying CT chest report from same date. Mediastinal space: There is a small hiatal hernia present. Liver: Single calcified granuloma in the liver. The liver is otherwise unremarkable. Gallbladder and bile ducts: Tiny gallstones are demonstrated in the gallbladder. There are no secondary signs of cholecystitis. Pancreas: Unremarkable. No ductal dilation. Spleen: Calcified granulomas are noted in the spleen. Adrenal glands: Unremarkable. No mass. Kidneys and ureters: Multiple hypodense and hyperdense renal lesions are noted measuring up to 2 cm. Stomach and bowel: Diverticulosis of the colon. No evidence of acute diverticulitis. No acute gastric abnormality demonstrated. The small bowel is unremarkable as demonstrated. Appendix: No evidence of appendicitis. Intraperitoneal space: No pneumoperitoneum. No significant fluid collection. Vasculature: Aortic stent graft noted. The aorta currently measures 4.1 cm in transverse diameter. Lymph nodes: No enlarged lymph nodes. Urinary bladder: Unremarkable as visualized. Reproductive: Unremarkable as visualized. Bones/joints: Degenerative lumbar spine changes are noted. No acute osseous abnormality. Soft tissues: There is a surgical wound partially demonstrated in the anterior upper left thigh. CT/CT chest abd pel wo con IMPRESSION: 1. Aortic stent graft noted. The aorta currently measures 4.1 cm in transverse diameter. This is unchanged from 01/25/2021. 2. Tiny gallstones are demonstrated in the gallbladder. There are no secondary signs of cholecystitis. 3. Diverticulosis of the colon. No evidence of acute diverticulitis. 4. Multiple hypodense and hyperdense renal lesions are noted measuring up to 2 cm. These are unchanged from the previous study. 5. There is a surgical wound partially demonstrated in the anterior upper left thigh. 6. There is no interval change from the prior examination of 01/25/2021. COMMENTS: Consistent with the [employer]'s Incidental Findings Committee white paper (J Am Ezio Radiol 2018): Any incidental renal lesion less than 1 cm or classified as too small to characterize, or any incidental cystic renal lesion characterized as simple-appearing, is likely benign. No follow-up imaging is recommended for these lesions per consensus recommendations based on imaging criteria. Radiation Dose CTDIVOL = (mGy): DLP = 1532.47~1532.47 (mGy-cm)
[2021-01-26] MEDS: ropinirole 2 mg Tablet PO (22:06)
[2021-01-27] VITALS (16 sets, daily range): BP systolic 104–136; BP diastolic 55–94; PULSE 90–103; RESP 17–24; TEMP 36.6–37.2; O2SAT 91–99
[2021-01-27] MEDS: heparin 5,000 unit/mL INJ 1 mL 5000 UNIT SUBCUT ×3 (00:50→15:01)
[2021-01-27] MEDS: ipratropium-albuterol 3 mL Neb INHALATION ×4 (02:59→20:16)
[2021-01-27 05:14] LABS: Basophils # 0.1 10^3/uL (0.0-0.1); Basophils % 0.3 %; Lymphocytes # 1.6 10^3/uL (0.8-4.8); Nucleated Red Blood Cells % 0 %; Red Cell Distribution Width 14.6 % (12.1-15.1)
[2021-01-27 05:25] LABS: Estmated Average Glucose 157; Hemoglobin A1C 7.1 % (4.0-6.0)
[2021-01-27 05:37] LABS: Alanine Aminotransferase 11 U/L (0-41); Albumin Level 2.5 g/dL (3.5-5.2); Alkaline Phosphatase 80 IU/L (40-130); Anion Gap 12.4 (5-19); Aspartate Amino Transferase 20 U/L (0-40); Blood Urea Nitrogen 20 mg/dL (8-23); Calcium 8.4 mg/dL (8.5-10.5); Carbon Dioxide 25 mmol/L (22-29); Chloride 104 mmol/L (98-107); Creatine Phosphokinase 34 U/L (39-308); Globulin 2.2 g/dL (1.3-4.6); Glucose 116 mg/dL (65-115); Lactate Dehydrogenase 233 U/L (135-225); Osmolality Calculated 290 mOsm/kg (285-295); Potassium 3.4 mmol/L (3.5-5.1); Sodium 138 mmol/L (136-145); Total Bilirubin 0.2 mg/dL (0.15-1.2); Total Protein 4.7 g/dL (6.6-8.7)
[2021-01-27 06:25] LABS: Glucose Point of Care 146 mg/dL (70-110)
[2021-01-27] MEDS: HYDROcodone-acetaminophen 10-325 mg Tablet 1 TAB PO (06:40)
[2021-01-27] MEDS: budesonide 0.5 mg/2 mL Neb INHALATION ×2 (08:24→20:16)
[2021-01-27] MEDS: fluticasone nasal spray 16gm Btl 1 SPRAY INTRANASAL ×2 (09:01→17:20)
[2021-01-27] MEDS: aspirin 81 mg Chew Tablet PO (09:02)
[2021-01-27] MEDS: gabapentin 300 mg Capsule PO ×2 (09:02→17:20)
[2021-01-27] MEDS: pantoprazole DR 40 mg Tablet PO (09:02)
[2021-01-27] MEDS: insulin glargine 100 units/1 mL 10 UNIT SUBCUT (09:03)
[2021-01-27] MEDS: sulfamethoxazole-trimeth inj 480 MG in dextrose 5 % 500 ML 500 MG IV ×2 (09:09→16:12)
--- NOTE | 2021-01-27 09:25 | PM.PN ---
Subjective Subjective: Interval history: No acute events overnight. Patient has remained stable. Denies any nausea vomiting, headache. States he is feeling better. Has remained afebrile. Denies any further dysuria. Has not had a bowel movement since yesterday. States continues to have on and off diarrhea but usually stool is well formed. States appetite is appropriate. Is not getting out of bed as much as he should. Vitals/I&O/Wt Last Vital Signs Temp 98.7 F 01/27/21 07:42 Pulse 98 01/27/21 08:30 Resp 17 01/27/21 08:24 BP 125/76 01/27/21 07:42 Pulse Ox 95 01/27/21 08:24 01/26/21 01/27/21 01/27/21 22:59 06:59 14:59 Intake Total 690 / 1180 530 / 1710 Output Total 750 / 750 1250 / 2000 Balance -60 / 430 -720 / -290 Physical Exam Const: COMMON NORMALS: no acute distress, patient oriented x3 and alert GENERAL APPEARANCE: cooperative and frail appearing ORIENTATION/CONSCIOUSNESS: Yes awake HENMT: COMMON NORMALS: oropharynx normal Neck/C-Spine: COMMON NORMALS: no JVD Resp: COMMON NORMALS: normal respiratory effort and clear to auscultation bilaterally AUSCULTATION: clear to auscultation bilaterally Cardio: COMMON NORMALS: no JVD, regular rhythm, S1 normal heart sound present, S2 normal heart sound present and No murmurs present (Cardio) RHYTHM: regular rhythm HEART SOUNDS: S1 normal heart sound present and S2 normal heart sound present GI: COMMON NORMALS: Normal to inspection, nondistended, normoactive bowel sounds present, Soft to palpation and non-tender PALPATION: Yes Soft to palpation Extremity: COMMON NORMALS: no joint enlargement and no pedal edema Neuro: COMMON NORMALS: patient oriented x3 and moves all extremities SENSORIUM/ORIENTATION: Yes alert Skin: COMMON NORMALS: no rashes or lesions noted GENERAL SKIN EXAM: no rashes or lesions noted Data : 01/27/21 04:37 01/27/21 04:37 Micro: Microbiology 01/25/21 13:42 Blood Culture - Preliminary Blood NEGATIVE TO DATE 01/25/21 13:40 Blood Culture - Preliminary Blood NEGATIVE TO DATE A&P Assessment and plan (1) Sepsis with acute hypoxic respiratory failure: Status: Acute (2) Pneumocystis jiroveci pneumonia: Status: Acute (3) Ground glass opacity present on imaging of lung: PJP PNA. D- glucan elevated. PJP PCR positive. Covid 19 tested several times including COVID-19 PCR at [facility] negative on 01/14. Of note he has not had vaccinations. Rapid COVID-19 negative today. Respiratory viral panel awaited. Status: Acute (4) Pyomyositis: Continue ceftriaxone for MSSA. Underwent debridement/drainage at [facility] with wound VAC placement. Has first appointment for first wound VAC change on next week. Status: Acute (5) Encounter for management of wound VAC: Status: Acute (6) Chronic steroid use: Has not taken any prednisone since being admitted at [facility]. Monitor for adrenal insufficiency. Status: Acute (7) Chronic kidney disease: Status: Acute (8) Essential (primary) hypertension: Status: Acute (9) Giant cell arteritis: Previously on chronic prednisone but was taken off, has not taken any prednisone since being admitted at [facility]. Monitor for adrenal insufficiency. Status: Acute (10) Bigeminy: Resolved. Status: Acute (11) PAD (peripheral artery disease): Noted at [facility], please see full report. Appears to have some significant stenosis on the left noted at transition from common iliac to external iliac artery, and again at femoral artery. Has history of aortobiiliac stent graft for AAA. Status: Acute (12) Tobacco abuse: States he is quitting, has been wearing nicotine patches, not smoking since recent hospitalizations. Continue to encourage cessation. Status: Acute (13) Seropositive rheumatoid arthritis of multiple sites: States he is off leflunomide. Has not had any Actemra since recent hospitalization. Status: Acute Additional A&P Information Sepsis: Hemodynamically stable, afebrile but worsening leukocytosis. Could be multifactorial. Recent admission for MSSA pyomyositis. Post Wound vac placement, PNA- Hospital acquired along PJP. UA negative for UTI, Bcx prelim negative. Sputum Cx awaited. CT spine and GAUTAM negative any source Procal, MRSA, Bacterial Antigen, Legionella Antigen negative. Stool for Cdiff awaited. Stop vancomycin. Continue ceftriaxone 1 g daily, Bactrim 7.5 mg/kg body weight 3 times a day. Will monitor potassium and renal functions. CT chest and pelvis without contrast results appreciated. Appreciate surgery and ID recommendations. Keep MAP over 65. Anemia: Severe iron deficiency anemia: Start patient on IV iron therapy. Monitor hemoglobin daily. No active signs of bleeding. Will transfuse if hemoglobin below 7. COPD: Mild exacerberation. Not previously on supplemental oxygen therapy. Duoneb Q6h, Budesonide BID HTN: Goal less than 140/90 mmhg. Blood pressure soft. Continue to hold home losartan for now, monitor blood pressures. CKD: Baseline creat 1.1-1.4 Med reconciliation done. Continue with IVF NS @ 50 cc/hr Hyperglycemia: A1c 7.1. Blood sugars better controlled. Continue with ISS at high dose protocol. GERD: Continue PPI History of AAA status post aortobiiliac stent graft Other chronic medical problems noted. Limited resuscitation. Protonix Heparin Q8h Early ambulation. PT/OT evaluation. Discharge planning: Once stable patient will plan to go home continuing the home health services. Attestations Medical Necessity Statement*: Requires further hospitalization for management of sepsis, PJP pneumonia Time Spent in Patient Care: Greater than 35 minutes (>than 50% of time spent in counselling and/or direct pt care on unit). Coding Level of Care Code Acute Boat Dock Operator for [facility] Fwd Diagnoses Sepsis with acute hypoxic respiratory failure A41.9; R65.20; J96.01 Pneumocystis jiroveci pneumonia B59 Ground glass opacity present on imaging of lung R91.8 Pyomyositis M60.009 Encounter for management of wound VAC Z46.89 Chronic steroid use Chronic kidney disease N18.9 Essential (primary) hypertension I10 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
[2021-01-27 10:38] LABS: C Reactive Protein 46.1 mg/L (0.0-4.9)
[2021-01-27 10:46] LABS: Free T4 Free Thyroxine 1.89 ng/dL (0.82-1.77); T3 Free 3.8 PG/ML (2.0-4.4)
[2021-01-27 10:50] LABS: Hematocrit 23.9 % (42.0-52.0); Hemoglobin 7.4 g/dL (11.7-16.6); Lymphocytes % 5.9 %; Mean Corpuscular Hemoglobin 30.7 pg (28.0-34.0); Mean Corpuscular Volume 99.2 fL (80-94); Mean Platelet Volume 12.5 fL (7.4-10.4); Monocytes # 2.7 10^3/uL (0.2-0.9); Monocytes % 10.4 %; Neutrophils # 21.32 10^3/uL (1.8-7.7); Neutrophils % 81.5 %; Platelet Count 305 10^3/cmm (130-400); Red Blood Count 2.41 10^6/uL (4.1-5.3); White Blood Count 26.2 10^3/uL (4.0-10.0)
[2021-01-27 11:10] LABS: Erythrocyte Sedimentation Rate 73 mm/hr (0-10)
[2021-01-27 11:15] LABS: Glucose Point of Care 170 mg/dL (70-110)
--- NOTE | 2021-01-27 15:00 | PM.PN ---
Subjective Subjective: Interval history: Stable 02 requirements, afberile, persisting leukocytosis Medications: Reviewed: Yes Vitals/I&O/Wt Last Vital Signs Temp 97.8 F 01/28/21 23:32 Pulse 87 01/28/21 23:32 Resp 14 01/28/21 23:32 BP 93/58 01/28/21 23:32 Pulse Ox 94 01/28/21 23:32 01/28/21 01/28/21 01/29/21 14:59 22:59 06:59 Intake Total 1230 / 1230 1420 / 2650 50 / 2700 Output Total 200 / 200 250 / 450 300 / 750 Balance 1030 / 1030 1170 / 2200 -250 / 1950 Physical Exam Narrative: EXAM NARRATIVE: GEN: Awake, alert and oriented, no acute distress CVS: S1S2 N RS: B/L scattered crackles Abd: Soft, nt/nd , bs+ FLOTATION TENDER HELPER: no focal neuro deficits Data : 01/28/21 02:14 01/28/21 02:14 Micro: Microbiology 01/26/21 12:25 Stool Lactoferrin - Final Stool Enteric Pathogens (PCR) - Final Parasite Antigen Panel - Final C.difficile Toxin B Gene (PCR) - Final Occult Blood (FIT) - Final 01/26/21 09:00 Gram Stain - Final Sputum - Expectorated Sputum Sputum Culture - Final Pseudomonas aeruginosa 01/27/21 22:42 Gram Stain - Final Sputum - Expectorated Sputum A&P Assessment and plan (1) Pneumocystis jiroveci pneumonia: elevated serum BDG >500, PJP PCR + from induced sputum, B/L GGOs on Ct chest, new hypoxia, risk factors by way of steroids prednisone >30mg a day, recent rituximab, leflunomide Continue Bactrim iv 15-20mg/kg divided three times day monitor renal function and electrolytes closely recommend 21 day treatment course currently with improving 02 requirements Status: Acute Qualifiers: Laterality: bilateral Lung location: unspecified part of lung Qualified Code(s): B59 - Pneumocystosis (2) Pyomyositis: s/p I&D currently on ceftriaxone 2g iv daily from recent admission ----> change to cefazolin 2g iv q8h which is DOC for MSSA infections and monitor leukocyte response CT CAP, whole spine without signs of infection at other sites TTE without gross vegetations Blood cx negative to date Persisting leukocytosis check C diff PCR pending Sputum cx pending, GNR preliminary Status: Acute (3) PMR (polymyalgia rheumatica): Status: Acute (4) Giant cell arteritis: recently taken off steroids clinically diagnosed will discuss with his outpatient lacing presser regarding resuming Status: Acute (5) Chronic steroid use: Status: Acute Additional A&P Information recent shingles over left hand: resolved with treatment with Valtrex Attestations Medical Necessity Statement*: ongoing treatment with iv bactrim for PJP pneumonia, persisting leukocytosis Coding Level of Care Code Acute Tone Cabinet Assembler for [facility] Fwd Diagnoses Pneumocystis jiroveci pneumonia B59 Laterality: bilateral Lung location: unspecified part of lung Pyomyositis M60.009 PMR (polymyalgia rheumatica) M35.3 Giant cell arteritis M31.6 Chronic steroid use
[2021-01-27] MEDS: nicotine 21 mg Patch 1 PATCH TRANSDERMA (15:01)
[2021-01-27 16:20] LABS: Glucose Point of Care 106 mg/dL (70-110)
[2021-01-27] MEDS: iron sucrose 200 MG in sodium chloride 0.9% (100 ml) 100 ML 220 MG IV (17:19)
[2021-01-27 20:36] LABS: Glucose Point of Care 133 mg/dL (70-110)
[2021-01-27] MEDS: ropinirole 2 mg Tablet PO (21:02)
[2021-01-27] MEDS: sulfamethoxazole-trimeth inj 480 MG in dextrose 5 % 500 ML 530 MG IV (21:11)
--- NOTE | 2021-01-27 21:54 | PC.NURSE ---
NURSING NOTE: REPORT GIVEN TO KATIE PERSON ON MED/SURG AT THIS TIME. PT TRANSPORTED TO ROOM 279 PER W/C PER ANA RODRIGUES AT THIS TIME. ALL VS AND ASSESSMENTS CHARTED. NO DISTRESS NOTED UPON DISCHARGE. DAUGHTER NOTIFIED OF TRANSFER AT THIS TIME.
[2021-01-28] VITALS (14 sets, daily range): BP systolic 93–145; BP diastolic 58–80; PULSE 75–113; RESP 13–24; TEMP 36.6–37.1; O2SAT 94–97
[2021-01-28 02:42] LABS: Basophils # 0.1 10^3/uL (0.0-0.1); Basophils % 0.5 %; Eosinophils % 0.1 %; Hematocrit 28.9 % (42.0-52.0); Hemoglobin 8.9 g/dL (11.7-16.6); Lymphocytes # 1.9 10^3/uL (0.8-4.8); Mean Corpuscular HGB Conc 30.8 g/dL (30.0-36.0); Mean Corpuscular Hemoglobin 30.9 pg (28.0-34.0); Mean Corpuscular Volume 100.3 fL (80-94); Mean Platelet Volume 11.7 fL (7.4-10.4); Monocytes # 1.9 10^3/uL (0.2-0.9); Monocytes % 11.5 %; Neutrophils # 12.45 10^3/uL (1.8-7.7); Neutrophils % 74.2 %; Nucleated Red Blood Cells % 0 %; Platelet Count 319 10^3/cmm (130-400); Red Blood Count 2.88 10^6/uL (4.1-5.3); Red Cell Distribution Width 14.7 % (12.1-15.1); White Blood Count 16.8 10^3/uL (4.0-10.0)
[2021-01-28 02:47] LABS: Lactate Dehydrogenase 259 U/L (135-225)
[2021-01-28 03:26] LABS: Alanine Aminotransferase 10 U/L (0-41); Albumin Level 2.6 g/dL (3.5-5.2); Alkaline Phosphatase 86 IU/L (40-130); Anion Gap 13.2 (5-19); Aspartate Amino Transferase 16 U/L (0-40); Blood Urea Nitrogen 17 mg/dL (8-23); Calcium 8.2 mg/dL (8.5-10.5); Carbon Dioxide 26 mmol/L (22-29); Chloride 104 mmol/L (98-107); Globulin 1.7 g/dL (1.3-4.6); Glucose 95 mg/dL (65-115); Osmolality Calculated 289 mOsm/kg (285-295); Potassium 4.2 mmol/L (3.5-5.1); Sodium 139 mmol/L (136-145); Total Bilirubin 0.2 mg/dL (0.15-1.2); Total Protein 4.3 g/dL (6.6-8.7)
[2021-01-28 03:31] LABS: Creatinine Clr Calc Pharmacy 45.8377
[2021-01-28 07:07] LABS: Glucose Point of Care 83 mg/dL (70-110)
[2021-01-28] MEDS: budesonide 0.5 mg/2 mL Neb INHALATION ×2 (09:09→21:35)
[2021-01-28] MEDS: ipratropium-albuterol 3 mL Neb INHALATION ×3 (09:09→21:35)
--- NOTE | 2021-01-28 10:30 | P.PN_ITS ---
Subjective Subjective: Interval history: C diff PCR returned positive, started on po vancomycin, leukocytosis trending down today, afebrile, hemodynamically stable Medications: Reviewed: Yes Vitals/I&O/Wt Last Vital Signs Temp 97.8 F 01/28/21 23:32 Pulse 87 01/28/21 23:32 Resp 14 01/28/21 23:32 BP 93/58 01/28/21 23:32 Pulse Ox 94 01/28/21 23:32 01/28/21 01/28/21 01/29/21 14:59 22:59 06:59 Intake Total 1230 / 1230 1420 / 2650 50 / 2700 Output Total 200 / 200 250 / 450 300 / 750 Balance 1030 / 1030 1170 / 2200 -250 / 1950 Physical Exam Narrative: EXAM NARRATIVE: GEN: Awake, alert and oriented, no acute distress CVS: S1S2 N RS: B/L scattered crackles Abd: Soft, nt/nd , bs+ OIL PUMP STATION OPERATOR CHIEF: no focal neuro deficits Data : 01/28/21 02:14 01/28/21 02:14 Micro: Microbiology 01/26/21 12:25 Stool Lactoferrin - Final Stool Enteric Pathogens (PCR) - Final Parasite Antigen Panel - Final C.difficile Toxin B Gene (PCR) - Final Occult Blood (FIT) - Final 01/26/21 09:00 Gram Stain - Final Sputum - Expectorated Sputum Sputum Culture - Final Pseudomonas aeruginosa 01/27/21 22:42 Gram Stain - Final Sputum - Expectorated Sputum A&P Assessment and plan (1) Pneumocystis jiroveci pneumonia: elevated serum BDG >500, PJP PCR + from induced sputum, B/L GGOs on Ct chest, new hypoxia, risk factors by way of steroids prednisone >30mg a day, recent rituximab, leflunomide Continue Bactrim iv 15-20mg/kg divided three times day monitor renal function and electrolytes closely recommend 21 day treatment course currently with improving 02 requirements Status: Acute Qualifiers: Laterality: bilateral Lung location: unspecified part of lung Qualified Code(s): B59 - Pneumocystosis (2) Pyomyositis: s/p I&D continue cefazolin 2g iv q8h which is DOC for MSSA infections and monitor leukocyte response CT CAP, whole spine without signs of infection at other sites TTE without gross vegetations Blood cx negative to date Persisting leukocytosis check C diff PCR pending Sputum cx pending, GNR preliminary Status: Acute (3) PMR (polymyalgia rheumatica): Status: Acute (4) Giant cell arteritis: recently taken off steroids clinically diagnosed this was a clinical diagmosis, currently off since one week. Discussed with rheumatology- will reassess resumption of streoids at outpatient follow up in one week. monitor for any changes in vision closely until then. Hold actemra until leg wound completely heals over Status: Acute (5) Chronic steroid use: Status: Acute (6) C. difficile diarrhea: started on po vancomycin 125mg q6h Status: Acute Additional A&P Information recent shingles over left hand: resolved with treatment with Valtrex Attestations Medical Necessity Statement*: pngoing need for iv abx, per admitting Coding Level of Care Code Acute Jewelry Inspector for [facility] Fwd Diagnoses Pneumocystis jiroveci pneumonia B59 Laterality: bilateral Lung location: unspecified part of lung Pyomyositis M60.009 PMR (polymyalgia rheumatica) M35.3 Giant cell arteritis M31.6 Chronic steroid use C. difficile diarrhea A04.72
--- NOTE | 2021-01-28 11:31 | XR_ITS ---
WS: [id number] Portable AP upright chest, 01/28/2021 Clinical Data: sob Comparison: Portable chest, 01/25/2021. Findings: The patchy opacities in the left lung have diminished. There are patchy opacities at the ri ght lung base. No nodules, masses or effusions are seen. The heart is normal. The pulmonary vasculari ty is not increased. No pneumothorax is seen. The aortic arch and descending aorta show tortuosity. T here are monitor leads on the chest wall. XR/XR chest 1V portable [id number] Impression: 1. Patchy opacities have diminished in the left lung. 2. Atherosclerosis.
--- NOTE | 2021-01-28 11:31 | PC.SOCIAL ---
IMM Update Pg. 2 of IMM updated and reviewed with patient and family at bedside. Patient signed, placed in chart. Copy provided.
--- NOTE | 2021-01-28 11:36 | P.PN_ITS ---
Subjective Subjective: Interval history: Overnight patient still studies came back positive for C. difficile and was started on oral vancomycin. Today morning examination he is lying comfortably in bed. He states overnight he had difficulty in breathing. He also states currently he is mild short of breath only saturating 94% liters nasal cannula. Denies any chest pain, nausea, vomiting, headache. Worked really well with physical therapy. Has remained hemodynamically stable and afebrile. Vitals/I&O/Wt Last Vital Signs Temp 98.7 F 01/28/21 08:00 Pulse 75 01/28/21 09:22 Resp 18 01/28/21 09:08 BP 145/66 01/28/21 08:00 Pulse Ox 95 01/28/21 09:08 01/27/21 01/28/21 01/28/21 22:59 06:59 14:59 Intake Total 920 / 1450 530 / 1980 1110 / 1110 Output Total 800 / 800 675 / 1475 200 / 200 Balance 120 / 650 -145 / 505 910 / 910 Physical Exam Const: COMMON NORMALS: no acute distress, patient oriented x3 and alert GENERAL APPEARANCE: cooperative and frail appearing ORIENTATION/CONSCIOUSNESS: Yes awake HENMT: COMMON NORMALS: oropharynx normal Neck/C-Spine: COMMON NORMALS: no JVD Resp: COMMON NORMALS: normal respiratory effort and clear to auscultation bilaterally AUSCULTATION: clear to auscultation bilaterally Cardio: COMMON NORMALS: no JVD, regular rhythm, S1 normal heart sound present, S2 normal heart sound present and No murmurs present (Cardio) RHYTHM: regular rhythm HEART SOUNDS: S1 normal heart sound present and S2 normal heart sound present GI: COMMON NORMALS: Normal to inspection, nondistended, normoactive bowel sounds present, Soft to palpation and non-tender PALPATION: Yes Soft to palpation Extremity: COMMON NORMALS: no joint enlargement and no pedal edema Neuro: COMMON NORMALS: patient oriented x3 and moves all extremities SENSORIUM/ORIENTATION: Yes alert Skin: COMMON NORMALS: no rashes or lesions noted GENERAL SKIN EXAM: no rashes or lesions noted Data : 01/28/21 02:14 01/28/21 02:14 Micro: Microbiology 01/27/21 22:42 Gram Stain - Final Sputum - Expectorated Sputum 01/26/21 12:25 Stool Lactoferrin - Final Stool Enteric Pathogens (PCR) - Final C.difficile Toxin B Gene (PCR) - Final Occult Blood (FIT) - Final 01/26/21 14:45 MRSA Culture - Final Nose 01/26/21 09:00 Gram Stain - Final Sputum - Expectorated Sputum Sputum Culture - Preliminary Gram Negative Rods A&P Assessment and plan (1) Sepsis with acute hypoxic respiratory failure: Status: Acute (2) Pneumocystis jiroveci pneumonia: Status: Acute (3) Ground glass opacity present on imaging of lung: PJP PNA. D- glucan elevated. PJP PCR positive. Covid 19 tested several times including COVID-19 PCR at [facility] negative on 01/14. Of note he has not had vaccinations. Rapid COVID-19 negative today. Respiratory viral panel awaited. Status: Acute (4) Pyomyositis: Continue ceftriaxone for MSSA. Underwent debridement/drainage at [facility] with wound VAC placement. Has first appointment for first wound VAC change on next week. Status: Acute (5) Encounter for management of wound VAC: Status: Acute (6) Chronic steroid use: Has not taken any prednisone since being admitted at [facility]. Monitor for adrenal insufficiency. Status: Acute (7) Chronic kidney disease: Status: Acute (8) Essential (primary) hypertension: Status: Acute (9) Giant cell arteritis: Previously on chronic prednisone but was taken off, has not taken any prednisone since being admitted at [facility]. Monitor for adrenal insufficiency. Status: Acute (10) Bigeminy: Resolved. Status: Acute (11) PAD (peripheral artery disease): Noted at [facility], please see full report. Appears to have some significant stenosis on the left noted at transition from common iliac to external iliac artery, and again at femoral artery. Has history of aortobiiliac stent graft for AAA. Status: Acute (12) Tobacco abuse: States he is quitting, has been wearing nicotine patches, not smoking since recent hospitalizations. Continue to encourage cessation. Status: Acute (13) Seropositive rheumatoid arthritis of multiple sites: States he is off leflunomide. Has not had any Actemra since recent hospitalization. Status: Acute Additional A&P Information Sepsis: Hemodynamically stable, afebrile and now resolving leukocytosis. Could be multifactorial. Recent admission for MSSA pyomyositis. Post Wound vac placement, PNA- Hospital acquired along PJP. UA negative for UTI, Bcx prelim negative. CT spine and GAUTAM negative any source Procal, MRSA, Bacterial Antigen, Legionella Antigen negative. Stool studies positive for C. difficile. Sputum culture growing Pseudomonas. Continue cefazolin 2 g IV every 8 hourly, IV Bactrim 480 mg 3 times daily. Start patient on oral vancomycin 125 4 times daily. Levaquin 500 mg daily for 5 days. Patient to have wound VAC placed again prior to discharge as per surgical recommendations. Appreciate ID recommendations. Anemia: Severe iron deficiency anemia: IV iron therapy. Day 3/5 today Monitor hemoglobin daily. No active signs of bleeding. Will transfuse if hemoglobin below 7. COPD: Mild exacerberation. Not previously on supplemental oxygen therapy. Duoneb Q6h, Budesonide BID Mild distress today. Check proBNP, chest x-ray. Stop IV fluids. HTN: Goal less than 140/90 mmhg. Blood pressure soft. Continue to hold home losartan for now, monitor blood pressures. CKD: Baseline creat 1.1-1.4 Med reconciliation done. Stop IV fluids as patient is in mild respiratory distress. Hyperglycemia: A1c 7.1. Blood sugars better controlled. Continue with ISS at high dose protocol. GERD: Continue PPI History of AAA status post aortobiiliac stent graft Other chronic medical problems noted. GCA: Patient is supposed to be on oral steroids which has been stopped since his last discharge from [facility]. We will confirm with patient's outpatient script girl and if needed start the patient back on oral prednisone. If patient is on oral steroids will need to be on Bactrim prophylaxis once has finished the course of IV Bactrim. Limited resuscitation. Protonix Heparin Q8h Early ambulation. PT/OT evaluation. Discharge planning: Once stable patient will plan to go home continuing the home health services. Attestations Medical Necessity Statement*: Patient requires further hospitalization for management of secondary to C. difficile, P BREONNA pneumonia, Pseudomonas pneumonia, MSSA pyomyositis. Time Spent in Patient Care: Greater than 35 minutes (>than 50% of time spent in counselling and/or direct pt care on unit) . Coding Level of Care Code Acute Growth [employer]room for [facility] Fwd Exam Comprehensive Diagnoses Sepsis with acute hypoxic respiratory failure A41.9; R65.20; J96.01 Pneumocystis jiroveci pneumonia B59 Ground glass opacity present on imaging of lung R91.8 Pyomyositis M60.009 Encounter for management of wound VAC Z46.89 Chronic steroid use Chronic kidney disease N18.9 Essential (primary) hypertension I10 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
[2021-01-28 12:42] LABS: Glucose Point of Care 104 mg/dL (70-110)
[2021-01-28] MEDS: aspirin 81 mg Chew Tablet PO (12:45)
[2021-01-28] MEDS: pantoprazole DR 40 mg Tablet PO (12:46)
[2021-01-28] MEDS: fluticasone nasal spray 16gm Btl 1 SPRAY INTRANASAL ×2 (12:46→18:32)
[2021-01-28] MEDS: gabapentin 300 mg Capsule PO ×2 (12:46→18:32)
[2021-01-28] MEDS: nicotine 21 mg Patch 1 PATCH TRANSDERMA (12:48)
[2021-01-28] MEDS: heparin 5,000 unit/mL INJ 1 mL 5000 UNIT SUBCUT ×2 (12:50→21:15)
[2021-01-28 12:54] LABS: NT Pro B Type Natriuretic Pept 3123 pg/mL (0-125)
[2021-01-28 13:41] LABS: Glucose Point of Care 160 mg/dL (70-110)
[2021-01-28] MEDS: sulfamethoxazole-trimeth inj 480 MG in dextrose 5 % 500 ML 500 MG IV ×2 (15:36→21:12)
[2021-01-28] MEDS: iron sucrose 200 MG in sodium chloride 0.9% (100 ml) 100 ML 220 MG IV (15:41)
[2021-01-28 17:39] LABS: Glucose Point of Care 124 mg/dL (70-110)
[2021-01-28 20:55] LABS: Glucose Point of Care 123 mg/dL (70-110)
[2021-01-28] MEDS: ropinirole 2 mg Tablet PO (21:12)
[2021-01-29] VITALS (16 sets, daily range): BP systolic 98–136; BP diastolic 58–79; PULSE 69–98; RESP 15–20; TEMP 36.5–37.1; O2SAT 92–99
[2021-01-29] MEDS: ipratropium-albuterol 3 mL Neb INHALATION ×4 (03:13→20:00)
[2021-01-29] MEDS: heparin 5,000 unit/mL INJ 1 mL 5000 UNIT SUBCUT ×3 (06:20→21:23)
[2021-01-29] MEDS: levoFLOXacin 500 mg Tablet PO (06:20)
[2021-01-29 06:45] LABS: Lactate Dehydrogenase 254 U/L (135-225)
--- NOTE | 2021-01-29 06:46 | PC.NURSE ---
patient blood sugar this AM was 86 and all of his blood sugars for the the previous day had been low enough that they did not need coverage. the patient had scheduled lantis that was due and this nurse called and notified dr Anand and asked if he wanted the med held or not d/t the BS level. he stated that he wanted the med held.
[2021-01-29 06:51] LABS: Glucose Point of Care 86 mg/dL (70-110)
[2021-01-29 08:45] LABS: Basophils # 0.1 10^3/uL (0.0-0.1); Basophils % 1.2 %; Eosinophils # 0.2 10^3/uL (0.0-0.8); Eosinophils % 1.4 %; Hematocrit 27.7 % (42.0-52.0); Hemoglobin 8.6 g/dL (11.7-16.6); Lymphocytes # 1.8 10^3/uL (0.8-4.8); Lymphocytes % 15.6 %; Mean Corpuscular Hemoglobin 30.4 pg (28.0-34.0); Mean Corpuscular Volume 97.9 fL (80-94); Mean Platelet Volume 10.9 fL (7.4-10.4); Monocytes # 1.7 10^3/uL (0.2-0.9); Monocytes % 14.3 %; Neutrophils # 7.14 10^3/uL (1.8-7.7); Nucleated Red Blood Cells % 0 %; Platelet Count 354 10^3/cmm (130-400); Red Blood Count 2.83 10^6/uL (4.1-5.3); Red Cell Distribution Width 14.6 % (12.1-15.1); White Blood Count 11.5 10^3/uL (4.0-10.0)
[2021-01-29] MEDS: budesonide 0.5 mg/2 mL Neb INHALATION ×2 (08:57→20:00)
[2021-01-29 08:59] LABS: Alanine Aminotransferase < 5 U/L (0-41); Albumin Level 2.5 g/dL (3.5-5.2); Alkaline Phosphatase 82 IU/L (40-130); Anion Gap 13.1 (5-19); Aspartate Amino Transferase 14 U/L (0-40); Blood Urea Nitrogen 11 mg/dL (8-23); Calcium 8.1 mg/dL (8.5-10.5); Carbon Dioxide 29 mmol/L (22-29); Chloride 100 mmol/L (98-107); Globulin 2.4 g/dL (1.3-4.6); Glucose 77 mg/dL (65-115); Magnesium 1.3 mg/dL (1.7-2.3); Osmolality Calculated 284 mOsm/kg (285-295); Phosphorus 3.1 mg/dL (2.5-4.5); Potassium 4.1 mmol/L (3.5-5.1); Sodium 138 mmol/L (136-145); Total Bilirubin 0.2 mg/dL (0.15-1.2); Total Protein 4.9 g/dL (6.6-8.7)
[2021-01-29 09:00] LABS: Creatinine Clr Calc Pharmacy 45.8377
[2021-01-29] MEDS: sulfamethoxazole-trimeth inj 480 MG in dextrose 5 % 500 ML 500 MG IV ×3 (09:03→22:49)
[2021-01-29] MEDS: pantoprazole DR 40 mg Tablet PO (09:04)
[2021-01-29] MEDS: aspirin 81 mg Chew Tablet PO (09:04)
[2021-01-29] MEDS: gabapentin 300 mg Capsule PO ×2 (09:04→16:59)
[2021-01-29] MEDS: fluticasone nasal spray 16gm Btl 1 SPRAY INTRANASAL ×2 (09:06→17:03)
[2021-01-29 09:42] LABS: Slide Review Slide Review Perform
[2021-01-29] MEDS: magnesium sulfate premix 2 GM/50 ML PIGGYBACK IV (10:34)
[2021-01-29] MEDS: ondansetron 2 mg/ML SDV 2 mL 4 MG IVP (10:34)
[2021-01-29 11:30] LABS: Glucose Point of Care 95 mg/dL (70-110)
[2021-01-29] MEDS: nicotine 21 mg Patch 1 PATCH TRANSDERMA (13:15)
[2021-01-29 14:43] LABS: ABG PCO2 44.6 mmHg (35-45); ABG PH Result 7.42 (7.35-7.45); Alveolar-Arterial Oxygen Gradi 2.9 mmHg (5-10); Arterial Blood Gas Hematocrit 40.6 % (42-52); Base Excess ABG 3.6 mmol/L (-2.0-2.0); Blood Gas Allen Test Pos; Blood Gas Sample Site Radial, left; Blood Gas Sample Type Arterial; Carboxyhemoglobin < 0.0 %THgb (0.4-20.1); HCO3 ABG 28.8 mmol/L (22-26); HGB O2 Sat 91.4 % (95-100); Ionized Calcium Level - ABG 1.2 mmol/L (1.1-1.4); Methemoglobin 1.3 % (0.4-1.5); Oxygen Device NC; Oxygen Saturation ABG 92.3; PO2 ABG 72.1 mmHg (80.0-100.0); Potassium Level - ABG 3.9 mmol/L (3.5-5.0); Total Hemoglobin 13.2 g/dL (14-18)
--- NOTE | 2021-01-29 15:48 | P.PN_ITS ---
Subjective Subjective: Interval history: C diff PCR returned positive, started on po vancomycin, leukocytosis trending down today, afebrile, hemodynamically stable Medications: Reviewed: Yes Vitals/I&O/Wt Last Vital Signs Temp 98.5 F 01/29/21 12:14 Pulse 79 01/29/21 14:35 Resp 18 01/29/21 14:20 BP 102/63 01/29/21 12:14 Pulse Ox 95 01/29/21 14:20 01/29/21 01/29/21 01/29/21 06:59 14:59 22:59 Intake Total 290 / 2940 1125 / 1125 50 / 1175 Output Total 575 / 1025 425 / 425 Balance -285 / 1915 700 / 700 50 / 750 Physical Exam Const: COMMON NORMALS: no acute distress, patient oriented x3 and alert GENERAL APPEARANCE: cooperative and frail appearing ORIENTATION/CONSCIOUSNESS: Yes awake HENMT: COMMON NORMALS: oropharynx normal Neck/C-Spine: COMMON NORMALS: no JVD Resp: COMMON NORMALS: normal respiratory effort and clear to auscultation bilaterally AUSCULTATION: clear to auscultation bilaterally Cardio: COMMON NORMALS: no JVD, regular rhythm, S1 normal heart sound present, S2 normal heart sound present and No murmurs present (Cardio) RHYTHM: regular rhythm HEART SOUNDS: S1 normal heart sound present and S2 normal heart sound present GI: COMMON NORMALS: Normal to inspection, nondistended, normoactive bowel sounds present, Soft to palpation and non-tender PALPATION: Yes Soft to palpation Extremity: COMMON NORMALS: no joint enlargement and no pedal edema Neuro: COMMON NORMALS: patient oriented x3 and moves all extremities SENSORIUM/ORIENTATION: Yes alert Skin: COMMON NORMALS: no rashes or lesions noted GENERAL SKIN EXAM: no rashes or lesions noted Data : 01/29/21 08:33 01/29/21 08:33 Micro: Microbiology 01/27/21 22:42 Gram Stain - Final Sputum - Expectorated Sputum Sputum Culture - Preliminary 01/26/21 12:25 Stool Lactoferrin - Final Stool Enteric Pathogens (PCR) - Final Parasite Antigen Panel - Final C.difficile Toxin B Gene (PCR) - Final Occult Blood (FIT) - Final 01/26/21 09:00 Gram Stain - Final Sputum - Expectorated Sputum Sputum Culture - Final Pseudomonas aeruginosa Microbiology 01/27/21 22:42 Sputum - Expectorated Sputum Gram Stain - Final 01/27/21 22:42 Sputum - Expectorated Sputum Sputum Culture - Preliminary 01/26/21 12:25 Stool Stool Lactoferrin - Final 01/26/21 12:25 Stool Enteric Pathogens (PCR) - Final 01/26/21 12:25 Stool Parasite Antigen Panel - Final 01/26/21 12:25 Stool C.difficile Toxin B Gene (PCR) - Final?positive 01/26/21 12:25 Stool Occult Blood (FIT) - Final 01/26/21 09:00 Sputum - Expectorated Sputum Gram Stain - Final 01/26/21 09:00 Sputum - Expectorated Sputum Sputum Culture - Final Pseudomonas aeruginosa 01/26/21 14:45 Nose MRSA Culture - Final 01/25/21 13:42 Blood Blood Culture - Preliminary NEGATIVE TO DATE 01/25/21 13:40 Blood Blood Culture - Preliminary NEGATIVE TO DATE A&P Assessment and plan (1) Sepsis with acute hypoxic respiratory failure: Status: Acute (2) Pneumocystis jiroveci pneumonia: Status: Acute Qualifiers: Laterality: bilateral Lung location: unspecified part of lung Qualified Code(s): B59 - Pneumocystosis (3) Ground glass opacity present on imaging of lung: PJP PNA. D- glucan elevated. PJP PCR positive. Covid 19 tested several times including COVID-19 PCR at [facility] negative on 01/14. Of note he has not had vaccinations. Rapid COVID-19 negative today. Respiratory viral panel awaited. Status: Acute (4) Pyomyositis: Continue ceftriaxone for MSSA. Underwent debridement/drainage at [facility] with wound VAC placement. Has first appointment for first wound VAC change on next week. Status: Acute (5) Encounter for management of wound VAC: Status: Acute (6) Chronic steroid use: Has not taken any prednisone since being admitted at [facility]. Monitor for adrenal insufficiency. 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 Monitor for adrenal insufficiency. Status: Acute (10) Bigeminy: Resolved. Status: Acute (11) PAD (peripheral artery disease): Noted at [facility], please see full report. Appears to have some significant stenosis on the left noted at transition from common iliac to external iliac artery, and again at femoral artery. Has history of aortobiiliac stent graft for AAA. Status: Acute (12) Tobacco abuse: States he is quitting, has been wearing nicotine patches, not smoking since recent hospitalizations. Continue to encourage cessation. Status: Acute (13) Seropositive rheumatoid arthritis of multiple sites: States he is off leflunomide. Has not had any Actemra since recent hospitalization. Status: Acute Additional A&P Information Sepsis: Hemodynamically stable, afebrile and now resolving leukocytosis. Could be multifactorial. Recent admission for MSSA pyomyositis. Post Wound vac placement, PNA- Hospital acquired along PJP. UA negative for UTI, Bcx prelim negative. CT spine and GAUTAM negative any source Procal, MRSA, Bacterial Antigen, Legionella Antigen negative. Stool studies positive for C. difficile. Sputum culture growing Pseudomonas. Continue cefazolin 2 g IV every 8 hourly, IV Bactrim 480 mg 3 times daily. Start patient on oral vancomycin 125 4 times daily. Levaquin 500 mg daily for 5 days. Check PF ratio with ABG to see if patient needs to be started on prednisone for PJP pneumonia. Patient to have wound VAC placed again prior to discharge as per surgical recommendations. Appreciate ID recommendations. Anemia: Severe iron deficiency anemia: IV iron therapy. Day 4/5 today Monitor hemoglobin daily. No active signs of bleeding. Will transfuse if hemoglobin below 7. COPD: Mild exacerberation. Not previously on supplemental oxygen therapy. Duoneb Q6h, Budesonide BID Breathing better today. HTN: Goal less than 140/90 mmhg. Blood pressure soft. Continue to hold home losartan for now, monitor blood pressures. CKD: Baseline creat 1.1-1.4 Med reconciliation done. Stop IV fluids as patient is in mild respiratory distress. Hyperglycemia: A1c 7.1. Blood sugars better controlled. Continue with ISS at high dose protocol. GERD: Continue PPI History of AAA status post aortobiiliac stent graft Other chronic medical problems noted. GCA: Patient is supposed to be on oral steroids which has been stopped since his last discharge from [facility]. We will confirm with patient's outpatient Systems Test Analyst and if needed start the patient back on oral prednisone. If patient is on oral steroids will need to be on Bactrim prophylaxis once has finished the course of IV Bactrim. Limited resuscitation. Protonix Heparin Q8h Early ambulation. PT/OT evaluation. Discharge planning: If patient continues to do well can plan to discharge tomorrow on oral Bactrim, IV cefazolin for 1 more week, oral vancomycin for 14 days. Patient will go back with wound VAC to be followed up by wound care clinic and will continue the same home health services. Attestations Medical Necessity Statement*: Hospitalization for management of sepsis secondary to P BREONNA pneumonia, MSSA pyomyositis, Pseudomonas pneumonia, C. difficile Time Spent in Patient Care: Greater than 35 minutes (>than 50% of time spent in counselling and/or direct pt care on unit) . 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
[2021-01-29] MEDS: iron sucrose 200 MG in sodium chloride 0.9% (100 ml) 100 ML 220 MG IV (16:54)
[2021-01-29 17:00] LABS: Glucose Point of Care 163 mg/dL (70-110)
[2021-01-29 17:26] LABS: Adenovirus Not Detected (Not Detected); Human Metapneumovirus Not Detected (Not Detected); Human Parainflu Virus 1 Not Detected (Not Detected); Human Parainflu Virus 2 Not Detected (Not Detected); Human Parainflu Virus 3 Not Detected (Not Detected); Human Rsv A Not Detected (Not Detected); Influenza A Not Detected (Not Detected); Influenza B Not Detected (Not Detected); Rhinovirus/Enterovirus Detected (Not Detected)
[2021-01-29 20:54] LABS: Glucose Point of Care 110 mg/dL (70-110)
[2021-01-29] MEDS: ropinirole 2 mg Tablet PO (21:23)
[2021-01-30] VITALS (12 sets, daily range): BP systolic 100–107; BP diastolic 63–64; PULSE 79–113; RESP 15–20; TEMP 36.6–36.9; O2SAT 87–98
[2021-01-30] MEDS: ipratropium-albuterol 3 mL Neb INHALATION ×3 (02:40→15:53)
[2021-01-30 03:11] LABS: Basophils # 0.2 10^3/uL (0.0-0.1); Basophils % 1.5 %; Eosinophils # 0.1 10^3/uL (0.0-0.8); Eosinophils % 0.8 %; Hematocrit 29.6 % (42.0-52.0); Hemoglobin 8.7 g/dL (11.7-16.6); Lymphocytes # 2.4 10^3/uL (0.8-4.8); Lymphocytes % 18.9 %; Mean Corpuscular HGB Conc 29.4 g/dL (30.0-36.0); Mean Corpuscular Hemoglobin 30.7 pg (28.0-34.0); Mean Corpuscular Volume 104.6 fL (80-94); Mean Platelet Volume 10.8 fL (7.4-10.4); Monocytes # 1.9 10^3/uL (0.2-0.9); Monocytes % 15.1 %; Neutrophils # 7.38 10^3/uL (1.8-7.7); Neutrophils % 58.1 %; Nucleated Red Blood Cells % 0 %; Platelet Count 353 10^3/cmm (130-400); Red Blood Count 2.83 10^6/uL (4.1-5.3); Red Cell Distribution Width 14.8 % (12.1-15.1); White Blood Count 12.7 10^3/uL (4.0-10.0)
[2021-01-30 03:31] LABS: Alanine Aminotransferase < 5 U/L (0-41); Albumin Level 2.6 g/dL (3.5-5.2); Alkaline Phosphatase 83 IU/L (40-130); Anion Gap 14.7 (5-19); Aspartate Amino Transferase 18 U/L (0-40); Blood Urea Nitrogen 11 mg/dL (8-23); Calcium 8.4 mg/dL (8.5-10.5); Carbon Dioxide 27 mmol/L (22-29); Chloride 99 mmol/L (98-107); Globulin 2.2 g/dL (1.3-4.6); Glucose 100 mg/dL (65-115); Osmolality Calculated 281 mOsm/kg (285-295); Potassium 4.7 mmol/L (3.5-5.1); Sodium 136 mmol/L (136-145); Total Bilirubin 0.2 mg/dL (0.15-1.2); Total Protein 4.8 g/dL (6.6-8.7)
[2021-01-30 03:38] LABS: Slide Review Slide Review Perform
[2021-01-30] MEDS: heparin 5,000 unit/mL INJ 1 mL 5000 UNIT SUBCUT (06:38)
[2021-01-30] MEDS: insulin glargine 100 units/1 mL 10 UNIT SUBCUT (06:38)
[2021-01-30] MEDS: levoFLOXacin 500 mg Tablet PO (06:38)
[2021-01-30 06:44] LABS: Glucose Point of Care 101 mg/dL (70-110)
--- NOTE | 2021-01-30 07:00 | PC.SOCIAL ---
IMM Update Pg. 2 of IMM Updated and reviewed with patient, who verbalized understanding. Copy provided.
[2021-01-30] MEDS: ondansetron 2 mg/ML SDV 2 mL 4 MG IVP (07:37)
[2021-01-30] MEDS: budesonide 0.5 mg/2 mL Neb INHALATION (08:23)
[2021-01-30] MEDS: aspirin 81 mg Chew Tablet PO (10:35)
[2021-01-30] MEDS: pantoprazole DR 40 mg Tablet PO (10:35)
[2021-01-30] MEDS: fluticasone nasal spray 16gm Btl 1 SPRAY INTRANASAL (10:35)
[2021-01-30] MEDS: sulfamethoxazole-trimeth inj 480 MG in dextrose 5 % 500 ML 500 MG IV (10:36)
[2021-01-30] MEDS: gabapentin 300 mg Capsule PO (10:36)
--- NOTE | 2021-01-30 12:12 | P.DS_ITS ---
Discharge Providers Date of Admission: 01/25/21 11:24 Date of Discharge: January 30, 2021 Attending Provider at Admission: Hemal Gamble Attending Provider at Discharge: Marshal Mixon MD Consults: ID: Dr. Reyes Primary Care Provider: Mike Foster MD Diagnoses at Discharge Discharge Diagnosis (1) Sepsis with acute hypoxic respiratory failure: Status: Acute (2) Pneumocystis jiroveci pneumonia: Status: Acute Qualifiers: Laterality: bilateral Lung location: unspecified part of lung Qualified Code(s): B59 - Pneumocystosis (3) Ground glass opacity present on imaging of lung: Status: Acute (4) Pyomyositis: Status: Acute (5) Encounter for management of wound VAC: Status: Acute (6) Chronic steroid use: Status: Acute (7) Chronic kidney disease: Status: Acute (8) Essential (primary) hypertension: Status: Acute (9) Giant cell arteritis: Status: Acute Permanent problem details: clinical diagnosis (10) Bigeminy: Status: Acute (11) PAD (peripheral artery disease): Status: Acute (12) Tobacco abuse: Status: Acute (13) Seropositive rheumatoid arthritis of multiple sites: Status: Acute Reason for Visit Reason for Visit: FEVER; FATIGUE Hospital Course Hospital Course Gabino Lamb is a 75 year old male with complicated PMH as noted below , chiefly GCA, RA on rituximab until one month ago, switched to Actemra, Leflulonamide, prednisone 30g daily for presumed GCA [place] [facility] [place] left medial thigh swelling, warmth and redness and CT leg imaging indicative of pyomyositis. He underwent I&D of underlying abscess and cx grew out MSSA. Other significant findings on previous admission included new hypoxia 80% on RA, B/L GGOs on CT chest, elevated BDG >500 and sputum + for PJP PCR. He was eventually transferred to [facility] where he underwent I&D and placement of a wound vac over the thigh. This is currently improving. he was discharged with iv ceftriaxone 2g daily. Blood cx remained negative. His steroids were discontinued, actemra continued. He also had shingles over his left hand which eventually resolved with treatment with Valtrex. Results of PJP PCR were not available at the tome of transfer and per his daughter he was not treated for this condition. He was started on bactrim ppx prior to transfer, uncertain if this was continued at [facility]. He was discharged last week. He returned to the ER on 01/25 with c/o fever to 103.4F. CT abdomen pelvis obtained in ER showing wound VAC in left upper anterior thigh without fluid collection or abscess on the noncontrast study. Patchy groundglass opacity left lower lobe partially imaged and new since January 07, 2021. His continues to have persistent leukocytosis >20K. He underwent extnsive w/up as summarized below to evaluate for any secondary MSSA seeding. CT chest demonstrates increased B/L GGOs. CT abd/pelvis/spine without any gross signs of infection. TTE without gross vegetations, blood cx negative to date. With infectious work-up showed sputum culture growing Pseudomonas, stool positive for C. difficile. Patient was started on treatment accordingly. After that patient's leukocytosis improved. Patient has been on IV Bactrim for P BREONNA treatment dose for last 3 days and kidney functions have remained stable. Patient's oxygen requirement has remained stable as well. ABG was done and was found to have a sensation PF ratio 225. His hospital stay was otherwise unremarkable. He continued to work well with physical therapy. He is been discharged hemodynamically stable condition. His IV antibiotics for home have been changed to cefazolin 2 g IV every 8 hours till 02/04. He is to continue taking oral vancomycin for 1 week post finishing of IV antibiotics which would be till 02/11. He is to continue taking oral Levaquin for 5 more days till 02/04. Patient is to continue taking oral Bactrim to finish a course of 21 days. He is to follow-up in ID clinic after completion of oral Bactrim course. He is to follow-up with rheumatology clinic within 1 week. He is to follow-up with his primary care provider in 1 week. While he is on IV antibiotics and oral Bactrim he is to have weekly CBC and CMP which is to be followed by ID clinic. For GCA case was discussed with his outpatient measurement department chief clerk and her decided for patient to be off steroids for now though it was counseled to him in detail that if he has any changes in his vision to come to the ER for high-dose IV steroids. Patient will see his measurement department chief clerk next week at that point further decision about leflunomide and oral steroids will be taken. Patient was also informed to make sure that he continues to take oral Bactrim prophylaxis going forward which would be decided as per ID follow-up as an outpatient. Physical Exam Const: COMMON NORMALS: no acute distress, patient oriented x3 and alert GENERAL APPEARANCE: cooperative and frail appearing ORIENTATION/CONSCIOUSNESS: Yes awake HENMT: COMMON NORMALS: oropharynx normal Neck/C-Spine: COMMON NORMALS: no JVD Resp: COMMON NORMALS: normal respiratory effort and clear to auscultation bilaterally AUSCULTATION: clear to auscultation bilaterally Cardio: COMMON NORMALS: no JVD, regular rhythm, S1 normal heart sound present, S2 normal heart sound present and No murmurs present (Cardio) RHYTHM: regular rhythm HEART SOUNDS: S1 normal heart sound present and S2 normal heart sound present GI: COMMON NORMALS: Normal to inspection, nondistended, normoactive bowel sounds present, Soft to palpation and non-tender PALPATION: Yes Soft to palpation Extremity: COMMON NORMALS: no joint enlargement and no pedal edema Neuro: COMMON NORMALS: patient oriented x3 and moves all extremities SENSORIUM/ORIENTATION: Yes alert Skin: COMMON NORMALS: no rashes or lesions noted GENERAL SKIN EXAM: no rashes or lesions noted Discharge Data Data Completed and Pending: Completed Studies During Hospitalization Category Date Time Status CT abdomen pelvis wo con [id number] Stat Cat Scan 01/25/21 08:[address] cervical spin wo con* [id number] Rout ine Cat Scan 01/25/21 14:[address] chest abd pel wo con Routine Cat Scan 01/26/21 20:[address] chest wo con 7 [id number] Routine Cat Scan 01/25/21 14:[address] lumbar spine w o con* [id number] Routi ne Cat Scan 01/25/21 14:[address] thoracic spin wo con* [id number] Rout ine Cat Scan 01/25/21 14:09 Completed XR chest 1V vinicio ble [id number] Routine Exams 01/28/21 11:31 Completed XR chest 1V vinicio ble [id number] Stat Exams 01/25/21 08:47 Completed CV echo complete* [id number] Routine Ultrasound 01/25/21 14:08 Completed Pending at discharge Category Date Time Status Bacterial Antigen Stat Lab 01/26/21 13:35 Ordered Blood Culture Sta t Lab 01/25/21 13:42 Results Legionella Antige n STAT Routine Lab 01/26/21 13:44 Ordered Sputum Culture an d Gram Stain Stat Lab 01/28/21 00:40 Results Urine Creatinine Routine Lab 01/26/21 13:37 Ordered Urine Random Lyte s Routine Lab 01/26/21 13:37 Ordered Labs from last 24 hours 01/30/21 01/30/21 01/30/21 06:29 03:00 03:00 WBC 12.7 H RBC 2.83 L Hgb 8.7 L Hct 29.6 L MCV 104.6 H D MCH 30.7 MCHC 29.4 L D RDW 14.8 Plt Count 353 MPV 10.8 H Neut % (Auto) 58.1 Lymph % (Auto) 18.9 [place] % (Auto) 15.1 Eos % (Auto) 0.8 Baso % (Auto) 1.5 Neut # (Auto) 7.38 Lymph # (Auto) 2.4 [place] # (Auto) 1.9 H Eos # (Auto) 0.1 Baso # (Auto) 0.2 H Nucleated RBC % (a uto) 0 Nucleated RBCs # 0.0 Specimen Type Sample Site ABG pH ABG pCO2 ABG pO2 ABG HCO3 ABG O2 Saturation ABG Base Excess Uche Test A-a O2 Gradient Hematocrit Hgb O2 Saturation Carboxyhemoglobin Methemoglobin Total Hemoglobin Sodium 136 Potassium 4.7 Glucose 100 Ionized Calcium O2 Delivery Device O2 Liters/Min Real Estate Inspector ID Chloride 99 Carbon Dioxide 27 Anion Gap 14.7 BUN 11 Creatinine 1.8 H GFR Calculation Not Reportable POC Glucose 101 Calculated Osmolal ity 281 L Calcium 8.4 L Total Bilirubin 0.2 AST 18 ALT < 5 Alkaline Phosphata se 83 Total Protein 4.8 L Albumin 2.6 L Globulin 2.2 RSV Nasal Swab RSV Nasal Swab Int Cntl Adenovirus (PCR) Human Metapneumovi r PCR Influenza A (RT-PC R) Influenza A (H1) P CR Influenza A (H3) P CR Influenza B (RT-PC R) Parainfluenzae Typ e 1 Parainfluenzae Typ e 2 Parainfluenzae Typ e 3 RSV Ab Comment Rhinovirus (PCR) 01/29/21 01/29/21 01/29/21 20:34 16:49 14:30 WBC RBC Hgb Hct MCV MCH MCHC RDW Plt Count MPV Neut % (Auto) Lymph % (Auto) [place] % (Auto) Eos % (Auto) Baso % (Auto) Neut # (Auto) Lymph # (Auto) [place] # (Auto) Eos # (Auto) Baso # (Auto) Nucleated RBC % (a uto) Nucleated RBCs # Specimen Type Arterial Sample Site Radial, left ABG pH 7.42 ABG pCO2 44.6 ABG pO2 72.1 L ABG HCO3 28.8 H ABG O2 Saturation 92.3 ABG Base Excess 3.6 H [place]che Test Pos A-a O2 Gradient 2.9 L Hematocrit 40.6 L Hgb O2 Saturation 91.4 L Carboxyhemoglobin < 0.0 L Methemoglobin 1.3 Total Hemoglobin 13.2 L Sodium 135.0 Potassium 3.9 Glucose 153.0 H Ionized Calcium 1.2 O2 Delivery Device Nc O2 Liters/Min 3.0 Real Estate Inspector ID jmn Chloride Carbon Dioxide Anion Gap BUN Creatinine GFR Calculation POC Glucose 110 163 H Calculated Osmolal ity Calcium Total Bilirubin AST ALT Alkaline Phosphata se Total Protein Albumin Globulin RSV Nasal Swab RSV Nasal Swab Int Cntl Adenovirus (PCR) Human Metapneumovi r PCR Influenza A (RT-PC R) Influenza A (H1) P CR Influenza A (H3) P CR Influenza B (RT-PC R) Parainfluenzae Typ e 1 Parainfluenzae Typ e 2 Parainfluenzae Typ e 3 RSV Ab Comment Rhinovirus (PCR) 01/25/21 21:20 WBC RBC Hgb Hct MCV MCH MCHC RDW Plt Count MPV Neut % (Auto) Lymph % (Auto) [place] % (Auto) Eos % (Auto) Baso % (Auto) Neut # (Auto) Lymph # (Auto) [place] # (Auto) Eos # (Auto) Baso # (Auto) Nucleated RBC % (a uto) Nucleated RBCs # Specimen Type Sample Site ABG pH ABG pCO2 ABG pO2 ABG HCO3 ABG O2 Saturation ABG Base Excess Uche Test A-a O2 Gradient Hematocrit Hgb O2 Saturation Carboxyhemoglobin Methemoglobin Total Hemoglobin Sodium Potassium Glucose Ionized Calcium O2 Delivery Device O2 Liters/Min Real Estate Inspector ID Chloride Carbon Dioxide Anion Gap BUN Creatinine GFR Calculation POC Glucose Calculated Osmolal ity Calcium Total Bilirubin AST ALT Alkaline Phosphata se Total Protein Albumin Globulin RSV Nasal Swab Not detected RSV Nasal Swab Int Cntl Not detected Adenovirus (PCR) Not detected Human Metapneumovi r PCR Not detected Influenza A (RT-PC R) Not detected Influenza A (H1) P CR Not detected Influenza A (H3) P CR Not detected Influenza B (RT-PC R) Not detected Parainfluenzae Typ e 1 Not detected Parainfluenzae Typ e 2 Not detected Parainfluenzae Typ e 3 Not detected RSV Ab Comment see note Rhinovirus (PCR) Detected A Addt'l Data from Hospital Stay: Laboratory Results WBC 12.7 10^3/uL (4.0 -10.0) H 01/30/21 03:00 RBC 2.83 10^6/uL (4.1 -5.3) L 01/30/21 03:00 Hgb 8.7 g/dL (11.7-16 .6) L 01/30/21 03:00 Hct 29.6 % (42.0-52.0 ) L 01/30/21 03:00 MCV 104.6 fL (80-94) H D 01/30/21 03:00 MCH 30.7 pg (28.0-34. 0) 01/30/21 03:00 MCHC 29.4 g/dL (30.0-3 6.0) L D 01/30/21 03:00 RDW 14.8 % (12.1-15.1 ) 01/30/21 03:00 Plt Count 353 10^3/cmm (130 -400) 01/30/21 03:00 MPV 10.8 fL (7.4-10.4 ) H 01/30/21 03:00 Neut % (Auto) 58.1 % 01/30/21 03:00 Lymph % (Auto) 18.9 % 01/30/21 03:00 [place] % (Auto) 15.1 % 01/30/21 03:00 Eos % (Auto) 0.8 % 01/30/21 03:00 Baso % (Auto) 1.5 % 01/30/21 03:00 Neut # (Auto) 7.38 10^3/uL (1.8 -7.7) 01/30/21 03:00 Lymph # (Auto) 2.4 10^3/uL (0.8- 4.8) 01/30/21 03:00 [place] # (Auto) 1.9 10^3/uL (0.2- 0.9) H 01/30/21 03:00 Eos # (Auto) 0.1 10^3/uL (0.0- 0.8) 01/30/21 03:00 Baso # (Auto) 0.2 10^3/uL (0.0- 0.1) H 01/30/21 03:00 Nucleated RBC % (a uto) 0 % 01/30/21 03:00 Nucleated RBCs # 0.0 /100WBC 01/30/21 03:00 ESR 73 mm/hr (0-10) H 01/27/21 04:37 Specimen Type Arterial 01/29/21 14:30 Sample Site Radial, left 01/29/21 14:30 ABG pH 7.42 (7.35-7.45) 01/29/21 14:30 ABG pCO2 44.6 mmHg (35-45) 01/29/21 14:30 ABG pO2 72.1 mmHg (80.0-1 00.0) L 01/29/21 14:30 ABG HCO3 28.8 mmol/L (22-2 6) H 01/29/21 14:30 ABG O2 Saturation 92.3 01/29/21 14:30 ABG Base Excess 3.6 mmol/L (-2.0- 2.0) H 01/29/21 14:30 Uche Test Pos 01/29/21 14:30 A-a O2 Gradient 2.9 mmHg (5-10) L 01/29/21 14:30 Hematocrit 40.6 % (42-52) L 01/29/21 14:30 Hgb O2 Saturation 91.4 % (95-100) L 01/29/21 14:30 Carboxyhemoglobin < 0.0 %THgb (0.4- 20.1) L 01/29/21 14:30 Methemoglobin 1.3 % (0.4-1.5) 01/29/21 14:30 Total Hemoglobin 13.2 g/dL (14-18) L 01/29/21 14:30 Sodium 135.0 mmol/L (131 -143) 01/29/21 14:30 Potassium 3.9 mmol/L (3.5-5 .0) 01/29/21 14:30 Glucose 153.0 mg/dL (70-1 15) H 01/29/21 14:30 Ionized Calcium 1.2 mmol/L (1.1-1 .4) 01/29/21 14:30 O2 Delivery Device Nc 01/29/21 14:30 O2 Liters/Min 3.0 % 01/29/21 14:30 Real Estate Inspector ID [email or web address] 01/29/21 14:30 Sodium 136 mmol/L (136-1 45) 01/30/21 03:00 Potassium 4.7 mmol/L (3.5-5 .1) 01/30/21 03:00 Chloride 99 mmol/L (98-107 ) 01/30/21 03:00 Carbon Dioxide 27 mmol/L (22-29) 01/30/21 03:00 Anion Gap 14.7 (5-19) 01/30/21 03:00 BUN 11 mg/dL (8-23) 01/30/21 03:00 Creatinine 1.8 mg/dL (0.7-1. 2) H 01/30/21 03:00 GFR Calculation Not Reportable 01/30/21 03:00 Glucose 100 mg/dL (65-115 ) 01/30/21 03:00 POC Glucose 101 mg/dL (70-110 ) 01/30/21 06:29 Estimat Average Gl ucose 157 01/27/21 04:37 Hemoglobin A1c 7.1 % (4.0-6.0) H 01/27/21 04:37 Calculated Osmolal ity 281 mOsm/kg (285- 295) L 01/30/21 03:00 Lactic Acid 0.8 mmol/L (0.5-2 .2) 01/25/21 08:54 Calcium 8.4 mg/dL (8.5-10 .5) L 01/30/21 03:00 Phosphorus 3.1 mg/dL (2.5-4. 5) 01/29/21 08:33 Magnesium 1.3 mg/dL (1.7-2. 3) L 01/29/21 08:33 Iron 18 ug/dL (59-158) L 01/26/21 02:34 TIBC 120 mcg/dl 01/26/21 02:34 % Saturation 15.0 % (20-50) L 01/26/21 02:34 Unsat Iron Binding 102 ug/dL (112-34 7) L 01/26/21 02:34 Total Bilirubin 0.2 mg/dL (0.15-1 .2) 01/30/21 03:00 AST 18 U/L (0-40) 01/30/21 03:00 ALT < 5 U/L (0-41) 01/30/21 03:00 Alkaline Phosphata se 83 IU/L (40-130) 01/30/21 03:00 Lactate Dehydrogen ase 254 U/L (135-225) H 01/29/21 06:00 Creatine Kinase 34 U/L (39-308) L 01/27/21 04:37 Troponin T Baselin e 98 ng/L (0-15) H 01/25/21 08:54 Troponin T 120 Min [place] 92.77 ng/L (0-15) H 01/25/21 10:45 Delta Troponin T -5.23 ABS# (0-10) L 01/25/21 10:45 Troponin T Hi Sens 6Hr 68.89 ng/L (0-15) H 01/25/21 15:00 Troponin T Hi Sens 6Hr Delta -29.11 ng/L (0-12 ) L 01/25/21 15:00 C-Reactive Protein 46.1 mg/L (0.0-4. 9) H 01/27/21 04:37 NT-Pro-B Natriuret Pep 3123 pg/mL (0-125 ) H 01/28/21 02:14 Total Protein 4.8 g/dL (6.6-8.7 ) L 01/30/21 03:00 Albumin 2.6 g/dL (3.5-5.2 ) L 01/30/21 03:00 Globulin 2.2 g/dL (1.3-4.6 ) 01/30/21 03:00 Vitamin B12 1601 pg/mL (232-1 245) H 01/26/21 02:34 Folate 13.1 ng/mL (4.5-3 2.2) 01/26/21 02:34 Procalcitonin 0.40 ng/mL (0-0.5 ) 01/26/21 02:34 TSH 0.08 uIU/mL (0.27 -4.20) L 01/26/21 02:34 Free T4 1.89 ng/dL (0.82- 1.77) H 01/27/21 04:37 Free T3 3.8 PG/ML (2.0-4. 4) 01/27/21 04:37 Urine Color Yellow (Yellow) 01/25/21 15:10 Urine Appearance Clear (CLEAR) 01/25/21 15:10 Urine pH 5 (5-7) 01/25/21 15:10 Ur Specific Gravit y 1.010 (1.005-1.0 30) 01/25/21 15:10 Urine Protein 2+ (Negative) H 01/25/21 15:10 Urine Glucose (UA) Norm (Normal) 01/25/21 15:10 Urine Ketones Negative (Negati ve) 01/25/21 15:10 Urine Blood 2+ (Negative) H 01/25/21 15:10 Urine Nitrate Negative (Negati ve) 01/25/21 15:10 Urine Bilirubin Neg (Negative) 01/25/21 15:10 Urine Urobilinogen Norm mg/dL (Negat magdi) 01/25/21 15:10 Ur Leukocyte Veronique ase Negative (Negati ve) 01/25/21 15:10 Urine RBC None /hpf (0-2) 01/25/21 15:10 Urine WBC None /hpf (0-5) 01/25/21 15:10 Ur Squamous Epith Cells None /hpf (0-5) 01/25/21 15:10 Amorphous Sediment Not Reportable 01/25/21 15:10 Urine Bacteria Trace /hpf (NONE) 01/25/21 15:10 Urine Mucus Trace /hpf 01/25/21 15:10 RSV Nasal Swab Not detected (No t Detected) 01/25/21 21:20 RSV Nasal Swab Int Cntl Not detected (No t Detected) 01/25/21 21:20 Adenovirus (PCR) Not detected (No t Detected) 01/25/21 21:20 Human Metapneumovi r PCR Not detected (No t Detected) 01/25/21 21:20 Influenza A (RT-PC R) Not detected (No t Detected) 01/25/21 21:20 Influenza A (H1) P CR Not detected (No t Detected) 01/25/21 21:20 Influenza A (H3) P CR Not detected (No t Detected) 01/25/21 21:20 Influenza Type A A g Negative (Negati ve) 01/26/21 14:45 Influenza Type B A g Negative (Negati ve) 01/26/21 14:45 Influenza B (RT-PC R) Not detected (No t Detected) 01/25/21 21:20 Parainfluenzae Typ e 1 Not detected (No t Detected) 01/25/21 21:20 Parainfluenzae Typ e 2 Not detected (No t Detected) 01/25/21 21:20 Parainfluenzae Typ e 3 Not detected (No t Detected) 01/25/21 21:20 RSV Ab Comment see note 01/25/21 21:20 Rhinovirus (PCR) Detected (Not De tected) A 01/25/21 21:20 SARS-CoV-2 Ag (Rap id) Negative (Negati ve) 01/25/21 09:00 Impressions Abdomen/Pelvis CT 01/25/21 08:48 IMPRESSION: 1. Wound VAC noted left anterior upper thigh. No fluid collection/abscess visible on non-contrast CT. 2. Patchy ground-glass opacity left lower lobe is partially imaged and new since January 07, 2021 CT chest, which did show multiple additional patchy ground- glass opacities, nonspecific but consistent with atypical pneumonia. 3. Uncomplicated cholelithiasis. 4. Sigmoid diverticulosis. No evidence of active diverticulitis. 5. 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 6. Bilateral hypodense and hyperdense renal lesions are grossly unchanged and previously characterized by MRI. Radiation Dose CTDIVOL = (mGy): DLP = 1393.62 (mGy-cm) Cervical Spine CT 01/25/21 14:09 IMPRESSION: 1. Cervical spine intact and normally aligned. 2. Cervical spondylosis. 3. Fluid throughout the bilateral mastoid air cells and left middle ear cavity, correlate for otomastoiditis. Radiation Dose CTDIVOL = (mGy): DLP = 517.53 (mGy-cm) Chest CT 01/25/21 14:09 IMPRESSION: Patchy centrilobular ground-glass opacities throughout the left upper lobe and superior segment of the lower lobe, as well as a small more confluent area within the left upper lobe posterior segment, progressing since January 07, 2021. There are similar but milder findings within the right lung which appears similar on the comparison exam. Pattern is consistent with atypical pneumonia. This is not a typical pattern for septic emboli. Radiation Dose CTDIVOL = (mGy): DLP = 758.22 (mGy-cm) Lumbar Spine CT 01/25/21 14:09 IMPRESSION: 1. No acute findings on non-contrast CT. 2. Lumbar degenerative changes as described. Radiation Dose CTDIVOL = (mGy): DLP = 1967.13 (mGy-cm) Thoracic Spine CT 01/25/21 14:09 IMPRESSION: No acute findings on non-contrast CT. Radiation Dose CTDIVOL = (mGy): DLP = 2171.89 (mGy-cm) Chest/Abdomen/Pelvis CT 01/26/21 20:49 IMPRESSION: 1. Aortic stent graft noted. The aorta currently measures 4.1 cm in transverse diameter. This is unchanged from 01/25/2021. 2. Tiny gallstones are demonstrated in the gallbladder. There are no secondary signs of cholecystitis. 3. Diverticulosis of the colon. No evidence of acute diverticulitis. 4. Multiple hypodense and hyperdense renal lesions are noted measuring up to 2 cm. These are unchanged from the previous study. 5. There is a surgical wound partially demonstrated in the anterior upper left thigh. 6. There is no interval change from the prior examination of 01/25/2021. COMMENTS: Consistent with the [employer]'s Incidental Findings Committee white paper (J Am Ezio Radiol 2018): Any incidental renal lesion less than 1 cm or classified as too small to characterize, or any incidental cystic renal lesion characterized as simple-appearing, is likely benign. No follow-up imaging is recommended for these lesions per consensus recommendations based on imaging criteria. Radiation Dose CTDIVOL = (mGy): DLP = 1532.47~1532.47 (mGy-cm) Chest X-Ray 01/28/21 11:31 Impression: 1. Patchy opacities have diminished in the left lung. 2. Atherosclerosis. Microbiology 01/27/21 22:42 Sputum - Expectorated Sputum Gram Stain - Final 01/27/21 22:42 Sputum - Expectorated Sputum Sputum Culture - Preliminary 01/26/21 12:25 Stool Stool Lactoferrin - Final 01/26/21 12:25 Stool Enteric Pathogens (PCR) - Final 01/26/21 12:25 Stool Parasite Antigen Panel - Final 01/26/21 12:25 Stool C.difficile Toxin B Gene (PCR) - Final- Positive 01/26/21 12:25 Stool Occult Blood (FIT) - Final 01/26/21 09:00 Sputum - Expectorated Sputum Gram Stain - Final 01/26/21 09:00 Sputum - Expectorated Sputum Sputum Culture - Final Pseudomonas aeruginosa 01/26/21 14:45 Nose MRSA Culture - Final 01/25/21 13:42 Blood Blood Culture - Preliminary NEGATIVE TO DATE 01/25/21 13:40 Blood Blood Culture - Preliminary NEGATIVE TO DATE Vitals: Last Vital Signs Temp 98.1 F 01/30/21 08:46 Pulse 113 H 01/30/21 08:46 Resp 15 01/30/21 08:46 BP 107/63 01/30/21 08:46 Pulse Ox 87 L 01/30/21 11:38 Discharge Plan Discharge Patient Disposition: Home Health Service Condition: Stable Prescriptions: New vancomycin 125 mg capsule 125 mg PO QID 14 Days Qty: 56 RF: 0 cefazolin 1 gram recon soln 2 g IV Q8H 5 Days Qty: 30 RF: 0 Bactrim DS 800-160 mg tablet 2 tab PO Q8H 21 Days Qty: 126 RF: 0 Lantus Solostar U-100 Insulin 100 unit/mL (3 mL) insulin pen 10 unit SUBCUT DAILY Qty: 15 RF: 0 levofloxacin 500 mg tablet 500 mg PO Q48H 3 Days Qty: 2 RF: 0 Continued hydrocodone-acetaminophen 10-325 mg tablet 1 tab PO Q4H PRN (Reason: pain) 30 Days Qty: 60 RF: 0 ropinirole 2 mg tablet 2 mg PO BEDTIME Qty: 90 RF: 3 ipratropium bromide 42 mcg (0.06 %) spray,non-aerosol 1 spray INTRANASAL TID Qty: 15 RF: 5 silver sulfadiazine 1 % cream 1 applic topical DAILY Qty: 50 RF: 0 Breo Ellipta 200-25 mcg/dose blister with device 1 inh inhalation Q24H Qty: 28 RF: 3 Combivent Respimat 20-100 mcg/actuation mist 1 puff INHALATION Q6H Qty: 4 RF: 3 Nicoderm CQ 21 mg/24 hr patch 24 hour 1 patch TRANSDERMA Q24H Qty: 28 RF: 8 fluticasone propionate [Flonase Allergy Relief] 50 mcg/actuation spray,suspension 1 spray intranasal BID Qty: 15.8 RF: 3 cholecalciferol (vitamin D3) 50 mcg (2,000 unit) capsule 50 mcg PO DAILY Qty: 30 RF: 3 gabapentin 300 mg capsule 300 mg PO BID Qty: 60 RF: 3 cetirizine 10 mg tablet 10 mg PO DAILY PRN (Reason: Allergy Symptoms) RF: 0 aspirin 81 mg Tablet,Chewable 81 mg PO DAILY RF: 0 multivitamin Tablet 1 tab PO DAILY RF: 0 Nexium 40 mg Capsule,Delayed Release(Dr/Ec) 40 mg PO DAILY RF: 0 krill oil 1,811-943-84-80 mg Capsule 1 cap PO DAILY RF: 0 Narcan 4 mg/actuation [place],Non-Aerosol 1 spray INTRANASAL Q3M PRN (Reason: overdose) RF: 0 Changed ferrous sulfate 325 mg (65 mg iron) Tablet 325 mg PO BIDWMEAL Qty: 0 RF: 0 Held losartan 100 mg tablet 100 mg PO DAILY Qty: 90 RF: 3 Hold Instructions: Resume on 02/07/21. Actemra 162 mg/0.9 mL syringe 162 mg SUBCUT Q7D RF: 0 Hold Instructions: Resume on 02/06/21. Discontinued ceftriaxone 2 gram recon soln 2 g IV DAILY RF: 0 Discharge Orders: Discharge Order (Routine); Ordered 01/30/21 Ordered By: Marshal Mixon Other Ambulatory Orders: DME: Oxygen (Order) Location: None Selected Ordered By: Marshal Mixon Referrals: Mike Foster MD [Primary Care Provider] - 7-10 days Uziel Grayson MD [Physician] - 4-7 days Farida Reyes MD [Hospitalist] - 02/17/[facility], [Staff Physician] - 4-7 days Discharge Diet: Cardiac and Diabetic Discharge Activity: Resume usual activity Patient Instructions: Chronic Kidney Disease (DC), Clostridium Difficile Infection (DC), Pneumocystis jiroveci Pneumonia (DC), Pneumonia (DC), COPD Stoplight, Opioid Safety Activity Restrictions/Additional Instructions: His IV antibiotics for home have been changed to cefazolin 2 g IV every 8 hours till 02/04. He is to continue taking oral vancomycin for 1 week post finishing of IV antibiotics which would be till 02/11. He is to continue taking oral Levaquin every 48 hours for 3 more days. Patient is to continue taking oral Bactrim to finish a course of 21 days. He is to follow-up in ID clinic after completion of oral Bactrim course. He is to follow-up with rheumatology clinic within 1 week. He is to follow-up with his primary care provider in 1 week. While he is on IV antibiotics and oral Bactrim he is to have weekly CBC and CMP which is to be followed by ID clinic. For GCA case was discussed with his outpatient measurement department chief clerk and her decided for patient to be off steroids for now though it was counseled to him in detail that if he has any changes in his vision to come to the ER for high-dose IV steroids. Patient will see his measurement department chief clerk next week at that point further decision about leflunomide and oral steroids will be taken. Patient was also informed to make sure that he continues to take oral Bactrim prophylaxis going forward which would be decided as per ID follow-up as an outpatient. Discharge Attestations Time Spent in Discharge Care*: greater than 30 min Specific Discharge Activities: educating patient, educating and/or supporting family/caregiver, discussing with pcp/other providers, discussing with rn case mgr/social workers/dc planners and evaluating patient/reviewing data Status at Discharge: Cognitive status at discharge: cognitively intact , Behavioral status at discharge: cooperative , Functional status at discharge: uses cane/walker Overall status at discharge: patient is back to baseline Quality Metrics Clinical Quality Measures During this hospital stay, did patient experience: None Coding Level of Care Code Acute Chg FW DC note Exam Comprehensive Diagnoses Sepsis with acute hypoxic respiratory failure A41.9; R65.20; J96.01 Pneumocystis jiroveci pneumonia B59 Laterality: bilateral Lung location: unspecified part of lung Ground glass opacity present on imaging of lung R91.8 Pyomyositis M60.009 Encounter for management of wound VAC Z46.89 Chronic steroid use Chronic kidney disease N18.9 Essential (primary) hypertension I10 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
[2021-01-30 12:45] LABS: Glucose Point of Care 109 mg/dL (70-110)
[2021-01-30] MEDS: nicotine 21 mg Patch 1 PATCH TRANSDERMA (13:08)
--- NOTE | 2021-01-30 19:44 | PM.PN ---
Subjective Subjective: Interval history: Infectious disease progress note, no acute interim events , planned discharge today Medications: Reviewed: Yes Vitals/I&O/Wt Last Vital Signs Temp 98.5 F 01/30/21 17:18 Pulse 80 01/30/21 17:18 Resp 18 01/30/21 17:18 BP 100/64 01/30/21 17:18 Pulse Ox 98 01/30/21 17:18 01/30/21 01/30/21 01/30/21 06:59 14:59 22:59 Intake Total 730 / 2545 815 / 815 50 / 865 Output Total 625 / 1050 Balance 105 / 1495 815 / 815 50 / 865 Physical Exam Narrative: EXAM NARRATIVE: GEN: Awake, alert and oriented, no acute distress CVS: S1S2 N RS: B/L scattered crackles Abd: Soft, nt/nd , bs+ CUBE CUTTER: no focal neuro deficits Data : 01/30/21 03:00 01/30/21 03:00 Micro: Microbiology 01/27/21 22:42 Gram Stain - Final Sputum - Expectorated Sputum Sputum Culture - Preliminary Gram Negative Rods A&P Assessment and plan (1) Pneumocystis jiroveci pneumonia: elevated serum BDG >500, PJP PCR + from induced sputum, B/L GGOs on Ct chest, new hypoxia, risk factors by way of steroids prednisone >30mg a day, recent rituximab, leflunomide treated with 5 days Bactrim iv 15-20mg/kg divided three times day , convert to po bactrim at dose Bactrim DS 2tabs TID x 21 days Currently patient's 02 requirements have been stable ove rthe past month, A-a gradient <35, P02>70, therefore hold off on adjunctive streoids for PJP. Streoids may be continued if needed from a rheumatological perspective if needed Patient will follow up with rheumatology as an outpatient next week monitor renal function and electrolytes closely currently with improving 02 requirements Status: Acute Qualifiers: Laterality: bilateral Lung location: unspecified part of lung Qualified Code(s): B59 - Pneumocystosis (2) Pyomyositis: s/p I&D continue cefazolin 2g iv q8h which is DOC for MSSA infections , leukocytosis much improved now - recommend duration [address] CAP, whole spine without signs of infection at other sites TTE without gross vegetations Blood cx negative to date Sputum cx with Pseudomonas, currently on rx with levaquin x 7 days Status: Acute (3) PMR (polymyalgia rheumatica): Status: Acute (4) Giant cell arteritis: recently taken off steroids , may be continued if needed per rheumatology Actemra has been placed on hold until wound can heal If steroids continued oil heaterman, will likely use bactrim suppression f or PJP after treatment course is completed Status: Acute (5) Chronic steroid use: Status: Acute (6) C. 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 difficile diarrhea A04.72
== END 2021-01-30 17:19 | disposition home health service (06) | DRG 871 ==
LOC: ER 11:23 → CSU 11:36 → MEDSURG 01-27 22:47
PROVIDERS: Admitting Provider Internal Medicine; Emergency Provider Emergency Medicine; PCP Internal Medicine; Visit Provider Student in an Organized Health Care Education/Training Program
DX: A41.9 Sepsis, unspecified organism (principal); B59 Pneumocystosis; J96.00 Acute respiratory failure, unspecified whether with hypoxia or hypercapnia; J44.0 Chronic obstructive pulmonary disease with (acute) lower respiratory infection; J44.1 Chronic obstructive pulmonary disease with (acute) exacerbation; M60.052 Infective myositis, left thigh; K80.20 Calculus of gallbladder without cholecystitis without obstruction; K57.30 Diverticulosis of large intestine without perforation or abscess without bleeding; I12.9 Hypertensive chronic kidney disease with stage 1 through stage 4 chronic kidney disease, or unspecified chronic kidney disease; N18.9 Chronic kidney disease, unspecified; E09.42 Drug or chemical induced diabetes mellitus with neurological complications with diabetic polyneuropathy; E09.51 Drug or chemical induced diabetes mellitus with diabetic peripheral angiopathy without gangrene; T38.0X5A Adverse effect of glucocorticoids and synthetic analogues, initial encounter; G89.29 Other chronic pain; M54.9 Dorsalgia, unspecified; Z79.52 Long term (current) use of systemic steroids; Z86.010 Personal history of colon polyps; K21.9 Gastro-esophageal reflux disease without esophagitis; E78.2 Mixed hyperlipidemia; Z86.711 Personal history of pulmonary embolism; R91.8 Other nonspecific abnormal finding of lung field; G25.81 Restless legs syndrome; M31.5 Giant cell arteritis with polymyalgia rheumatica; M05.9 Rheumatoid arthritis with rheumatoid factor, unspecified; F17.210 Nicotine dependence, cigarettes, uncomplicated; Z79.82 Long term (current) use of aspirin; Z79.891 Long term (current) use of opiate analgesic; B96.5 Pseudomonas (aeruginosa) (mallei) (pseudomallei) as the cause of diseases classified elsewhere; B96.89 Other specified bacterial agents as the cause of diseases classified elsewhere; Z79.899 Other long term (current) drug therapy; B95.61 Methicillin susceptible Staphylococcus aureus infection as the cause of diseases classified elsewhere; S81.802A Unspecified open wound, left lower leg, initial encounter; D50.9 Iron deficiency anemia, unspecified; E09.22 Drug or chemical induced diabetes mellitus with diabetic chronic kidney disease
CPT/HCPCS: 36415; 36416; 36600; 71045; 71250; 72125; 72128; 72131; 74176; 80051; 80053; 81001; 82274; 82330; 82550; 82607; 82746; 82805; 82962; 83036; 83540; 83550; 83605; 83615; 83630; 83735; 83880; 84100; 84145; 84439; 84443; 84481; 84484; 85025; 85651; 86140; 87040; 87070; 87077; 87186; 87205; 87426; 87493; 87506; 87641; 87804; 93005; 93306; 94640; 96365; 96367; 96372; 96375; 97110; 97161; 97530; 99285; J0456; J0690; J0696; J1644; J1756; J1815 ×2; J2405; J2930; J3370; J3475; J3490; J7030; J7040; J7050; J7626

== ENCOUNTER 2021-02-06 13:11 | Inpatient (IN) | payer MEDICARE, MEDICAID, SELFPAY ==
[2021-02-06] VITALS (8 sets, daily range): BP systolic 84–160; BP diastolic 49–99; PULSE 83–106; RESP 16–21; TEMP 36.8–36.9; O2SAT 94–99; BMI 24.3
--- NOTE | 2021-02-06 13:35 | ECG_ITS ---
[facility] Test Date: 2021-02-06 Pat Name: Gabino Lamb Department: Room: Gender: Male Polysomnographic Tech: : 1945 Requested By: Ceasar Harvey Order Number: [id number] Tania MD: Eric Flood M.D. Measurements Intervals [place] Rate: 86 P: 56 WI: 146 QRS: 55 QRSD: 76 T: 68 QT: 346 QTc: 415 Interpretive Statements SINUS RHYTHM WITH FREQUENT VENTRICULAR PREMATURE COMPLEXES Compared to ECG 01/25/2021 17:05:26 No significant changes Electronically Signed On 02-08-2021 17:16:38 CDT by Eric Flood M.D. [id number]
--- NOTE | 2021-02-06 13:46 | W.ED.WEAKNES ---
HPI - Weakness General: Chief complaint: Weakness Stated complaint: WEAKNESS Time Seen by Provider: 02/06/21 13:14 History of Present Illness: HPI Narrative: 75 yo male presents with complaints of hypotension and lethargy. Home health came by to see him blood pressure was exceedingly low. He denies any chest pain. He has not had any fever sweats chills no vomiting or diarrhea. He was recently hospitalized with pyomyositis and has a wound VAC on the medial aspect of his left proximal thigh. He has had some anemia from GI losses which has been chronic. He has a PICC line in his left arm and has been receiving Ancef 1 g every 8 hours according to his medicine list and his past medical history is also had C. difficile and is on vancomycin and Bactrim he is on Bactrim 2 tablets 3 times a day. MD Complaint: generalized weakness Onset (ago): day(s) Duration: constant and progressively worsening Location: generalized Severity: moderate Relieving factors: none Exacerbating factors: none Associated symptoms: Reports decreased appetite, myalgias and nausea; Denies chest pain, chills, confusion, melena, diaphoresis, dysuria, easy bruising, fever(s), headache(s), rash, short of breath, syncope or vomiting Review of Systems Const: Denies: fever(s), chills or diaphoresis ENMT: Denies: throat pain, ear or mastoid pain, nasal discharge or nasal congestion Card: Denies: chest pain or syncope Resp: Denies: dyspnea, productive cough or non-productive cough GI: Reports: nausea; Denies: vomiting or melena : Denies: dysuria Skin/Breast: Denies: rash or pruritus Neuro: Denies: headache(s) or confusion Demar/Lymph: Denies: easy bruising PFS ED PFSH: Medical History Abdominal aortic aneurysm Status post repair Acute pain Bigeminy Cellulitis Chronic back pain Chronic kidney disease Chronic steroid use Colon polyps COPD (chronic obstructive pulmonary disease) COPD (chronic obstructive pulmonary disease) Essential (primary) hypertension Gastritis GERD (gastroesophageal reflux disease) Giant cell arteritis clinical diagnosis Ground glass opacity present on imaging of lung Immunization counseling Leg wound, left Mixed hyperlipidemia Neuropathy PAD (peripheral artery disease) Personal history of arterial venous malformation (AVM) PMR (polymyalgia rheumatica) Pneumocystis jiroveci pneumonia Pneumonia Pulmonary emboli Renal cyst Restless leg syndrome Rheumatic arteritis Sepsis with acute hypoxic respiratory failure Seropositive rheumatoid arthritis of multiple sites Subacromial bursitis of left shoulder joint s/p steroid injection, resolved Tick bite Tobacco abuse Trochanteric bursitis, right hip Surgical History History of back surgery History of colonoscopy History of elbow surgery History of esophagogastroduodenoscopy (EGD) S/P excisional debridement Family History Other CAD (coronary artery disease) Cancer Diabetes Denies family history of Rheumatoid arthritis Lupus Chronic kidney disease (CKD) Stroke Social History Smoking and tobacco status: current every day smoker cigarettes [ Other cigarette details: trying to quit, wearing patches ] Alcohol intake: current Alcohol intake frequency: holidays/special occasions only Lives independently: Yes Household members: spouse Housing: House Marital status: Current occupational status: retired History of recent travel: No Physical Exam Const: COMMON NORMALS: no acute distress GENERAL APPEARANCE: cooperative and comfortable ORIENTATION/CONSCIOUSNESS: Yes awake, Yes oriented to person, Yes oriented to place and Yes oriented to time HENMT: COMMON NORMALS: normocephalic, atraumatic, hearing grossly normal bilaterally and external ears normal HEAD & SCALP: normocephalic and atraumatic EXTERNAL EAR: Yes external ears normal Neck/C-Spine: COMMON NORMALS: no JVD Resp: COMMON NORMALS: normal respiratory effort, No retractions, No use of accessory muscles and clear to auscultation bilaterally AUSCULTATION: clear to auscultation bilaterally Cardio: COMMON NORMALS: no JVD, regular rate, regular rhythm and No murmurs present (Cardio) RATE: regular rate RHYTHM: regular rhythm GI: COMMON NORMALS: Soft to palpation and No hepatosplenomegaly present AUSCULTATION: Yes normoactive bowel sounds PALPATION: Yes Soft to palpation, No Tenderness to palpation present (GI), No Guarding due to palpation present (GI) and Yes No hepatosplenomegaly present Extremity: COMMON NORMALS: normal to inspection, capillary refill normal, no clubbing, cyanosis or edema, no calf tenderness and no pedal edema Neuro: SENSORIUM/ORIENTATION: Yes oriented to person, Yes oriented to place and Yes oriented to time Skin: COMMON NORMALS: no rashes or lesions noted GENERAL SKIN EXAM: no rashes or lesions noted Course Vital Signs: Vital signs: Vital Signs Temperature 98.1 F 02/07/21 08:00 Pulse Rate 50 L 02/07/21 08:00 Respiratory Rate 18 02/07/21 08:00 Blood Pressure 126/72 02/07/21 08:00 Pulse Oximetry 91 02/07/21 08:00 MDM - Weakness MDM Narrative: Medical decision making narrative: Patient has acute kidney injury. Suspect some of it may be due to the Bactrim. He also anemic and hypotensive he probably will need some his blood pressure medications adjusted we will go ahead and admit for IV fluid discussed with hospitalist orders are written Lab Data: Labs: Lab Results 02/06/21 02/06/21 02/06/21 Range/Units 14:44 14:44 14:44 WBC Cancelled Corrected WBC Cancelled RBC Cancelled Hgb Cancelled Hct Cancelled MCV Cancelled MCH Cancelled MCHC Cancelled RDW Cancelled Plt Count Cancelled MPV Cancelled Gran % Cancelled Neut % (Auto) Cancelled Lymph % (Auto) Cancelled Metcalfe % (Auto) Cancelled Eos % (Auto) Cancelled Baso % (Auto) Cancelled Neut # (Auto) Cancelled Lymph # (Auto) Cancelled Metcalfe # (Auto) Cancelled Eos # (Auto) Cancelled Baso # (Auto) Cancelled Absolute Gran (aut o) Cancelled Nucleated RBC % (a uto) Cancelled Nucleated RBCs # Cancelled Sodium 135 L (136-145) mmol/L Potassium 5.0 (3.5-5.1) mmol/L Chloride 101 (98-107) mmol/L Carbon Dioxide 24 (22-29) mmol/L Anion Gap 15.0 (5-19) BUN 21 (8-23) mg/dL Creatinine 3.1 H (0.7-1.2) mg/dL GFR Calculation Not Reportable Glucose 81 (65-115) mg/dL Calculated Osmolal ity 282 L (285-295) mOsm/k g Calcium 8.4 L (8.5-10.5) mg/dL Total Bilirubin 0.2 (0.15-1.2) mg/dL AST 24 (0-40) U/L ALT < 5 (0-41) U/L Alkaline Phosphata se 85 (40-130) IU/L Creatine Kinase 37 L (39-308) U/L Total Protein 5.2 L (6.6-8.7) g/dL Albumin 3.1 L (3.5-5.2) g/dL Globulin 2.1 (1.3-4.6) g/dL Lipase 63 H (13-60) U/L Urine Color (Yellow) Urine Appearance (CLEAR) Urine pH (5-7) Ur Specific Gravit y (1.005-1.030) Urine Protein (Negative) Urine Glucose (UA) (Normal) Urine Ketones (Negative) Urine Blood (Negative) Urine Nitrate (Negative) Urine Bilirubin (Negative) Urine Urobilinogen (Negative) mg/dL Ur Leukocyte Veronique ase (Negative) Urine RBC (0-2) /hpf Urine WBC (0-5) /hpf Ur Squamous Epith Cells (0-5) /hpf Amorphous Sediment Urine Bacteria (NONE) /hpf Urine Mucus /hpf Nasal/Oral COVID-1 9 PCR Cancelled SARS-CoV-2 Ag (Rap id) (Negative) 02/06/21 02/06/21 02/06/21 Range/Units 14:44 14:50 15:40 WBC 13.0 H Corrected WBC RBC 2.88 L Hgb 8.9 L Hct 29.4 L MCV 102.1 H MCH 30.9 MCHC 30.3 RDW 14.9 Plt Count 257 MPV 11.0 H Gran % Neut % (Auto) 51.8 Lymph % (Auto) 25.8 Metcalfe % (Auto) 16.9 Eos % (Auto) 1.2 Baso % (Auto) 1.5 Neut # (Auto) 6.73 Lymph # (Auto) 3.4 Metcalfe # (Auto) 2.2 H Eos # (Auto) 0.2 Baso # (Auto) 0.2 H Absolute Gran (aut o) Nucleated RBC % (a uto) 0 Nucleated RBCs # 0.0 Sodium (136-145) mmol/L Potassium (3.5-5.1) mmol/L Chloride (98-107) mmol/L Carbon Dioxide (22-29) mmol/L Anion Gap (5-19) BUN (8-23) mg/dL Creatinine (0.7-1.2) mg/dL GFR Calculation Glucose (65-115) mg/dL Calculated Osmolal ity (285-295) mOsm/k g Calcium (8.5-10.5) mg/dL Total Bilirubin (0.15-1.2) mg/dL AST (0-40) U/L ALT (0-41) U/L Alkaline Phosphata se (40-130) IU/L Creatine Kinase (39-308) U/L Total Protein (6.6-8.7) g/dL Albumin (3.5-5.2) g/dL Globulin (1.3-4.6) g/dL Lipase (13-60) U/L Urine Color Yellow (Yellow) Urine Appearance Clear (CLEAR) Urine pH 5 (5-7) Ur Specific Gravit y 1.020 (1.005-1.030) Urine Protein 1+ H (Negative) Urine Glucose (UA) Norm (Normal) Urine Ketones Negative (Negative) Urine Blood 2+ H (Negative) Urine Nitrate Negative (Negative) Urine Bilirubin Neg (Negative) Urine Urobilinogen Norm (Negative) mg/dL Ur Leukocyte Veronique ase Negative (Negative) Urine RBC 5-10 H (0-2) /hpf Urine WBC None (0-5) /hpf Ur Squamous Epith Cells 0-4 H (0-5) /hpf Amorphous Sediment Not Reportable Urine Bacteria 1+ H (NONE) /hpf Urine Mucus 1+ /hpf Nasal/Oral COVID-1 9 PCR SARS-CoV-2 Ag (Rap id) Negative (Negative) Discharge Plan Discharge Patient Disposition: Admitted As Inpatient Admit Provider: Sarina Montero Clinical Impression: Acute kidney injury, Anemia due to GI blood loss, Pyomyositis, Hypotension Condition: Stable Coding Level of Care Code ED Case Therapist for Ne Haas
--- NOTE | 2021-02-06 13:54 | XR_ITS ---
WS: [id number] Portable AP upright chest, 02/06/2021 Clinical Data: dyspena Comparison: Portable chest, 01/28/2021. Findings: The bilateral patchy opacities have cleared. No nodules, masses or effusions are seen. The heart is normal. The pulmonary vascularity is not increased. No pneumonia or pneumothorax is seen. Th e aortic arch and descending aorta show tortuosity. There are monitor leads on the chest wall. XR/XR chest 1V portable [id number] Impression: 1. Clearing of bilateral patchy opacities. 2. Atherosclerosis.
[2021-02-06 15:27] LABS: Alanine Aminotransferase < 5 U/L (0-41); Albumin Level 3.1 g/dL (3.5-5.2); Alkaline Phosphatase 85 IU/L (40-130); Aspartate Amino Transferase 24 U/L (0-40); Blood Urea Nitrogen 21 mg/dL (8-23); Carbon Dioxide 24 mmol/L (22-29); Chloride 101 mmol/L (98-107); Creatine Phosphokinase 37 U/L (39-308); Globulin 2.1 g/dL (1.3-4.6); Glucose 81 mg/dL (65-115); Lipase 63 U/L (13-60); Osmolality Calculated 282 mOsm/kg (285-295); Total Bilirubin 0.2 mg/dL (0.15-1.2); Total Protein 5.2 g/dL (6.6-8.7)
[2021-02-06 15:27] LABS: Add Urine Microscopic? YES; Bilirubin Urine Neg (Negative); Blood Urine 2+ (Negative); Glucose Urine UA Norm (Normal); Ketones Urine Negative (Negative); Leukocyte Esterase Urine Negative (Negative); Nitrate Urine Negative (Negative); Protein Urine 1+ (Negative); Urine Appearance Clear (CLEAR); Urine Color Yellow (Yellow); Urobilinogen Urine Norm (Negative); pH Urine 5 (5-7)
[2021-02-06 15:28] LABS: Add Urine Culture? No; Bacteria Urine 1+ /hpf; Mucus Urine 1+ /hpf; Squamous Epithelial Cell Urine 0-4 /hpf (0-5)
[2021-02-06 15:37] LABS: SARS Covid-2 Antigen Negative (Negative)
[2021-02-06 16:00] LABS: Basophils # 0.2 10^3/uL (0.0-0.1); Basophils % 1.5 %; Eosinophils # 0.2 10^3/uL (0.0-0.8); Eosinophils % 1.2 %; Hematocrit 29.4 % (42.0-52.0); Hemoglobin 8.9 g/dL (11.7-16.6); Lymphocytes # 3.4 10^3/uL (0.8-4.8); Lymphocytes % 25.8 %; Mean Corpuscular HGB Conc 30.3 g/dL (30.0-36.0); Mean Corpuscular Hemoglobin 30.9 pg (28.0-34.0); Mean Corpuscular Volume 102.1 fL (80-94); Monocytes # 2.2 10^3/uL (0.2-0.9); Monocytes % 16.9 %; Neutrophils # 6.73 10^3/uL (1.8-7.7); Neutrophils % 51.8 %; Nucleated Red Blood Cells % 0 %; Platelet Count 257 10^3/cmm (130-400); Red Blood Count 2.88 10^6/uL (4.1-5.3); Red Cell Distribution Width 14.9 % (12.1-15.1)
[2021-02-06 16:22] LABS: Sodium 135 mmol/L (136-145)
[2021-02-06 16:23] LABS: Calcium 8.4 mg/dL (8.5-10.5)
--- NOTE | 2021-02-06 19:30 | P.HP_ITS ---
Providers/Chief Complaint Primary Care Provider: Mike Foster MD Chief Complaint: WEAKNESS History of Present Illness 75-year-old male with a past medical history significant for giant cell arthritis, rheumatoid previously on Rituximab now on Actemra, Leflulonamide, Prednisone 30 mg daily, O2 dependent chronic obstructive pulmonary disease, herpes zoster of left hand tx with antiviral, infective polymyositis of left thigh with MSSA abscess s/p I&D, wound VAC to left thigh discharged 01/21 on rocephin 2g daily till 02/04, readmitted to [facility] from 01/25 to 01/30 during which he was found to have pneumocystis pneumonia on Bactrim till 02/21 , clostridium difficile colitis on PO vancomycin till 02/11, MSSA infection Cefazolin 2g IV q8hr til 02/04 plus levaquin till 02/04 and chronic kidney disease with baseline creatinine of 1.5 who presented to ER today after he was noted to have hypotension noted by home care nurse. Daughter at bedside provided history. Stated he has been getting progressively weak, multiple falls since discharge, more confused at times. Compliant with po vancomycin for cdiff colitis, stools have been slightly more formed however still liquid. No episodes of fever, chills, nausea or vomiting. No head trauma, or LOC. Respiratory status has been stable on chronic 3L via nc. Completed IV abx on the . Has been taking his bactrim three times/day. Upon arrival BP was noted to be 84/49, HR of 83, temp of 98.3 and o2 saturation of 97%. Laboratory workup showed a WBC of 13.0, hemoglobin of 8.9, hematocrit of 29.4 and a platelet count of 257. Sodium 135, potassium 4.0, chloride 101, bicarb 24, BUN 21 and creatinine of 3.1. Previous creatinine was noted to be 1.8 on 01/30/2021. imaging studies included a chest x-ray which showed clearing of bilateral patchy opacities. He was started was IVF and admitted. Review of Systems General: Reports: 10 or more systems reviewed and unremarkable except in HPI and below Medications/Allergies Home Medications Medication Instructions Recorded Confirmed Last Taken Type losartan 100 mg tablet 100 mg PO DAILY #90 tab 04/08/20 02/06/21 02/05/21 Rx ropinirole 2 mg tablet 2 mg PO BEDTIME #90 tab 07/08/20 02/06/21 02/05/21 Rx ipratropium bromide 42 mcg (0.06 1 spray INTRANASAL TID #15 ml 08/05/20 02/06/21 Unknown Rx %) nasal spray silver sulfadiazine 1 % topical 1 applic TOPICAL DAILY #50 g 09/26/20 02/06/21 Unknown Rx cream fluticasone furoate 200 1 inh INHALATION Q24H #28 ea 10/09/20 02/06/21 02/05/21 Rx mcg-vilanterol 25 mcg/dose inhalation powder ipratropium 20 mcg-albuterol 100 1 puff INHALATION Q6H #4 gm 11/10/20 02/06/21 Unknown Rx mcg/actuation mist for inhalation nicotine 21 mg/24 hr daily 1 patch TRANSDERMA Q24H #28 each 11/10/20 02/06/21 Unknown Rx transdermal patch fluticasone propionate 50 1 spray INTRANASAL BID #15.8 ml 12/10/20 02/06/21 02/05/21 Rx mcg/actuation nasal spray,suspension cholecalciferol (vitamin D3) 50 50 mcg PO DAILY #30 cap 12/16/20 02/06/21 02/05/21 Rx mcg (2,000 unit) capsule Actemra 162 mg SUBCUT Q7D 01/07/21 02/06/21 01/22/21 History aspirin 81 mg PO DAILY 01/07/21 02/06/21 02/05/21 History cetirizine 10 mg PO DAILY PRN 01/07/21 02/06/21 Unknown History gabapentin 300 mg capsule 300 mg PO BID #60 cap 01/12/21 02/06/21 02/05/21 Rx Narcan 1 spray INTRANASAL Q3M PRN 01/25/21 02/06/21 Unknown History esomeprazole magnesium [Nexium] 40 mg PO DAILY 01/25/21 02/06/21 02/05/21 History tcesv-op-3-pdq-pbw-seoupcr-ast 1 cap PO DAILY 01/25/21 02/06/21 02/05/21 History [krill oil] multivitamin 1 tab PO DAILY 01/25/21 02/06/21 02/05/21 History hydrocodone 10 mg-acetaminophen 1 tab PO Q4H PRN 30 Days #60 tab 01/29/21 02/06/21 Unknown Rx 325 mg tablet ferrous sulfate 325 mg PO BIDWMEAL #0 tab 01/30/21 02/06/21 02/05/21 Rx sulfamethoxazole-trimethoprim 2 tab PO Q8H 21 Days #126 tab 01/30/21 02/06/21 02/05/21 Rx [Bactrim DS] vancomycin 125 mg PO QID 14 Days #56 cap 01/30/21 02/06/21 02/05/21 Rx cefazolin 1 g IV Q8H 02/06/21 02/06/21 02/05/21 History insulin detemir U-100 [Levemir 10 unit SUBCUT DAILY 02/06/21 02/06/21 01/30/21 History FlexTouch U-100 Insuln] metoprolol tartrate 25 mg PO BID 02/06/21 02/06/21 02/05/21 History Allergies Allergy/AdvReac Type Severity Reaction Status Date / Time Penicillins Allergy unknown Verified 01/29/21 13:38 PFSH Acute PFSH: Medical History Abdominal aortic aneurysm Status post repair Acute pain Chronic back pain Colon polyps COPD (chronic obstructive pulmonary disease) Essential (primary) hypertension Gastritis GERD (gastroesophageal reflux disease) Giant cell arteritis clinical diagnosis Immunization counseling Leg wound, left Mixed hyperlipidemia Neuropathy 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 Pulmonary emboli Renal cyst Restless leg syndrome 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 Subacromial bursitis of left shoulder joint s/p steroid injection, resolved Tick bite Trochanteric bursitis, right hip Surgical History History of back surgery History of colonoscopy History of elbow surgery History of esophagogastroduodenoscopy (EGD) S/P excisional debridement Family History Other CAD (coronary artery disease) Cancer Diabetes Denies family history of Rheumatoid arthritis Lupus Chronic kidney disease (CKD) Stroke Social History Smoking and tobacco status: current every day smoker cigarettes [ Other cigarette details: trying to quit, wearing patches ] Alcohol intake: current Alcohol intake frequency: holidays/special occasions only Lives independently: Yes Household members: spouse Housing: House Marital status: Current occupational status: retired History of recent travel: No Vitals/I&O/Wt Last Vital Signs Temp 98.3 F 02/06/21 13:22 Pulse 88 02/06/21 19:04 Resp 21 H 02/06/21 19:04 BP 114/72 02/06/21 19:04 Pulse Ox 94 02/06/21 19:04 Weight last 48 hrs Weight 77.111 kg Physical Exam Narrative: EXAM NARRATIVE: General - Alert awake, no distress HEENT : EOMI, grossly unremarkable CVS: RRR Chest: Decreas at bases ABD; Soft, NT,ND Ext : no edema - left proximal thigh wound vac in place no surrounding erythema Neuro- CN 2-12 intact, no deficits Data : 02/06/21 15:40 02/06/21 14:44 A&P Assessment and plan (1) C. difficile diarrhea: Status: Acute (2) Pneumocystis jiroveci pneumonia: Status: Acute Qualifiers: Laterality: bilateral Lung location: unspecified part of lung Qualified Code(s): B59 - Pneumocystosis (3) Acute on chronic kidney failure: Status: Acute (4) Pyomyositis: Status: Acute (5) Hypotension: Status: Acute Additional A&P Information Acute on chronic stage 3 kidney failure - Baseline creatinine 1.5-1.7 - Increased to 3.3 - Due to hypotension, while on ARB and bactrim - Will hold antihypertensive - Hold bactrim tonight - Will consult Nephrology - Monitor u/o - may need verduzco placement - NS at 75cc/hr - BMP in am Cdiff Colitis - Continue vancomycin 125 mg PO Q6hr - Contact precautions - May need to increase dose to 250 - Last day on 02/11 -possible need for extension Additional Medical Problems. Chronic respiratory failure on 3L via [place] Pneumocystis Pneumonia L-Proximal LE MSSA abscess s/p I&D/wound VAC Polymyositis Rheumatoid arthritis Giant Cell Artherisis GERD DVT ppx - Heparin 5000 units Q12 hr -SCDS Attestations Medical Necessity Statement*: Admitted to hospital for work up of hypotension, ingrid on ckd on ivf and nephrology consult. Likely to require over 2 midnight stay in hospital Time Spent in Patient Care: Greater than 35 minutes (>than 50% of time spent in counselling and/or direct pt care on unit) . Coding Level of Care Code Acute Mannequin Molder for Chg Fwd Diagnoses C. difficile diarrhea A04.72 Pneumocystis jiroveci pneumonia B59 Laterality: bilateral Lung location: unspecified part of lung Acute on chronic kidney failure N17.9; N18.9 Pyomyositis M60.009 Hypotension I95.9
[2021-02-06] MEDS: heparin 5,000 unit/mL INJ 1 mL 5000 UNIT SUBCUT (20:05)
[2021-02-06] MEDS: sodium chloride 0.9% 1,000 ML 75 ML IV (20:06)
[2021-02-07] MEDS: ropinirole 2 mg Tablet PO ×2 (01:35→20:42)
[2021-02-07] MEDS: sodium chloride 0.9% 1,000 ML 150 ML IV (01:36)
[2021-02-07 04:00] VITALS: BP 101/65; PULSE 92; RESP 16; TEMP 36.9; O2SAT 96
[2021-02-07] MEDS: heparin 5,000 unit/mL INJ 1 mL 5000 UNIT SUBCUT ×2 (06:46→20:42)
[2021-02-07 06:54] LABS: Basophils # 0.2 10^3/uL (0.0-0.1); Basophils % 1.9 %; Eosinophils # 0.1 10^3/uL (0.0-0.8); Hematocrit 28.2 % (42.0-52.0); Hemoglobin 8.6 g/dL (11.7-16.6); Lymphocytes # 2.8 10^3/uL (0.8-4.8); Lymphocytes % 23.4 %; Mean Corpuscular HGB Conc 30.5 g/dL (30.0-36.0); Mean Corpuscular Hemoglobin 31.2 pg (28.0-34.0); Mean Corpuscular Volume 102.2 fL (80-94); Monocytes # 2.3 10^3/uL (0.2-0.9); Monocytes % 19.2 %; Neutrophils # 6.28 10^3/uL (1.8-7.7); Neutrophils % 51.9 %; Nucleated Red Blood Cells % 0 %; Platelet Count 237 10^3/cmm (130-400); Red Blood Count 2.76 10^6/uL (4.1-5.3); Red Cell Distribution Width 15.1 % (12.1-15.1); White Blood Count 12.1 10^3/uL (4.0-10.0)
[2021-02-07 07:09] LABS: Alanine Aminotransferase < 5 U/L (0-41); Albumin Level 2.7 g/dL (3.5-5.2); Alkaline Phosphatase 74 IU/L (40-130); Anion Gap 15.8 (5-19); Aspartate Amino Transferase 20 U/L (0-40); Blood Urea Nitrogen 23 mg/dL (8-23); Calcium 8.2 mg/dL (8.5-10.5); Carbon Dioxide 22 mmol/L (22-29); Chloride 103 mmol/L (98-107); Globulin 2.2 g/dL (1.3-4.6); Glucose 78 mg/dL (65-115); Magnesium 1.5 mg/dL (1.7-2.3); Osmolality Calculated 285 mOsm/kg (285-295); Potassium 4.8 mmol/L (3.5-5.1); Sodium 136 mmol/L (136-145); Total Bilirubin 0.2 mg/dL (0.15-1.2); Total Protein 4.9 g/dL (6.6-8.7)
[2021-02-07 08:00] VITALS: BP 126/72; PULSE 50; RESP 18; TEMP 36.7; O2SAT 91
[2021-02-07] MEDS: aspirin 81 mg Chew Tablet PO (10:37)
[2021-02-07] MEDS: sodium chloride 0.9% 1,000 ML 75 ML IV (10:37)
[2021-02-07] MEDS: pantoprazole DR 40 mg Tablet PO (10:37)
--- NOTE | 2021-02-07 11:07 | PM.CONSULT ---
Providers/Reason For Consult Consulting Physician/Specialty*: Nephrology Reason for Consult*: Acute on chronic kidney disease Attending Physician: Sarina Montero Primary Care Provider: Mike Foster MD History of Present Illness History of Present Illness Thank you for consultation, today had the pleasure reviewing this very pleasant 75-year-old gentleman for evaluation of acute on chronic kidney disease. He has quite a complicated recent medical history, note predominantly revolves around his diagnosis of giant cell arteritis. Back in December he was on rituximab, this was switched to Actemra, leflunomide, prednisone. He has had a variety of infectious complications including pyomyositis, underwent I&D, was found to have MSSA, he received intravenous antibiotics for this. CT scan of the chest demonstrated infiltrates and sputum was positive for P BREONNA. At [facility] the steroids were discontinued, Actemra was continued. He is now readmitted to the hospital with recurrent falls and weakness. On my interview today, he actually feels quite well. He claims that whenever he stands up, he tends to fall over to the right and has some disequilibrium but no other symptoms. He is relatively asymptomatic on my interview. Hemodynamics were noted to be a little on the softer side on arrival. He is noted to be on losartan in addition to the high-dose Bactrim. As an outpatient he was also noted to take Nexium. He was on vancomycin, however, this was oral dosed. His discharge creatinine was 1.8, he is now readmitted with an elevated serum creatinine of 3.1 yesterday improving marginally to 2.8 today. Last imaging study of the kidneys was a CT scan performed on 01/26 which demonstrated bilateral numerous benign-appearing cysts. No obstructive features. He denies any bladder outflow obstructive symptoms or urinary incontinence. No extremity edema, shortness of breath or other hypervolemic symptoms. No other [id number] nephrotoxic exposures. No new autoimmune symptoms including arthritis, pleuritis, symptoms of anemia etc. No new rashes. Urinalysis performed demonstrates 5-10 RBCs per high-powered field and 1+ proteinuria. He is never seen a kidney specialist, needed hemodialysis or had any episodes of acute renal failure. Review of Systems Narrative: Constitutional: No weakness, fatigue Respiratory: No SOB on exertion, comfortable at rest CardioVasc: No chest pain, palpitations Gastrointestinal: No nausea, no vomiting Neurological: No seizures, no AMS Derm: No new rashes, lesions or wounds Immunological: No seasonal and no food allergies Meds/Allergies Home Medications and Allergies Home Medications Medication Instructions Recorded Confirmed Last Taken Type losartan 100 mg tablet 100 mg PO DAILY #90 tab 04/08/20 02/06/21 02/05/21 Rx ropinirole 2 mg tablet 2 mg PO BEDTIME #90 tab 07/08/20 02/06/21 02/05/21 Rx ipratropium bromide 42 mcg (0.06 1 spray INTRANASAL TID #15 ml 08/05/20 02/06/21 Unknown Rx %) nasal spray silver sulfadiazine 1 % topical 1 applic TOPICAL DAILY #50 g 09/26/20 02/06/21 Unknown Rx cream fluticasone furoate 200 1 inh INHALATION Q24H #28 ea 10/09/20 02/06/21 02/05/21 Rx mcg-vilanterol 25 mcg/dose inhalation powder ipratropium 20 mcg-albuterol 100 1 puff INHALATION Q6H #4 gm 11/10/20 02/06/21 Unknown Rx mcg/actuation mist for inhalation nicotine 21 mg/24 hr daily 1 patch TRANSDERMA Q24H #28 each 11/10/20 02/06/21 Unknown Rx transdermal patch fluticasone propionate 50 1 spray INTRANASAL BID #15.8 ml 12/10/20 02/06/21 02/05/21 Rx mcg/actuation nasal spray,suspension cholecalciferol (vitamin D3) 50 50 mcg PO DAILY #30 cap 12/16/20 02/06/21 02/05/21 Rx mcg (2,000 unit) capsule Actemra 162 mg SUBCUT Q7D 01/07/21 02/06/21 01/22/21 History aspirin 81 mg PO DAILY 01/07/21 02/06/21 02/05/21 History cetirizine 10 mg PO DAILY PRN 01/07/21 02/06/21 Unknown History gabapentin 300 mg capsule 300 mg PO BID #60 cap 01/12/21 02/06/21 02/05/21 Rx Narcan 1 spray INTRANASAL Q3M PRN 01/25/21 02/06/21 Unknown History esomeprazole magnesium [Nexium] 40 mg PO DAILY 01/25/21 02/06/21 02/05/21 History jvnhi-rt-6-jtk-gdr-xxsiepx-ast 1 cap PO DAILY 01/25/21 02/06/21 02/05/21 History [krill oil] multivitamin 1 tab PO DAILY 01/25/21 02/06/21 02/05/21 History hydrocodone 10 mg-acetaminophen 1 tab PO Q4H PRN 30 Days #60 tab 01/29/21 02/06/21 Unknown Rx 325 mg tablet ferrous sulfate 325 mg PO BIDWMEAL #0 tab 01/30/21 02/06/21 02/05/21 Rx sulfamethoxazole-trimethoprim 2 tab PO Q8H 21 Days #126 tab 01/30/21 02/06/21 02/05/21 Rx [Bactrim DS] vancomycin 125 mg PO QID 14 Days #56 cap 01/30/21 02/06/21 02/05/21 Rx cefazolin 1 g IV Q8H 02/06/21 02/06/21 02/05/21 History insulin detemir U-100 [Levemir 10 unit SUBCUT DAILY 02/06/21 02/06/21 01/30/21 History FlexTouch U-100 Insuln] metoprolol tartrate 25 mg PO BID 02/06/21 02/06/21 02/05/21 History Allergies Allergy/AdvReac Type Severity Reaction Status Date / Time Penicillins Allergy unknown Verified 01/29/21 13:38 Current Medications Current Medications Generic Name Dose Route Start Last Admin Trade Name Freq PRN Reason Stop Dose Admin Aspirin 81 mg 02/07/21 09:00 02/07/21 10:37 Aspirin 81 Mg Chew Tablet PO 81 mg DAILY MAY Administration Heparin Sodium (Beef Lung) 5,000 unit 02/06/21 19:30 02/07/21 06:46 Heparin 5,000 Unit/Ml Inj 1 Ml SUBCUT 5,000 unit Q12H MAY Administration Sodium Chloride 1,000 mls @ 75 mls/hr 02/06/21 19:30 02/07/21 10:37 Sodium Chloride 0.9% IV 75 mls/hr .[id number] MAY Administration Non-Formulary Medication 1 inh 02/06/21 23:52 02/07/21 01:37 Fluticasone Furoate-Vilanterol [Breo Ellipta] INHALATION Not Given Q24H MAY Pantoprazole Sodium 40 mg 02/07/21 09:00 02/07/21 10:[address] 40 Mg Tablet PO 40 mg DAILY MAY Administration Ropinirole HCl 2 mg 02/06/21 23:52 02/07/21 01:35 Ropinirole 2 Mg Tablet PO 2 mg BEDTIME MAY Administration Vancomycin HCl 125 mg 02/06/21 23:52 02/07/21 10:37 Vancomycin 1,000 Mg Oral Brenda (Btl) PO 125 mg QID MAY Administration PFSH Acute PFSH: Medical History Abdominal aortic aneurysm Status post repair Acute pain Bigeminy Cellulitis Chronic back pain Chronic kidney disease Chronic steroid use Colon polyps COPD (chronic obstructive pulmonary disease) COPD (chronic obstructive pulmonary disease) Essential (primary) hypertension Gastritis GERD (gastroesophageal reflux disease) Giant cell arteritis clinical diagnosis Ground glass opacity present on imaging of lung Immunization counseling Leg wound, left Mixed hyperlipidemia Neuropathy PAD (peripheral artery disease) Personal history of arterial venous malformation (AVM) PMR (polymyalgia rheumatica) Pneumocystis jiroveci pneumonia Pneumonia Pulmonary emboli Renal cyst Restless leg syndrome Rheumatic arteritis Sepsis with acute hypoxic respiratory failure Seropositive rheumatoid arthritis of multiple sites Subacromial bursitis of left shoulder joint s/p steroid injection, resolved Tick bite Tobacco abuse Trochanteric bursitis, right hip Surgical History History of back surgery History of colonoscopy History of elbow surgery History of esophagogastroduodenoscopy (EGD) S/P excisional debridement Family History Other CAD (coronary artery disease) Cancer Diabetes Denies family history of Rheumatoid arthritis Lupus Chronic kidney disease (CKD) Stroke Social History Smoking and tobacco status: current every day smoker cigarettes [ Other cigarette details: trying to quit, wearing patches ] Alcohol intake: current Alcohol intake frequency: holidays/special occasions only Lives independently: Yes Household members: spouse Housing: House Marital status: Current occupational status: retired History of recent travel: No Vitals/I&O/Wt Last Vital Signs Temp 98.1 F 07/10/21 08:00 Pulse 50 L 02/07/21 08:00 Resp 18 02/07/21 08:00 BP 126/72 02/07/21 08:00 Pulse Ox 91 02/07/21 08:00 02/06/21 02/07/21 02/07/21 22:59 06:59 14:59 Intake Total 1999 Output Total 375 / 375 Balance -375 / -375 1999 Weight last 48 hrs Weight 77.111 kg Physical Exam Narrative: EXAM NARRATIVE: Constitutional: Awake, comfortable HEENT: Wet mucosa, no jvp, non icteric Lungs: Bilaterally clear without discernible wheeze or rales in all lung zones CVS: S1 S2, no murmurs Abdo: Soft, BS ok Ext 4: Minimal edema, peripheral perfusion with no cyanosis Neurological: Grossly non-focal A&P Additional A&P Information 1. Acute kidney injury on chronic kidney disease. Differential diagnosis for this does include AIN secondary to antibiotic exposure, decreased creatinine tubular secretion from Bactrim effect, prerenal azotemia and decreased glomerular pressure from ARB effect. The presence of proteinuria and microscopic hematuria do not exclude an autoimmune glomerulopathy, particularly in the presence of his autoimmune history. MSSA immune mediated glomerulopathy is an interesting possibility Potentially nephrotoxic medications including Bactrim, PPI and ARB have now been held and is receiving intravenous fluid. Marginal improvement in serum creatinine since yesterday which is reassuring. If renal function fails to improve, can broaden serological evaluation with the potential for kidney biopsy, however, I doubt this will be indicated. Diagnostic work-up to include repeat urinalysis with urine protein quantification, urinary sodium, serum CPK, uric acid, TSH, C3, C4, ANCA Daily renal panel Strict ins and outs Avoid usual nephrotoxic agents Dose medications for GFR less than 30. 2. Recent diagnosis of PCP pneumonia Bactrim currently on hold, atovaquone not available in the facility, pending transport in, defer to Dr. Montero 3. Serum chemistry Well-balanced, continue to monitor closely given the fragility of renal function. 4. Hypertension Antihypertensives currently on hold, blood pressure on the softer side, currently on IV fluid, will continue to monitor hemodynamics closely. 5. Recent history of GCA/rheumatoid arthritis Immunosuppressives currently on hold, will need close follow-up from rheumatology following discharge from hospital. I would like to thank Dr Montero for this consultation, as always it is a pleasure to follow these patients with you Exam and interview performed with aid of bedside RN using telemedicine Time spent 20 min inc > 50% of time in face to face counseling Uri Kumar MD [facility] Renal [facility] [phone] Coding Level of Care Code Acute Coat Operator Insulator for Ne Haas
[2021-02-07 11:34] LABS: Quest SARS-CoV-2 RNA NOT DETECTED (NOT DETECTED)
[2021-02-07 11:40] LABS: Complement C3 122 mg/dL (90-180); Creatine Phosphokinase 52 U/L (39-308); Thyroid Stimulating Hormone 0.01 uIU/mL (0.27-4.20); Uric Acid 5.4 mg/dL (3.4-7.0)
[2021-02-07 12:00] VITALS: BP 129/79; PULSE 85; RESP 18; TEMP 36.8; O2SAT 97
[2021-02-07 14:51] LABS: Bacteria Urine TRACE /hpf; Bilirubin Urine Neg (Negative); Blood Urine 2+ (Negative); Glucose Urine UA Norm (Normal); Ketones Urine Negative (Negative); Leukocyte Esterase Urine Negative (Negative); Nitrate Urine Negative (Negative); Protein Urine 1+ (Negative); RBC Urine 0-4 /hpf (0-2); Specific Gravity, Urine 1.005 (1.005-1.030); Squamous Epithelial Cell Urine 0-4 /hpf (0-5); Urine Appearance Clear (CLEAR); Urine Color Straw (Yellow); Urobilinogen Urine Norm (Negative); WBC Urine 0-4 /hpf (0-5); pH Urine 5 (5-7)
[2021-02-07 14:52] LABS: Add Urine Culture? No
[2021-02-07 14:57] LABS: Urine Creatinine 36 mg/dL (39-259); Urine Random Sodium 62 mmol/L
[2021-02-07 15:02] LABS: UPRO/UCREAT Ratio 1.28 mg/mg CR; Urine Protein Random 46 mg/dL
--- NOTE | 2021-02-07 15:08 | PM.PN ---
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 This was noted by home care nurse. Daughter at bedside provided history. Stated he has been getting progressively weak, multiple falls since discharge, more confused at times. Compliant with po vancomycin for cdiff colitis, stools have been slightly more formed however still liquid. No episodes of fever, chills, nausea or vomiting. No head trauma, or LOC. Respiratory status has been stable on chronic 3L via wa. Completed IV abx on the . Has been taking his bactrim three times/day. Upon arrival BP was noted to be 84/49, HR of 83, temp of 98.3 and o2 saturation of 97%. Laboratory workup showed a WBC of 13.0, hemoglobin of 8.9, hematocrit of 29.4 and a platelet count of 257. Sodium 135, potassium 4.0, chloride 101, bicarb 24, BUN 21 and creatinine of 3.1. Previous creatinine was noted to be 1.8 on 01/30/2021. imaging studies included a chest x-ray which showed clearing of bilateral patchy opacities. Upon admission to the hospital patient was started on IV fluids with NS at 75 cc/hour. Renal function improved to a creatinine of 2.8. His Bactrim, losartan was held. patient was started on atovaquone 750 mg oral twice daily. However this was not however on formulary. Prescription was called to local pharmacy. 02/07/2021 No new clinical events overnight. Medications: Reviewed: Yes Vitals/I&O/Wt Last Vital Signs Temp 98.2 F 02/07/21 12:00 Pulse 85 02/07/21 12:00 Resp 18 02/07/21 12:00 BP 129/79 02/07/21 12:00 Pulse Ox 97 02/07/21 12:00 02/07/21 02/07/21 02/07/21 06:59 14:59 22:59 Intake Total 2120 / 2120 Output Total 375 / 375 400 / 400 Balance -375 / -375 1720 / 1720 Weight last 48 hrs Weight 77.111 kg Physical Exam Narrative: EXAM NARRATIVE: General - Alert awake, no distress HEENT : EOMI, grossly unremarkable CVS: RRR Chest: Decreas at bases ABD; Soft, NT,ND Ext : no edema - left proximal thigh wound vac in place no surrounding erythema Neuro- CN 2-12 intact, no deficits Data : 02/07/21 06:10 02/07/21 06:10 A&P Assessment and plan (1) C. difficile diarrhea: Status: Acute (2) Pneumocystis jiroveci pneumonia: Status: Acute Qualifiers: Laterality: bilateral Lung location: unspecified part of lung Qualified Code(s): B59 - Pneumocystosis (3) Acute on chronic kidney failure: Status: Acute (4) Pyomyositis: Status: Acute (5) Hypotension: Status: Acute Additional A&P Information Acute on chronic stage 3 kidney failure - Baseline creatinine 1.5-1.7 - Increased to 3.3 now -> 2.8 - Due to hypotension, while on ARB and bactrim - Will hold antihypertensive - D/C Bactrim - Consult Nephrology - Monitor u/o - may need verduzco placement - NS at 75cc/hr - BMP in am Cdiff Colitis - Continue vancomycin 125 mg PO Q6hr - Contact precautions - May need to increase dose to 250 - Last day on 02/11 -possible need for extension - Improving Pneumocystis Pneumonia - Was started on Bactrim DS TID - till 02/21 - Due to renal failure - Bactrim discontinued - Started on Atovoquone 750 mg PO BID - Chest xray - improved - Afebrile Additional Medical Problems. Chronic respiratory failure on 3L via NC L-Proximal LE MSSA abscess s/p I&D/wound VAC Polymyositis Rheumatoid arthritis Giant Cell Artherisis GERD DVT ppx -Heparin 5000 units Q12 hr -SCDS Attestations Medical Necessity Statement*: Patient require further hospitalizationFor management of renal failure and pneumocystis pneumonia Time Spent in Patient Care: Greater than 35 minutes (>than 50% of time spent in counselling and/or direct pt care on unit). Coding Level of Care Code Acute Reverse Unit Operator Fisherman for [facility] Fwd Diagnoses C. difficile diarrhea A04.72 Pneumocystis jiroveci pneumonia B59 Laterality: bilateral Lung location: unspecified part of lung Acute on chronic kidney failure N17.9; N18.9 Pyomyositis M60.009 Hypotension I95.9
[2021-02-07 16:00] VITALS: BP 110/59; PULSE 83; RESP 18; TEMP 37.4; O2SAT 95
[2021-02-07 20:00] VITALS: BP 109/71; PULSE 88; RESP 20; TEMP 36.8; O2SAT 98
[2021-02-07 20:27] VITALS: PULSE 79; O2SAT 95
[2021-02-07] MEDS: famotidine 20 mg Tablet 40 MG PO (20:42)
[2021-02-08] VITALS: BP 114/70; PULSE 77; RESP 18; TEMP 36.8; O2SAT 92
[2021-02-08] MEDS: sodium chloride 0.9% 1,000 ML 75 ML IV (00:10)
[2021-02-08 03:32] VITALS: BP 128/77; PULSE 83; RESP 18; TEMP 36.9; O2SAT 94
[2021-02-08 06:31] LABS: Basophils # 0.2 10^3/uL (0.0-0.1); Basophils % 1.8 %; Eosinophils # 0.1 10^3/uL (0.0-0.8); Hematocrit 28.4 % (42.0-52.0); Hemoglobin 8.6 g/dL (11.7-16.6); Lymphocytes # 3.2 10^3/uL (0.8-4.8); Mean Corpuscular HGB Conc 30.3 g/dL (30.0-36.0); Mean Corpuscular Hemoglobin 30.7 pg (28.0-34.0); Mean Corpuscular Volume 101.4 fL (80-94); Mean Platelet Volume 11.2 fL (7.4-10.4); Monocytes # 2.3 10^3/uL (0.2-0.9); Neutrophils # 4.06 10^3/uL (1.8-7.7); Neutrophils % 40.5 %; Nucleated Red Blood Cells % 0 %; Platelet Count 211 10^3/cmm (130-400); Red Cell Distribution Width 14.8 % (12.1-15.1)
[2021-02-08 06:49] LABS: Anion Gap 13.8 (5-19); Blood Urea Nitrogen 18 mg/dL (8-23); Calcium 8.2 mg/dL (8.5-10.5); Carbon Dioxide 23 mmol/L (22-29); Chloride 106 mmol/L (98-107); Glucose 119 mg/dL (65-115); Osmolality Calculated 289 mOsm/kg (285-295); Potassium 4.8 mmol/L (3.5-5.1); Sodium 138 mmol/L (136-145)
[2021-02-08 08:00] VITALS: BP 131/76; PULSE 90; RESP 17; TEMP 36.2; O2SAT 98
[2021-02-08] MEDS: heparin 5,000 unit/mL INJ 1 mL 5000 UNIT SUBCUT ×2 (08:25→18:17)
[2021-02-08] MEDS: aspirin 81 mg Chew Tablet PO (08:25)
--- NOTE | 2021-02-08 09:48 | PM.PN ---
Subjective Subjective: Interval history: Mr. Lamb feels quite well today. Initially she presented with weakness and falls, particularly with some orthostatic symptoms, however, this seems to have resolved somewhat. He is eating and drinking normally and passing his urine normally. He remains on intravenous fluid over the last 24 hours. No uremic symptoms. Medications: Reviewed: Yes Vitals/I&O/Wt Last Vital Signs Temp 97.2 F L 02/08/21 08:00 Pulse 90 02/08/21 08:00 Resp 17 02/08/21 08:00 BP 131/76 02/08/21 08:00 Pulse Ox 98 02/08/21 08:00 02/07/21 02/08/21 02/08/21 22:59 06:59 14:59 Intake Total 100 / 2320 1000 / 3320 360 / 360 Output Total 200 / 800 Balance 100 / 1720 800 / 2520 360 / 360 Weight last 48 hrs Weight 77.111 kg Physical Exam Narrative: EXAM NARRATIVE: Constitutional: Awake, comfortable HEENT: Wet mucosa, no jvp, non icteric Lungs: Bilaterally clear without discernible wheeze or rales in all lung zones CVS: S1 S2, no murmurs Abdo: Soft, BS ok Ext 4: Minimal edema, peripheral perfusion with no cyanosis Neurological: Grossly non-focal Data : 02/08/21 06:10 02/08/21 06:10 A&P Additional A&P Information 1. Acute kidney injury on chronic kidney disease. Differential diagnosis for this does include AIN secondary to antibiotic exposure, decreased creatinine tubular secretion from Bactrim effect, prerenal azotemia and decreased glomerular pressure from ARB effect. Renal function now making a good recovery, consistent with the effects of the medications he was exposed to prior to hospitalization. He does have a number of more esoteric historical problems, however, given the rapid improvement in renal function we are not dealing with a more exotic etiology. Daily renal panel Strict ins and outs Avoid usual nephrotoxic agents Dose medications for GFR less than 30. 2. Recent diagnosis of PCP pneumonia Bactrim currently on hold, atovaquone not available in the facility, pending transport in, defer to Dr. Montero 3. Serum chemistry Well-balanced, continue to monitor closely given the fragility of renal function. 4. Hypertension Antihypertensives currently on hold, blood pressure on the softer side, currently on IV fluid, will continue to monitor hemodynamics closely. 5. Recent history of GCA/rheumatoid arthritis Immunosuppressives currently on hold, will need close follow-up from rheumatology following discharge from hospital. I would like to thank Dr Montero for this consultation, as always it is a pleasure to follow these patients with you Exam and interview performed with aid of bedside RN using telemedicine Time spent 20 min inc > 50% of time in face to face counseling Uri Kumar MD [facility] Renal [facility] [phone] Attestations Medical Necessity Statement*: Eval for ELEAZAR Coding Level of Care Code Acute Student Services Coordinator for Jaswinderg Samina
[2021-02-08 12:00] VITALS: BP 145/85; PULSE 92; RESP 16; O2SAT 89
--- NOTE | 2021-02-08 13:48 | PC.NURSE ---
per Dr Kumar, discontinue patient's continuous normal saline. freelance writer put order in.
--- NOTE | 2021-02-08 15:31 | P.PN_ITS ---
Subjective Subjective: Interval history: Continues to improve. Stated he felt much better. No fever chills. No nausea vomiting. Medications: Reviewed: Yes Vitals/I&O/Wt Last Vital Signs Temp 97.2 F L 02/08/21 08:00 Pulse 92 02/08/21 12:00 Resp 16 02/08/21 12:00 BP 145/85 02/08/21 12:00 Pulse Ox 89 L 02/08/21 12:00 02/08/21 02/08/21 02/08/21 06:59 14:59 22:59 Intake Total 1000 / 3320 1306.25 / 1306.25 Output Total 200 / 800 Balance 800 / 2520 1306.25 / 1306.25 Physical Exam Narrative: EXAM NARRATIVE: General - Alert awake, no distress HEENT : EOMI, grossly unremarkable CVS: RRR Chest: Decreas at bases ABD; Soft, NT,ND Ext : no edema - left proximal thigh wound vac in place no surrounding erythema Neuro- CN 2-12 intact, no deficits Data : 02/08/21 06:10 02/08/21 06:10 A&P Assessment and plan (1) C. difficile diarrhea: Status: Acute (2) Pneumocystis jiroveci pneumonia: Status: Acute Qualifiers: Laterality: bilateral Lung location: unspecified part of lung Qualified Code(s): B59 - Pneumocystosis (3) Acute on chronic kidney failure: Status: Acute (4) Pyomyositis: Status: Acute (5) Hypotension: Status: Acute Additional A&P Information Acute on chronic stage 3 kidney failure - Baseline creatinine 1.5-1.7 - Increased to 3.3 now -> 2.8 - > 2.3 - Due to hypotension, while on ARB and bactrim - Will hold antihypertensive - BP improved. - D/C Bactrim - Holding Losartan - Consult Nephrology - Monitor u/o - may need verduzco placement - NS at 75cc/hr - per nephrology - BMP in am Cdiff Colitis - Improved - Continue vancomycin 125 mg PO Q6hr - Contact precautions - May need to increase dose to 250 - Last day on 02/11 - Improving Pneumocystis Pneumonia - Was started on Bactrim DS TID - till 02/21 - Due to renal failure - Bactrim discontinued - Started on Atovoquone 750 mg PO BID - Chest xray - improved - Afebrile Additional Medical Problems. Chronic respiratory failure on 3L via NC L-Proximal LE MSSA abscess s/p I&D/wound VAC Polymyositis Rheumatoid arthritis Giant Cell Artherisis GERD DVT ppx -Heparin 5000 units Q12 hr -SCDS Attestations Medical Necessity Statement*: Continue hospitalization for renal failure requiring IV fluids and Nephrology consult Time Spent in Patient Care: Greater than 35 minutes (>than 50% of time spent in counselling and/or direct pt care on unit) . Coding Level of Care Code Acute Seasonal Package Handler for g Fwd Diagnoses C. difficile diarrhea A04.72 Pneumocystis jiroveci pneumonia B59 Laterality: bilateral Lung location: unspecified part of lung Acute on chronic kidney failure N17.9; N18.9 Pyomyositis M60.009 Hypotension I95.9
[2021-02-08 16:00] VITALS: BP 137/76; PULSE 90; RESP 19; TEMP 36.6; O2SAT 92
[2021-02-08 20:00] VITALS: BP 152/72; PULSE 67; RESP 18; TEMP 36.4; O2SAT 94
[2021-02-08] MEDS: ropinirole 2 mg Tablet PO (21:33)
[2021-02-08] MEDS: famotidine 20 mg Tablet 40 MG PO (21:33)
[2021-02-09] VITALS: BP 133/73; PULSE 71; RESP 17; TEMP 36.6; O2SAT 97
[2021-02-09 04:00] VITALS: BP 139/81; PULSE 78; RESP 16; TEMP 36.9; O2SAT 92
[2021-02-09 05:33] LABS: Basophils # 0.2 10^3/uL (0.0-0.1); Basophils % 2.2 %; Eosinophils # 0.1 10^3/uL (0.0-0.8); Eosinophils % 1.2 %; Hematocrit 28.5 % (42.0-52.0); Hemoglobin 8.4 g/dL (11.7-16.6); Lymphocytes # 2.6 10^3/uL (0.8-4.8); Lymphocytes % 28.2 %; Mean Corpuscular HGB Conc 29.5 g/dL (30.0-36.0); Mean Corpuscular Hemoglobin 30.4 pg (28.0-34.0); Mean Corpuscular Volume 103.3 fL (80-94); Mean Platelet Volume 11.2 fL (7.4-10.4); Monocytes # 2.3 10^3/uL (0.2-0.9); Monocytes % 24.7 %; Neutrophils # 3.89 10^3/uL (1.8-7.7); Neutrophils % 42.4 %; Nucleated Red Blood Cells % 0 %; Platelet Count 181 10^3/cmm (130-400); Red Blood Count 2.76 10^6/uL (4.1-5.3); White Blood Count 9.2 10^3/uL (4.0-10.0)
[2021-02-09 05:56] LABS: Anion Gap 13.9 (5-19); Blood Urea Nitrogen 15 mg/dL (8-23); Calcium 8.2 mg/dL (8.5-10.5); Carbon Dioxide 23 mmol/L (22-29); Chloride 106 mmol/L (98-107); Creatinine Clr Calc Pharmacy 38.0134; Glucose 91 mg/dL (65-115); Osmolality Calculated 286 mOsm/kg (285-295); Potassium 4.9 mmol/L (3.5-5.1); Sodium 138 mmol/L (136-145)
[2021-02-09 06:49] LABS: Glucose Point of Care 93 mg/dL (70-110)
[2021-02-09] MEDS: aspirin 81 mg Chew Tablet PO (07:23)
[2021-02-09] MEDS: heparin 5,000 unit/mL INJ 1 mL 5000 UNIT SUBCUT ×2 (07:23→18:34)
[2021-02-09 07:48] VITALS: BP 146/77; PULSE 62; RESP 20; TEMP 36.5
--- NOTE | 2021-02-09 10:43 | PC.NURSE ---
Marcella Schreiber asked if patient will need Atovaquone when discharged because he needs a PA for it and she will start working on it. Senior Software Systems Engineer asked Dr Mixon and per Dr Mixon patient will be discharged with it. Senior Software Systems Engineer notified Marcella Schreiber and she said she will work on PA.
--- NOTE | 2021-02-09 10:44 | P.PN_ITS ---
Subjective Subjective: Interval history: Mrs. Lamb feels well today. Good energy. He has been off intravenous fluid now for the last day or so. Eating and drinking. Mobilizing without orthostatic symptoms/weakness or falling. Passing urine without obstruction. No hypervolemic or uremic symptoms either. Medications: Reviewed: Yes Vitals/I&O/Wt Last Vital Signs Temp 97.7 F 02/09/21 07:48 Pulse 62 02/09/21 07:48 Resp 20 H 02/09/21 07:48 BP 146/77 02/09/21 07:48 Pulse Ox 92 02/09/21 04:00 02/08/21 02/09/21 02/09/21 22:59 06:59 14:59 Intake Total 750 / 750 Output Total 300 / 300 Balance -300 / 1486.25 750 / 750 Physical Exam Narrative: EXAM NARRATIVE: Constitutional: Awake, comfortable HEENT: Wet mucosa, no jvp, non icteric Lungs: Bilaterally clear without discernible wheeze or rales in all lung zones CVS: S1 S2, no murmurs Abdo: Soft, BS ok Ext 4: Minimal edema, peripheral perfusion with no cyanosis Neurological: Grossly non-focal Data : 02/09/21 04:56 02/09/21 04:56 A&P Additional A&P Information 1. Acute kidney injury on chronic kidney disease. Recovering back to baseline Daily renal panel Strict ins and outs Avoid usual nephrotoxic agents Dose medications for GFR less than 45. 2. Recent diagnosis of PCP pneumonia Bactrim currently on hold, atovaquone not available in the facility, pending transport in, defer to Dr. Montero 3. Serum chemistry Well-balanced 4. Hypertension Antihypertensives currently on hold Blood pressure robust 5. Recent history of GCA/rheumatoid arthritis Immunosuppressives currently on hold, will need close follow-up from [facility] matology following discharge from hospital. I will sign off, follow up with outpatient Nephrology in 2-3 weeks time. Thanks again Exam and interview performed with aid of bedside RN using telemedicine Time spent 20 min inc > 50% of time in face to face counseling Uri Kumar MD [facility] Renal Care [phone] Attestations Medical Necessity Statement*: eval for ELEAZAR Coding Level of Care Code Acute Correctional Supply Supervisor for Chg Samina
--- NOTE | 2021-02-09 11:53 | PC.NURSE ---
Changed wound vac dressing. Used patient's supplies.
[2021-02-09 12:00] VITALS: BP 166/90; PULSE 87; RESP 20; TEMP 36.7; O2SAT 95
[2021-02-09] MEDS: amlodipine 10 mg Tablet PO (15:41)
[2021-02-09 15:52] VITALS: BP 159/95; PULSE 85; RESP 20; TEMP 36.8
--- NOTE | 2021-02-09 17:25 | PM.PN ---
Subjective Subjective: Interval history: Hospital course noted. Examination and comfortably in bed. Asking when can he go home. Denies any nausea vomiting, headache. Anxious to go home. Off oxygen. Vitals appreciated. Medications: Reviewed: Yes Vitals/I&O/Wt Last Vital Signs Temp 98.3 F 02/09/21 15:52 Pulse 85 02/09/21 15:52 Resp 20 H 02/09/21 15:52 BP 159/95 02/09/21 15:52 Pulse Ox 95 02/09/21 12:00 02/09/21 02/09/21 02/09/21 06:59 14:59 22:59 Intake Total 1150 / 1150 Output Total 300 / 300 Balance -300 / 1486.25 1150 / 1150 Physical Exam Narrative: EXAM NARRATIVE: General - Alert awake, no distress HEENT : EOMI, grossly unremarkable CVS: RRR Chest: Decreas at bases ABD; Soft, NT,ND Ext : no edema - left proximal thigh wound vac in place no surrounding erythema Neuro- CN 2-12 intact, no deficits Data : 02/09/21 04:56 02/09/21 04:56 A&P Assessment and plan (1) Acute on chronic kidney failure: Status: Acute (2) C. difficile diarrhea: Status: Acute (3) Pneumocystis jiroveci pneumonia: Status: Acute Qualifiers: Laterality: bilateral Lung location: unspecified part of lung Qualified Code(s): B59 - Pneumocystosis (4) Pyomyositis: Status: Acute (5) Hypotension: Status: Acute Additional A&P Information Acute on chronic stage 3 kidney failure: Most likely secondary to Bactrim which is started for PJP pneumonia in setting of hypotension and home dose of ARB. Creatinine trending down. 1.8 today. DC Bactrim. Holding losartan. Medical reconciliation done for nephrotoxic drugs. Appreciate nephrology consultation. Stop IV fluids. Monitor BMP daily for now. Monitor input output Cdiff Colitis - Improved - Continue vancomycin 125 mg PO Q6hr. Plan to continue antibiotic for 7 days post last IV antibiotics. Till February 11. Pneumocystis Pneumonia - Was started on Bactrim DS TID - till 02/21 - Due to renal failure - Bactrim discontinued and switched over to atovaquone 750 mg twice daily. Off oxygen. - Afebrile Additional Medical Problems. Chronic respiratory failure on 3L via NC L-Proximal LE MSSA abscess s/p I&D/wound VAC Polymyositis Rheumatoid arthritis Giant Cell Artherisis GERD DVT ppx -Heparin 5000 units Q12 hr -SCDS Attestations Medical Necessity Statement*: Patient requires further hospitalization for management of acute on chronic kidney disease in setting of Bactrim for P BREONNA pneumonia, C. difficile colitis Time Spent in Patient Care: Greater than 35 minutes (>than 50% of time spent in counselling and/or direct pt care on unit). Coding Level of Care Code Acute Workforce Specialist for [employer] Diagnoses Acute on chronic kidney failure N17.9; N18.9 C. difficile diarrhea A04.72 Pneumocystis jiroveci pneumonia B59 Laterality: bilateral Lung location: unspecified part of lung Pyomyositis M60.009 Hypotension I95.9
[2021-02-09] MEDS: ferrous sulfate EC 325 mg Tablet PO (17:47)
[2021-02-09] MEDS: metoprolol tartrate 25 mg Tablet PO (17:48)
[2021-02-09] MEDS: gabapentin 300 mg Capsule PO (17:48)
[2021-02-09 19:41] VITALS: BP 150/76; PULSE 71; RESP 18; TEMP 37.1; O2SAT 95
--- NOTE | 2021-02-09 20:27 | PM.CONSULT ---
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 He has been on treatment with Bactrim with planned completion of a 21 day course onl 02/21. recent history also notable for C.diff diarrhea currently on PO vancomycin. He was discharged with one week remaining course of cefazolin. For details, please see Dr. Mixon's discharge summary from 01/30/21. He returned on 02/06 after nurse noted him to be hypotensive. Reported incraesing lethargy since discharge. Compliant with po vancomycin for cdiff colitis, stools have been slightly more formed however still liquid. No episodes of fever, chills, nausea or vomiting. Diagnostics notable for leukocytosis of 13.0, Colin with creatinine of 3.1 (baseline 1.5-1.8). CXR sugestive of improving B/L opacities. His oxygen requirements have been improving. He was discharged with 3-5lpm supplemental 02 recently, today has been weaned down to room air. Bactrim has been on hold. Review of Systems General: Reports: 10 or more systems reviewed and unremarkable except in HPI and below Const: Denies: fever(s), chills or body aches Eyes: Denies: change in vision, blurry vision or photophobia ENMT: Reports: hoarseness; Denies: throat pain, enlarged tonsils, odynophagia or nasal congestion Card: Denies: chest pain, palpitations, irregular heart rhythm, edema, swelling of feet/ankles, lightheadedness, pre-syncope, dyspnea on exertion or orthopnea Resp: Denies: dyspnea, productive cough, non-productive cough, wheezing, stridor, pain on inspiration, change in phlegm color, hemoptysis or chest congestion GI: Denies: abdominal pain, nausea, vomiting, hematemesis, coffee ground emesis, dysphagia, heartburn, diarrhea, constipation, GI cramping, change in stool character, hematochezia or melena : Denies: flank pain, dysuria, urinary frequency, urinary urgency, urinary hesitancy or hematuria Musc: Denies: neck pain, back pain, extremity pain, joint swelling, joint warmth or deformity Neuro: Denies: headache(s), numbness in extremities, weakness in extremities, sensory changes, difficulty walking, frequent falls, dizziness, vertigo, behavioral changes, Slurred speech present or seizure-like activity Psych: Denies: anxiety, depression, suicidal ideation or homicidal ideation Endo: Denies: polyuria, polydipsia, tired all the time, cold intolerance or hot flashes Demar/Lymph: Denies: easy bruising or easy bleeding Meds/Allergies Home Medications and Allergies Home Medications Medication Instructions Recorded Confirmed Last Taken Type losartan 100 mg tablet 100 mg PO DAILY #90 tab 04/08/20 02/06/21 02/05/21 Rx ropinirole 2 mg tablet 2 mg PO BEDTIME #90 tab 07/08/20 02/06/21 02/05/21 Rx ipratropium bromide 42 mcg (0.06 1 spray INTRANASAL TID #15 ml 08/05/20 02/06/21 Unknown Rx %) nasal spray silver sulfadiazine 1 % topical 1 applic TOPICAL DAILY #50 g 09/26/20 02/06/21 Unknown Rx cream fluticasone furoate 200 1 inh INHALATION Q24H #28 ea 10/09/20 02/06/21 02/05/21 Rx mcg-vilanterol 25 mcg/dose inhalation powder ipratropium 20 mcg-albuterol 100 1 puff INHALATION Q6H #4 gm 11/10/20 02/06/21 Unknown Rx mcg/actuation mist for inhalation nicotine 21 mg/24 hr daily 1 patch TRANSDERMA Q24H #28 each 11/10/20 02/06/21 Unknown Rx transdermal patch fluticasone propionate 50 1 spray INTRANASAL BID #15.8 ml 12/10/20 02/06/21 02/05/21 Rx mcg/actuation nasal spray,suspension cholecalciferol (vitamin D3) 50 50 mcg PO DAILY #30 cap 12/16/20 02/06/21 02/05/21 Rx mcg (2,000 unit) capsule Actemra 162 mg SUBCUT Q7D 01/07/21 02/06/21 01/22/21 History aspirin 81 mg PO DAILY 01/07/21 02/06/21 02/05/21 History cetirizine 10 mg PO DAILY PRN 01/07/21 02/06/21 Unknown History gabapentin 300 mg capsule 300 mg PO BID #60 cap 01/12/21 02/06/21 02/05/21 Rx Narcan 1 spray INTRANASAL Q3M PRN 01/25/21 02/06/21 Unknown History esomeprazole magnesium [Nexium] 40 mg PO DAILY 01/25/21 02/06/21 02/05/21 History kgwhh-vh-[id number]-[id number]-yjx-owppach-ast 1 cap PO DAILY 01/25/21 02/06/21 02/05/21 History [krill oil] multivitamin 1 tab PO DAILY 01/25/21 02/06/21 02/05/21 History hydrocodone 10 mg-acetaminophen 1 tab PO Q4H PRN 30 Days #60 tab 01/29/21 02/06/21 Unknown Rx 325 mg tablet ferrous sulfate 325 mg PO BIDWMEAL #0 tab 01/30/21 02/06/21 02/05/21 Rx sulfamethoxazole-trimethoprim 2 tab PO Q8H 21 Days #126 tab 01/30/21 02/06/21 02/05/21 Rx [Bactrim DS] vancomycin 125 mg PO QID 14 Days #56 cap 01/30/21 02/06/21 02/05/21 Rx cefazolin 1 g IV Q8H 02/06/21 02/06/21 02/05/21 History insulin detemir U-100 [Levemir 10 unit SUBCUT DAILY 02/06/21 02/06/21 01/30/21 History FlexTouch U-100 Insuln] metoprolol tartrate 25 mg PO BID 02/06/21 02/06/21 02/05/21 History atovaquone 750 mg PO BID #210 ml 02/07/21 Unknown Rx Allergies Allergy/AdvReac Type Severity Reaction Status Date / Time Penicillins Allergy unknown Verified 01/29/21 13:38 Current Medications Current Medications Generic Name Dose Route Start Last Admin Trade Name Jerica PRN Reason Stop Dose Admin Amlodipine Besylate 10 mg 02/09/21 13:55 02/09/21 15:41 Amlodipine 10 Mg Tablet PO 10 mg DAILY MAY Administration Aspirin 81 mg 02/07/21 09:00 02/09/21 07:23 Aspirin 81 Mg Chew Tablet PO 81 mg DAILY MAY Administration Famotidine 40 mg 02/07/21 21:00 02/08/21 21:33 Famotidine 20 Mg Tablet PO 40 mg BEDTIME MAY Administration Ferrous Sulfate 325 mg 02/09/21 18:00 02/09/21 17:47 Ferrous Sulfate Ec 325 Mg Tablet PO 325 mg BIDWM MAY Administration Gabapentin 300 mg 02/09/21 18:00 02/09/21 17:48 Gabapentin 300 Mg Capsule PO 300 mg BID MAY Administration Heparin Sodium (Beef Lung) 5,000 unit 02/06/21 19:30 02/09/21 18:34 Heparin 5,000 Unit/Ml Inj 1 Ml SUBCUT 5,000 unit Q12H MAY Administration Metoprolol Tartrate 25 mg 02/09/21 18:00 02/09/21 17:48 Metoprolol Tartrate 25 Mg Tablet PO 25 mg BID MAY Administration Non-Formulary Medication 1 inh 02/06/21 23:52 02/09/21 03:37 Fluticasone Furoate-Vilanterol [Breo Ellipta] INHALATION Not Given Q24H MAY Non-Formulary 0 each 02/07/21 18:30 02/09/21 17:48 Medication - PO 1 each Atovaquone 750 Mg/5 BID@0600,1800 MAY Administration Ml Suspension Ropinirole HCl 2 mg 02/06/21 23:52 02/08/21 21:33 Ropinirole 2 Mg Tablet PO 2 mg BEDTIME MAY Administration Vancomycin HCl 125 mg 02/06/21 23:52 02/09/21 18:14 Vancomycin 1,000 Mg Oral Brenda (Btl) PO 125 mg QID MAY Administration PFSH Acute PFSH: Medical History Abdominal aortic aneurysm Status post repair Acute pain Bigeminy Cellulitis Chronic back pain Chronic kidney disease Chronic steroid use Colon polyps COPD (chronic obstructive pulmonary disease) COPD (chronic obstructive pulmonary disease) Essential (primary) hypertension Gastritis GERD (gastroesophageal reflux disease) Giant cell arteritis clinical diagnosis Ground glass opacity present on imaging of lung Immunization counseling Leg wound, left Mixed hyperlipidemia Neuropathy PAD (peripheral artery disease) Personal history of arterial venous malformation (AVM) PMR (polymyalgia rheumatica) Pneumocystis jiroveci pneumonia Pneumonia Pulmonary emboli Renal cyst Restless leg syndrome Rheumatic arteritis Sepsis with acute hypoxic respiratory failure Seropositive rheumatoid arthritis of multiple sites Subacromial bursitis of left shoulder joint s/p steroid injection, resolved Tick bite Tobacco abuse Trochanteric bursitis, right hip Surgical History History of back surgery History of colonoscopy History of elbow surgery History of esophagogastroduodenoscopy (EGD) S/P excisional debridement Family History Other CAD (coronary artery disease) Cancer Diabetes Denies family history of Rheumatoid arthritis Lupus Chronic kidney disease (CKD) Stroke Social History Smoking and tobacco status: current every day smoker cigarettes [ Other cigarette details: trying to quit, wearing patches ] Alcohol intake: current Alcohol intake frequency: holidays/special occasions only Lives independently: Yes Household members: spouse Housing: House Marital status: Current occupational status: retired History of recent travel: No Vitals/I&O/Wt Last Vital Signs Temp 98.7 F 02/09/21 19:41 Pulse 71 02/09/21 19:41 Resp 18 02/09/21 19:41 BP 150/76 02/09/21 19:41 Pulse Ox 95 02/09/21 19:41 02/09/21 02/09/21 02/09/21 06:59 14:59 22:59 Intake Total 1150 / 1150 Output Total 300 / 300 Balance -300 / 1486.25 1150 / 1150 Physical Exam Narrative: EXAM NARRATIVE: GEN: Awake, alert and oriented, no acute distress CVS: S1S2 N RS: CTA B/L Abd: Soft, nt/nd , bs+ 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 Montero on 02/08- given patient improvement reasonable to change therapy to atovaquone 750mg po BID to complete 21 course for PJP pneumonia until 02/21. No adjunctive steroids at this time, patient down to RA and saturating well follow up in ID clinic at end of course - will likely need ppx going forward Status: Acute Qualifiers: Laterality: bilateral Lung location: unspecified part of lung Qualified Code(s): B59 - Pneumocystosis (2) Acute kidney injury: improving May be related to bactrim, recent b lactams, GI losses from diarrhea bactrim changed to atovaquone now completed course for pyomyositis Status: Acute (3) C. difficile diarrhea: improving continue po vancomycin for now Will recommend tapering regimen given prolonged diarrhea : 125 mg orally 4 times daily until 02/21, then 125 mg orally twice daily for 7 days, then 125 mg orally once daily for 7 days, then 125 mg orally every 2 or 3 days for 2 weeks Status: Acute (4) Pyomyositis: now resolved continue wound care leukocytosis resolved, likely related to dehydration off cefazolin Status: Acute Coding Level of Care Code Acute Personalization Specialist for [facility] Diagnoses Pneumocystis jiroveci pneumonia B59 Laterality: bilateral Lung location: unspecified part of lung Acute kidney injury N17.9 C. difficile diarrhea A04.72 Pyomyositis M60.009
[2021-02-09] MEDS: famotidine 20 mg Tablet 40 MG PO (21:41)
[2021-02-09] MEDS: ropinirole 2 mg Tablet PO (21:42)
[2021-02-10] VITALS: BP 133/72; PULSE 77; RESP 18; TEMP 36.8; O2SAT 92
[2021-02-10 03:26] VITALS: BP 143/81; PULSE 77; RESP 18; TEMP 37; O2SAT 91
[2021-02-10 06:12] LABS: Basophils # 0.2 10^3/uL (0.0-0.1); Basophils % 2.1 %; Eosinophils # 0.2 10^3/uL (0.0-0.8); Eosinophils % 1.6 %; Hematocrit 30.4 % (42.0-52.0); Hemoglobin 9.1 g/dL (11.7-16.6); Lymphocytes # 2.7 10^3/uL (0.8-4.8); Lymphocytes % 28.4 %; Mean Corpuscular HGB Conc 29.9 g/dL (30.0-36.0); Mean Corpuscular Hemoglobin 30.7 pg (28.0-34.0); Mean Corpuscular Volume 102.7 fL (80-94); Mean Platelet Volume 11.4 fL (7.4-10.4); Monocytes # 1.9 10^3/uL (0.2-0.9); Monocytes % 19.8 %; Neutrophils # 4.42 10^3/uL (1.8-7.7); Neutrophils % 46.8 %; Nucleated Red Blood Cells % 0 %; Platelet Count 185 10^3/cmm (130-400); Red Blood Count 2.96 10^6/uL (4.1-5.3); Red Cell Distribution Width 14.7 % (12.1-15.1); White Blood Count 9.4 10^3/uL (4.0-10.0)
[2021-02-10 06:29] LABS: Alanine Aminotransferase < 5 U/L (0-41); Alkaline Phosphatase 82 IU/L (40-130); Anion Gap 12.2 (5-19); Aspartate Amino Transferase 19 U/L (0-40); Blood Urea Nitrogen 13 mg/dL (8-23); Calcium 8.3 mg/dL (8.5-10.5); Carbon Dioxide 26 mmol/L (22-29); Chloride 105 mmol/L (98-107); Globulin 2.2 g/dL (1.3-4.6); Glucose 135 mg/dL (65-115); Osmolality Calculated 290 mOsm/kg (285-295); Potassium 4.2 mmol/L (3.5-5.1); Sodium 139 mmol/L (136-145); Total Bilirubin 0.2 mg/dL (0.15-1.2); Total Protein 5.2 g/dL (6.6-8.7)
[2021-02-10] MEDS: heparin 5,000 unit/mL INJ 1 mL 5000 UNIT SUBCUT (06:38)
[2021-02-10 07:59] VITALS: BP 144/76; PULSE 73; RESP 18; TEMP 36.8; O2SAT 93
[2021-02-10] MEDS: ferrous sulfate EC 325 mg Tablet PO (08:09)
[2021-02-10] MEDS: multivitamin therapeutic Tablet 1 TAB PO (08:09)
[2021-02-10] MEDS: aspirin 81 mg Chew Tablet PO (08:09)
[2021-02-10] MEDS: amlodipine 10 mg Tablet PO (08:09)
[2021-02-10] MEDS: gabapentin 300 mg Capsule PO (08:09)
[2021-02-10] MEDS: metoprolol tartrate 25 mg Tablet PO (08:09)
--- NOTE | 2021-02-10 10:13 | PM.DCS ---
Discharge Providers Date of Admission: 02/06/21 21:07 Date of Discharge: February 10, 2021 Attending Provider at Admission: Sarina Montero Attending Provider at Discharge: Marshal Mixon MD Consults: Nephrology: Asher nephrology ID: Dr. Reyes Primary Care Provider: Mike Foster MD Diagnoses at Discharge Discharge Diagnosis (1) Pneumocystis jiroveci pneumonia: Status: Acute Qualifiers: Laterality: bilateral Lung location: unspecified part of lung Qualified Code(s): B59 - Pneumocystosis (2) Acute kidney injury: Status: Acute (3) C. 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 He has been on treatment with Bactrim with planned completion of a 21 day course onl 02/21. recent history also notable for C.diff diarrhea currently on PO vancomycin. He was discharged with one week remaining course of cefazolin. For details, please see Dr. Mixon's discharge summary from 01/30/21. He returned on 02/06 after nurse noted him to be hypotensive. Reported incraesing lethargy since discharge. Compliant with po vancomycin for cdiff colitis, stools have been slightly more formed however still liquid. No episodes of fever, chills, nausea or vomiting. Diagnostics notable for leukocytosis of 13.0, Colin with creatinine of 3.1 (baseline 1.5-1.8). CXR sugestive of improving B/L opacities. Patient admitted to hospital for management of acute kidney injury secondary to oral Bactrim, losartan for antihypertensive with ongoing diarrhea. He was started on gentle IV hydration. Nephrology was consulted. His oral dose of Bactrim was switched over to atovaquone for P BREONNA pneumonia. Medical reconciliation was done for the nephrotoxic drugs. He responded well to the treatment and creatinine trended down to 1.7 on the day of discharge. He was continued on oral vancomycin for 3 days. His diarrhea has also resolved. From pneumonia point of view patient still has bilateral opacities on chest imaging but he has been of supplemental oxygen during hospitalization has been maintaining well on room air. Patient is been discharged hemodynamically stable condition with advised to follow-up with rheumatology clinic within next 1 week for possible reinitiation of prednisone for GCA. He is to follow-up with ID clinic within next 7 to 10 days. Patient is to follow-up with wound care clinic for wound VAC management for pyomyositis. For C. difficile colitis he is to be on oral vancomycin 4 times a day till after that twice a day for 1 week after that once a day for 1 week and then twice for 1 week and then stop. Patient is to be on oral atovaquone till February 21. Physical Exam Narrative: EXAM NARRATIVE: General - Alert awake, no distress HEENT : EOMI, grossly unremarkable CVS: RRR Chest: Decreas at bases ABD; Soft, NT,ND Ext : no edema - left proximal thigh wound vac in place no surrounding erythema Neuro- CN 2-12 intact, no deficits Discharge Data Data Completed and Pending: Completed Studies During Hospitalization Category Date Time Status XR chest 1V vinicio ble [id number] Stat Exams 02/06/21 13:54 Completed Pending at discharge Category Date Time Status Blood Culture AM LABS Lab 02/10/21 05:34 Results Labs from last 24 hours 02/10/21 02/10/21 05:34 05:34 WBC 9.4 RBC 2.96 L Hgb 9.1 L Hct 30.4 L MCV 102.7 H MCH 30.7 MCHC 29.9 L RDW 14.7 Plt Count 185 MPV 11.4 H Neut % (Auto) 46.8 Lymph % (Auto) 28.4 Mcmullen % (Auto) 19.8 Eos % (Auto) 1.6 Baso % (Auto) 2.1 Neut # (Auto) 4.42 Lymph # (Auto) 2.7 Mcmullen # (Auto) 1.9 H Eos # (Auto) 0.2 Baso # (Auto) 0.2 H Nucleated RBC % (a uto) 0 Nucleated RBCs # 0.0 Sodium 139 Potassium 4.2 Chloride 105 Carbon Dioxide 26 Anion Gap 12.2 BUN 13 Creatinine 1.7 H GFR Calculation Not Reportable Glucose 135 H Calculated Osmolal ity 290 Calcium 8.3 L Total Bilirubin 0.2 AST 19 ALT < 5 Alkaline Phosphata se 82 Total Protein 5.2 L Albumin 3.0 L Globulin 2.2 Addt'l Data from Hospital Stay: Laboratory Results WBC 9.4 10^3/uL (4.0- 10.0) 02/10/21 05:34 Corrected WBC Cancelled 02/06/21 14:44 RBC 2.96 10^6/uL (4.1 -5.3) L 02/10/21 05:34 Hgb 9.1 g/dL (11.7-16 .6) L 02/10/21 05:34 Hct 30.4 % (42.0-52.0 ) L 02/10/21 05:34 MCV 102.7 fL (80-94) H 02/10/21 05:34 MCH 30.7 pg (28.0-34. 0) 02/10/21 05:34 MCHC 29.9 g/dL (30.0-3 6.0) L 02/10/21 05:34 RDW 14.7 % (12.1-15.1 ) 02/10/21 05:34 Plt Count 185 10^3/cmm (130 -400) 02/10/21 05:34 MPV 11.4 fL (7.4-10.4 ) H 02/10/21 05:34 Gran % Cancelled 02/06/21 14:44 Neut % (Auto) 46.8 % 02/10/21 05:34 Lymph % (Auto) 28.4 % 02/10/21 05:34 Mcmullen % (Auto) 19.8 % 02/10/21 05:34 Eos % (Auto) 1.6 % 02/10/21 05:34 Baso % (Auto) 2.1 % 02/10/21 05:34 Neut # (Auto) 4.42 10^3/uL (1.8 -7.7) 02/10/21 05:34 Lymph # (Auto) 2.7 10^3/uL (0.8- 4.8) 02/10/21 05:34 Mcmullen # (Auto) 1.9 10^3/uL (0.2- 0.9) H 02/10/21 05:34 Eos # (Auto) 0.2 10^3/uL (0.0- 0.8) 02/10/21 05:34 Baso # (Auto) 0.2 10^3/uL (0.0- 0.1) H 02/10/21 05:34 Absolute Gran (aut o) Cancelled 02/06/21 14:44 Nucleated RBC % (a uto) 0 % 02/10/21 05:34 Nucleated RBCs # 0.0 /100WBC 02/10/21 05:34 Sodium 139 mmol/L (136-1 45) 02/10/21 05:34 Potassium 4.2 mmol/L (3.5-5 .1) 02/10/21 05:34 Chloride 105 mmol/L (98-10 7) 02/10/21 05:34 Carbon Dioxide 26 mmol/L (22-29) 02/10/21 05:34 Anion Gap 12.2 (5-19) 02/10/21 05:34 BUN 13 mg/dL (8-23) 02/10/21 05:34 Creatinine 1.7 mg/dL (0.7-1. 2) H 02/10/21 05:34 GFR Calculation Not Reportable 02/10/21 05:34 Glucose 135 mg/dL (65-115 ) H 02/10/21 05:34 POC Glucose 93 mg/dL (70-110) 02/09/21 06:12 Calculated Osmolal ity 290 mOsm/kg (285- 295) 02/10/21 05:34 Uric Acid 5.4 mg/dL (3.4-7. 0) 02/07/21 06:10 Calcium 8.3 mg/dL (8.5-10 .5) L 02/10/21 05:34 Magnesium 1.5 mg/dL (1.7-2. 3) L 02/07/21 06:10 Total Bilirubin 0.2 mg/dL (0.15-1 .2) 02/10/21 05:34 AST 19 U/L (0-40) 02/10/21 05:34 ALT < 5 U/L (0-41) 02/10/21 05:34 Alkaline Phosphata se 82 IU/L (40-130) 02/10/21 05:34 Creatine Kinase 52 U/L (39-308) 02/07/21 06:10 Total Protein 5.2 g/dL (6.6-8.7 ) L 02/10/21 05:34 Albumin 3.0 g/dL (3.5-5.2 ) L 02/10/21 05:34 Globulin 2.2 g/dL (1.3-4.6 ) 02/10/21 05:34 Lipase 63 U/L (13-60) H 02/06/21 14:44 TSH 0.01 uIU/mL (0.27 -4.20) L 02/07/21 06:10 Urine Color Straw (Yellow) 02/07/21 13:20 Urine Appearance Clear (CLEAR) 02/07/21 13:20 Urine pH 5 (5-7) 02/07/21 13:20 Ur Specific Gravit y 1.005 (1.005-1.0 30) 02/07/21 13:20 Urine Protein 1+ (Negative) H 02/07/21 13:20 Urine Glucose (UA) Norm (Normal) 02/07/21 13:20 Urine Ketones Negative (Negati ve) 02/07/21 13:20 Urine Blood 2+ (Negative) H 02/07/21 13:20 Urine Nitrate Negative (Negati ve) 02/07/21 13:20 Urine Bilirubin Neg (Negative) 02/07/21 13:20 Urine Urobilinogen Norm mg/dL (Negat magdi) 02/07/21 13:20 Ur Leukocyte Veronique ase Negative (Negati ve) 02/07/21 13:20 Urine RBC 0-4 /hpf (0-2) H 02/07/21 13:20 Urine WBC 0-4 /hpf (0-5) H 02/07/21 13:20 Ur Squamous Epith Cells 0-4 /hpf (0-5) H 02/07/21 13:20 Amorphous Sediment Not Reportable 02/07/21 13:20 Urine Bacteria Trace /hpf (NONE) 02/07/21 13:20 Urine Mucus 1+ /hpf 02/06/21 14:50 U Random Total Pro tein 46 mg/dL 02/07/21 13:20 Ur Random Sodium 62 mmol/L 02/07/21 13:20 Urine Creatinine 36 mg/dL (39-259) L 02/07/21 13:20 Protein/Creatinin Ratio 1.28 mg/mg CR 02/07/21 13:20 Complement C3 122 mg/dL (90-180 ) 02/07/21 06:10 Complement C4 31 mg/dL (10-40) 02/07/21 06:10 Nasal/Oral COVID-1 9 PCR Cancelled 02/06/21 14:44 SARS-CoV-2 RNA (RT -PCR) Not detected (NO T DETECTED) 02/06/21 14:44 SARS-CoV-2 Ag (Rap id) Negative (Negati ve) 02/06/21 14:44 Impressions Chest X-Ray 02/06/21 13:54 Impression: 1. Clearing of bilateral patchy opacities. 2. Atherosclerosis. Microbiology 02/10/21 05:34 Blood Blood Culture - Preliminary SPECIMEN COLLECTED 02/10/21 05:30 Blood Blood Culture - Preliminary SPECIMEN COLLECTED Vitals: Last Vital Signs Temp 98.3 F 02/10/21 07:59 Pulse 73 02/10/21 07:59 Resp 18 02/10/21 07:59 BP 144/76 02/10/21 07:59 Pulse Ox 93 02/10/21 07:59 Discharge Plan Discharge Patient Disposition: Home Health Service Condition: Stable Prescriptions: New atovaquone 750 mg/5 mL suspension 750 mg PO BID Qty: 210 RF: 0 amlodipine 10 mg Tablet 10 mg PO DAILY Qty: 30 RF: 0 Continued hydrocodone-acetaminophen 10-325 mg tablet 1 tab PO Q4H PRN (Reason: pain) 30 Days Qty: 60 RF: 0 ropinirole 2 mg tablet 2 mg PO BEDTIME Qty: 90 RF: 3 ipratropium bromide 42 mcg (0.06 %) spray,non-aerosol 1 spray INTRANASAL TID Qty: 15 RF: 5 silver sulfadiazine 1 % cream 1 applic topical DAILY Qty: 50 RF: 0 Breo Ellipta 200-25 mcg/dose blister with device 1 inh inhalation Q24H Qty: 28 RF: 3 Combivent Respimat 20-100 mcg/actuation mist 1 puff INHALATION Q6H Qty: 4 RF: 3 Nicoderm CQ 21 mg/24 hr patch 24 hour 1 patch TRANSDERMA Q24H Qty: 28 RF: 8 fluticasone propionate [Flonase Allergy Relief] 50 mcg/actuation spray,suspension 1 spray intranasal BID Qty: 15.8 RF: 3 cholecalciferol (vitamin D3) 50 mcg (2,000 unit) capsule 50 mcg PO DAILY Qty: 30 RF: 3 gabapentin 300 mg capsule 300 mg PO BID Qty: 60 RF: 3 cetirizine 10 mg tablet 10 mg PO DAILY PRN (Reason: Allergy Symptoms) RF: 0 aspirin 81 mg Tablet,Chewable 81 mg PO DAILY RF: 0 multivitamin Tablet 1 tab PO DAILY RF: 0 esomeprazole magnesium [Nexium] 40 mg Capsule,Delayed Release(Dr/Ec) 40 mg PO DAILY RF: 0 [id number]-ast [krill oil] 1,572-569-63-80 mg Capsule 1 cap PO DAILY RF: 0 Narcan 4 mg/actuation [place],Non-Aerosol 1 spray INTRANASAL Q3M PRN (Reason: overdose) RF: 0 ferrous sulfate 325 mg (65 mg iron) Tablet 325 mg PO BIDWMEAL Qty: 0 RF: 0 Levemir FlexTouch U-100 Insuln 100 unit/mL (3 mL) insulin pen 10 unit SUBCUT DAILY RF: 0 metoprolol tartrate 25 mg Tablet 25 mg PO BID RF: 0 vancomycin 125 mg capsule 125 mg PO QID Qty: 75 RF: 0 Held Actemra 162 mg/0.9 mL syringe 162 mg SUBCUT Q7D RF: 0 Hold Instructions: Resume on 02/24/21. Discontinued losartan 100 mg tablet 100 mg PO DAILY Qty: 90 RF: 3 Hold Instructions: Resume on 02/07/21. sulfamethoxazole-trimethoprim [Bactrim DS] 800-160 mg tablet 2 tab PO Q8H 21 Days Qty: 126 RF: 0 cefazolin 1 gram Recon Soln 1 g IV Q8H RF: 0 Discharge Orders: Discharge Order (Routine); Ordered 02/10/21 Ordered By: Marshal Mixon Referrals: [facility] [Outside] Mike Foster MD [Primary Care Provider] - 02/11/21 11:15 am Uziel Grayson MD [Physician] - 7-10 days Farida Reyes MD [Hospitalist] - 1 week [facility], [Staff Physician] - 02/13/21 8:00 am (APPOINTMENT WITH DR [facility]L [facility] ) Discharge Diet: Cardiac Discharge Activity: Resume usual activity Patient Instructions: Clostridium Difficile, Amlodipine (By mouth), Atovaquone (By mouth), Acute Kidney Injury (DC), Opioid Safety Activity Restrictions/Additional Instructions: Oral vancomycin taper as below. 125 mg orally 4 times daily until 02/21, then 125 mg orally twice daily for 7 days, then 125 mg orally once daily for 7 days, then 125 mg orally every 2 or 3 days for 2 weeks You will be on atovaquone till February 21. Please follow-up with rheumatology clinic/Dr. Grayson within next 1 week. Please follow-up with ID clinic within next 1 week. Your antihypertensives/blood pressure medications have been changed. For now no longer take losartan. You will be on amlodipine 10 mg daily. Discharge Attestations Time Spent in Discharge Care*: greater than 30 min Specific Discharge Activities: educating patient, educating and/or supporting family/caregiver, discussing with pcp/other providers, discussing with insurance case manager/social workers/dc planners, documenting/other paperwork and evaluating patient/reviewing data Status at Discharge: Cognitive status at discharge: cognitively intact, Behavioral status at discharge: cooperative, Functional status at discharge: independent ambulation Overall status at discharge: patient is progressing back to baseline Quality Metrics Clinical Quality Measures During this hospital stay, did patient experience: None Coding Level of Care Code Acute Chg FW DC note Diagnoses Pneumocystis jiroveci pneumonia B59 Laterality: bilateral Lung location: unspecified part of lung Acute kidney injury N17.9 C. difficile diarrhea A04.72 Pyomyositis M60.009
--- NOTE | 2021-02-10 11:26 | PC.NURSE ---
Discharge instructions given to patient and patient verbalized understanding of instructions. patient waiting on family for ride home. family has been contacted and are on their way.
--- NOTE | 2021-02-10 11:35 | PC.NURSE ---
Patient has PICC line that was placed in [place]. Full Stack Web Developer asked Dr Mixon if we need to discontinue PICC. Per Dr Blanton, discontinue PICC line.
[2021-02-10 11:41] VITALS: BP 131/78; PULSE 70; RESP 18; TEMP 36.6; O2SAT 97
--- NOTE | 2021-02-10 11:52 | PC.NURSE ---
PICC line removed by job specification writer.
[2021-02-10 13:07] VITALS: BP 131/78; PULSE 70; RESP 18; TEMP 36.6; O2SAT 97
== END 2021-02-10 13:08 | disposition home health service (06) | DRG 371 ==
LOC: ER 18:33 → MEDSURG 21:08
PROVIDERS: Internal Medicine Nephrology; Admitting Provider Hospitalist; Emergency Provider Family Medicine; PCP Internal Medicine; Visit Provider Student in an Organized Health Care Education/Training Program
DX: A04.72 Enterocolitis due to Clostridium difficile, not specified as recurrent (principal); B59 Pneumocystosis; N17.9 Acute kidney failure, unspecified; J44.0 Chronic obstructive pulmonary disease with (acute) lower respiratory infection; M60.052 Infective myositis, left thigh; J96.10 Chronic respiratory failure, unspecified whether with hypoxia or hypercapnia; T36.8X5A Adverse effect of other systemic antibiotics, initial encounter; M31.5 Giant cell arteritis with polymyalgia rheumatica; Z79.899 Other long term (current) drug therapy; Z99.81 Dependence on supplemental oxygen; Z87.01 Personal history of pneumonia (recurrent); N18.30 Chronic kidney disease, stage 3 unspecified; I12.9 Hypertensive chronic kidney disease with stage 1 through stage 4 chronic kidney disease, or unspecified chronic kidney disease; I95.9 Hypotension, unspecified; R29.6 Repeated falls; G89.29 Other chronic pain; M54.9 Dorsalgia, unspecified; Z86.010 Personal history of colon polyps; K21.9 Gastro-esophageal reflux disease without esophagitis; E78.2 Mixed hyperlipidemia; G62.9 Polyneuropathy, unspecified; Z79.82 Long term (current) use of aspirin; Z79.891 Long term (current) use of opiate analgesic; B95.61 Methicillin susceptible Staphylococcus aureus infection as the cause of diseases classified elsewhere; F17.210 Nicotine dependence, cigarettes, uncomplicated; G25.81 Restless legs syndrome; N28.1 Cyst of kidney, acquired; Z86.711 Personal history of pulmonary embolism
CPT/HCPCS: 36415; 36416; 71045; 80048; 80053; 81001; 82550; 82570; 82962; 83690; 83735; 84156; 84300; 84443; 84550; 85025; 86160; 87040; 87426; 87635; 93005; 96372; 97110; 97116; 97161; 99285; J1644; J3370; J7030

== ENCOUNTER → 2021-02-12 13:38 | Outpatient (BNVA) | payer MEDICARE, MEDICAID, SELFPAY | PROVIDERS: PCP Internal Medicine; Visit Provider Internal Medicine Rheumatology | DX: M31.6 Other giant cell arteritis (principal); A04.72 Enterocolitis due to Clostridium difficile, not specified as recurrent; B59 Pneumocystosis; Z79.899 Other long term (current) drug therapy; B02.9 Zoster without complications; M60.052 Infective myositis, left thigh; R51.9 Headache, unspecified; F17.210 Nicotine dependence, cigarettes, uncomplicated | CPT/HCPCS: 99215 ==

== ENCOUNTER 2021-02-13 07:50 | Outpatient (CLI) | payer MEDICARE, MEDICAID, SELFPAY | END 2021-02-13 07:51 | disposition home or self-care (01) | LOC: WOUND 07:54 | PROVIDERS: PCP Internal Medicine; Visit Provider Surgery | DX: T81.89XA Other complications of procedures, not elsewhere classified, initial encounter (principal); Y83.8 Other surgical procedures as the cause of abnormal reaction of the patient, or of later complication, without mention of misadventure at the time of the procedure; S51.012A Laceration without foreign body of left elbow, initial encounter; W19.XXXA Unspecified fall, initial encounter | CPT/HCPCS: 11043; 11046; 97606; G0463 ==

== ENCOUNTER 2021-02-20 09:00 | Outpatient (CLI) | payer MEDICARE, MEDICAID, SELFPAY | END 2021-02-20 09:01 | disposition home or self-care (01) | LOC: WOUND 09:01 | PROVIDERS: PCP Internal Medicine; Visit Provider Surgery | DX: T81.89XA Other complications of procedures, not elsewhere classified, initial encounter (principal); Y83.8 Other surgical procedures as the cause of abnormal reaction of the patient, or of later complication, without mention of misadventure at the time of the procedure | CPT/HCPCS: 11043; 11046; 97605 ==

== ENCOUNTER 2021-02-27 08:27 | Outpatient (CLI) | payer MEDICARE, MEDICAID, SELFPAY | END 2021-02-27 08:28 | disposition home or self-care (01) | LOC: WOUND 08:28 | PROVIDERS: PCP Internal Medicine; Visit Provider Nurse Practitioner Family | DX: T81.89XA Other complications of procedures, not elsewhere classified, initial encounter (principal); Y83.8 Other surgical procedures as the cause of abnormal reaction of the patient, or of later complication, without mention of misadventure at the time of the procedure | CPT/HCPCS: 11043; 11046; 97605; A6446 ==

== ENCOUNTER 2021-03-06 08:45 | Outpatient (CLI) | payer MEDICARE, MEDICAID, SELFPAY | END 2021-03-06 08:46 | disposition home or self-care (01) | LOC: WOUND 08:46 | PROVIDERS: PCP Internal Medicine; Visit Provider Surgery | DX: T81.89XA Other complications of procedures, not elsewhere classified, initial encounter (principal); Y83.8 Other surgical procedures as the cause of abnormal reaction of the patient, or of later complication, without mention of misadventure at the time of the procedure; Z87.891 Personal history of nicotine dependence | CPT/HCPCS: 11043; 11046; 97605 ==

== ENCOUNTER 2021-03-06 09:48 | Outpatient (CLI) | payer MEDICARE, MEDICAID, SELFPAY ==
--- NOTE | 2021-03-06 09:56 | XR_ITS ---
WS: [id number] CHEST XRAY TECHNIQUE: Portable chest. CLINICAL INFORMATION: follow up pneumocystis pneumonia COMPARISON: February 06, 2021 FINDINGS: Heart: Normal cardiac silhouette. Lungs: Moderate chronic emphysematous changes. Segmental elevation right hemidiaphragm unchanged. No acute pulmonary infiltrates. No focal pneumonia or pleural fluid. Bones: Thoracic curve convex right. XR/XR chest 1V [id number] IMPRESSION: 1. Moderate chronic emphysematous changes. 2. No acute pulmonary infiltrates. 3. Chronic segmental elevation right hemidiaphragm unchanged.
== END 2021-03-06 09:49 | disposition home or self-care (01) ==
PROVIDERS: PCP Internal Medicine; Visit Provider Student in an Organized Health Care Education/Training Program
DX: B59 Pneumocystosis (principal)
CPT/HCPCS: 71045

== ENCOUNTER 2021-03-13 08:13 | Outpatient (CLI) | payer MEDICARE, MEDICAID, SELFPAY | END 2021-03-13 08:14 | disposition home or self-care (01) | LOC: WOUND 08:13 | PROVIDERS: PCP Internal Medicine; Visit Provider Surgery | DX: T81.89XA Other complications of procedures, not elsewhere classified, initial encounter (principal); Y83.8 Other surgical procedures as the cause of abnormal reaction of the patient, or of later complication, without mention of misadventure at the time of the procedure; Z87.891 Personal history of nicotine dependence | CPT/HCPCS: 11043; 11046; 97605 ==

== ENCOUNTER 2021-03-20 08:33 | Outpatient (CLI) | payer MEDICARE, MEDICAID, SELFPAY | END 2021-03-20 08:34 | disposition home or self-care (01) | LOC: WOUND 08:34 | PROVIDERS: PCP Internal Medicine; Visit Provider Surgery | DX: T81.89XD Other complications of procedures, not elsewhere classified, subsequent encounter (principal); Y83.8 Other surgical procedures as the cause of abnormal reaction of the patient, or of later complication, without mention of misadventure at the time of the procedure; F17.200 Nicotine dependence, unspecified, uncomplicated | CPT/HCPCS: 11043; 97605 ==

== ENCOUNTER 2021-03-27 08:41 | Outpatient (CLI) | payer MEDICARE, MEDICAID, SELFPAY | END 2021-03-27 08:42 | disposition home or self-care (01) | LOC: WOUND 08:42 | PROVIDERS: PCP Internal Medicine; Visit Provider Surgery | DX: T81.89XD Other complications of procedures, not elsewhere classified, subsequent encounter (principal); Y83.8 Other surgical procedures as the cause of abnormal reaction of the patient, or of later complication, without mention of misadventure at the time of the procedure; Z87.891 Personal history of nicotine dependence | CPT/HCPCS: 11043; 97605 ==

== ENCOUNTER → 2021-03-30 15:11 | Outpatient (BNVA) | payer MEDICARE, MEDICAID, SELFPAY | PROVIDERS: PCP Internal Medicine; Visit Provider Internal Medicine Rheumatology | DX: M31.6 Other giant cell arteritis (principal); M05.9 Rheumatoid arthritis with rheumatoid factor, unspecified; Z79.899 Other long term (current) drug therapy; A04.72 Enterocolitis due to Clostridium difficile, not specified as recurrent; B59 Pneumocystosis; B02.9 Zoster without complications; R51.9 Headache, unspecified; F17.210 Nicotine dependence, cigarettes, uncomplicated | CPT/HCPCS: 99214 ==

== ENCOUNTER 2021-04-03 09:13 | Outpatient (CLI) | payer MEDICARE, MEDICAID, SELFPAY | END 2021-04-03 09:14 | disposition home or self-care (01) | LOC: WOUND 09:14 | PROVIDERS: PCP Internal Medicine; Visit Provider Emergency Medicine | DX: T81.89XA Other complications of procedures, not elsewhere classified, initial encounter (principal); Y83.8 Other surgical procedures as the cause of abnormal reaction of the patient, or of later complication, without mention of misadventure at the time of the procedure; F17.290 Nicotine dependence, other tobacco product, uncomplicated | CPT/HCPCS: 11042; 97605 ==

== ENCOUNTER 2021-04-10 09:56 | Outpatient (CLI) | payer MEDICARE, MEDICAID, SELFPAY | END 2021-04-10 09:57 | disposition home or self-care (01) | LOC: WOUND 09:57 | PROVIDERS: Visit Provider Surgery | DX: T81.89XA Other complications of procedures, not elsewhere classified, initial encounter (principal); Y83.8 Other surgical procedures as the cause of abnormal reaction of the patient, or of later complication, without mention of misadventure at the time of the procedure; Z87.891 Personal history of nicotine dependence | CPT/HCPCS: 11043; 97605 ==

== ENCOUNTER → 2021-04-16 09:30 | Outpatient (BNVA) | payer MEDICARE, MEDICAID, SELFPAY | PROVIDERS: PCP Internal Medicine; Visit Provider Internal Medicine | DX: R30.0 Dysuria (principal); R32 Unspecified urinary incontinence | CPT/HCPCS: 81003 ==

== ENCOUNTER 2021-04-17 09:32 | Outpatient (CLI) | payer MEDICARE, MEDICAID, SELFPAY | END 2021-04-17 09:33 | disposition home or self-care (01) | LOC: WOUND 09:33 | PROVIDERS: PCP Internal Medicine; Visit Provider Surgery | DX: T81.89XA Other complications of procedures, not elsewhere classified, initial encounter (principal); Y83.8 Other surgical procedures as the cause of abnormal reaction of the patient, or of later complication, without mention of misadventure at the time of the procedure; F17.290 Nicotine dependence, other tobacco product, uncomplicated | CPT/HCPCS: 11042; 97605; A6237 ==

== ENCOUNTER 2021-04-24 10:03 | Outpatient (CLI) | payer MEDICARE, MEDICAID, SELFPAY | END 2021-04-24 10:04 | disposition home or self-care (01) | LOC: WOUND 10:04 | PROVIDERS: PCP Internal Medicine; Visit Provider Surgery | DX: T81.89XA Other complications of procedures, not elsewhere classified, initial encounter (principal); Y83.8 Other surgical procedures as the cause of abnormal reaction of the patient, or of later complication, without mention of misadventure at the time of the procedure; F17.290 Nicotine dependence, other tobacco product, uncomplicated | CPT/HCPCS: 11043; 97605; A6250 ==

== ENCOUNTER 2021-05-01 09:35 | Outpatient (CLI) | payer MEDICARE, MEDICAID, SELFPAY | END 2021-05-01 09:36 | disposition home or self-care (01) | LOC: WOUND 09:36 | PROVIDERS: PCP Internal Medicine; Visit Provider Nurse Practitioner Family | DX: T81.89XA Other complications of procedures, not elsewhere classified, initial encounter (principal); Y83.8 Other surgical procedures as the cause of abnormal reaction of the patient, or of later complication, without mention of misadventure at the time of the procedure; F17.290 Nicotine dependence, other tobacco product, uncomplicated | CPT/HCPCS: 11042; A6212 ==

== ENCOUNTER 2021-05-08 10:16 | Outpatient (CLI) | payer MEDICARE, MEDICAID, SELFPAY | END 2021-05-08 10:17 | disposition home or self-care (01) | LOC: WOUND 10:17 | PROVIDERS: PCP Internal Medicine; Visit Provider Surgery | DX: T81.89XA Other complications of procedures, not elsewhere classified, initial encounter (principal); Y83.8 Other surgical procedures as the cause of abnormal reaction of the patient, or of later complication, without mention of misadventure at the time of the procedure; F17.290 Nicotine dependence, other tobacco product, uncomplicated | CPT/HCPCS: 11042; 97605 ==

== ENCOUNTER 2021-05-15 08:16 | Outpatient (CLI) | payer MEDICARE, MEDICAID, SELFPAY ==
--- NOTE | 2021-05-15 08:22 | CT_ITS ---
WS: [id number] CT LEFT FEMUR WITH CONTRAST. HISTORY: History of thigh abcess. Technique: All CT scans at [facility] use at least one of these dose optimization techniques: automated exposure control; mA and/or kV adjustment per patient size (includes targeted exams where dose is matched to clinical indication); or iterative reconstruction. DLP: 2187.25 mGy.cm Contrast: Visipaque 95 mL IV. COMPARISON: 01/09/2021 Focal soft tissue defect with thickening along the tract over the anterior mid thigh. Soft tissue thi ckening extends to the rectus femoris and sartorius muscles. There is no associated soft tissue colle ction or edema. The fluid collection described on 01/09/2021 is no longer present but there is soft ti ssue thickening along the tract. Improvement in the cellulitis. There is mild atrophy of the muscles throughout the lower extremity. Mild dilatation of the LEFT femoral artery 2.5 cm. There is mixed attenuation within the femoral vein which is probably due to the phase of enhancement. Alternatively this could represent DVT. Small Seo's cyst. CT/CT femur LT w con [id number] IMPRESSION: 1. Soft tissue thickening along the tract extending to the rectus femoris and sartorius muscles involving the previously described abscess and cellulitis. No residual abscess. The cellulitis has resolved. 2. Stable mild dilatation of the LEFT femoral artery. 3. Small Seo's cyst.
[2021-05-15 09:07] LABS: Basophils # 0.1 10^3/uL (0.0-0.1); Basophils % 0.3 %; Eosinophils % 0.2 %; Hematocrit 43.9 % (42.0-52.0); Hemoglobin 14.2 g/dL (11.7-16.6); Lymphocytes # 3.1 10^3/uL (0.8-4.8); Lymphocytes % 18.4 %; Mean Corpuscular HGB Conc 32.3 g/dL (30.0-36.0); Mean Corpuscular Hemoglobin 31.3 pg (28.0-34.0); Mean Corpuscular Volume 96.7 fl (80-94); Mean Platelet Volume 10.9 fL (7.4-10.4); Monocytes # 1.5 10^3/uL (0.2-0.9); Monocytes % 8.9 %; Neutrophils # 11.81 10^3/uL (1.8-7.7); Neutrophils % 69.3 %; Nucleated Red Blood Cells % 0 %; Platelet Count 212 10^3/cmm (130-400); Red Blood Count 4.54 10^6/uL (4.1-5.3); Red Cell Distribution Width 15.6 % (12.1-15.1)
[2021-05-15 09:30] LABS: Alanine Aminotransferase 15 U/L (0-41); Albumin Level 3.7 g/dL (3.5-5.2); Alkaline Phosphatase 79 IU/L (40-130); Aspartate Amino Transferase 17 U/L (0-40); C Reactive Protein 2.6 mg/L (0.0-4.9); Globulin 2.4 g/dL (1.3-4.6); Total Bilirubin 0.2 mg/dL (0.15-1.2); Total Protein 6.1 g/dL (6.6-8.7)
[2021-05-15 09:51] LABS: Blood Urea Nitrogen 32 mg/dL (8-23)
[2021-05-15] MEDS: iodixanol 320 mg/mL 100mL Btl IV (10:08)
== END 2021-05-15 08:17 | disposition home or self-care (01) ==
PROVIDERS: Internal Medicine Rheumatology; PCP Internal Medicine; Visit Provider Internal Medicine
DX: Z87.898 Personal history of other specified conditions (principal); M71.22 Synovial cyst of popliteal space [Baker], left knee
CPT/HCPCS: 73701; 80076; 82565; 84520; 85025; 86140

== ENCOUNTER 2021-05-15 10:24 | Outpatient (CLI) | payer MEDICARE, MEDICAID, SELFPAY | END 2021-05-15 10:25 | disposition home or self-care (01) | LOC: WOUND 10:25 | PROVIDERS: PCP Internal Medicine; Visit Provider Nurse Practitioner Family | DX: E11.622 Type 2 diabetes mellitus with other skin ulcer (principal); L97.122 Non-pressure chronic ulcer of left thigh with fat layer exposed; F17.290 Nicotine dependence, other tobacco product, uncomplicated; Z87.898 Personal history of other specified conditions; M71.22 Synovial cyst of popliteal space [Baker], left knee | CPT/HCPCS: 15271; 73701; 80076; 82565; 84520; 85025; 86140; 97605; Q4186 ==

== ENCOUNTER 2021-05-18 17:06 | Inpatient (IN) | payer MEDICARE, MEDICAID, SELFPAY ==
--- NOTE | 2021-05-18 16:03 | XR_ITS ---
WS: [id number] FEMUR LEFT TECHNIQUE: 2 views of the left femur CLINICAL INFORMATION: Repeat falls unable to ambulate. Left femur pain COMPARISON: None. FINDINGS: Left subcapital femoral neck fracture with mild impaction varus angulation. Mild widening measures 8 mm. Femoral shaft is normal in appearance. Vascular calcification. Degenerative arthritis right knee. XR/XR femur LT min 2V* [id number] IMPRESSION: 1. Left subcapital femoral neck fracture with mild impaction and varus angulat ion. 2. Femoral shaft appears normal.
--- NOTE | 2021-05-18 16:03 | XR_ITS ---
WS: [id number] HIP WITH PELVIS LEFT TECHNIQUE: 3 views of the left hip with pelvis CLINICAL INFORMATION: Repeat falls unable to ambulate. Left hip pain COMPARISON: None. FINDINGS: Left subcapital slightly impacted femoral neck fracture with mild fracture widening measuring 9 mm. M ild varus angulation. Left pubic rami appear normal. Partially visualized iliac endografts. XR/XR hip LT 2-3V wo/w pel* [id number] IMPRESSION: Left subcapital slightly impacted femoral neck fracture with mild fracture wide gabrielle measuring 9 mm. Tonnis classification: grade 2: small cysts in femoral head/acetabulum or moder ate joint space narrowing or moderate loss of head sphericity Notified Alyx De Leon APRN at 05/18/2021 4:27 PM.
[2021-05-18 17:35] VITALS: BP 156/89; PULSE 72; RESP 18; TEMP 36.6; O2SAT 93
--- NOTE | 2021-05-18 17:35 | ECG_ITS ---
[facility] Test Date: 2021-05-18 Pat Name: Gabino Lamb Department: Room: 257 Gender: Male Can Slider: : 1945 Requested By: Marshal Mixon Order Number: [id number] Tania MD: Jemma Gr M.D. Measurements Intervals [place] Rate: 76 P: 55 AR: 137 QRS: 59 QRSD: 78 T: 75 QT: 394 QTc: 444 Interpretive Statements SINUS RHYTHM LEFT VENTRICULAR HYPERTROPHY AND ST-T CHANGE [VOLTAGE CRITERIA PLUS ST/T ABNORMALITY] Compared to ECG 02/06/2021 15:34:16 Left ventricular hypertrophy now present ST (T wave) deviation now present Ventricular premature complex(es) no longer present Electronically Signed On 05-18-2021 19:10:44 CDT by Jemma Gr M.D. [id number]
--- NOTE | 2021-05-18 17:35 | XRR_ITS ---
PROCEDURE INFORMATION: Exam: XR Chest Exam date and time: 05/18/2021 5:35 PM Age: 75 years old Clinical indication: Pre-operative exam; Respiratory screening exam; Additional info: Hip surgery TECHNIQUE: Imaging protocol: XR of the chest. Views: 1 view. COMPARISON: CR XR chest 1V [id number] 03/06/2021 10:03 AM FINDINGS: Lungs: Emphysematous changes suspected. Pleural spaces: Unremarkable. No pleural effusion. No pneumothorax. Heart/Mediastinum: Unremarkable. No cardiomegaly. Bones/joints: Unremarkable. XR/XR chest 1V portable [id number] IMPRESSION: 1. Negative for infiltrate. 2. Emphysematous changes suspected. Radiation Dose CTDIVOL = (mGy): DLP = (mGy-cm)
--- NOTE | 2021-05-18 17:40 | P.HP_ITS ---
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 difficile, pneumocystis pneumonia, chronic obstructive pulmonary disease, infective pyomyositis of left thigh with MSSA abscess s/p I&D, wound VAC to left thigh s/p treatment with prolonged course of abx, follows with [facility] for the same. Wound noted to be improving per [facility] notes review. Recent CT imaging of limb without signs of residual abscess or cellulitis. Presents for direct admission today sent from Alyx De Loen's office after patient reported fall at home and was found to have hip fracture on X ray imaging. Denies any fever, chest pain, dyspnea, palpitations, syncope, nausea or vomiting. States fall to be a mechanical fall. Review of Systems General: Reports: 10 or more systems reviewed and unremarkable except in HPI and below Const: Denies: fever(s), chills, body aches, change in appetite, change in weight, malaise, night sweats, diaphoresis, change in sleep pattern, daytime sleepiness or snoring Eyes: Denies: change in vision, blurry vision, photophobia, eye discomfort or eye discharge ENMT: Denies: throat pain, enlarged tonsils, hoarseness, mouth pain, oral sores, dry mouth, tinnitus, nasal congestion or post nasal drip Card: Denies: chest pain, palpitations, irregular heart rhythm, edema, swelling of feet/ankles, lightheadedness, syncope, pre-syncope, dyspnea on exertion, orthopnea, leg pain with exertion or acrocyanosis Resp: Denies: dyspnea, productive cough, non-productive cough, wheezing, stridor, pain on inspiration, change in phlegm color, hemoptysis or chest congestion GI: Denies: abdominal pain, nausea, vomiting, hematemesis, coffee ground emesis, dysphagia, heartburn, diarrhea, constipation, bloating, GI cramping, change in bowel habits, pain on defecation, hematochezia or melena : Denies: flank pain, difficulty urinating, dysuria, urinary frequency, urinary urgency, urinary hesitancy, urinary dribbling, difficulty starting urination, change in urine stream, nocturia or hematuria Musc: Denies: neck pain, back pain, extremity pain, joint pain, joint swelling, joint redness, joint stiffness or limited range of motion Neuro: Denies: headache(s), numbness in extremities, weakness in extremities, sensory changes, lack of coordination, difficulty walking, frequent falls, dizziness, vertigo, confusion, Slurred speech present, difficulty communicating thoughts or seizure-like activity Psych: Denies: anxiety, depression, mood swings, panic attacks, hopelessness or irritability Endo: Denies: polyuria, polydipsia, tired all the time, cold intolerance, excessive sweating, flushing or heat intolerance Demar/Lymph: Denies: easy bruising or easy bleeding All/Imm: Denies: tongue swelling, facial swelling or acute wheezing Medications/Allergies Home Medications Medication Instructions Recorded Confirmed Last Taken Type ropinirole 2 mg tablet 2 mg PO BEDTIME #90 tab 07/08/20 05/18/21 05/17/21 Rx silver sulfadiazine 1 % topical 1 applic TOPICAL DAILY #50 g 09/26/20 05/18/21 05/17/21 Rx cream nicotine 21 mg/24 hr daily 1 patch TRANSDERMA Q24H #28 each 11/10/20 05/18/21 Unknown Rx transdermal patch cholecalciferol (vitamin D3) 50 50 mcg PO DAILY #30 cap 12/16/20 05/18/21 05/18/21 Rx mcg (2,000 unit) capsule Actemra 162 mg SUBCUT Q7D 01/07/21 05/18/21 01/22/21 History aspirin 81 mg PO DAILY 01/07/21 05/18/21 05/18/21 History Narcan 1 spray INTRANASAL Q3M PRN 01/25/21 05/18/21 Unknown History esomeprazole magnesium [Nexium] 40 mg PO DAILY 01/25/21 05/18/21 05/18/21 History vbzug-ju-5-swm-nyx-fctkmbw-ast 1 cap PO DAILY 01/25/21 05/18/21 05/18/21 History [krill oil] multivitamin 1 tab PO DAILY 01/25/21 05/18/21 02/05/21 History ferrous sulfate 325 mg PO BIDWMEAL #0 tab 01/30/21 05/18/21 05/18/21 Rx Levemir FlexTouch U-100 Insuln 10 unit SUBCUT DAILY 02/06/21 05/18/21 01/30/21 History metoprolol tartrate 25 mg PO BID 02/06/21 05/18/21 05/18/21 History amlodipine 10 mg PO DAILY #30 tab 02/10/21 05/18/21 05/18/21 Rx cetirizine 10 mg tablet See Rx Instructions .ROUTE 02/11/21 05/18/21 05/18/21 Rx .COMPLEX #30 tablet fluticasone furoate 200 See Rx Instructions .ROUTE 02/11/21 05/18/21 05/18/21 Rx mcg-vilanterol 25 mcg/dose .COMPLEX #60 blister inhalation powder ipratropium bromide 42 mcg (0.06 See Rx Instructions .ROUTE 02/11/21 05/18/21 05/18/21 Rx %) nasal spray .COMPLEX #15 ml ipratropium 20 mcg-albuterol 100 1 puff INHALATION Q6H #4 gm 02/17/21 05/18/21 05/18/21 Rx mcg/actuation mist for inhalation valacyclovir 1 gram tablet 1,000 mg PO BID #14 tab 03/03/21 05/18/21 Unknown Rx atovaquone 750 mg/5 mL oral 1,500 mg PO DAILY 90 Days #210 ml 03/30/21 05/18/21 05/18/21 Rx suspension gabapentin 300 mg capsule 300 mg PO BID #60 cap 03/30/21 05/18/21 05/18/21 Rx prednisone 10 mg tablet 20 mg PO DAILY #60 tab 03/30/21 05/18/21 05/18/21 Rx fluticasone propionate 50 1 spray INTRANASAL BID #15.8 ml 04/13/21 05/18/21 05/18/21 Rx mcg/actuation nasal spray,suspension furosemide 40 mg tablet 40 mg PO DAILY #90 tab 05/12/21 05/18/21 05/18/21 Rx hydrocodone 10 mg-acetaminophen 1 tab PO Q4H PRN 30 Days #60 tab 05/12/21 05/18/21 05/18/21 Rx 325 mg tablet Allergies Allergy/AdvReac Type Severity Reaction Status Date / Time Penicillins Allergy unknown Verified 05/18/21 15:09 PFSH Acute PFSH: Medical History (Updated 05/18/21 @ 17:44 by Marshal Mixon MD) Abdominal aortic aneurysm Status post repair Acute pain Anemia due to GI blood loss Bigeminy C. difficile diarrhea improved Cellulitis Chronic back pain Chronic kidney disease Chronic steroid use Colon polyps COPD (chronic obstructive pulmonary disease) COPD (chronic obstructive pulmonary disease) Essential (primary) hypertension Gastritis GERD (gastroesophageal reflux disease) Giant cell arteritis clinical diagnosis Ground glass opacity present on imaging of lung Immunization counseling Infective myositis Leg wound, left Mixed hyperlipidemia Neuropathy PAD (peripheral artery disease) Personal history of arterial venous malformation (AVM) PMR (polymyalgia rheumatica) Pneumocystis jiroveci pneumonia resolving Pneumonia Pulmonary emboli Pyomyositis Renal cyst Restless leg syndrome Rheumatic arteritis Right temporal headache Sepsis with acute hypoxic respiratory failure Seropositive rheumatoid arthritis of multiple sites Subacromial bursitis of left shoulder joint s/p steroid injection, resolved Tick bite Tobacco abuse Trochanteric bursitis, right hip Surgical History History of back surgery History of colonoscopy History of elbow surgery History of esophagogastroduodenoscopy (EGD) S/P excisional debridement Family History Other CAD (coronary artery disease) Cancer Diabetes Denies family history of Rheumatoid arthritis Lupus Chronic kidney disease (CKD) Stroke Social History Smoking and tobacco status: current every day smoker cigarettes [ Other cigarette details: trying to quit, wearing patches ] Alcohol intake: current Alcohol intake frequency: holidays/special occasions only Lives independently: Yes Household members: spouse Housing: House Marital status: Current occupational status: retired History of recent travel: No Physical Exam Narrative: EXAM NARRATIVE: General: No acute distress, AO x3 HEENT: PERRLA, pupils bilaterally equal and reactive Chest: Normal vesicular breath sounds, no added sounds, equal good air entry bilaterally CVS: S1-S2 regular, no murmurs, no tachycardia, no gallops, no rubs Abdomen: Soft, nontender, no organomegaly, bowel sounds present Neuro: No focal deficits, no facial deformity, AO x3, power 5/5 in all limbs Data : 05/18/21 20:18 05/18/21 20:18 Attestation for Other Data: I personally reviewed and interpreted the following: Other data: XR/XR hip LT 2-3V wo/w pel* [id number] IMPRESSION: Left subcapital slightly impacted femoral neck fracture with mild fracture widening measuring 9 mm. Tonnis classification: grade 2: small cysts in femoral head/acetabulum or moderate joint space narrowing or moderate loss of head sphericity A&P Assessment and plan (1) Closed left hip fracture: left subcapital femur fracture as noted on X ray orthopedics consult prn hydrocodone for pain management Npo for possible surgery in am Status: Acute (2) Infective myositis: Treated with prolonged course of abx cefazolin in December 2020, completed course Still with wound vac in place follows weekly with [facility] for debridement wound noted to be healing well per last notes review Recently complained of swelling over leg with vac in place,CT with no abscess or cellulitis from 05/15 check additionally LE duplex to evaliate for DVT Status: Chronic (3) Pneumocystis jiroveci pneumonia: Resolved, CXR with resolved infiltrates Emphysematous disease noted Status: Acute Qualifiers: Laterality: bilateral Lung location: unspecified part of lung Qualified Code(s): B59 - Pneumocystosis (4) Chronic steroid use: for RA and GCA continue prednisone 20mg po daily with atovaquone 1500mg daily ppx Status: Acute Attestations Medical Necessity Statement*: admission for more than 2 MN for hip fracture Time Spent in Patient Care: Greater than 35 minutes (>than 50% of time spent in counselling and/or direct pt care on unit) . Coding Level of Care Code Acute Transmitter Chief for g Fwd Diagnoses Closed left hip fracture S72.002A Infective myositis M60.009 Pneumocystis jiroveci pneumonia B59 Laterality: bilateral Lung location: unspecified part of lung Chronic steroid use
[2021-05-18 18:15] VITALS: PULSE 79; RESP 18; O2SAT 93
[2021-05-18 18:22] VITALS: O2SAT 93
[2021-05-18] MEDS: HYDROcodone-acetaminophen 5-325 mg Tablet 1 TAB PO (18:43)
--- NOTE | 2021-05-18 19:41 | PC.NURSE ---
This RN attempted IV x2 unsuccessful. steamship agent made aware.
[2021-05-18 20:00] VITALS: BP 167/98; PULSE 90; RESP 18; TEMP 36.6; O2SAT 93
[2021-05-18 20:17] VITALS: BMI 28.0
[2021-05-18] MEDS: sodium chloride 0.9% 1,000 ML 50 ML IV (20:29)
[2021-05-18] MEDS: famotidine 20 mg/2 mL INJ IVP (20:29)
[2021-05-18 20:49] LABS: Basophils # 0.1 10^3/uL (0.0-0.1); Basophils % 0.4 %; Eosinophils # 0.1 10^3/uL (0.0-0.8); Eosinophils % 0.3 %; Hematocrit 47.1 % (42.0-52.0); Hemoglobin 14.6 g/dL (11.7-16.6); Lymphocytes # 3.6 10^3/uL (0.8-4.8); Lymphocytes % 18.9 %; Mean Corpuscular Hemoglobin 30.9 pg (28.0-34.0); Mean Corpuscular Volume 99.6 fl (80-94); Mean Platelet Volume 11.1 fL (7.4-10.4); Monocytes # 1.5 10^3/uL (0.2-0.9); Monocytes % 7.9 %; Neutrophils # 13.35 10^3/uL (1.8-7.7); Neutrophils % 70.1 %; Nucleated Red Blood Cells % 0 %; Platelet Count 192 10^3/cmm (130-400); Red Blood Count 4.73 10^6/uL (4.1-5.3); Red Cell Distribution Width 15.3 % (12.1-15.1); White Blood Count 19.1 10^3/uL (4.0-10.0)
[2021-05-18 20:50] VITALS: PULSE 74; RESP 16; O2SAT 91
[2021-05-18 21:10] LABS: Add Urine Microscopic? YES; Bilirubin Urine Neg (Negative); Blood Urine Neg (Negative); Glucose Urine UA Norm (Normal); Ketones Urine Negative (Negative); Leukocyte Esterase Urine Negative (Negative); Nitrate Urine Negative (Negative); Protein Urine 1+ (Negative); Specific Gravity, Urine 1.005 (1.005-1.030); Urine Appearance Hazy (CLEAR); Urine Color Yellow (Yellow); Urobilinogen Urine Norm (Negative); pH Urine 7 (5-7)
[2021-05-18 21:12] LABS: Add Urine Culture? No; RBC Urine 0-4 /hpf (0-2)
[2021-05-18 21:16] LABS: Glucose Point of Care 149 mg/dL (70-110)
[2021-05-18] MEDS: insulin lispro 100 unit/1 mL SUBCUT (21:28)
[2021-05-18] MEDS: ropinirole 2 mg Tablet PO (21:29)
[2021-05-18 21:55] LABS: NT Pro B Type Natriuretic Pept 1237 pg/mL (0-125); Procalcitonin 0.11 ng/mL (0-0.5); Thyroid Stimulating Hormone 0.22 uIU/mL (0.27-4.20)
[2021-05-18 23:20] LABS: Free T4 Free Thyroxine 1.13 ng/dL (0.82-1.77); T3 Free 2.4 PG/ML (2.0-4.4)
[2021-05-18 23:58] VITALS: BP 146/74; PULSE 78; RESP 18; TEMP 36.3; O2SAT 94
[2021-05-19] VITALS (17 sets, daily range): BP systolic 132–188; BP diastolic 64–101; PULSE 64–104; RESP 16–22; TEMP 36.3–36.8; O2SAT 90–99
[2021-05-19 00:51] LABS: Iron 44 ug/dL (59-158); Percent Saturation 17.8 % (20-50); Total Iron Binding Capacity 247 mcg/dl; Unsaturated Iron Binding 203 ug/dL (112-347)
[2021-05-19 01:23] LABS: Folate Level > 20.0 ng/mL (4.5-32.2)
[2021-05-19] MEDS: HYDROcodone-acetaminophen 10-325 mg Tablet 1 TAB PO ×3 (02:26→14:02)
[2021-05-19] MEDS: famotidine 20 mg/2 mL INJ IVP ×2 (05:17→17:37)
[2021-05-19 05:58] LABS: Estmated Average Glucose 146; Hemoglobin A1C 6.7 % (4.0-6.0)
[2021-05-19 06:49] LABS: Chol HDL Ratio 6.04 mg/dL (1.0-5.00); Cholesterol 314 mg/dL (0-200); HDL Cholesterol 52 mg/dL (60-100); LDL Cholesterol Calculated 213 mg/dL (50-129); Magnesium 1.8 mg/dL (1.7-2.3); Phosphorus 3.5 mg/dL (2.5-4.5); Triglycerides 247 mg/dL (0-150)
[2021-05-19 07:07] LABS: Glucose Point of Care 103 mg/dL (70-110)
--- NOTE | 2021-05-19 07:44 | PC.NURSE ---
Patient to surgery at this time. Patient is A&Ox4.
--- NOTE | 2021-05-19 08:09 | USCV_ITS ---
Gabino Lamb Age: 75 Gender: M : 1945 Exam Date: 05/19/2021 16:01 Ordering Phys: Marshal Mixon MD Technologist: Lizett Rodriguez [place] [facility] [place]ication: BLE SWELLING HISTORY: Lower extremity swelling. PROCEDURES: Venous duplex imaging was performed in bilateral lower extremities. The following venous structures were evaluated: common femoral vein, profunda vein, proximal portion of the greater saphenous vein, superficial femoral vein, and the popliteal vein. In addition, the posterior tibial and peroneal trunk were evaluated. Serial compression, augmentation maneuvers, and spectral Doppler flow evaluation were performed. FINDINGS: No evidence of DVT seen in any vessel visualized at this time. CONCLUSIONS No evidence of right lower extremity DVT. No evidence of left lower extremity DVT. Tim Grewal MD (Electronically Signed) Final Date: 19 May 2021 16:24 S
--- NOTE | 2021-05-19 08:20 | P.ANESASSM_ITS ---
Pre-Anesthetic Assessment Pre-Anesthetic Assessment: Height/Weight: Height 1.8 m Weight 94.211 kg Temp Pulse Resp BP Pulse Ox 97.4 F L 87 18 188/99 94 05/19/21 07:46 05/19/21 07:46 05/19/21 07:46 05/19/21 07:46 05/19/21 07:46 Preop Diagnosis: gi bleed Proposed Procedure: Operation Date: 05/19/21 09:30 Proposed Procedures p Total Hip Arthroplasty(Left) - Johnnie Archuleta, DO Was Beta Manuel taken within 24 hours: Yes Was Clonidine taken within 24 hours: N/A Last intake: Intake Last Liquid Date 05/18/21 Last Liquid Time 20:00 Last Solid Date 05/18/21 Last Solid Time 20:00 Social: Social History: Tobacco and No alcohol Exam: Pre-Anes Outpt Exam: alert, oriented x 3 and regular rate & rhythm Airway: Submandibular: WNL Cervical ROM: WNL MP: 2 Dentition: False Pulmonary: Pulmonary: COPD CV/HEM: CV/HEM: HTN Comments: lymphoma, chronic steroids : : Chronic renal Insufficiency Musc/skel: Comments: Infective myositis Anesthetic Plan: ASA status: 3 Anesthesia: General Risk of > 500 ml blood loss (7ml/kg in children): Yes, adequate IV access and fluids planned Meds/Allergies Current Medications: Current Medications Generic Name Dose Route Start Last Admin Trade Name Freq PRN Reason Stop Dose Admin Hydrocodone Bitart /Acetaminophen 1 tab 05/18/21 17:35 05/18/21 18:43 Hydrocodone-Acet aminophen 5-325 Mg Tablet PO 1 tab Q8H PRN Administration MODERATE TO SEVER E PAIN Hydrocodone Bitart /Acetaminophen 1 tab 05/18/21 20:49 05/19/21 06:25 Hydrocodone-Acet aminophen 10-325 M g Tablet PO 1 tab Q4H PRN Administration pain Famotidine 20 mg 05/18/21 17:45 05/19/21 05:17 Famotidine 20 Mg /2 Ml Inj IVP 20 mg Q12H MAY Administration Sodium Chloride 1,000 mls @ 50 ml s/hr 05/18/21 17:45 05/18/21 20:29 Sodium Chloride 0.9% IV 50 mls/hr .Q20H MAY Administration Insulin Human Lisp ro 0 unit 05/18/21 21:00 05/18/21 21:28 Insulin Lispro 1 00 Unit/1 Ml SUBCUT 4 unit WM&BEDTIME MAY Administration Protocol Ropinirole HCl 2 mg 05/18/21 21:00 05/18/21 21:29 Ropinirole 2 Mg Tablet PO 2 mg BEDTIME MAY Administration PFSH Anesthesia PFSH: Medical History (Updated 05/18/21 @ 17:44 by Marshal Mixon MD) Abdominal aortic aneurysm Status post repair Acute pain Anemia due to GI blood loss Bigeminy C. difficile diarrhea improved Cellulitis Chronic back pain Chronic kidney disease Chronic steroid use Colon polyps COPD (chronic obstructive pulmonary disease) COPD (chronic obstructive pulmonary disease) Essential (primary) hypertension Gastritis GERD (gastroesophageal reflux disease) Giant cell arteritis clinical diagnosis Ground glass opacity present on imaging of lung Immunization counseling Infective myositis Leg wound, left Mixed hyperlipidemia Neuropathy PAD (peripheral artery disease) Personal history of arterial venous malformation (AVM) PMR (polymyalgia rheumatica) Pneumocystis jiroveci pneumonia resolving Pneumonia Pulmonary emboli Pyomyositis Renal cyst Restless leg syndrome Rheumatic arteritis Right temporal headache Sepsis with acute hypoxic respiratory failure Seropositive rheumatoid arthritis of multiple sites Subacromial bursitis of left shoulder joint s/p steroid injection, resolved Tick bite Tobacco abuse Trochanteric bursitis, right hip Surgical History History of back surgery History of colonoscopy History of elbow surgery History of esophagogastroduodenoscopy (EGD) S/P excisional debridement Family History Other CAD (coronary artery disease) Cancer Diabetes Denies family history of Rheumatoid arthritis Lupus Chronic kidney disease (CKD) Stroke Social History Smoking and tobacco status: current every day smoker cigarettes [ Other cigarette details: trying to quit, wearing patches ] Alcohol intake: current Alcohol intake frequency: holidays/special occasions only Lives independently: Yes Household members: spouse Housing: House Marital status: Current occupational status: retired History of recent travel: No Data Anesthesia CBC & Chem 7: 05/18/21 20:18 05/18/21 20:18 Other Labs: Laboratory Results - last 48 hr 05/18/21 05/18/21 05/18/21 04:56 19:48 20:15 WBC RBC Hgb Hct MCV MCH MCHC RDW Plt Count MPV Neut % (Auto) Lymph % (Auto) [place] % (Auto) Eos % (Auto) Baso % (Auto) Neut # (Auto) Lymph # (Auto) [place] # (Auto) Eos # (Auto) Baso # (Auto) Nucleated RBC % (auto) Nucleated RBCs # Sodium Potassium Chloride Carbon Dioxide Anion Gap BUN Creatinine GFR Calculation Glucose POC Glucose Estimat Average Glucose Hemoglobin A1c Calculated Osmolality Calcium Phosphorus Magnesium Iron TIBC % Saturation Unsat Iron Binding Total Bilirubin AST ALT Alkaline Phosphatase NT-Pro-B Natriuret Pep Total Protein Albumin Globulin Triglycerides Cholesterol LDL Cholesterol, Calc Total VLDL Cholesterol HDL Cholesterol LDL/HDL Ratio Cholesterol/HDL Ratio Vitamin B12 25-OH Vitamin D Total Cancelled 1,25 Dihydroxy Vit D2 Cancelled 1,25 Dihydroxy Vit D3 Cancelled Folate > 20.0 Procalcitonin TSH Free T4 Free T3 Urine Color Yellow Urine Appearance Hazy A Urine pH 7 Ur Specific [place] 1.005 Urine Protein 1+ H Urine Glucose (UA) Norm Urine Ketones Negative Urine Blood Neg Urine Nitrate Negative Urine Bilirubin Neg Urine Urobilinogen Norm Ur Leukocyte Esterase Negative Urine RBC 0-4 H Urine WBC None Ur Squamous Epith Cells None Amorphous Sediment Not Reportable Urine Bacteria None 05/18/21 05/18/21 05/18/21 20:18 20:18 20:18 WBC 19.1 H RBC 4.73 Hgb 14.6 Hct 47.1 MCV 99.6 H MCH 30.9 MCHC 31.0 RDW 15.3 H Plt Count 192 MPV 11.1 H Neut % (Auto) 70.1 Lymph % (Auto) 18.9 [place] % (Auto) 7.9 Eos % (Auto) 0.3 Baso % (Auto) 0.4 Neut # (Auto) 13.35 H Lymph # (Auto) 3.6 [place] # (Auto) 1.5 H Eos # (Auto) 0.1 Baso # (Auto) 0.1 Nucleated RBC % (auto) 0 Nucleated RBCs # 0.0 Sodium Cancelled Potassium Cancelled Chloride Cancelled Carbon Dioxide Cancelled Anion Gap Cancelled BUN Cancelled Creatinine Cancelled GFR Calculation Cancelled Glucose Cancelled POC Glucose Estimat Average Glucose Hemoglobin A1c Calculated Osmolality Cancelled Calcium Cancelled Phosphorus Magnesium Iron 44 L TIBC 247 % Saturation 17.8 L Unsat Iron Binding 203 Total Bilirubin Cancelled AST Cancelled ALT Cancelled Alkaline Phosphatase Cancelled NT-Pro-B Natriuret Pep 1237 H Total Protein Cancelled Albumin Cancelled Globulin Cancelled Triglycerides Cholesterol LDL Cholesterol, Calc Total VLDL Cholesterol HDL Cholesterol LDL/HDL Ratio Cholesterol/HDL Ratio Vitamin B12 Cancelled 25-OH Vitamin D Total Cancelled 1,25 Dihydroxy Vit D2 1,25 Dihydroxy Vit D3 Folate Procalcitonin 0.11 TSH 0.22 L Cancelled Free T4 Free T3 Urine Color Urine Appearance Urine pH Ur Specific [place] Urine Protein Urine Glucose (UA) Urine Ketones Urine Blood Urine Nitrate Urine Bilirubin Urine Urobilinogen Ur Leukocyte Esterase Urine RBC Urine WBC Ur Squamous Epith Cells Amorphous Sediment Urine Bacteria 05/18/21 05/18/21 05/19/21 20:18 21:13 04:56 WBC RBC Hgb Hct MCV MCH MCHC RDW Plt Count MPV Neut % (Auto) Lymph % (Auto) [place] % (Auto) Eos % (Auto) Baso % (Auto) Neut # (Auto) Lymph # (Auto) [place] # (Auto) Eos # (Auto) Baso # (Auto) Nucleated RBC % (auto) Nucleated RBCs # Sodium Potassium Chloride Carbon Dioxide Anion Gap BUN Creatinine GFR Calculation Glucose POC Glucose 149 H Estimat Average Glucose 146 Hemoglobin A1c 6.7 H Calculated Osmolality Calcium Phosphorus Magnesium Iron TIBC % Saturation Unsat Iron Binding Total Bilirubin AST ALT Alkaline Phosphatase NT-Pro-B Natriuret Pep Total Protein Albumin Globulin Triglycerides Cholesterol LDL Cholesterol, Calc Total VLDL Cholesterol HDL Cholesterol LDL/HDL Ratio Cholesterol/HDL Ratio Vitamin B12 25-OH Vitamin D Total 1,25 Dihydroxy Vit D2 1,25 Dihydroxy Vit D3 Folate Procalcitonin TSH Free T4 1.13 Free T3 2.4 Urine Color Urine Appearance Urine pH Ur Specific [place] Urine Protein Urine Glucose (UA) Urine Ketones Urine Blood Urine Nitrate Urine Bilirubin Urine Urobilinogen Ur Leukocyte Esterase Urine RBC Urine WBC Ur Squamous Epith Cells Amorphous Sediment Urine Bacteria 05/19/21 05/19/21 05/19/21 04:56 04:56 06:04 WBC RBC Hgb Hct MCV MCH MCHC RDW Plt Count MPV Neut % (Auto) Lymph % (Auto) [place] % (Auto) Eos % (Auto) Baso % (Auto) Neut # (Auto) Lymph # (Auto) [place] # (Auto) Eos # (Auto) Baso # (Auto) Nucleated RBC % (auto) Nucleated RBCs # Sodium Potassium Chloride Carbon Dioxide Anion Gap BUN Creatinine GFR Calculation Glucose POC Glucose Estimat Average Glucose Hemoglobin A1c Calculated Osmolality Calcium Phosphorus Cancelled 3.5 Magnesium Cancelled 1.8 Iron TIBC % Saturation Unsat Iron Binding Total Bilirubin AST ALT Alkaline Phosphatase NT-Pro-B Natriuret Pep Total Protein Albumin Globulin Triglycerides Cancelled 247 H Cholesterol Cancelled 314 H LDL Cholesterol, Calc Cancelled 213 H Total VLDL Cholesterol Cancelled HDL Cholesterol Cancelled 52 L LDL/HDL Ratio 4.10 H Cholesterol/HDL Ratio Cancelled 6.04 H Vitamin B12 25-OH Vitamin D Total 1,25 Dihydroxy Vit D2 1,25 Dihydroxy Vit D3 Folate Procalcitonin TSH Free T4 Free T3 Urine Color Urine Appearance Urine pH Ur Specific [place] Urine Protein Urine Glucose (UA) Urine Ketones Urine Blood Urine Nitrate Urine Bilirubin Urine Urobilinogen Ur Leukocyte Esterase Urine RBC Urine WBC Ur Squamous Epith Cells Amorphous Sediment Urine Bacteria 05/19/21 06:24 WBC RBC Hgb Hct MCV MCH MCHC RDW Plt Count MPV Neut % (Auto) Lymph % (Auto) [place] % (Auto) Eos % (Auto) Baso % (Auto) Neut # (Auto) Lymph # (Auto) [place] # (Auto) Eos # (Auto) Baso # (Auto) Nucleated RBC % (auto) Nucleated RBCs # Sodium Potassium Chloride Carbon Dioxide Anion Gap BUN Creatinine GFR Calculation Glucose POC Glucose 103 Estimat Average Glucose Hemoglobin A1c Calculated Osmolality Calcium Phosphorus Magnesium Iron TIBC % Saturation Unsat Iron Binding Total Bilirubin AST ALT Alkaline Phosphatase NT-Pro-B Natriuret Pep Total Protein Albumin Globulin Triglycerides Cholesterol LDL Cholesterol, Calc Total VLDL Cholesterol HDL Cholesterol LDL/HDL Ratio Cholesterol/HDL Ratio Vitamin B12 25-OH Vitamin D Total 1,25 Dihydroxy Vit D2 1,25 Dihydroxy Vit D3 Folate Procalcitonin TSH Free T4 Free T3 Urine Color Urine Appearance Urine pH Ur Specific [place] Urine Protein Urine Glucose (UA) Urine Ketones Urine Blood Urine Nitrate Urine Bilirubin Urine Urobilinogen Ur Leukocyte Esterase Urine RBC Urine WBC Ur Squamous Epith Cells Amorphous Sediment Urine Bacteria Micro: Microbiology 05/18/21 19:48 Blood Culture - Preliminary Blood SPECIMEN COLLECTED 05/18/21 20:18 Blood Culture - Preliminary Blood SPECIMEN COLLECTED Cardiac Studies: No Data to Display
--- NOTE | 2021-05-19 08:36 | P.CONIM_ITS ---
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 Wound noted to be improving per [facility] notes review. Recent CT imaging of limb without signs of residual abscess or cellulitis. Presents for direct admission today sent from Alyx De Leon's office after patient reported fall at home and was found to have hip fracture on X ray imaging. Denies any fever, chest pain, dyspnea, palpitations, syncope, nausea or vomiting. States fall to be a mechanical fall. Review of Systems General: Reports: 10 or more systems reviewed and unremarkable except in HPI and below Const: Denies: fever(s), chills, body aches, change in appetite, change in weight, malaise, night sweats, diaphoresis, change in sleep pattern, daytime s leepiness or snoring Eyes: Denies: change in vision, blurry vision, photophobia, eye discomfort or eye discharge ENMT: Denies: throat pain, enlarged tonsils, hoarseness, mouth pain, oral sores, dry mouth, tinnitus, nasal congestion or post nasal drip Card: Denies: chest pain, palpitations, irregular heart rhythm, edema, swelling of feet/ankles, lightheadedness, syncope, pre-syncope, dyspnea on exertion, orthopnea, leg pain with exertion or acrocyanosis Resp: Denies: dyspnea, productive cough, non-productive cough, wheezing, stridor, pain on inspiration, change in phlegm color, hemoptysis or chest congestion GI: Denies: abdominal pain, nausea, vomiting, hematemesis, coffee ground emesis, dysphagia, heartburn, diarrhea, constipation, bloating, GI cramping, change in bowel habits, pain on defecation, hematochezia or melena : Denies: flank pain, difficulty urinating, dysuria, urinary frequency, urinary urgency, urinary hesitancy, urinary dribbling, difficulty starting urination, change in urine stream, nocturia or hematuria Musc: Denies: neck pain, back pain, extremity pain, joint pain, joint swelling, joint redness, joint warmth, joint stiffness or limited range of motion Skin/Breast: Reports: surgical incision Neuro: Denies: headache(s), numbness in extremities, weakness in extremities, sensory changes, lack of coordination, difficulty walking, frequent falls, dizziness, vertigo, confusion, Slurred speech present, difficulty communicating thoughts or seizure-like activity Psych: Denies: anxiety, depression, mood swings, panic attacks, hopelessness or irritability Endo: Denies: polyuria, polydipsia, tired all the time, cold intolerance, excessive sweating, flushing or heat intolerance Demar/Lymph: Denies: easy bruising or easy bleeding All/Imm: Denies: tongue swelling, facial swelling or acute wheezing Meds/Allergies Home Medications and Allergies Home Medications Medication Instructions Recorded Confirmed Last Taken Type ropinirole 2 mg tablet 2 mg PO BEDTIME #90 tab 07/08/20 05/18/21 05/17/21 Rx silver sulfadiazine 1 % topical 1 applic TOPICAL DAILY #50 g 09/26/20 05/18/21 05/17/21 Rx cream nicotine 21 mg/24 hr daily 1 patch TRANSDERMA Q24H #28 each 11/10/20 05/18/21 Unknown Rx transdermal patch cholecalciferol (vitamin D3) 50 50 mcg PO DAILY #30 cap 12/16/20 05/18/21 05/18/21 Rx mcg (2,000 unit) capsule Actemra 162 mg SUBCUT Q7D 01/07/21 05/18/21 01/22/21 History aspirin 81 mg PO DAILY 01/07/21 05/18/21 05/18/21 History Narcan 1 spray INTRANASAL Q3M PRN 01/25/21 05/18/21 Unknown History esomeprazole magnesium [Nexium] 40 mg PO DAILY 01/25/21 05/18/21 05/18/21 History dzzww-au-3-oso-vlh-ksmnxur-ast 1 cap PO DAILY 01/25/21 05/18/21 05/18/21 History [krill oil] multivitamin 1 tab PO DAILY 01/25/21 05/18/21 02/05/21 History ferrous sulfate 325 mg PO BIDWMEAL #0 tab 01/30/21 05/18/21 05/18/21 Rx Levemir FlexTouch U-100 Insuln 10 unit SUBCUT DAILY 02/06/21 05/18/21 01/30/21 History metoprolol tartrate 25 mg PO BID 02/06/21 05/18/21 05/18/21 History amlodipine 10 mg PO DAILY #30 tab 02/10/21 05/18/21 05/18/21 Rx cetirizine 10 mg tablet See Rx Instructions .ROUTE 02/11/21 05/18/21 05/18/21 Rx .COMPLEX #30 tablet fluticasone furoate 200 See Rx Instructions .ROUTE 02/11/21 05/18/21 05/18/21 Rx mcg-vilanterol 25 mcg/dose .COMPLEX #60 blister inhalation powder ipratropium bromide 42 mcg (0.06 See Rx Instructions .ROUTE 02/11/21 05/18/21 05/18/21 Rx %) nasal spray .COMPLEX #15 ml ipratropium 20 mcg-albuterol 100 1 puff INHALATION Q6H #4 gm 02/17/21 05/18/21 05/18/21 Rx mcg/actuation mist for inhalation valacyclovir 1 gram tablet 1,000 mg PO BID #14 tab 03/03/21 05/18/21 Unknown Rx atovaquone 750 mg/5 mL oral 1,500 mg PO DAILY 90 Days #210 ml 03/30/21 05/18/21 05/18/21 Rx suspension gabapentin 300 mg capsule 300 mg PO BID #60 cap 03/30/21 05/18/21 05/18/21 Rx prednisone 10 mg tablet 20 mg PO DAILY #60 tab 03/30/21 05/18/21 05/18/21 Rx fluticasone propionate 50 1 spray INTRANASAL BID #15.8 ml 04/13/21 05/18/21 05/18/21 Rx mcg/actuation nasal spray,suspension furosemide 40 mg tablet 40 mg PO DAILY #90 tab 05/12/21 05/18/21 05/18/21 Rx hydrocodone 10 mg-acetaminophen 1 tab PO Q4H PRN 30 Days #60 tab 05/12/21 05/18/21 05/18/21 Rx 325 mg tablet Allergies Allergy/AdvReac Type Severity Reaction Status Date / Time Penicillins Allergy unknown Verified 05/18/21 15:09 Current Medications Current Medications Generic Name Dose Route Start Last Admin Trade Name Freq PRN Reason Stop Dose Admin Hydrocodone Bitart/Acetaminophen 1 tab 05/18/21 17:35 05/18/21 18:43 Hydrocodone-Acetaminophen 5-325 Mg Tablet PO 1 tab Q8H PRN Administration MODERATE TO SEVERE PAIN Hydrocodone Bitart/Acetaminophen 1 tab 05/18/21 20:49 05/19/21 06:25 Hydrocodone-Acetaminophen 10-325 Mg Tablet PO 1 tab Q4H PRN Administration pain Famotidine 20 mg 05/18/21 17:45 05/19/21 05:17 Famotidine 20 Mg/2 Ml Inj IVP 20 mg Q12H MAY Administration Sodium Chloride 1,000 mls @ 50 mls/hr 05/18/21 17:45 05/18/21 20:29 Sodium Chloride 0.9% IV 50 mls/hr .Q20H MAY Administration Insulin Human Lispro 0 unit 05/18/21 21:00 05/18/21 21:28 Insulin Lispro 100 Unit/1 Ml SUBCUT 4 unit WM&BEDTIME MAY Administration Protocol Ropinirole HCl 2 mg 05/18/21 21:00 05/18/21 21:29 Ropinirole 2 Mg Tablet PO 2 mg BEDTIME MAY Administration PFSH Acute PFSH: Medical History (Updated 05/18/21 @ 17:44 by Marshal Mixon MD) Abdominal aortic aneurysm Status post repair Acute pain Anemia due to GI blood loss Bigeminy C. difficile diarrhea improved Cellulitis Chronic back pain Chronic kidney disease Chronic steroid use Colon polyps COPD (chronic obstructive pulmonary disease) COPD (chronic obstructive pulmonary disease) Essential (primary) hypertension Gastritis GERD (gastroesophageal reflux disease) Giant cell arteritis clinical diagnosis Ground glass opacity present on imaging of lung Immunization counseling Infective myositis Leg wound, left Mixed hyperlipidemia Neuropathy PAD (peripheral artery disease) Personal history of arterial venous malformation (AVM) PMR (polymyalgia rheumatica) Pneumocystis jiroveci pneumonia resolving Pneumonia Pulmonary emboli Pyomyositis Renal cyst Restless leg syndrome Rheumatic arteritis Right temporal headache Sepsis with acute hypoxic respiratory failure Seropositive rheumatoid arthritis of multiple sites Subacromial bursitis of left shoulder joint s/p steroid injection, resolved Tick bite Tobacco abuse Trochanteric bursitis, right hip Surgical History History of back surgery History of colonoscopy History of elbow surgery History of esophagogastroduodenoscopy (EGD) S/P excisional debridement Family History Other CAD (coronary artery disease) Cancer Diabetes Denies family history of Rheumatoid arthritis Lupus Chronic kidney disease (CKD) Stroke Social History Smoking and tobacco status: current every day smoker cigarettes [ Other cigarette details: trying to quit, wearing patches ] Alcohol intake: current Alcohol intake frequency: holidays/special occasions only Lives independently: Yes Household members: spouse Housing: House Marital status: Current occupational status: retired History of recent travel: No Dietary Habits: Current diet type/program: regular Vitals/I&O/Wt Last Vital Signs Temp 97.4 F L 05/19/21 07:46 Pulse 87 05/19/21 07:46 Resp 18 05/19/21 07:46 BP 188/99 05/19/21 07:46 Pulse Ox 94 05/19/21 07:46 05/18/21 05/19/21 05/19/21 22:59 06:59 14:59 Output Total 775 / 775 950 / 1725 Balance -775 / -775 -950 / -1725 Weight last 48 hrs Weight 207 lb 11.2 oz Weight 201 lb 3.2 oz Physical Exam Narrative: EXAM NARRATIVE: Left leg wound vac CONSTITUTIONAL: The patient is a normal appearing [] in no apparent distress. GENERAL: Patient in no acute distress. CARDIAC: Regular rate and rhythm. CHEST: Normal inspiratory effort, normal respiratory rate. ABDOMEN: Soft and nontender. SKIN: Clear, warm and intact. NEURO?PSYCH: The patient is alert and oriented to person, place and time. Sensorv /SILT Motor StrengthShoulder abduction C5 5/5Wrist extension C6 5/5Elbow extension C7 5/5Hand Bagging Salvager C8 5/5Finger abduction T15/5 Radial/ Ulnar/ Median n intact LowerSensory (SILT)Motor StrengthHin flexion L2/3Ant/inner thigh 5/5Hip adduction L2/3 5/5Knee extension L4 Lat thigh, 5/5Toe dorsiflexion L5 5/5Ankle dorsiflexion L5/ K60Ozyepsf flexion S1 5/5 DTRBleeps 2+Triceps 2+Brachioradialis 2+Patellar 2+Achilles 2+ MUSCULOSKELETAL: [] UPPEREXTREMITIES: The patient had full active ROM in fingers, wrist, elbow, and shoulder. The patient demonstrated ability to fully flex/extend/abduct/adduct fingers, make ok sign, cross 2nd/3rd digits, extend 1st digit fully.. Radial pulse 2+, CR<2 seconds. LOWER EXTREMITIES: Pt has full, active ROM of toes, ankle, knee, and hip. Dorsalis pedis/posterior tibialis pulses 2+, CR<2 seconds. SPINE: Skin warm, dry, intact. Data Micro: Micro: Microbiology 05/18/21 19:48 Blood Culture - Pr eliminary Blood SPECIMEN [facility] KAM 05/18/21 20:18 Blood Culture - Pr eliminary Blood SPECIMEN [facility] A&P Assessment and plan (1) Closed left hip fracture: Patient has a left unstable femoral neck fracture. Unfortunately patient also has a wound on his leg. Which is an abscess back in December. At this point the wound does not look infected at all. My plan at this time is to do a left hip hemiarthroplasty. I did discuss with the daughter and the patient that he is definitely at high risk for getting infection. Status: Acute Consult Attestations Medical Necessity Statement: per primary service Coding Level of Care Code Acute Hander In for Ne Haas Diagnoses Closed left hip fracture S72.002A
--- NOTE | 2021-05-19 08:40 | W.PM.OPSUD ---
Surgery/Procedure H&P Update DATE OF PROCEDURE: May 19, 2021 DATE H&P PERFORMED: 05/18/21 H&P UPDATE INFORMATION: I have reviewed H&P completed within last 30 days, I have examined patient prior to procedure and No changes to prior documentation PREOP DIAGNOSIS: gi bleed PLANNED PROCEDURE: Operation Date: 05/19/21 09:30 Proposed Procedures p Total Hip Arthroplasty(Left) - Johnnie Archuleta DO
[2021-05-19] MEDS: clindamycin 900 MG/50 ML PREMIX 100 MG IV ×2 (09:17→17:34)
--- NOTE | 2021-05-19 10:18 | P.OP_ITS ---
Operative Report Date of procedure: May 19, 2021 Pre-op Diagnosis: Left femoral neck fracture; left thigh wound Post-op diagnosis: same Procedure Done: 1. Left hip hemiarthroplasty 2. wound Vac change left thigh wound 1 inch by 1 inch 1/4 inch deep Surgeon: Johnnie Archuleta Tower Attendant: Khari Watts Tower Attendant: Harini was needed for helping to reduce the hip and his expertise with holding reduction and holding the leg. Aly also participated in positioning the patient on and off the bed closure of the wound and retraction. As well as suction. Anesthesia: General Estimated blood loss (mL): 50 Condition: stable Disposition: PACU Procedure: 1. Left hip hemiarthroplasty 2. 2. wound Vac change left thigh wound 1 inch by 1 inch 1/4 inch deep Patient was brought to the operative suite after undergoing anesthesia was placed in the lateral decubitus position. All areas impingement well-padded. The wound VAC that was on the anterior thigh was removed. The leg was then prepped and draped in normal sterile fashion. Skin tear is made over the lateral thigh. The IT band was split modified Blackwood approach was used. The abductors and capsule taken anteriorly. Femoral neck cut was made approximate fingerbreadth above the lesser trochanter. The femoral head was then removed. Measured to be 49. The attention was then brought to the proximal femur. The box toe flanger stitchdowns was used on the tip of the greater trochanter. Followed by the canal finder followed by the lateralizer. The canal was broached to 7. A size 7 stem was inserted. And then a negative neck length of 4 was used and a 49 mm head was used. The hip was then reduced felt to be stable in all ranges of motion. And then the hip was closed in layered fashion starting with a capsule abductors and then the IT band. Skin was closed with Vicryl and randall. Attention was then brought to the anterior thigh wound. Is approximately 1 inch x 1 inch and a fourth of an inch deep. The wound VAC was applied and had good s uction. Sterile dressings were applied and patient was transferred to the PACU in stable condition.
[2021-05-19] MEDS: vancomycin 1,000 MG SDV 1000 MG XX (10:24)
[2021-05-19] MEDS: sodium chloride 0.9% 1,000 ML 30 ML IV (10:50)
[2021-05-19 11:59] LABS: Glucose Point of Care 155 mg/dL (70-110)
[2021-05-19] MEDS: cefTRIAXone 1,000 MG in sodium chloride 0.9% (plus) 50 ML 100 MG IV (13:58)
--- NOTE | 2021-05-19 14:20 | ANE.PACU2 ---
Inpatient post-anesthesia follow up: Airway intact: Yes Vital signs: Temperature 98.0 F Pulse Rate 90 Respiratory Rate 16 Blood Pressure 148/80 Pulse Oximetry 97 Oxygen Delivery Me thod Nasal Cannula Oxygen Flow Rate 3 Fraction of Inspir ed Oxygen Hydration adequate: Yes Nausea and vomiting: No Pain level: 2 Mental status: Baseline
[2021-05-19 14:55] LABS: Procalcitonin 0.11 ng/mL (0-0.5)
--- NOTE | 2021-05-19 16:23 | PM.PN ---
Subjective Subjective: Interval history: Seen postoperatively today. No acute events overnight. On examination lying comfortably in bed. States pain is well controlled. Has remained afebrile and hemodynamically stable. Has not received any oral antihypertensives today morning. Denies any nausea vomiting, headache. Vitals/I&O/Wt Last Vital Signs Temp 98.1 F 05/19/21 14:46 Pulse 84 05/19/21 14:46 Resp 17 05/19/21 14:46 BP 154/91 05/19/21 14:46 Pulse Ox 96 05/19/21 14:46 05/19/21 05/19/21 05/19/21 06:59 14:59 22:59 Intake Total 300 / 300 Output Total 950 / 1725 400 / 400 Balance -950 / -1725 -100 / -100 Weight last 48 hrs Weight 94.211 kg Weight 91.263 kg Physical Exam Narrative: EXAM NARRATIVE: General: No acute distress, AO x3 HEENT: PERRLA, pupils bilaterally equal and reactive Chest: Normal vesicular breath sounds, no added sounds, equal good air entry bilaterally CVS: S1-S2 regular, no murmurs, no tachycardia, no gallops, no rubs Abdomen: Soft, nontender, no organomegaly, bowel sounds present Neuro: No focal deficits, no facial deformity, AO x3, power 5/5 in all limbs Data : 05/18/21 20:18 05/18/21 20:18 Micro: Microbiology 05/18/21 15:25 MRSA Culture - Final Nose 05/18/21 19:48 Blood Culture - Preliminary Blood SPECIMEN COLLECTED 05/18/21 20:18 Blood Culture - Preliminary Blood SPECIMEN COLLECTED A&P Assessment and plan (1) Closed left hip fracture: left subcapital femur fracture as noted on X ray Postoperative day 0. Pain management,, anticoagulation, physical therapy as per orthopedics team. We will monitor hemoglobin postoperatively. Given chronic steroid use check vitamin D. Status: Acute (2) Infective myositis: Treated with prolonged course of abx cefazolin in December 2020, completed course Still with wound vac in place. Follows up with wound care center. Dressings done on Tuesday and Tuesday. Wound VAC dressing changed during OR on May 19. Wound noted to be healing well per last notes review Recently complained of swelling over leg with vac in place, CT with no abscess or cellulitis from 05/15 Lower limb Dopplers awaited. Patient does have mild leukocytosis. Does not have any localizing signs of infection. Check procalcitonin, blood cultures so far preliminary negative. Start on ceftriaxone 1 g IV daily. Status: Chronic (3) Pneumocystis jiroveci pneumonia: Resolved, CXR with resolved infiltrates Emphysematous disease noted. Continue with atovaquone prophylaxis. Status: Acute Qualifiers: Laterality: bilateral Lung location: unspecified part of lung Qualified Code(s): B59 - Pneumocystosis (4) Chronic steroid use: for RA and GCA continue prednisone 20mg po daily with atovaquone 1500mg daily ppx Status: Acute Additional A&P Information Hyperlipidemia: Lipid panel appreciated. Start patient atorvastatin 40 mg daily. Hypertension: Goal blood pressure less than 140/90 [place]. Continue with home dose of amlodipine and metoprolol. Full code. Protonix for PUD prophylaxis. DVT prophylaxis as per surgical team. Cardiac carb consistent diet. Physical therapy. Attestations Medical Necessity Statement*: Requires further hospitalization for management of left hip fracture Time Spent in Patient Care: Greater than 35 minutes (>than 50% of time spent in counselling and/or direct pt care on unit). Coding Level of Care Code Acute Axle And Frame Mechanic for g Fwd Diagnoses Closed left hip fracture S72.002A Infective myositis M60.009 Pneumocystis jiroveci pneumonia B59 Laterality: bilateral Lung location: unspecified part of lung Chronic steroid use
--- NOTE | 2021-05-19 17:19 | PC.NURSE ---
Patient states that he ate 2 chocolate covered cherries about 1400 is why hi blood sugar is so high.
[2021-05-19 17:23] LABS: Basophils # 0.1 10^3/uL (0.0-0.1); Basophils % 0.3 %; Hematocrit 43.4 % (42.0-52.0); Hemoglobin 13.6 g/dL (11.7-16.6); Lymphocytes # 0.7 10^3/uL (0.8-4.8); Mean Corpuscular HGB Conc 31.3 g/dL (30.0-36.0); Mean Corpuscular Hemoglobin 31.2 pg (28.0-34.0); Mean Corpuscular Volume 99.5 fl (80-94); Mean Platelet Volume 12.4 fL (7.4-10.4); Monocytes # 0.8 10^3/uL (0.2-0.9); Monocytes % 5.1 %; Neutrophils # 14.64 10^3/uL (1.8-7.7); Neutrophils % 88.1 %; Nucleated Red Blood Cells % 0 %; Platelet Count 203 10^3/cmm (130-400); Red Blood Count 4.36 10^6/uL (4.1-5.3); Red Cell Distribution Width 15.5 % (12.1-15.1); White Blood Count 16.6 10^3/uL (4.0-10.0)
[2021-05-19 17:25] LABS: Glucose Point of Care 459 mg/dL (70-110)
[2021-05-19] MEDS: metoprolol tartrate 25 mg Tablet PO (17:36)
[2021-05-19] MEDS: gabapentin 300 mg Capsule PO (17:36)
[2021-05-19] MEDS: ferrous gluconate 324 mg Tablet PO (17:36)
[2021-05-19] MEDS: insulin lispro 100 unit/1 mL SUBCUT ×2 (17:37→20:31)
[2021-05-19] MEDS: sodium chloride 0.9% 1,000 ML 50 ML IV (17:42)
[2021-05-19 17:43] LABS: Alanine Aminotransferase 16 U/L (0-41); Albumin Level 3.4 g/dL (3.5-5.2); Alkaline Phosphatase 81 IU/L (40-130); Anion Gap 15.7 (5-19); Aspartate Amino Transferase 16 U/L (0-40); Blood Urea Nitrogen 30 mg/dL (8-23); Calcium 8.8 mg/dL (8.5-10.5); Carbon Dioxide 29 mmol/L (22-29); Chloride 99 mmol/L (98-107); Globulin 2.6 g/dL (1.3-4.6); Glucose 316 mg/dL (65-115); Osmolality Calculated 306 mOsm/kg (285-295); Potassium 4.7 mmol/L (3.5-5.1); Sodium 139 mmol/L (136-145); Total Bilirubin 0.2 mg/dL (0.15-1.2)
[2021-05-19 17:49] LABS: Creatinine Clr Calc Pharmacy 50.6394
--- NOTE | 2021-05-19 18:58 | PC.NURSE ---
Report to Juliann PERSON at this time.
[2021-05-19 20:17] LABS: Glucose Point of Care 214 mg/dL (70-110)
[2021-05-19] MEDS: atorvastatin 40 mg Tablet PO (20:31)
[2021-05-19] MEDS: ropinirole 2 mg Tablet PO (20:31)
[2021-05-19] MEDS: enoxaparin 40 mg/0.4 mL Syringe SUBCUT (21:43)
[2021-05-20] VITALS: BP 142/77; PULSE 70; RESP 17; TEMP 36.4; O2SAT 95
[2021-05-20 04:00] VITALS: BP 155/87; PULSE 86; RESP 17; TEMP 36.9; O2SAT 91
[2021-05-20] MEDS: famotidine 20 mg/2 mL INJ IVP (04:56)
[2021-05-20] MEDS: HYDROcodone-acetaminophen 10-325 mg Tablet 1 TAB PO (04:56)
[2021-05-20 06:16] LABS: Glucose Point of Care 126 mg/dL (70-110)
[2021-05-20 06:26] LABS: Basophils # 0.1 10^3/uL (0.0-0.1); Basophils % 0.3 %; Eosinophils % 0.1 %; Hematocrit 39.9 % (42.0-52.0); Hemoglobin 12.8 g/dL (11.7-16.6); Lymphocytes % 17.7 %; Mean Corpuscular HGB Conc 32.1 g/dL (30.0-36.0); Mean Corpuscular Hemoglobin 31.5 pg (28.0-34.0); Mean Corpuscular Volume 98.3 fl (80-94); Monocytes % 11.8 %; Neutrophils # 11.49 10^3/uL (1.8-7.7); Neutrophils % 67.5 %; Nucleated Red Blood Cells % 0 %; Platelet Count 168 10^3/cmm (130-400); Red Blood Count 4.06 10^6/uL (4.1-5.3); Red Cell Distribution Width 15.3 % (12.1-15.1)
--- NOTE | 2021-05-20 06:39 | PM.PN ---
Subjective Subjective: Interval history: POD 1 Mr Lamb is sitting at the bedside with mild left hip pain. Denies any chest pain, dizziness, shortness of breath. Vitals/I&O/Wt Last Vital Signs Temp 98.4 F 05/20/21 04:00 Pulse 86 05/20/21 04:00 Resp 17 05/20/21 04:00 BP 155/87 05/20/21 04:00 Pulse Ox 91 05/20/21 04:00 05/19/21 05/19/21 05/20/21 14:59 22:59 06:59 Intake Total 300 / 300 1160 / 1460 50 / 1510 Output Total 400 / 400 350 / 750 1000 / 1750 Balance -100 / -100 810 / 710 -950 / -240 Weight last 48 hrs Weight 215 lb 1.6 oz Weight 207 lb 11.2 oz Weight 201 lb 3.2 oz Physical Exam Narrative: EXAM NARRATIVE: Morning he is alert oriented x3 has good general appearance normal normal affect. Wiggles all digits on both lower extremities. Some mild bloody drainage from the left hip incision. Hemovac drain is functioning. Normal sensation to light touch down both lower extremities. Calves are supple. Data : 05/20/21 05:32 05/19/21 16:43 Micro: Microbiology 05/18/21 19:48 Blood Culture - Preliminary Blood NEGATIVE TO DATE 05/18/21 20:18 Blood Culture - Preliminary Blood NEGATIVE TO DATE 05/18/21 15:25 MRSA Culture - Final Nose A&P Assessment and plan (1) Closed displaced fracture of left femoral neck: Physical therapy will continue to work with mobilizing. I have social sciences chair work for placement. Continue dressing changes as needed. See him back in the office in 2 weeks time for reevaluation. Status: Acute Attestations Medical Necessity Statement*: Left Hip Fracture and will Defer to medical team Coding Level of Care Code Acute Experimental Display Builder for Ne Haas Diagnoses Closed displaced fracture of left femoral neck S72.002A
[2021-05-20 06:46] LABS: Alanine Aminotransferase 14 U/L (0-41); Albumin Level 2.9 g/dL (3.5-5.2); Alkaline Phosphatase 69 IU/L (40-130); Blood Urea Nitrogen 29 mg/dL (8-23); Calcium 8.8 mg/dL (8.5-10.5); Carbon Dioxide 28 mmol/L (22-29); Chloride 101 mmol/L (98-107); Globulin 2.4 g/dL (1.3-4.6); Glucose 99 mg/dL (65-115); Osmolality Calculated 296 mOsm/kg (285-295); Sodium 140 mmol/L (136-145); Total Bilirubin 0.3 mg/dL (0.15-1.2); Total Protein 5.3 g/dL (6.6-8.7)
[2021-05-20 06:50] LABS: Anion Gap 15.4 (5-19); Aspartate Amino Transferase 18 U/L (0-40); Potassium 4.4 mmol/L (3.5-5.1)
[2021-05-20 08:00] VITALS: BP 101/74; BP 120/70; BP 127/82; BP 96/67; PULSE 64; PULSE 69; PULSE 70; PULSE 75; RESP 16; TEMP 36.6; O2SAT 92
[2021-05-20] MEDS: clindamycin 900 MG/50 ML PREMIX 100 MG IV ×2 (08:01)
[2021-05-20] MEDS: gabapentin 300 mg Capsule PO (08:03)
[2021-05-20] MEDS: ferrous gluconate 324 mg Tablet PO (08:03)
[2021-05-20] MEDS: pantoprazole DR 40 mg Tablet PO (08:03)
[2021-05-20] MEDS: amlodipine 10 mg Tablet PO (08:03)
[2021-05-20] MEDS: metoprolol tartrate 25 mg Tablet PO (08:03)
[2021-05-20] MEDS: predniSONE 10 mg Tablet 20 MG PO (08:03)
[2021-05-20] MEDS: aspirin 81 mg Chew Tablet PO (08:03)
[2021-05-20] MEDS: NON-FORMULARY MEDICATION (Atovaquone 750 mg/5 mL suspension) 1500 EACH PO (08:23)
[2021-05-20 08:27] VITALS: PULSE 94; RESP 17; O2SAT 93
[2021-05-20 12:00] VITALS: BP 120/70; PULSE 69; RESP 16; TEMP 36.7; O2SAT 98
[2021-05-20 12:11] LABS: Glucose Point of Care 263 mg/dL (70-110)
[2021-05-20] MEDS: insulin lispro 100 unit/1 mL SUBCUT (12:11)
--- NOTE | 2021-05-20 14:01 | PM.DCS ---
Discharge Providers Date of Admission: 05/18/21 17:06 Date of Discharge: May 20, 2021 Attending Provider at Admission: Marshal Mixon MD Attending Provider at Discharge: Marshal Mixon MD Consults: Orthopedics: Dr. 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 Wound noted to be improving per [facility] notes review. Recent CT imaging of limb without signs of residual abscess or cellulitis. Presents for direct admission today sent from Alyx De Leon's office after patient reported fall at home and was found to have hip fracture on X ray imaging. Denies any fever, chest pain, dyspnea, palpitations, syncope, nausea or vomiting. States fall to be a mechanical fall. Patient arrived to the hospital for further management of closed left hip displaced fracture. Orthopedics was consulted. He underwent ORIF on May 19. He tolerated the procedure well. Postoperatively patient did well with physical therapy. His hospital stay was unremarkable. During hospitalization he was shown to have an A1c of 6.7 for which he started on Januvia. Lipid panel was checked and was found to be abnormal for which he started on statin. He is been discharged in hemodynamically stable condition with advised to follow-up with orthopedics in the next 2 weeks and his primary care provider within the next 7 to 10 days. Physical Exam Narrative: EXAM NARRATIVE: General: No acute distress, AO x3 HEENT: PERRLA, pupils bilaterally equal and reactive Chest: Normal vesicular breath sounds, no added sounds, equal good air entry bilaterally CVS: S1-S2 regular, no murmurs, no tachycardia, no gallops, no rubs Abdomen: Soft, nontender, no organomegaly, bowel sounds present Neuro: No focal deficits, no facial deformity, AO x3, power 5/5 in all limbs Discharge Data Data Completed and Pending: Completed Studies During Hospitalization Category Date Time Status XR chest 1V vinicio ble [id number] Stat Exams 05/18/21 17:35 Completed XR femur LT min 2 V* [id number] Routine Exams 05/18/21 16:03 Completed XR hip LT 2-3V wo /w pel* [id number] Rout ine Exams 05/18/21 16:03 [place] [id number] Routin e Ultrasound 05/19/21 08:09 Completed Pending at discharge Category Date Time Status Blood Culture Sta t Lab 05/18/21 19:48 Results Vitamin D 1,25 Di hydroxy Routine Lab 05/19/21 06:04 Received Labs from last 24 hours 05/20/21 05/20/21 05/20/21 12:06 06:13 05:32 WBC RBC Hgb Hct MCV MCH MCHC RDW Plt Count MPV Neut % (Auto) Lymph % (Auto) Bonner % (Auto) Eos % (Auto) Baso % (Auto) Neut # (Auto) Lymph # (Auto) Bonner # (Auto) Eos # (Auto) Baso # (Auto) Nucleated RBC % (a uto) Nucleated RBCs # Sodium 140 Potassium 4.4 Chloride 101 Carbon Dioxide 28 Anion Gap 15.4 BUN 29 H Creatinine 1.5 H GFR Calculation Not Reportable Glucose 99 POC Glucose 263 H 126 H Calculated Osmolal ity 296 H Calcium 8.8 Total Bilirubin 0.3 AST 18 ALT 14 Alkaline Phosphata se 69 Total Protein 5.3 L Albumin 2.9 L Globulin 2.4 Procalcitonin 05/20/21 05/19/21 05/19/21 05:32 20:08 17:07 WBC 17.0 H RBC 4.06 L Hgb 12.8 Hct 39.9 L MCV 98.3 H MCH 31.5 MCHC 32.1 RDW 15.3 H Plt Count 168 MPV 13.0 H Neut % (Auto) 67.5 Lymph % (Auto) 17.7 Bonner % (Auto) 11.8 Eos % (Auto) 0.1 Baso % (Auto) 0.3 Neut # (Auto) 11.49 H Lymph # (Auto) 3.0 Bonner # (Auto) 2.0 H Eos # (Auto) 0.0 Baso # (Auto) 0.1 Nucleated RBC % (a uto) 0 Nucleated RBCs # 0.0 Sodium Potassium Chloride Carbon Dioxide Anion Gap BUN Creatinine GFR Calculation Glucose POC Glucose 214 H 459 H Calculated Osmolal ity Calcium Total Bilirubin AST ALT Alkaline Phosphata se Total Protein Albumin Globulin Procalcitonin 05/19/21 05/19/21 05/19/21 16:43 16:43 06:04 WBC 16.6 H RBC 4.36 Hgb 13.6 Hct 43.4 MCV 99.5 H MCH 31.2 MCHC 31.3 RDW 15.5 H Plt Count 203 MPV 12.4 H Neut % (Auto) 88.1 Lymph % (Auto) 4.0 Bonner % (Auto) 5.1 Eos % (Auto) 0.0 Baso % (Auto) 0.3 Neut # (Auto) 14.64 H Lymph # (Auto) 0.7 L Bonner # (Auto) 0.8 Eos # (Auto) 0.0 Baso # (Auto) 0.1 Nucleated RBC % (a uto) 0 Nucleated RBCs # 0.0 Sodium 139 Potassium 4.7 Chloride 99 Carbon Dioxide 29 Anion Gap 15.7 BUN 30 H Creatinine 1.5 H GFR Calculation Not Reportable Glucose 316 H POC Glucose Calculated Osmolal ity 306 H Calcium 8.8 Total Bilirubin 0.2 AST 16 ALT 16 Alkaline Phosphata se 81 Total Protein 6.0 L Albumin 3.4 L Globulin 2.6 Procalcitonin 0.11 Vitals: Last Vital Signs Temp 98.0 F 05/20/21 12:00 Pulse 69 05/20/21 12:00 Resp 16 05/20/21 12:00 BP 120/70 05/20/21 12:00 Pulse Ox 98 05/20/21 12:00 Discharge Plan Discharge Patient Disposition: Home Health Service Condition: Stable Prescriptions: New atorvastatin 40 mg Tablet 40 mg PO BEDTIME 30 Days Qty: 30 RF: 0 Januvia 100 mg tablet 100 mg PO DAILY Qty: 30 RF: 0 Continued valacyclovir [Valtrex] 1 gram tablet 1,000 mg PO BID Qty: 14 RF: 3 atovaquone 750 mg/5 mL suspension 1,500 mg PO DAILY 90 Days Qty: 210 RF: 3 gabapentin 300 mg capsule 300 mg PO BID Qty: 60 RF: 3 prednisone 10 mg tablet 20 mg PO DAILY Qty: 60 RF: 3 furosemide [Lasix] 40 mg tablet 40 mg PO DAILY Qty: 90 RF: 3 hydrocodone-acetaminophen 10-325 mg tablet 1 tab PO Q4H PRN (Reason: pain) 30 Days Qty: 60 RF: 0 ropinirole 2 mg tablet 2 mg PO BEDTIME Qty: 90 RF: 3 silver sulfadiazine 1 % cream 1 applic topical DAILY Qty: 50 RF: 0 Nicoderm CQ 21 mg/24 hr patch 24 hour 1 patch TRANSDERMA Q24H Qty: 28 RF: 8 cholecalciferol (vitamin D3) 50 mcg (2,000 unit) capsule 50 mcg PO DAILY Qty: 30 RF: 3 ipratropium bromide 42 mcg (0.06 %) spray,non-aerosol See Rx Instructions .ROUTE .COMPLEX Qty: 15 RF: 5 Breo Ellipta 200-25 mcg/dose blister with device See Rx Instructions .ROUTE .COMPLEX Qty: 60 RF: 5 cetirizine 10 mg tablet See Rx Instructions .ROUTE .COMPLEX Qty: 30 RF: 5 Combivent Respimat 20-100 mcg/actuation mist 1 puff INHALATION Q6H Qty: 4 RF: 3 fluticasone propionate [Flonase Allergy Relief] 50 mcg/actuation spray,suspension 1 spray intranasal BID Qty: 15.8 RF: 3 Actemra 162 mg/0.9 mL syringe 162 mg SUBCUT Q7D RF: 0 Hold Instructions: Resume on 02/24/21. aspirin 81 mg Tablet,Chewable 81 mg PO DAILY RF: 0 multivitamin Tablet 1 tab PO DAILY RF: 0 esomeprazole magnesium [Nexium] 40 mg Capsule,Delayed Release(Dr/Ec) 40 mg PO DAILY RF: 0 [id number]-ast [krill oil] [id number],756-712-19-80 mg Capsule 1 cap PO DAILY RF: 0 Narcan 4 mg/actuation [place],Non-Aerosol 1 spray INTRANASAL Q3M PRN (Reason: overdose) RF: 0 ferrous sulfate 325 mg (65 mg iron) Tablet 325 mg PO BIDWMEAL Qty: 0 RF: 0 metoprolol tartrate 25 mg Tablet 25 mg PO BID RF: 0 amlodipine 10 mg Tablet 10 mg PO DAILY Qty: 30 RF: 0 Discontinued Levemir FlexTouch U-100 Insuln 100 unit/mL (3 mL) insulin pen 10 unit SUBCUT DAILY RF: 0 Discharge Orders: Discharge Order (Routine); Ordered 05/20/21 Ordered By: Marshal Mixon Referrals: Johnnie Archuleta DO [Physician] - 2 weeks Mike Foster MD [Primary Care Provider] - 7-10 days Discharge Diet: Cardiac and Diabetic Discharge Activity: Increase activity as tolerated Patient Instructions: Opioid Safety Activity Restrictions/Additional Instructions: Januvia is the antidiabetic which has been added to your medication list. Atorvastatin is the cholesterol medication which has been added. Please follow-up with your primary care provider within next 7 to 10 days. Please follow-up with orthopedics as directed. Discharge Attestations Time Spent in Discharge Care*: greater than 30 min Specific Discharge Activities: educating patient, educating and/or supporting family/caregiver, discussing with pcp/other providers, discussing with mattress spring encaser/social workers/dc planners, documenting/other paperwork and evaluating patient/reviewing data Status at Discharge: Cognitive status at discharge: cognitively intact, Behavioral status at discharge: cooperative, Functional status at discharge: uses cane/walker Overall status at discharge: patient is progressing back to baseline Quality Metrics Clinical Quality Measures During this hospital stay, did patient experience: None Coding Level of Care Code Acute [facility] DC note Diagnoses Closed displaced fracture of left femoral neck S72.002A
[2021-05-20 17:05] VITALS: BP 120/70; PULSE 69; RESP 16; TEMP 36.7; O2SAT 98
--- NOTE | 2021-05-20 17:06 | PC.NURSE ---
Patient is A&Ox3. Respirations even and non-labored on room air. Reviewed patient's discharge with patient who verbalized understanding of discharge instructions. Patient wheel chaired to private car.
[2021-05-23 14:17] LABS: Vit D 1,25 (Oh)2, Total 16 pg/mL (18-72); Vit D2 1,25 (Oh)2 <8 pg/mL; Vit D3 1,25 (Oh)2 16 pg/mL
== END 2021-05-20 16:46 | disposition home health service (06) | DRG 522 ==
LOC: MEDSURG 18:45
PROVIDERS: Orthopaedic Surgery; Admitting Provider Student in an Organized Health Care Education/Training Program; PCP Internal Medicine; Visit Provider Student in an Organized Health Care Education/Training Program
PROC: 0SRS0JZ Replacement of Left Hip Joint, Femoral Surface with Synthetic Substitute, Open Approach (ICD-10-PCS; CPT 27125; principal; 2021-05-19 09:20)
DX: S72.012A Unspecified intracapsular fracture of left femur, initial encounter for closed fracture (principal); M60.052 Infective myositis, left thigh; W19.XXXA Unspecified fall, initial encounter; M31.5 Giant cell arteritis with polymyalgia rheumatica; Z79.52 Long term (current) use of systemic steroids; Z87.01 Personal history of pneumonia (recurrent); J44.9 Chronic obstructive pulmonary disease, unspecified; I71.4 Abdominal aortic aneurysm, without rupture; G89.29 Other chronic pain; M54.9 Dorsalgia, unspecified; N18.9 Chronic kidney disease, unspecified; I11.0 Hypertensive heart disease with heart failure; K21.9 Gastro-esophageal reflux disease without esophagitis; E78.2 Mixed hyperlipidemia; G62.9 Polyneuropathy, unspecified; I73.9 Peripheral vascular disease, unspecified; G25.81 Restless legs syndrome; Z86.711 Personal history of pulmonary embolism; F17.210 Nicotine dependence, cigarettes, uncomplicated; Z79.891 Long term (current) use of opiate analgesic
CPT/HCPCS: 15271; 36415; 36416; 71045; 73502; 73552; 73701; 80053; 80061; 80076; 81001; 82565; 82652; 82746; 82962; 83036; 83540; 83550; 83735; 83880; 84100; 84145; 84439; 84443; 84481; 84520; 85025; 86140; 87040; 87641; 93005; 93970; 94664; 94669; 96372; 97116; 97161; 97165; 97530; 97535; 97605; C1776; J0696; J1100; J1650; J1815; J2405; J2704; J3010; J3370; J3490; J7030; J7512; J7611; Q4186

== ENCOUNTER 2021-05-22 09:14 | Outpatient (CLI) | payer MEDICARE, MEDICAID, SELFPAY | END 2021-05-22 09:15 | disposition home or self-care (01) | LOC: WOUND 09:18 | PROVIDERS: PCP Internal Medicine; Visit Provider Surgery | DX: E11.622 Type 2 diabetes mellitus with other skin ulcer (principal); L97.122 Non-pressure chronic ulcer of left thigh with fat layer exposed; Z87.891 Personal history of nicotine dependence | CPT/HCPCS: 11042 ==

== ENCOUNTER 2021-05-29 09:04 | Outpatient (CLI) | payer MEDICARE, MEDICAID, SELFPAY | END 2021-05-29 09:05 | disposition home or self-care (01) | LOC: WOUND 09:08 | PROVIDERS: PCP Internal Medicine; Visit Provider Surgery | DX: E11.622 Type 2 diabetes mellitus with other skin ulcer (principal); L97.122 Non-pressure chronic ulcer of left thigh with fat layer exposed; F17.290 Nicotine dependence, other tobacco product, uncomplicated; I10 Essential (primary) hypertension | CPT/HCPCS: 11042 ==

== ENCOUNTER 2021-06-05 09:24 | Outpatient (CLI) | payer MEDICARE, MEDICAID, SELFPAY | END 2021-06-05 09:25 | disposition home or self-care (01) | LOC: WOUND 09:25 | PROVIDERS: PCP Internal Medicine; Visit Provider Surgery | DX: E11.622 Type 2 diabetes mellitus with other skin ulcer (principal); L97.822 Non-pressure chronic ulcer of other part of left lower leg with fat layer exposed; Z87.891 Personal history of nicotine dependence | CPT/HCPCS: 11042 ==

== ENCOUNTER 2021-06-12 09:08 | Outpatient (CLI) | payer MEDICARE, MEDICAID, SELFPAY | END 2021-06-12 09:09 | disposition home or self-care (01) | LOC: WOUND 09:09 | PROVIDERS: PCP Internal Medicine; Visit Provider Nurse Practitioner Family | DX: E11.622 Type 2 diabetes mellitus with other skin ulcer (principal); L97.122 Non-pressure chronic ulcer of left thigh with fat layer exposed; F17.290 Nicotine dependence, other tobacco product, uncomplicated; I10 Essential (primary) hypertension; M06.9 Rheumatoid arthritis, unspecified | CPT/HCPCS: 11042 ==

== ENCOUNTER 2021-06-19 08:52 | Outpatient (CLI) | payer MEDICARE, MEDICAID, SELFPAY | END 2021-06-19 08:53 | disposition home or self-care (01) | LOC: WOUND 08:53 | PROVIDERS: PCP Internal Medicine; Visit Provider Surgery | DX: E11.622 Type 2 diabetes mellitus with other skin ulcer (principal); L97.822 Non-pressure chronic ulcer of other part of left lower leg with fat layer exposed; F17.290 Nicotine dependence, other tobacco product, uncomplicated; M06.9 Rheumatoid arthritis, unspecified; I10 Essential (primary) hypertension; J44.9 Chronic obstructive pulmonary disease, unspecified | CPT/HCPCS: 11042 ==

== ENCOUNTER → 2021-06-22 13:04 | Outpatient (BNVA) | payer MEDICARE, MEDICAID, SELFPAY | PROVIDERS: PCP Internal Medicine; Visit Provider Internal Medicine Rheumatology | DX: M31.6 Other giant cell arteritis (principal); Z79.899 Other long term (current) drug therapy; Z79.52 Long term (current) use of systemic steroids; Z86.19 Personal history of other infectious and parasitic diseases | CPT/HCPCS: 99214 ==

== ENCOUNTER → 2021-07-02 10:11 | Outpatient (BNVA) | payer MEDICARE, MEDICAID, SELFPAY | PROVIDERS: PCP Internal Medicine; Visit Provider Orthopaedic Surgery | DX: Z78.9 Other specified health status (principal); Z98.890 Other specified postprocedural states; S72.002A Fracture of unspecified part of neck of left femur, initial encounter for closed fracture; X58.XXXA Exposure to other specified factors, initial encounter | CPT/HCPCS: 73502 ==

== ENCOUNTER 2021-07-03 08:50 | Outpatient (CLI) | payer MEDICARE, MEDICAID, SELFPAY | END 2021-07-03 08:51 | disposition home or self-care (01) | LOC: WOUND 08:51 | PROVIDERS: PCP Internal Medicine; Visit Provider Surgery | DX: Z09 Encounter for follow-up examination after completed treatment for conditions other than malignant neoplasm (principal); F17.290 Nicotine dependence, other tobacco product, uncomplicated; J44.9 Chronic obstructive pulmonary disease, unspecified | CPT/HCPCS: 99212; A6219 ==

== ENCOUNTER → 2021-10-07 15:01 | Outpatient (BNVA) | payer MEDICARE, MEDICAID, SELFPAY | PROVIDERS: PCP Internal Medicine; Visit Provider Internal Medicine Rheumatology | DX: M31.6 Other giant cell arteritis (principal); Z79.52 Long term (current) use of systemic steroids; Z79.899 Other long term (current) drug therapy; M60.052 Infective myositis, left thigh; B96.89 Other specified bacterial agents as the cause of diseases classified elsewhere; Z86.19 Personal history of other infectious and parasitic diseases; Z71.89 Other specified counseling | CPT/HCPCS: 99214 ==

== ENCOUNTER → 2021-10-15 09:12 | Outpatient (BNVA) | payer MEDICARE, MEDICAID, SELFPAY | PROVIDERS: PCP Internal Medicine; Visit Provider Internal Medicine Rheumatology | DX: M31.6 Other giant cell arteritis (principal); Z79.899 Other long term (current) drug therapy | CPT/HCPCS: 80076; 82565; 85025; 86140 ==

== ENCOUNTER → 2021-11-04 16:14 | Outpatient (BNVA) | payer MEDICARE, MEDICAID, SELFPAY | PROVIDERS: PCP Internal Medicine; Visit Provider Internal Medicine | DX: K90.9 Intestinal malabsorption, unspecified (principal); J41.0 Simple chronic bronchitis; M31.6 Other giant cell arteritis | CPT/HCPCS: 83550 ==

== ENCOUNTER → 2021-12-18 10:04 | Outpatient (BNVA) | payer MEDICARE, MEDICAID, SELFPAY | PROVIDERS: PCP Internal Medicine; Visit Provider Internal Medicine | DX: I71.4 Abdominal aortic aneurysm, without rupture (principal); I10 Essential (primary) hypertension; F17.210 Nicotine dependence, cigarettes, uncomplicated | CPT/HCPCS: 99213 ==

== ENCOUNTER → 2022-02-08 11:17 | Outpatient (BNVA) | payer MEDICARE, MEDICAID, SELFPAY | PROVIDERS: PCP Internal Medicine; Visit Provider Otolaryngology | DX: H69.83 Other specified disorders of Eustachian tube, bilateral (principal); Z96.22 Myringotomy tube(s) status; Z87.891 Personal history of nicotine dependence | CPT/HCPCS: 99212 ==

== ENCOUNTER → 2022-02-15 12:58 | Outpatient (BNVA) | payer MEDICARE, MEDICAID, SELFPAY | PROVIDERS: PCP Internal Medicine; Visit Provider Internal Medicine Rheumatology | DX: M31.6 Other giant cell arteritis (principal); Z79.899 Other long term (current) drug therapy; Z86.19 Personal history of other infectious and parasitic diseases; Z71.89 Other specified counseling | CPT/HCPCS: 80076; 82565; 85025; 85651; 86140; 99214 ==

== ENCOUNTER → 2022-05-18 09:12 | Outpatient (BNVA) | payer MEDICARE, MEDICAID, SELFPAY | PROVIDERS: PCP Internal Medicine; Visit Provider Otolaryngology | DX: H69.83 Other specified disorders of Eustachian tube, bilateral (principal); F17.210 Nicotine dependence, cigarettes, uncomplicated | CPT/HCPCS: 99213 ==

== ENCOUNTER → 2022-06-15 12:44 | Outpatient (BNVA) | payer MEDICARE, MEDICAID, SELFPAY | PROVIDERS: PCP Internal Medicine; Visit Provider Internal Medicine Rheumatology | DX: M31.6 Other giant cell arteritis (principal); Z79.899 Other long term (current) drug therapy; Z71.89 Other specified counseling; M19.90 Unspecified osteoarthritis, unspecified site; Z79.52 Long term (current) use of systemic steroids; M60.052 Infective myositis, left thigh; B96.89 Other specified bacterial agents as the cause of diseases classified elsewhere; Z86.19 Personal history of other infectious and parasitic diseases; Z87.898 Personal history of other specified conditions | CPT/HCPCS: 36415; 73610; 80076; 82565; 85025; 86140; 99214 ==

== ENCOUNTER 2022-06-21 12:57 | Outpatient (CLI) | payer MEDICARE, MEDICAID, SELFPAY ==
[2022-06-21 13:15] VITALS: BP 157/84; PULSE 48; RESP 16; TEMP 36.7; O2SAT 94
[2022-06-21 13:40] LABS: Basophils # 0.1 10^3/uL (0.0-0.1); Basophils % 0.7 %; Eosinophils # 0.3 10^3/uL (0.0-0.8); Hematocrit 41.7 % (42.0-52.0); Hemoglobin 13.7 g/dL (11.7-16.6); Lymphocytes # 3.3 10^3/uL (0.8-4.8); Lymphocytes % 26.4 %; Mean Corpuscular HGB Conc 32.9 g/dL (30.0-36.0); Mean Corpuscular Hemoglobin 32.9 pg (28.0-34.0); Mean Platelet Volume 12.4 fL (7.4-10.4); Monocytes # 1.3 10^3/uL (0.2-0.9); Monocytes % 10.2 %; Neutrophils % 59.9 %; Nucleated Red Blood Cells % 0 %; Platelet Count 129 10^3/cmm (130-400); Red Blood Count 4.17 10^6/uL (4.1-5.3); Red Cell Distribution Width 13.7 % (12.1-15.1); White Blood Count 12.4 10^3/uL (4.0-10.0)
[2022-06-21 13:44] LABS: Erythrocyte Sedimentation Rate 1 mm/hr (0-10)
[2022-06-21] MEDS: sodium chloride 0.9% 250 ML 50 ML IV (13:45)
[2022-06-21] MEDS: acetaminophen 325 mg Tablet 650 MG PO (13:46)
[2022-06-21] MEDS: diphenhydrAMINE 50 mg/mL SDV 1mL 25 MG IVP (13:47)
[2022-06-21 14:09] LABS: Alanine Aminotransferase 28 U/L (0-41); Alkaline Phosphatase 104 U/L (40-130); Total Bilirubin 0.4 mg/dL (0.15-1.2)
[2022-06-21 14:13] LABS: Aspartate Amino Transferase 28 U/L (0-40)
[2022-06-21 15:22] VITALS: BP 146/83; PULSE 56; RESP 18; TEMP 36.6; O2SAT 93
== END 2022-06-21 12:58 | disposition home or self-care (01) ==
PROVIDERS: PCP Internal Medicine; Referring Provider Internal Medicine Rheumatology; Visit Provider Internal Medicine Rheumatology
DX: M31.6 Other giant cell arteritis (principal)
CPT/HCPCS: 80076; 82565; 85025; 85651; 96365; 96375; J1200; J2920; J3262; J7050

== ENCOUNTER → 2022-07-02 11:21 | Outpatient (BNVA) | payer MEDICARE, MEDICAID, SELFPAY | PROVIDERS: PCP Internal Medicine; Visit Provider Internal Medicine | DX: I71.40 Abdominal aortic aneurysm, without rupture, unspecified (principal); F17.210 Nicotine dependence, cigarettes, uncomplicated; I12.9 Hypertensive chronic kidney disease with stage 1 through stage 4 chronic kidney disease, or unspecified chronic kidney disease; N18.9 Chronic kidney disease, unspecified | CPT/HCPCS: 99214 ==

== ENCOUNTER 2022-07-21 09:54 | Outpatient (CLI) | payer MEDICARE, MEDICAID, SELFPAY ==
[2022-07-21 10:15] VITALS: BP 135/70; PULSE 55; RESP 18; TEMP 36.9; O2SAT 93
[2022-07-21] MEDS: sodium chloride 0.9% 250 ML 50 ML IV (10:29)
[2022-07-21] MEDS: acetaminophen 325 mg Tablet 650 MG PO (10:30)
[2022-07-21] MEDS: diphenhydrAMINE 50 mg/mL SDV 1mL 25 MG IVP (10:31)
[2022-07-21 11:42] VITALS: BP 137/74; PULSE 53; RESP 18; TEMP 36.2; O2SAT 93
== END 2022-07-21 09:55 | disposition home or self-care (01) ==
LOC: ONCMED 09:54
PROVIDERS: PCP Internal Medicine; Visit Provider Internal Medicine Rheumatology
DX: M31.6 Other giant cell arteritis (principal)
CPT/HCPCS: 96365; 96375; J1200; J2920; J3262; J7050

== ENCOUNTER 2022-07-29 06:56 | Outpatient (CLI) | payer MEDICARE, MEDICAID, SELFPAY ==
--- NOTE | 2022-07-29 07:00 | USCV_ITS ---
Gabino Lamb Age: 76 Gender: M : 1945 Exam Date: 07/29/2022 07:20 Ordering Phys: Eric Flood M.D ([email or web address]) Technologist: Ledy Wright Exam Location[place] [facility] [place] Indication: KNOWN AAA STENT HISTORY: Diameter (cm) AP x Transverse x Length Velocity (cm/s) Waveform Prox Aorta: 2.17 x 1.82 x 72.80 Mid Aorta: 4.00 x 3.73 x 34.30 Distal Aorta: 4.10 x 3.52 x 27.00 Right Iliac Prox: 1.85 x 1.62 x 65.00 Left Iliac Prox: 1.40 x 2.30 x 144.75 Stent Prox Landing x x Aneurysmal Sac Max x x Lt Lat Sac Dim Rt Lat Sac Dim Stent Dist Landing x x Right Iliac Stent x x Left Iliac Stent x x Right Renal Art Left Renal Art FINDINGS: Aneurysmal dilatation of the mid and distal abdominal aorta, measuring 4.0 x 3.7 at the mid segment and 4.1 x 3.52 at the distal segment. 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 Patent stent graft in the aorta 2. Aneurysmal sac in the mid and distal abdominal aorta measuring 4.0 x 3.7 and 4.1 x 3.5 cm respectively 3. 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 No similar previous studies are available for comparison Dr Nadiya Carlson MD [facility] (Electronically Signed) Final Date: 30 July 2022 17:26 S
== END 2022-07-29 06:57 | disposition home or self-care (01) ==
LOC: RAD 06:57
PROVIDERS: PCP Internal Medicine; Visit Provider Internal Medicine
DX: I71.40 Abdominal aortic aneurysm, without rupture, unspecified (principal)
CPT/HCPCS: 76706

== ENCOUNTER 2022-08-18 10:05 | Outpatient (CLI) | payer MEDICARE, MEDICAID, SELFPAY ==
[2022-08-18 10:28] VITALS: BP 132/72; PULSE 50; RESP 18; TEMP 36.7; O2SAT 94
[2022-08-18 10:42] LABS: Basophils # 0.1 10^3/uL (0.0-0.1); Basophils % 0.9 %; Eosinophils # 0.3 10^3/uL (0.0-0.8); Eosinophils % 2.3 %; Hematocrit 41.2 % (42.0-52.0); Hemoglobin 13.4 g/dL (11.7-16.6); Lymphocytes # 4.1 10^3/uL (0.8-4.8); Lymphocytes % 35.3 %; Mean Corpuscular HGB Conc 32.5 g/dL (30.0-36.0); Mean Corpuscular Hemoglobin 32.8 pg (28.0-34.0); Mean Corpuscular Volume 100.7 fl (80-94); Mean Platelet Volume 12.4 fL (7.4-10.4); Monocytes # 1.3 10^3/uL (0.2-0.9); Monocytes % 11.3 %; Neutrophils # 5.77 10^3/uL (1.8-7.7); Neutrophils % 49.6 %; Nucleated Red Blood Cells % 0 %; Platelet Count 119 10^3/cmm (130-400); Red Blood Count 4.09 10^6/uL (4.1-5.3); Red Cell Distribution Width 13.2 % (12.1-15.1); White Blood Count 11.6 10^3/uL (4.0-10.0)
[2022-08-18 10:44] LABS: Erythrocyte Sedimentation Rate < 1 mm/hr (0-10)
[2022-08-18] MEDS: sodium chloride 0.9% 250 ML 50 ML IV (10:46)
[2022-08-18] MEDS: acetaminophen 325 mg Tablet 650 MG PO (10:47)
[2022-08-18] MEDS: diphenhydrAMINE 50 mg/mL SDV 1mL 25 MG IVP (10:48)
[2022-08-18 11:29] LABS: Alanine Aminotransferase 25 U/L (0-41); Alkaline Phosphatase 91 U/L (40-130); Aspartate Amino Transferase 26 U/L (0-40); Globulin 1.7 g/dL (1.3-4.6); Total Bilirubin 0.5 mg/dL (0.15-1.2); Total Protein 5.7 g/dL (6.6-8.7)
[2022-08-18 12:09] VITALS: BP 129/71; PULSE 50; RESP 18; TEMP 36.5; O2SAT 94
== END 2022-08-18 10:06 | disposition home or self-care (01) ==
LOC: ONCMED 10:06
PROVIDERS: PCP Internal Medicine; Visit Provider Internal Medicine Rheumatology
DX: M31.6 Other giant cell arteritis (principal); Z79.899 Other long term (current) drug therapy
CPT/HCPCS: 80076; 82565; 85025; 85651; 96365; 96375; J1200; J2920; J3262; J7050

== ENCOUNTER 2022-09-28 10:33 | Oncology outpatient (recurring) (ONCR) | payer MEDICARE, MEDICAID, SELFPAY ==
[2022-09-28 10:44] VITALS: BMI 38.9
[2022-09-28] MEDS: sodium chloride 0.9% 250 ML 75 ML IV (11:44)
[2022-09-28] MEDS: diphenhydrAMINE 50 mg/mL SDV 1mL 25 MG IVP (11:45)
[2022-09-28 13:35] VITALS: BP 144/79; PULSE 63; RESP 18; TEMP 36.3; O2SAT 96
== END 2022-09-28 23:59 | disposition home or self-care (01) ==
LOC: ONCMED 10:34
PROVIDERS: PCP Internal Medicine; Visit Provider Internal Medicine Rheumatology
DX: M31.6 Other giant cell arteritis (principal); M05.9 Rheumatoid arthritis with rheumatoid factor, unspecified; Z79.52 Long term (current) use of systemic steroids; Z79.899 Other long term (current) drug therapy; D69.6 Thrombocytopenia, unspecified; F17.210 Nicotine dependence, cigarettes, uncomplicated
CPT/HCPCS: 96365; 96375; 99214; J1200; J2920; J3262; J7050

== ENCOUNTER 2022-11-09 11:04 | Oncology outpatient (recurring) (ONCR) | payer MEDICARE, MEDICAID, SELFPAY ==
[2022-11-09 11:13] VITALS: BP 145/72; PULSE 53; RESP 18; TEMP 36.4; O2SAT 92
[2022-11-09] MEDS: diphenhydrAMINE 50 mg/mL SDV 1mL 25 MG IVP (11:44)
[2022-11-09] MEDS: acetaminophen 325 mg Tablet 650 MG PO (11:44)
[2022-11-09] MEDS: sodium chloride 0.9% 250 ML 75 ML IV (11:45)
[2022-11-09 11:50] LABS: Basophils # 0.1 10^3/uL (0.0-0.1); Basophils % 0.8 %; Eosinophils # 0.2 10^3/uL (0.0-0.8); Eosinophils % 1.4 %; Hematocrit 38.5 % (42.0-52.0); Hemoglobin 12.5 g/dL (11.7-16.6); Lymphocytes # 3.1 10^3/uL (0.8-4.8); Lymphocytes % 26.8 %; Mean Corpuscular HGB Conc 32.5 g/dL (30.0-36.0); Mean Corpuscular Hemoglobin 32.1 pg (28.0-34.0); Mean Corpuscular Volume 98.7 fl (80-94); Mean Platelet Volume 12.9 fL (7.4-10.4); Monocytes # 0.9 10^3/uL (0.2-0.9); Neutrophils # 7.08 10^3/uL (1.8-7.7); Neutrophils % 62.3 %; Nucleated Red Blood Cells % 0 %; Platelet Count 151 10^3/cmm (130-400); Red Cell Distribution Width 13.9 % (12.1-15.1); White Blood Count 11.4 10^3/uL (4.0-10.0)
[2022-11-09] MEDS: tocilizumab 390 MG in sodium chloride 0.9% (100 ml) 100 ML 119.5 MG IV (12:01)
[2022-11-09 12:16] LABS: Alanine Aminotransferase 24 U/L (0-41); Albumin Level 4.1 g/dL (3.5-5.2); Alkaline Phosphatase 90 U/L (40-130); Blood Urea Nitrogen 23 mg/dL (8-23); Calcium 8.7 mg/dL (8.5-10.5); Carbon Dioxide 27 mmol/L (22-29); Chloride 102 mmol/L (98-107); Globulin 1.7 g/dL (1.3-4.6); Glucose 150 mg/dL (65-115); Osmolality Calculated 297 mOsm/kg (285-295); Sodium 140 mmol/L (136-145); Total Bilirubin 0.4 mg/dL (0.15-1.2); Total Protein 5.8 g/dL (6.6-8.7)
[2022-11-09 12:17] LABS: Anion Gap 15.1 (5-19); Aspartate Amino Transferase 29 U/L (0-40); Potassium 4.1 mmol/L (3.5-5.1)
[2022-11-09 14:01] VITALS: BP 145/70; PULSE 50; RESP 18; TEMP 36.6; O2SAT 92
== END 2022-11-28 23:59 | disposition home or self-care (01) ==
PROVIDERS: PCP Internal Medicine; Visit Provider Internal Medicine Rheumatology
DX: M31.6 Other giant cell arteritis (principal)
CPT/HCPCS: 80053; 85025; 86140; 96361; 96365; 96375; 96413; J1200; J2920; J3262; J7050

== ENCOUNTER 2022-12-07 10:57 | Oncology outpatient (recurring) (ONCR) | payer MEDICARE, MEDICAID, SELFPAY ==
[2022-12-07] MEDS: sodium chloride 0.9% 250 ML 100 ML IV (11:58)
[2022-12-07] MEDS: acetaminophen 325 mg Tablet 650 MG PO (11:59)
[2022-12-07] MEDS: dexamethasone 10 mg/mL INJ 6 MG IVP (12:00)
[2022-12-07] MEDS: diphenhydrAMINE 50 mg/mL SDV 1mL 25 MG IVP (12:00)
[2022-12-07] MEDS: tocilizumab 390 MG in sodium chloride 0.9% (100 ml) 100 ML 119.5 MG IV (12:35)
[2022-12-07 13:37] VITALS: BP 135/63; PULSE 54; RESP 16; TEMP 37.1; O2SAT 94
== END 2022-12-29 23:59 | disposition home or self-care (01) ==
LOC: ONCMED 10:57
PROVIDERS: PCP Internal Medicine; Visit Provider Internal Medicine Rheumatology
DX: M31.6 Other giant cell arteritis (principal); Z79.899 Other long term (current) drug therapy
CPT/HCPCS: 96365; 96375; J1100; J1200; J3262; J7050

== ENCOUNTER → 2022-12-28 13:59 | Outpatient (BNVA) | payer MEDICARE, MEDICAID, SELFPAY | PROVIDERS: PCP Internal Medicine; Visit Provider Internal Medicine Rheumatology | DX: M31.6 Other giant cell arteritis (principal); Z71.89 Other specified counseling; Z79.899 Other long term (current) drug therapy; M19.90 Unspecified osteoarthritis, unspecified site | CPT/HCPCS: 99214 ==

== ENCOUNTER → 2023-01-03 15:02 | Outpatient (BNVA) | payer MEDICARE, MEDICAID, SELFPAY | PROVIDERS: PCP Internal Medicine; Visit Provider Internal Medicine | DX: I10 Essential (primary) hypertension (principal); R06.02 Shortness of breath; I71.40 Abdominal aortic aneurysm, without rupture, unspecified; M31.6 Other giant cell arteritis; M79.606 Pain in leg, unspecified | CPT/HCPCS: 36415; 80048; 83880 ==

== ENCOUNTER → 2023-01-03 15:02 | Outpatient (BNVA) | payer MEDICARE, MEDICAID, SELFPAY | PROVIDERS: PCP Internal Medicine; Visit Provider Internal Medicine | DX: I71.40 Abdominal aortic aneurysm, without rupture, unspecified (principal); Z72.0 Tobacco use; R06.02 Shortness of breath; M79.606 Pain in leg, unspecified; R60.9 Edema, unspecified; I12.9 Hypertensive chronic kidney disease with stage 1 through stage 4 chronic kidney disease, or unspecified chronic kidney disease; N18.9 Chronic kidney disease, unspecified | CPT/HCPCS: 99214 ==

== ENCOUNTER 2023-01-04 11:09 | Oncology outpatient (recurring) (ONCR) | payer MEDICARE, MEDICAID, SELFPAY ==
[2023-01-04 11:35] VITALS: BP 137/71; PULSE 44; RESP 16; TEMP 36.1; O2SAT 94
[2023-01-04 12:00] LABS: Basophils # 0.1 10^3/uL (0.0-0.1); Basophils % 0.7 %; Eosinophils # 0.5 10^3/uL (0.0-0.8); Eosinophils % 3.6 %; Hematocrit 41.5 % (42.0-52.0); Hemoglobin 13.3 g/dL (11.7-16.6); Lymphocytes % 23.8 %; Mean Platelet Volume 12.2 fL (7.4-10.4); Monocytes % 7.6 %; Neutrophils # 7.99 10^3/uL (1.8-7.7); Neutrophils % 63.6 %; Nucleated Red Blood Cells % 0 %; Platelet Count 127 10^3/cmm (130-400); Red Blood Count 4.03 10^6/uL (4.1-5.3); Red Cell Distribution Width 13.7 % (12.1-15.1); White Blood Count 12.6 10^3/uL (4.0-10.0)
[2023-01-04] MEDS: acetaminophen 325 mg Tablet 650 MG PO (12:10)
[2023-01-04] MEDS: sodium chloride 0.9% 250 ML 75 ML IV (12:11)
[2023-01-04] MEDS: diphenhydrAMINE 50 mg/mL SDV 1mL 25 MG IVP (12:11)
[2023-01-04] MEDS: tocilizumab 400 MG in sodium chloride 0.9% (100 ml) 100 ML 120 MG IV (12:25)
[2023-01-04 12:31] LABS: Alanine Aminotransferase 26 U/L (0-41); Albumin Level 4.4 g/dL (3.5-5.2); Alkaline Phosphatase 84 U/L (40-130); Blood Urea Nitrogen 22 mg/dL (8-23); Calcium 8.9 mg/dL (8.5-10.5); Carbon Dioxide 28 mmol/L (22-29); Chloride 104 mmol/L (98-107); Globulin 1.7 g/dL (1.3-4.6); Glucose 120 mg/dL (65-115); Osmolality Calculated 299 mOsm/kg (285-295); Sodium 142 mmol/L (136-145); Total Bilirubin 0.4 mg/dL (0.15-1.2); Total Protein 6.1 g/dL (6.6-8.7)
[2023-01-04 12:32] LABS: Anion Gap 14.2 (5-19); Aspartate Amino Transferase 25 U/L (0-40); Potassium 4.2 mmol/L (3.5-5.1)
[2023-01-04 13:30] VITALS: BP 137/71; PULSE 50; RESP 16; TEMP 36.2; O2SAT 95
== END 2023-01-28 23:59 | disposition home or self-care (01) ==
PROVIDERS: PCP Internal Medicine; Visit Provider Internal Medicine Rheumatology
DX: M31.6 Other giant cell arteritis (principal)
CPT/HCPCS: 80053; 85025; 86140; 96365; 96375; J1200; J2920; J3262; J7050

== ENCOUNTER 2023-01-17 07:06 | Outpatient (CLI) | payer MEDICARE, MEDICAID, SELFPAY ==
--- NOTE | 2023-01-17 08:15 | USCV_ITS ---
Gabino Lamb Age: 77 Gender: M : 1945 Exam Date: 01/17/2023 07:59 Ordering Phys: Eric Flood M.D ([email or web address]) Technologist: YUSEF Exam Location: [facility] [place] Indication: AAA HISTORY: Diameter (cm) AP x Transverse x Length Velocity (cm/s) Waveform Prox Aorta: 2.33 x 2.43 x 37.60 Mid Aorta: 3.86 x 3.09 x 62.10 Distal Aorta: 4.06 x 3.30 x 9.04 41.10 Right Iliac Prox: 1.17 x 1.65 x 77.40 Left Iliac Prox: 1.25 x 1.72 x 65.10 Stent Prox Landing x x Aneurysmal Sac Max x x Lt Lat Sac Dim Rt Lat Sac Dim Stent Dist Landing x x Right Iliac Stent x x Left Iliac Stent x x Right Renal Art Left Renal Art FINDINGS: Comparison:. 07/29/22. History of aorta stent graft. A fusiform abdominal aortic aneurysm is noted with a maximal diameter of 4.1 cm. Similar to the prior exam. There are no findings to suggest rupture of the abdominal aortic aneurysm. No evidence of periaortic fluid is detected. There is evidence of atherosclerotic plaque no significan stenosis in the right common iliac artery. There is evidence of atherosclerotic plaque no significan stenosis in the left common iliac artery. CONCLUSIONS Stable AAA, maximum diameter of 4.[address] Lor Philip DO (Electronically Signed) Final Date: 17 January 2023 11:34 S
--- NOTE | 2023-01-17 09:00 | USR_ITS ---
PROCEDURE INFORMATION: Exam: US Duplex Bilateral Lower Extremity Arteries Exam date and time: 01/17/2023 8:23 AM Age: 77 years old Clinical indication: Pain; Leg, lower; Bilateral; Additional info: Leg pain TECHNIQUE: Imaging protocol: Real-time ultrasound scan of the arteries of the bilateral lower extremities with 2-D umanzor scale, color Doppler flow and spectral waveform analysis. Images documented and saved. COMPARISON: CT femur LT w con [id number] 05/15/2021 10:06 AM FINDINGS: Right common femoral artery: The right common femoral artery is aneurysmal at 21 mm however common has normal biphasic flow. Right superficial femoral artery: No occlusion or significant stenosis. Normal waveform. Right popliteal artery: No occlusion or significant stenosis. Normal waveform. Right calf/foot arteries: Ankle brachial index on the right is 1.1. Left common femoral artery: Left common femoral artery is stated by the technologist to be dilated however, I cannot measure it as there is no calibration on the images. It is however, unremarkable with triphasic flow. Left superficial femoral artery: No occlusion or significant stenosis. Normal waveform. Left popliteal artery: No occlusion or significant stenosis. Normal waveform. Left calf/foot arteries: Ankle brachial index on the left is 1.0. US/[place] [id number] IMPRESSION: 1. 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 2. Suspected dilated left common femoral artery but its exact size cannot be measured by me at this time. 3. No evidence of a hemodynamically significant stenosis.
== END 2023-01-17 07:07 | disposition home or self-care (01) ==
LOC: RAD 07:07
PROVIDERS: PCP Internal Medicine; Visit Provider Internal Medicine
DX: M31.6 Other giant cell arteritis (principal); I71.40 Abdominal aortic aneurysm, without rupture, unspecified; M79.662 Pain in left lower leg; M79.661 Pain in right lower leg; I70.293 Other atherosclerosis of native arteries of extremities, bilateral legs
CPT/HCPCS: 36415; 80048; 83880; 93925; 93978

== ENCOUNTER 2023-01-20 13:25 | Outpatient (CLI) | payer MEDICARE, MEDICAID, SELFPAY ==
--- NOTE | 2023-01-20 13:45 | USCV_ITS ---
Gabino Lamb Age: 77 Gender: M : 1945 Exam Date: 01/20/2023 13:53 Ordering Phys: Eric Flood M.D ([email or web address]) Technologist: Exam Location: [facility] – [place], [place] Indication: chest pain sob BP: 130 / 73 HR: 70 Rhythm: Sinus Technical Quality: Adequate MEASUREMENTS (Male / Female) Normal Values 2D ECHO LV Diastolic Diameter PLAX 4.2 cm 4.2 - 5.9 / 3.9 - 5.3 cm LV Systolic Diameter PLAX 3.1 cm IVS Diastolic Thickness 1.5 cm 0.6 - 1.0 / 0.6 - 0.9 cm IVS Systolic Thickness 1.7 cm LVPW Diastolic Thickness 1.3 cm 0.6 - 1.0 / 0.6 - 0.9 cm LVPW Systolic Thickness 1.5 cm LVOT Diameter 2.0 cm LV Ejection Fraction 2D Teich 34.2 % LV Ejection Fraction MOD 2C 75.0 % LV Ejection Fraction 2C AL 74.0 % LA Diameter 4.5 cm IVC Diameter 1.5 cm M-MODE Aortic Annulus Diameter 3.9 cm LA Ao Ratio MM 1.2 MV E Point Septal Separation 1.9 cm DOPPLER AV Peak Velocity 155.0 cm/s LVOT Peak Velocity 107.0 cm/s AV Area Cont Eq vti 2.7 cm squared AV Area Cont Eq pk 2.1 cm squared MV Area PHT 3.2 cm squared Mitral E to A Ratio 1.1 MV E' Velocity 48.0 cm/s Mitral E to MV E' Ratio 9.9 Mitral E to LV E' Lateral Ratio 10.6 Mitral E to LV E' Septal Ratio 9.3 TR Peak Velocity 128.7 cm/s TR Peak Gradient 6.6 mmHg TV Peak E Velocity 126.0 cm/s Right Atrial Pressure 3.0 mmHg Pulmonary Artery Systolic Pressu 9.6 mmHg RV Acceleration Time 0.1 s FINDINGS Left Ventricle Left ventricle is normal in size. LV systolic function is normal with EF of 55 to 60%. No regional wall motion abnormalities are seen. Right Ventricle Normal in size and function Right Atrium Normal in size Left Atrium Normal in size Mitral Valve Structurally normal mitral valve. Trace mitral regurgitation. Aortic Valve Aortic valve is thickened. No significant stenosis or regurgitation. Tricuspid Valve Trace tricuspid regurgitation. Pulmonic Valve Not well visualized. Trace pulmonic regurgitation. Pericardium Normal Aorta Normal in size IVC Appears to be normal CONCLUSIONS LV systolic function is normal with EF of 55 to 60%. Trace mitral regurgitation Trace tricuspid regurgitation Trace pulmonic regurgitation Compared to prior echocardiogram from 2020, no significant changes are seen. Eric Flood MD (Electronically Signed) Final Date: 30 January 2023 09:53 S
== END 2023-01-20 13:26 | disposition home or self-care (01) ==
PROVIDERS: PCP Internal Medicine; Visit Provider Internal Medicine
DX: R06.02 Shortness of breath (principal)
CPT/HCPCS: 93306

== ENCOUNTER 2023-02-02 11:16 | Oncology outpatient (recurring) (ONCR) | payer MEDICARE, MEDICAID, SELFPAY ==
[2023-02-02 11:39] VITALS: BMI 39.3
[2023-02-02] MEDS: sodium chloride 0.9% 250 ML 75 ML IV (12:18)
[2023-02-02] MEDS: acetaminophen 325 mg Tablet 650 MG PO (12:22)
[2023-02-02] MEDS: diphenhydrAMINE 50 mg/mL SDV 1mL 25 MG IVP (12:23)
[2023-02-02] MEDS: dexamethasone 10 mg/mL INJ 6 MG IVP (12:28)
[2023-02-02] MEDS: tocilizumab 390 MG in sodium chloride 0.9% (100 ml) 100 ML 119.5 MG IV (12:55)
[2023-02-02 14:25] VITALS: BP 143/81; PULSE 56; RESP 18; TEMP 36.3; O2SAT 94
== END 2023-02-28 23:59 | disposition home or self-care (01) ==
PROVIDERS: PCP Internal Medicine; Visit Provider Internal Medicine Rheumatology
DX: M13.80 Other specified arthritis, unspecified site (principal)
CPT/HCPCS: 96375; 96413; J1100; J1200; J3262; J7050

== ENCOUNTER 2023-03-22 20:19 | Emergency (ER) | payer MEDICARE, MEDICAID, SELFPAY ==
--- NOTE | 2023-03-22 20:27 | XRR_ITS ---
PROCEDURE INFORMATION: Exam: XR Left Hip Exam date and time: 03/22/2023 8:39 PM Age: 77 years old Clinical indication: Hip pain; Left hip; Prior surgery; Surgery date: 6+ months TECHNIQUE: Imaging protocol: Radiologic exam of the left hip. Views: 2 or 3 views hip with pelvis when performed. COMPARISON: CR XR hip LT 2-3V wo/w pel* [id number] 07/02/2021 10:18 AM FINDINGS: Tubes, catheters and devices: No change in the appearance of the prosthesis when compared to the previous study. Bones/joints: Status post left hip hemiarthroplasty. Osseous structures appear intact. No hip dislocation. Soft tissues: Unremarkable. XR/XR hip LT 2-3V wo/w pel* [id number] IMPRESSION: 1. Status post left hip hemiarthroplasty. 2. No acute abnormality demonstrated. 3. There is no interval change from the prior examination.
[2023-03-22 20:45] VITALS: BP 183/83; PULSE 66; RESP 18; TEMP 36.6; O2SAT 97; BMI 29.8
--- NOTE | 2023-03-22 22:20 | ED_ITS ---
HPI - Extremity Problem General: Chief complaint: Extremity Problem,Nontraumatic Stated complaint: left hip pain Time Seen by Provider: 03/22/23 22:12 Source: patient Mode of arrival: ambulatory Limitations: no limitations History of Present Illness: This patient presents to the emergency department because of what he thinks is left hip pain. He states the pain has onset after several days ago and he was attempting to lift his up off the floor. He states that felt pain during this evolution and the pain is been persistent. He states that somewhat involves his left lower back but all also his hip seems to radiate down to his knee. He did not fall otherwise injure himself during this evolution. He has had a left hip arthroplasty in the past. He denies any other subjective complaints at this time. Associated symptoms: Deny fever(s) or rash Review of Systems Const: Denies: fever(s) or chills Musc: Reports: back pain and extremity pain; Denies: neck pain, extremity swelling or joint warmth Skin/Breast: Denies: rash or erythema Neuro: Denies: numbness in extremities or weakness in extremities PFSH ED PFSH: Medical History Abdominal aortic aneurysm Status post repair Acute pain Anemia due to GI blood loss Bigeminy C. difficile diarrhea improved Cellulitis Chronic back pain Chronic kidney disease Chronic steroid use Chronic steroid use Colon polyps COPD (chronic obstructive pulmonary disease) COPD (chronic obstructive pulmonary disease) Essential (primary) hypertension Gastritis GERD (gastroesophageal reflux disease) Giant cell arteritis clinical diagnosis Ground glass opacity present on imaging of lung Immunization counseling Infective myositis Inflammatory arthritis Leg wound, left Mixed hyperlipidemia Neuropathy PAD (peripheral artery disease) Personal history of arterial venous malformation (AVM) PMR (polymyalgia rheumatica) Pneumocystis jiroveci pneumonia resolving Pneumonia Pulmonary emboli Pyomyositis Renal cyst Restless leg syndrome Rheumatic arteritis Right temporal headache Sepsis with acute hypoxic respiratory failure Seropositive rheumatoid arthritis of multiple sites Subacromial bursitis of left shoulder joint s/p steroid injection, resolved Tick bite Tobacco abuse Trochanteric bursitis, right hip Surgical History History of back surgery History of colonoscopy History of elbow surgery History of esophagogastroduodenoscopy (EGD) History of eye surgery History of hip surgery S/P excisional debridement Family History Other CAD (coronary artery disease) Cancer Diabetes Denies family history of Rheumatoid arthritis Lupus Chronic kidney disease (CKD) Stroke Social History Smoking and tobacco status: current every day smoker cigarettes Packs smoked per day: 0.5 Years cigarettes smoked: 60 [ Other cigarette details: trying to quit,] Alcohol intake: current Alcohol intake frequency: holidays/special occasions only Substance/Drug Use: never Lives independently: Yes Household members: spouse Housing: House Marital status: Current occupational status: retired Physical Exam Narrative: EXAM NARRATIVE: Gentleman is alert and responds appropriately to questions. He appears to be comfortable and cooperative. Const: COMMON NORMALS: no acute distress, average body habitus and patient oriented x3 GENERAL APPEARANCE: cooperative and comfortable HENMT: COMMON NORMALS: normocephalic and Normal nasal mucous membranes and turbinates present HEAD & SCALP: normocephalic NOSE: Normal nasal mucous membranes and turbinates present Eye: COMMON NORMALS: Equal, round and reactive pupils present PUPIL: Yes Equal, round and reactive pupils present Neck/C-Spine: COMMON NORMALS: full ROM Resp: COMMON NORMALS: normal respiratory effort and No use of accessory muscles EFFORT & INSPECTION: Yes able to speak in complete sentences Cardio: COMMON NORMALS: Peripheral pulses 2+ throughout PERIPHERAL PULSES: Peripheral pulses 2+ throughout : COMMON NORMALS: Yes no CVA tenderness BLADDER/KIDNEY EXAM: Yes no CVA tenderness Back/Pelvis: COMMON NORMALS: no CVA tenderness and thoracic and lumbar spine normal to inspection THORACIC SPINE/UPPER BACK: Yes normal to inspection and No thoracic spinal tenderness LUMBAR SPINE/LOWER BACK: No lumbar spinal tenderness and Yes straight leg raise negative bilaterally SACROILIAC JOINTS: Yes SI joint(s) abnormal (Tenderness over the soft tissue and bony prominence around the posterior pineda) Extremity: COMMON NORMALS: normal to inspection LEFT LOWER EXTREMITY: Yes hip joint (He has intact flexion and extension of the left hip also he is able to inte) EXTREMITY IMAGE (FRONT): 1. Tender EXTREMITY IMAGE (BACK): 1. Tender Neuro: COMMON NORMALS: patient oriented x3, moves all extremities, no focal motor deficits and no sensory deficits noted CRANIAL NERVES: Yes CN normal except as noted Psych: COMMON NORMALS: mental status grossly normal Skin: COMMON NORMALS: no rashes or lesions noted, no wounds and turgor normal GENERAL SKIN EXAM: no rashes or lesions noted and turgor normal Course Vital Signs: Vital signs: Vital Signs Temperature 97.9 F 03/22/23 20:45 Pulse Rate 66 03/22/23 20:45 Respiratory Rate 18 03/22/23 20:45 Blood Pressure 183/83 03/22/23 20:45 Pulse Oximetry 97 03/22/23 20:45 Oxygen Delivery Me thod Room Air 03/22/23 20:45 MDM - Extremity (Nontraumatic) Medical Decision Making This patient comes to the emergency department because he is concerned about left hip pain. He few days ago he was attempting to lift his off the floor and felt pain in the low back and hip region after that incident. He states he continues to still have discomfort and pain and he was predominantly concerned that he might of disrupted his hip prosthesis. His clinical examination was reassuring and that he had positive clinical findings with tenderness over the left posterior superior iliac spine but had intact range of motion at the left hip joint both passively and actively albeit with some active range of motion which is with him engaging his own musculature his symptoms were reproduced. He also has some notable laxity of his left knee joint. Radiographs revealed an intact pelvis and intact left hip prosthesis without any evidence of associated bony injury. His current presentation strongly suggest possibly a sacroiliac dysfunction or strain contributing to his hip pain as well as probably some likely associated muscular strain. I reassured the patient and family of reassuring radiographs and we will give him a trial of a Lidoderm patch to see if we can give him some relief we discussed the expected course of his illness over the next several days and also discussed return precautions for persistent or worsening symptoms. Stable at this time for discharge. Lab Data I reviewed the patient's lab results. Radiology Impressions Hip/Pelvis X-Ray 03/22/23 20:27 IMPRESSION: 1. Status post left hip hemiarthroplasty. 2. No acute abnormality demonstrated. 3. There is no interval change from the prior examination. Discharge Plan Discharge Patient Disposition: Home Clinical Impression: Muscle strain of left hip, Sacro-iliac pain Condition: Stable Prescriptions: New Lidoderm 5 % adhesive patch,medicated 1 patch topical Q24H Qty: 15 0RF Rx Instructions: leave on most painful area for up to 12 hrs No Action doxycycline hyclate 100 mg capsule 100 mg PO BID Qty: 10 0RF hydrocodone-acetaminophen 10-325 mg tablet 1 tab PO Q4H PRN (Reason: pain) 30 Days Qty: 90 0RF clobetasol 0.05 % cream 1 applic topical BID 14 Days Qty: 45 1RF gabapentin 300 mg capsule 300 mg PO BID Qty: 60 3RF cholecalciferol (vitamin D3) 50 mcg (2,000 unit) capsule 50 mcg PO DAILY Qty: 90 1RF silver sulfadiazine 1 % cream 1 applic topical DAILY Qty: 50 0RF Rx Instructions: apply a 1.5 mm thickness ipratropium bromide 42 mcg (0.06 %) spray,non-aerosol See Rx Instructions .ROUTE .COMPLEX Qty: 15 5RF Dose Instruction: USE 1 SPRAY IN EACH NOSTRIL THREE TIMES DAILY Rx Instructions: USE 1 SPRAY IN EACH NOSTRIL THREE TIMES DAILY Breo Ellipta 200-25 mcg/dose blister with device 1 inh inhalation DAILY Qty: 60 5RF fluticasone propionate 50 mcg/actuation spray,suspension See Rx Instructions .ROUTE .COMPLEX Qty: 16 3RF Dose Instruction: USE 1 SPRAY IN EACH NOSTRIL TWICE DAILY Rx Instructions: USE 1 SPRAY IN EACH NOSTRIL TWICE DAILY atorvastatin 40 mg tablet 40 mg PO BEDTIME 30 Days Qty: 30 3RF cetirizine 10 mg tablet See Rx Instructions .ROUTE .COMPLEX Qty: 30 5RF Dose Instruction: TAKE ONE TABLET BY MOUTH DAILY Rx Instructions: TAKE ONE TABLET BY MOUTH DAILY ropinirole 2 mg tablet 2 mg PO BEDTIME Qty: 90 3RF (DME) Adult Protective Underwear, Large See Rx Instructions .Route .MEDSUPPLY Qty: 1 0RF Rx Instructions: As directed Combivent Respimat 20-100 mcg/actuation mist See Rx Instructions .ROUTE .COMPLEX Qty: 4 3RF Dose Instruction: INHALE 1 PUFF INTO LUNGS EVERY 6 HOURS Rx Instructions: INHALE 1 PUFF INTO LUNGS EVERY 6 HOURS metoprolol tartrate 25 mg tablet 25 mg PO BID Qty: 180 3RF ofloxacin 0.3 % drops 2 drp otic (ear) ONCE PRN (Reason: Tubes in tympanic membranes) Qty: 10 12RF Rx Instructions: Apply 2 drops to each ear after water exposure prednisone 20 mg tablet See Rx Instructions PO .COMPLEX PRN (Reason: joint pain flare) Qty: 30 1RF Rx Instructions: take 1 daily for 3-7 days PRN joint pain flare PO PRN; furosemide 40 mg tablet 40 mg PO DIRECTED Qty: 90 3RF Rx Instructions: Take 1 tab in the AM and 1/2 tab it the afternoon. prednisone 5 mg tablet See Rx Instructions .ROUTE .COMPLEX Qty: 90 0RF Dose Instruction: TAKE ONE TABLET BY MOUTH DAILY Rx Instructions: TAKE ONE TABLET BY MOUTH DAILY aspirin 81 mg Tablet,Chewable 81 mg PO DAILY [id number] [krill oil] 1,193-918-94-80 mg Capsule 1 cap PO DAILY Narcan 4 mg/actuation [employer],Non-Aerosol 1 spray INTRANASAL Q3M PRN (Reason: overdose) ferrous sulfate 325 mg (65 mg iron) Tablet 325 mg PO BIDWMEAL Qty: 0 0RF esomeprazole magnesium [Nexium] 40 mg capsule,delayed release(DR/EC) 40 mg PO DAILY Qty: 90 3RF amlodipine 10 mg Tablet 10 mg PO DAILY Qty: 30 0RF Discharge Orders: Discharge ED (Routine); Ordered 03/22/23 Ordered By: Kal Herrmann Referrals: Mike Foster MD [Primary Care Provider] - Discharge Diet: Usual diet Discharge Activity: Increase activity as tolerated Patient Instructions: Opioid Safety, Pain Management Activity Restrictions/Additional Instructions: As we reviewed while you are in the emergency department your x-rays this evening did not reveal any evidence that you have disrupted or harmed your left hip prosthesis and the hip joint appears to be intact. There is no other evidence of broken bones or other bony injury at this time. We suspect you have strained your hip muscles as well as slightly strained your left lower back in the episode that incited your current symptoms. We have provided a Lidoderm patch that you may apply to the skin over the left hip to help reduce the pain discomfort. You should continue to keep as active as possible. If your symptoms do not continue to improve over the next 7 days or worsen or you develop any other concerning symptoms return to this or the nearest emergency department or return to your doctor's office. Coding Level of Care Code ED Labor And Delivery Registered Nurse for Ne Haas
[2023-03-22] MEDS: ondansetron 4 MG Tablet PO (23:08)
[2023-03-22] MEDS: lidocaine 5% Patch 1 PATCH TOPICAL (23:09)
== END 2023-03-22 23:11 | disposition home or self-care (01) ==
PROVIDERS: Emergency Provider Emergency Medicine; PCP Internal Medicine
DX: S76.012A Strain of muscle, fascia and tendon of left hip, initial encounter (principal); X50.9XXA Other and unspecified overexertion or strenuous movements or postures, initial encounter; M53.3 Sacrococcygeal disorders, not elsewhere classified
CPT/HCPCS: 73502; 99283; Q0162

== ENCOUNTER 2023-03-30 09:00 | Oncology outpatient (recurring) (ONCR) | payer MEDICARE, MEDICAID, SELFPAY ==
[2023-03-09] MEDS: sodium chloride 0.9% 250 ML 75 ML IV (09:53)
[2023-03-09] MEDS: diphenhydrAMINE 50 mg/mL SDV 1mL 25 MG IVP (09:54)
[2023-03-09] MEDS: acetaminophen 325 mg Tablet 650 MG PO (09:54)
[2023-03-09] MEDS: methylPREDNISolone sod succ 40 mg SDV IVP (09:55)
[2023-03-09 10:00] LABS: Basophils # 0.1 10^3/uL (0.0-0.1); Basophils % 0.8 %; Eosinophils # 0.2 10^3/uL (0.0-0.8); Eosinophils % 1.4 %; Hematocrit 38.1 % (42.0-52.0); Hemoglobin 12.5 g/dL (11.7-16.6); Lymphocytes # 3.4 10^3/uL (0.8-4.8); Lymphocytes % 26.5 %; Mean Corpuscular HGB Conc 32.8 g/dL (30.0-36.0); Mean Corpuscular Hemoglobin 33.5 pg (28.0-34.0); Mean Corpuscular Volume 102.1 fl (80-94); Mean Platelet Volume 11.9 fL (7.4-10.4); Monocytes # 1.5 10^3/uL (0.2-0.9); Monocytes % 11.9 %; Neutrophils # 7.46 10^3/uL (1.8-7.7); Neutrophils % 57.7 %; Nucleated Red Blood Cells % 0 %; Platelet Count 197 10^3/cmm (130-400); Red Blood Count 3.73 10^6/uL (4.1-5.3); Red Cell Distribution Width 13.2 % (12.1-15.1); White Blood Count 12.9 10^3/uL (4.0-10.0)
[2023-03-09] MEDS: tocilizumab 390 MG in sodium chloride 0.9% (100 ml) 100 ML 119.5 MG IV (10:19)
[2023-03-09 10:20] LABS: Alanine Aminotransferase 15 U/L (0-41); Albumin Level 3.7 g/dL (3.5-5.2); Alkaline Phosphatase 74 U/L (40-130); Anion Gap 14.2 (5-19); Aspartate Amino Transferase 17 U/L (0-40); Blood Urea Nitrogen 18 mg/dL (8-23); C Reactive Protein 14.6 mg/L (0.0-4.9); Carbon Dioxide 28 mmol/L (22-29); Chloride 103 mmol/L (98-107); Globulin 2.3 g/dL (1.3-4.6); Glucose 144 mg/dL (65-115); Osmolality Calculated 296 mOsm/kg (285-295); Potassium 4.2 mmol/L (3.5-5.1); Sodium 141 mmol/L (136-145); Total Bilirubin 0.4 mg/dL (0.15-1.2)
[2023-03-09 11:30] VITALS: BP 144/82; PULSE 56; RESP 16; TEMP 36.7; O2SAT 99
== END 2023-03-31 23:59 | disposition home or self-care (01) ==
PROVIDERS: PCP Internal Medicine; Visit Provider Internal Medicine Rheumatology
DX: Z53.9 Procedure and treatment not carried out, unspecified reason (principal)
CPT/HCPCS: 80053; 85025; 86140; 96375; 96413; J1200; J2920; J3262; J7050

== ENCOUNTER → 2023-04-18 12:59 | Outpatient (BNVA) | payer MEDICARE, MEDICAID, SELFPAY | PROVIDERS: PCP Internal Medicine; Visit Provider Internal Medicine Rheumatology | DX: M31.6 Other giant cell arteritis (principal); Z71.89 Other specified counseling; Z79.899 Other long term (current) drug therapy; M19.90 Unspecified osteoarthritis, unspecified site | CPT/HCPCS: 99214 ==

== ENCOUNTER 2023-04-27 08:50 | Oncology outpatient (recurring) (ONCR) | payer MEDICARE, MEDICAID, SELFPAY ==
[2023-04-27] MEDS: acetaminophen 325 mg Tablet 650 MG PO (09:45)
[2023-04-27] MEDS: sodium chloride 0.9% 250 ML 75 ML IV (09:46)
[2023-04-27] MEDS: diphenhydrAMINE 50 mg/mL SDV 1mL 25 MG IVP (09:46)
[2023-04-27 09:52] VITALS: BP 131/75; PULSE 52; RESP 18; TEMP 36.4; O2SAT 96
[2023-04-27] MEDS: SODIUM CHLORIDE 0.9% IV (10:13)
[2023-04-27] MEDS: TOCILIZUMAB IV (10:13)
[2023-04-27 11:46] VITALS: BP 146/80; PULSE 51; RESP 17; TEMP 36.6; O2SAT 98
== END 2023-04-30 23:59 | disposition home or self-care (01) ==
PROVIDERS: Visit Provider Internal Medicine Rheumatology
DX: M19.90 Unspecified osteoarthritis, unspecified site; Z53.9 Procedure and treatment not carried out, unspecified reason
CPT/HCPCS: 96365; 96375; J1200; J3262; J7050

== ENCOUNTER 2023-05-04 06:00 | Outpatient (RCR) | payer MEDICARE, MEDICAID, SELFPAY | END 2023-05-31 23:59 | disposition home or self-care (01) | LOC: APT 06:00 | PROVIDERS: Visit Provider Internal Medicine | DX: M21.372 Foot drop, left foot (principal) | CPT/HCPCS: 97110; 97112; 97162; 97530 ==

== ENCOUNTER 2023-05-11 09:24 | Oncology outpatient (recurring) (ONCR) | payer MEDICARE, MEDICAID, SELFPAY ==
[2023-05-11] VITALS (10 sets, daily range): BP systolic 110–138; BP diastolic 63–78; PULSE 45–72; RESP 16; TEMP 36–36.6; O2SAT 16–96
[2023-05-11 09:56] LABS: Basophils # 0.1 10^3/uL (0.0-0.1); Basophils % 0.7 %; Eosinophils # 0.2 10^3/uL (0.0-0.8); Eosinophils % 1.7 %; Hematocrit 38.9 % (37-53); Lymphocytes # 4.6 10^3/uL (0.8-4.8); Lymphocytes % 33.4 %; Mean Corpuscular HGB Conc 32.6 g/dL (30-55); Mean Corpuscular Hemoglobin 32.9 pg (27-33); Mean Corpuscular Volume 100.8 fl (82-101); Mean Platelet Volume 12.3 fL (7.4-10.4); Monocytes # 1.6 10^3/uL (0.2-0.9); Monocytes % 11.3 %; Neutrophils # 7.19 10^3/uL (1.8-7.7); Neutrophils % 52.3 %; Nucleated Red Blood Cells % 0 %; Platelet Count 121 10^3/cmm (157-399); Red Blood Count 3.86 10^6/uL (3.85-5.65); Red Cell Distribution Width 13.6 % (12.1-15.1); White Blood Count 13.76 10^3/uL (3.29-11.43)
[2023-05-11] MEDS: acetaminophen 325 mg Tablet 650 MG PO (10:09)
[2023-05-11 10:14] LABS: Erythrocyte Sedimentation Rate 4 mm/hr (0-10)
[2023-05-11 10:16] LABS: Alanine Aminotransferase 22 U/L (0-41); Albumin Level 3.9 g/dL (3.5-5.2); Alkaline Phosphatase 74 U/L (40-130); Globulin 1.7 g/dL (1.3-4.6); Total Bilirubin 0.7 mg/dL (0.15-1.2); Total Protein 5.6 g/dL (6.6-8.7)
[2023-05-11] MEDS: sodium chloride 0.9% 250 ML 75 ML IV (10:16)
[2023-05-11] MEDS: diphenhydrAMINE 50 mg/mL SDV 1mL 25 MG IVP (10:17)
[2023-05-11] MEDS: methylPREDNISolone sod succ 125 mg SDV IVP (10:21)
[2023-05-11 10:27] LABS: Aspartate Amino Transferase 22 U/L (0-40)
[2023-05-11] MEDS: rituximab-abbs 1,000 MG in sodium chloride 0.9% 500 ML 35 MG IV (10:40)
== END 2023-05-11 23:59 | disposition home or self-care (01) ==
PROVIDERS: Visit Provider Internal Medicine Rheumatology
DX: I00 Rheumatic fever without heart involvement; M13.80 Other specified arthritis, unspecified site
CPT/HCPCS: 80076; 82565; 85025; 85651; 96367; 96374; 96375; 96413; 96415; J1200; J2930; J7040; J7050; Q5115

== ENCOUNTER 2023-06-01 06:00 | Outpatient (RCR) | payer MEDICARE, MEDICAID, SELFPAY | END 2023-06-30 23:59 | disposition home or self-care (01) | LOC: APT 06:00 | PROVIDERS: PCP Nurse Practitioner; Visit Provider Internal Medicine | DX: M21.372 Foot drop, left foot (principal) | CPT/HCPCS: 97110; 97112; 97116; 97530 ==

== ENCOUNTER 2023-06-15 08:15 | Oncology outpatient (recurring) (ONCR) | payer MEDICARE, MEDICAID, SELFPAY ==
[2023-06-08 09:10] VITALS: BP 124/74; PULSE 68; RESP 18; TEMP 36.4; O2SAT 98
[2023-06-08 09:16] LABS: Basophils # 0.1 10^3/uL (0.0-0.1); Basophils % 0.6 %; Eosinophils # 0.2 10^3/uL (0.0-0.8); Eosinophils % 1.6 %; Hematocrit 36.6 % (37-53); Lymphocytes # 3.3 10^3/uL (0.8-4.8); Lymphocytes % 23.9 %; Mean Corpuscular HGB Conc 32.2 g/dL (30-55); Mean Corpuscular Hemoglobin 32.7 pg (27-33); Mean Corpuscular Volume 101.4 fl (82-101); Mean Platelet Volume 11.9 fL (7.4-10.4); Monocytes # 1.8 10^3/uL (0.2-0.9); Monocytes % 12.9 %; Neutrophils # 8.43 10^3/uL (1.8-7.7); Neutrophils % 60.1 %; Nucleated Red Blood Cells % 0 %; Platelet Count 201 10^3/cmm (157-399); Red Blood Count 3.61 10^6/uL (3.85-5.65); Red Cell Distribution Width 13.7 % (12.1-15.1)
[2023-06-08 10:01] LABS: Erythrocyte Sedimentation Rate 41 mm/hr (0-10)
[2023-06-15] MEDS: acetaminophen 325 mg Tablet 650 MG PO (08:15)
[2023-06-15] MEDS: sodium chloride 0.9% 250 ML 75 ML IV (08:16)
[2023-06-15] MEDS: diphenhydrAMINE 50 mg/mL SDV 1mL 25 MG IVP (08:18)
[2023-06-15] MEDS: methylPREDNISolone sod succ 125 mg SDV IVP (08:19)
[2023-06-15 08:27] VITALS: BP 132/84; PULSE 98; RESP 18; TEMP 36.8; O2SAT 93
[2023-06-15] MEDS: rituximab-abbs 1,000 MG in sodium chloride 0.9% 500 ML 50 MG IV (09:14)
[2023-06-15 12:31] VITALS: BP 151/79; PULSE 78; RESP 16; TEMP 36.7; O2SAT 93
== END 2023-06-15 23:59 | disposition home or self-care (01) ==
PROVIDERS: PCP Nurse Practitioner; Visit Provider Internal Medicine Rheumatology
DX: M06.9 Rheumatoid arthritis, unspecified (principal)
CPT/HCPCS: 85025; 85651; 96375; 96413; 96415; J1200; J2930; J7040; J7050; Q5115

== ENCOUNTER → 2023-07-04 13:33 | Outpatient (BNVA) | payer MEDICARE, MEDICAID, SELFPAY | PROVIDERS: PCP Internal Medicine; Visit Provider Internal Medicine | DX: I71.40 Abdominal aortic aneurysm, without rupture, unspecified (principal); I12.9 Hypertensive chronic kidney disease with stage 1 through stage 4 chronic kidney disease, or unspecified chronic kidney disease; N18.9 Chronic kidney disease, unspecified; Z72.0 Tobacco use | CPT/HCPCS: 99214 ==

== ENCOUNTER → 2023-09-01 11:15 | Outpatient (BNVA) | payer MEDICARE, MEDICAID, SELFPAY | PROVIDERS: PCP Internal Medicine; Visit Provider Internal Medicine Rheumatology | DX: Z79.899 Other long term (current) drug therapy (principal); M31.6 Other giant cell arteritis; Z71.89 Other specified counseling; M19.90 Unspecified osteoarthritis, unspecified site | CPT/HCPCS: 36415; 80076; 82565; 85025; 86140; 99214 ==

== ENCOUNTER 2023-10-27 07:48 | Oncology outpatient (recurring) (ONCR) | payer MEDICARE, MEDICAID, SELFPAY ==
[2023-10-27] VITALS (7 sets, daily range): BP systolic 122–157; BP diastolic 69–81; PULSE 53–76; RESP 16–17; TEMP 36.1–36.9; O2SAT 91–95
[2023-10-27] MEDS: sodium chloride 0.9% 250 ML 75 ML IV (08:36)
[2023-10-27] MEDS: diphenhydrAMINE 50 mg/mL SDV 1mL 25 MG IVP (08:37)
[2023-10-27] MEDS: methylPREDNISolone sod succ 125 mg/2 mL INJ IVP (08:40)
[2023-10-27] MEDS: rituximab-abbs 1,000 MG in sodium chloride 0.9% 500 ML 70 MG IV (09:30)
== END 2023-10-30 23:59 | disposition home or self-care (01) ==
LOC: ONCMED 07:50
PROVIDERS: PCP Internal Medicine; Visit Provider Internal Medicine Rheumatology
DX: M19.90 Unspecified osteoarthritis, unspecified site
CPT/HCPCS: 96375; 96413; 96415; J1200; J2930; J7040; J7050; Q5115

== ENCOUNTER 2023-11-09 07:59 | Oncology outpatient (recurring) (ONCR) | payer MEDICARE, MEDICAID, SELFPAY ==
[2023-11-09 08:09] VITALS: BP 150/74; PULSE 72; RESP 16; TEMP 36.5; O2SAT 95
[2023-11-09] MEDS: diphenhydrAMINE 50 mg/mL SDV 1mL 25 MG IVP (08:28)
[2023-11-09] MEDS: sodium chloride 0.9% 250 ML 75 ML IV (08:28)
[2023-11-09] MEDS: methylPREDNISolone sod succ 125 mg/2 mL INJ IVP (08:30)
[2023-11-09 09:15] VITALS: BP 141/72; PULSE 63; RESP 16; TEMP 36.7; O2SAT 91
[2023-11-09] MEDS: rituximab-abbs 1,000 MG in sodium chloride 0.9% 500 ML 60 MG IV (09:15)
[2023-11-09 09:45] VITALS: BP 138/77; PULSE 63; RESP 16; TEMP 36.7; O2SAT 90
[2023-11-09 10:15] VITALS: BP 131/74; PULSE 66; RESP 16; TEMP 36.3; O2SAT 95
[2023-11-09 10:49] VITALS: BP 132/72; PULSE 65; RESP 16; TEMP 36.6; O2SAT 94
[2023-11-09 12:45] VITALS: BP 147/75; PULSE 76; RESP 16; TEMP 36.9; O2SAT 93
== END 2023-11-29 23:59 | disposition home or self-care (01) ==
PROVIDERS: PCP Internal Medicine; Visit Provider Internal Medicine Rheumatology
DX: M19.90 Unspecified osteoarthritis, unspecified site
CPT/HCPCS: 96375; 96413; 96415; J1200; J2919; J7040; J7050; Q5115

== ENCOUNTER → 2023-12-22 10:50 | Outpatient (BNVA) | payer MEDICARE, SELFPAY | PROVIDERS: PCP Internal Medicine; Visit Provider Internal Medicine Rheumatology | DX: M31.6 Other giant cell arteritis (principal); Z79.899 Other long term (current) drug therapy; Z71.89 Other specified counseling; M19.90 Unspecified osteoarthritis, unspecified site | CPT/HCPCS: 36415; 80076; 82565; 85025; 86140; 99214 ==

== ENCOUNTER 2024-04-16 07:44 | Oncology outpatient (recurring) (ONCR) | payer MEDICARE, MEDICAID, SELFPAY ==
[2024-04-16 08:01] VITALS: BP 166/78; PULSE 52; TEMP 36.8; O2SAT 97
[2024-04-16 08:36] LABS: Basophils # 0.1 10^3/uL (0.0-0.1); Basophils % 0.8 %; Eosinophils # 0.2 10^3/uL (0.0-0.8); Eosinophils % 1.5 %; Hematocrit 39.8 % (37-53); Lymphocytes # 3.6 10^3/uL (0.8-4.8); Lymphocytes % 25.1 %; Mean Corpuscular HGB Conc 32.4 g/dL (30-55); Mean Corpuscular Hemoglobin 31.4 pg (27-33); Mean Corpuscular Volume 96.8 fl (82-101); Mean Platelet Volume 12.3 fL (7.4-10.4); Monocytes # 1.6 10^3/uL (0.2-0.9); Monocytes % 10.9 %; Neutrophils # 8.75 10^3/uL (1.8-7.7); Nucleated Red Blood Cells % 0 %; Platelet Count 167 10^3/cmm (157-399); Red Blood Count 4.11 10^6/uL (3.85-5.65); Red Cell Distribution Width 14.6 % (12.1-15.1); White Blood Count 14.34 10^3/uL (3.29-11.43)
[2024-04-16] MEDS: acetaminophen 325 mg Tablet 650 MG PO (08:38)
[2024-04-16] MEDS: sodium chloride 0.9% 250 ML 75 ML IV (08:38)
[2024-04-16] MEDS: diphenhydrAMINE 50 mg/mL SDV 1mL 25 MG IVP (08:42)
[2024-04-16] MEDS: methylPREDNISolone sod succ 125 mg/2 mL INJ IVP (08:44)
[2024-04-16 08:54] LABS: Alanine Aminotransferase 14 U/L (0-41); Alkaline Phosphatase 103 U/L (40-130); Aspartate Amino Transferase 15 U/L (0-40); C Reactive Protein 3.2 mg/L (0.0-4.9); Globulin 2.1 g/dL (1.3-4.6); Total Bilirubin 0.4 mg/dL (0.15-1.2); Total Protein 6.1 g/dL (6.6-8.7)
[2024-04-16 08:55] LABS: Erythrocyte Sedimentation Rate 12 mm/hr (0-10)
[2024-04-16 09:10] VITALS: BP 142/67; PULSE 51; RESP 16; TEMP 37; O2SAT 94
[2024-04-16] MEDS: rituximab-abbs 1,000 MG in sodium chloride 0.9% 500 ML 70 MG IV (09:10)
[2024-04-16 09:40] VITALS: BP 147/78; PULSE 58; RESP 16; TEMP 37; O2SAT 93
[2024-04-16 12:26] VITALS: BP 154/80; PULSE 62; RESP 17; TEMP 36.6; O2SAT 93
== END 2024-04-16 23:59 | disposition home or self-care (01) ==
PROVIDERS: PCP Internal Medicine; Visit Provider Internal Medicine Rheumatology
DX: M19.90 Unspecified osteoarthritis, unspecified site (principal); Z79.899 Other long term (current) drug therapy
CPT/HCPCS: 80076; 82565; 85025; 85651; 86140; 96375; 96413; 96415; J1200; J2919; J7040; J7050; Q5115

== ENCOUNTER 2024-05-02 07:44 | Oncology outpatient (recurring) (ONCR) | payer MEDICARE, MEDICAID, SELFPAY ==
[2024-05-02] VITALS (7 sets, daily range): BP systolic 157–174; BP diastolic 74–94; PULSE 60–85; RESP 16–18; TEMP 36.1–36.4; O2SAT 90–99; BMI 25.4
[2024-05-02] MEDS: sodium chloride 0.9% 250 ML 75 ML IV (08:53)
[2024-05-02] MEDS: acetaminophen 325 mg Tablet 650 MG PO (08:58)
[2024-05-02] MEDS: methylPREDNISolone sod succ 125 mg/2 mL INJ IVP (08:59)
[2024-05-02] MEDS: diphenhydrAMINE 50 mg/mL SDV 1mL 25 MG IVP (09:07)
[2024-05-02] MEDS: rituximab-abbs 1,000 MG in sodium chloride 0.9% 500 ML 70 MG IV (09:46)
== END 2024-05-31 23:59 | disposition home or self-care (01) ==
PROVIDERS: PCP Internal Medicine; Visit Provider Internal Medicine Rheumatology
DX: M19.90 Unspecified osteoarthritis, unspecified site (principal); Z79.899 Other long term (current) drug therapy
CPT/HCPCS: 96375; 96413; 96415; J1200; J2919; J7040; J7050; Q5115

== ENCOUNTER → 2024-06-07 09:42 | Outpatient (BNVA) | payer MEDICARE, MEDICAID, SELFPAY | PROVIDERS: PCP Internal Medicine; Visit Provider Internal Medicine Rheumatology | DX: Z79.899 Other long term (current) drug therapy (principal); M31.6 Other giant cell arteritis; Z71.89 Other specified counseling; M19.90 Unspecified osteoarthritis, unspecified site; M05.9 Rheumatoid arthritis with rheumatoid factor, unspecified | CPT/HCPCS: 99214 ==

== ENCOUNTER 2024-10-05 14:00 | Outpatient (CLI) | payer MEDICAID, MEDICARE, SELFPAY ==
[2024-10-05 14:44] LABS: Basophils # 0.1 10^3/uL (0.0-0.1); Basophils % 0.6 %; Eosinophils # 0.2 10^3/uL (0.0-0.8); Eosinophils % 1.3 %; Hematocrit 38.7 % (37-53); Lymphocytes # 2.6 10^3/uL (0.8-4.8); Mean Corpuscular HGB Conc 31.3 g/dL (30-55); Mean Corpuscular Hemoglobin 30.4 pg (27-33); Mean Corpuscular Volume 97.2 fl (82-101); Mean Platelet Volume 11.9 fL (7.4-10.4); Monocytes # 1.4 10^3/uL (0.2-0.9); Monocytes % 11.1 %; Neutrophils # 7.99 10^3/uL (1.8-7.7); Neutrophils % 64.9 %; Nucleated Red Blood Cells % 0 %; Platelet Count 198 10^3/cmm (157-399); Red Blood Count 3.98 10^6/uL (3.85-5.65); Red Cell Distribution Width 14.2 % (12.1-15.1); White Blood Count 12.31 10^3/uL (3.29-11.43)
[2024-10-05 14:51] LABS: Alanine Aminotransferase 11 U/L (0-41); Albumin Level 3.3 g/dL (3.5-5.2); Alkaline Phosphatase 87 U/L (40-130); Aspartate Amino Transferase 23 U/L (0-40); Erythrocyte Sedimentation Rate 25 mm/hr (0-10); Globulin 2.1 g/dL (1.3-4.6); Total Bilirubin 0.4 mg/dL (0.15-1.2); Total Protein 5.4 g/dL (6.6-8.7)
== END 2024-10-05 14:01 | disposition home or self-care (01) ==
LOC: LAB 14:17
PROVIDERS: PCP Internal Medicine; Visit Provider Internal Medicine Rheumatology
DX: Z79.899 Other long term (current) drug therapy (principal); M31.6 Other giant cell arteritis
CPT/HCPCS: 80076; 82565; 85025; 85651; 86140

== ENCOUNTER 2024-11-14 08:30 | Oncology outpatient (recurring) (ONCR) | payer MEDICARE, MEDICAID, SELFPAY ==
[2024-10-31 08:20] VITALS: BP 132/69; PULSE 71; TEMP 36.8; O2SAT 92
[2024-10-31] MEDS: sodium chloride 0.9% 250 ML 75 ML IV (08:58)
[2024-10-31] MEDS: acetaminophen 325 mg Tablet 650 MG PO (09:00)
[2024-10-31] MEDS: methylPREDNISolone sod succ 125 mg/2 mL INJ IVP (09:01)
[2024-10-31] MEDS: diphenhydrAMINE 50 mg/mL SDV 1mL 25 MG IVP (09:09)
[2024-10-31 09:47] VITALS: BP 125/66; PULSE 67; RESP 16; TEMP 36; O2SAT 94
[2024-10-31] MEDS: rituximab-pvvr 1,000 MG in sodium chloride 0.9% 500 ML 70 MG IV (09:47)
[2024-10-31 10:47] VITALS: BP 145/74; PULSE 60; RESP 17; TEMP 36.2; O2SAT 93
[2024-10-31 11:15] VITALS: BP 127/63; PULSE 55; RESP 16; TEMP 36.3; O2SAT 92
[2024-10-31 12:54] VITALS: BP 124/64; PULSE 59; RESP 16; TEMP 36.9; O2SAT 92
[2024-11-14] VITALS (7 sets, daily range): BP systolic 100–172; BP diastolic 53–80; PULSE 39–77; RESP 16; TEMP 35.9–36.5; O2SAT 91–96
[2024-11-14] MEDS: sodium chloride 0.9% 250 ML 75 ML IV (08:59)
[2024-11-14] MEDS: acetaminophen 325 mg Tablet 650 MG PO (09:02)
[2024-11-14] MEDS: methylPREDNISolone sod succ 125 mg/2 mL INJ IVP (09:03)
[2024-11-14] MEDS: diphenhydrAMINE 50 mg/mL SDV 1mL 25 MG IVP (09:10)
[2024-11-14] MEDS: rituximab-pvvr 1,000 MG in sodium chloride 0.9% 500 ML 65 MG IV (09:48)
== END 2024-11-14 23:59 | disposition home or self-care (01) ==
PROVIDERS: PCP Internal Medicine; Visit Provider Internal Medicine Rheumatology
DX: Z53.9 Procedure and treatment not carried out, unspecified reason; M19.90 Unspecified osteoarthritis, unspecified site; Z79.899 Other long term (current) drug therapy
CPT/HCPCS: 96360; 96375; 96413; 96415; J1200; J2919; J7040; J7050; J9999; Q5119

== ENCOUNTER → 2024-11-16 08:01 | Outpatient (BNVA) | payer MEDICARE, MEDICAID, SELFPAY | PROVIDERS: PCP Internal Medicine; Visit Provider Nurse Practitioner Family | DX: L82.1 Other seborrheic keratosis (principal); L57.8 Other skin changes due to chronic exposure to nonionizing radiation; L81.4 Other melanin hyperpigmentation; D48.5 Neoplasm of uncertain behavior of skin; L57.0 Actinic keratosis | CPT/HCPCS: 11104; 17000; 99203 ==

== ENCOUNTER → 2024-11-27 08:00 | Outpatient (BNVA) | payer MEDICARE, MEDICAID, SELFPAY | PROVIDERS: PCP Internal Medicine; Visit Provider Nurse Practitioner Family | DX: L72.0 Epidermal cyst (principal); L57.8 Other skin changes due to chronic exposure to nonionizing radiation; X32.XXXA Exposure to sunlight, initial encounter; L81.4 Other melanin hyperpigmentation | CPT/HCPCS: 99213 ==

== ENCOUNTER → 2025-02-11 14:01 | Outpatient (BNVA) | payer MEDICARE, MEDICAID, SELFPAY | PROVIDERS: PCP Internal Medicine; Visit Provider Internal Medicine Rheumatology | DX: Z79.899 Other long term (current) drug therapy (principal); M31.6 Other giant cell arteritis; Z71.85 Encounter for immunization safety counseling; M19.90 Unspecified osteoarthritis, unspecified site | CPT/HCPCS: 36415; 80076; 82306; 82565; 85025; 85651; 86140; 86480; 86704; 86803; 87340; 99214 ==

== ENCOUNTER 2025-03-20 08:22 | Oncology outpatient (recurring) (ONCR) | payer OTHER, MEDICAID, SELFPAY ==
[2025-03-20 08:56] LABS: Hematocrit 32.7 % (37-53); Hemoglobin 10.40 g/dL (11.27-16.99); Mean Corpuscular HGB Conc 31.8 g/dL (30-55); Mean Corpuscular Hemoglobin 31.1 pg (27-33); Mean Corpuscular Volume 97.9 fl (82-101); Nucleated Red Blood Cells % 0 %; Platelet Count 154 10^3/cmm (157-399); Red Blood Count 3.34 10^6/uL (3.85-5.65); White Blood Count 12.97 10^3/uL (3.29-11.43)
[2025-03-20] MEDS: diphenhydrAMINE 50 mg/mL SDV 1mL 25 MG IVP (09:14)
[2025-03-20 09:15] LABS: Alanine Aminotransferase 10 U/L (0-41); Albumin Level 3.5 g/dL (3.5-5.2); Alkaline Phosphatase 69 U/L (40-130); Aspartate Amino Transferase 15 U/L (0-40); Globulin 1.9 g/dL (1.3-4.6); Total Protein 5.4 g/dL (6.6-8.7)
[2025-03-20] MEDS: methylPREDNISolone sod succ 125 mg/2 mL INJ IVP (09:15)
[2025-03-20 10:06] VITALS: BP 151/68; PULSE 58; RESP 16; TEMP 36.6; O2SAT 95
[2025-03-20] MEDS: rituximab-pvvr 1,000 MG in sodium chloride 0.9% 500 ML 65 MG IV (10:06)
[2025-03-20 10:38] VITALS: BP 157/92; PULSE 59; RESP 16; TEMP 36.8; O2SAT 95
[2025-03-20 11:08] VITALS: BP 155/78; PULSE 60; RESP 16; TEMP 36.6
[2025-03-20 11:40] VITALS: BP 158/83; PULSE 63; O2SAT 96
[2025-03-20 13:32] VITALS: BP 164/86; PULSE 77; TEMP 37; O2SAT 95
== END 2025-03-31 23:59 | disposition home or self-care (01) ==
PROVIDERS: Internal Medicine Rheumatology; PCP Internal Medicine; Visit Provider Internal Medicine
DX: M05.9 Rheumatoid arthritis with rheumatoid factor, unspecified (principal); Z79.899 Other long term (current) drug therapy
CPT/HCPCS: 80076; 82565; 85025; 85651; 86140; 96365; 96366; 96375; J1200; J2919; J7040; J7050; J9999; Q5119

== ENCOUNTER 2025-04-10 16:00 | Oncology outpatient (recurring) (ONCR) | payer OTHER, MEDICAID, SELFPAY ==
[2025-04-02] VITALS (8 sets, daily range): BP systolic 133–170; BP diastolic 69–88; PULSE 67–81; RESP 16–17; TEMP 36.2–36.9; O2SAT 92–97
[2025-04-02] MEDS: methylPREDNISolone sod succ 125 mg/2 mL INJ IVP (08:45)
[2025-04-02] MEDS: diphenhydrAMINE 50 mg/mL SDV 1mL 25 MG IVP (08:46)
[2025-04-02] MEDS: rituximab-pvvr 1,000 MG in sodium chloride 0.9% 500 ML 62.5 MG IV (09:22)
--- NOTE | 2025-04-10 16:00 | CT_ITS ---
WS: [id number] CT PELVIS NONCONTRAST HISTORY: hip pain, LEFT TECHNIQUE: Contiguous imaging is performed of the pelvis without contrast. Coronal and sagittal reformats are reviewed. All CT scans at [facility] use at least one of these dose optimization techniques: automated exposure control; mA and/or kV adjustment per patient size (includes targeted exams where dose is matched to clinical indication); or iterative reconstruction. DLP: 279.22 mGy.cm COMPARISON: CT 05/15/2021 Status post LEFT hip arthroplasty. Arthroplasty in good position and alignment. Acetabular head is normally positioned in the acetabulum. No acute fractures are identified. No muscle atrophy or edema. 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 The LEFT femoral artery aneurysm is 3.0 cm in the RIGHT 2.9 cm. Extensive plaque in the visualized iliac and femoral arteries. Patient is status post stent grafting of the abdominal aorta. No free fluid in the pelvis. Increasing size of the cystic mass with peripheral calcification in the RIGHT pelvis now measuring 3.8 x 3.0 cm close associated with the internal iliac artery and is probably an enlarging aneurysm or pseudoaneurysm. This has been present since 2019 but slow increase in size. No free fluid in the pelvis. CT/CT pelvis con [id number] IMPRESSION: 1. Status post LEFT hip arthroplasty. No complications are identified. 2. Patient has known bilateral femoral artery aneurysms with minimal increase in size since 2020. Largest on the LEFT measures 3.0 cm.
== END 2025-04-30 23:59 | disposition home or self-care (01) ==
LOC: RAD 04-11 → ONCMED 04-11 09:08
PROVIDERS: PCP Internal Medicine; Visit Provider Internal Medicine
DX: M19.90 Unspecified osteoarthritis, unspecified site (principal); Z79.899 Other long term (current) drug therapy
CPT/HCPCS: 72192; 73502; 96375; 96413; 96415; 99203; J1200; J2919; J7040; J7050; J9999; Q5119

== ENCOUNTER → 2025-04-18 15:23 | Outpatient (BNVA) | payer OTHER, MEDICAID, SELFPAY | PROVIDERS: PCP Internal Medicine; Visit Provider Orthopaedic Surgery | DX: M25.552 Pain in left hip (principal); Z09 Encounter for follow-up examination after completed treatment for conditions other than malignant neoplasm | CPT/HCPCS: 99213 ==

== ENCOUNTER → 2025-05-28 09:58 | Outpatient (BNVA) | payer OTHER, MEDICAID, SELFPAY | PROVIDERS: PCP Internal Medicine; Visit Provider Nurse Practitioner Family | DX: L57.8 Other skin changes due to chronic exposure to nonionizing radiation (principal); L81.4 Other melanin hyperpigmentation; D22.62 Melanocytic nevi of left upper limb, including shoulder; L82.1 Other seborrheic keratosis; D69.2 Other nonthrombocytopenic purpura; L72.0 Epidermal cyst; L57.0 Actinic keratosis | CPT/HCPCS: 17000; 99213 ==

== ENCOUNTER → 2025-06-18 14:04 | Outpatient (BNVA) | payer OTHER, MEDICAID, SELFPAY | PROVIDERS: PCP Internal Medicine; Visit Provider Orthopaedic Surgery | DX: M48.061 Spinal stenosis, lumbar region without neurogenic claudication (principal); M13.80 Other specified arthritis, unspecified site | CPT/HCPCS: 72110; 73502; 99213 ==

== ENCOUNTER → 2025-06-24 13:14 | Outpatient (BNVA) | payer OTHER, MEDICAID, SELFPAY | PROVIDERS: PCP Internal Medicine; Referring Provider Orthopaedic Surgery; Visit Provider Nurse Practitioner Family | DX: M54.16 Radiculopathy, lumbar region (principal); M25.552 Pain in left hip; G89.29 Other chronic pain; F17.210 Nicotine dependence, cigarettes, uncomplicated | CPT/HCPCS: 99204; 99214 ==

== ENCOUNTER → 2025-06-25 15:28 | Outpatient (BNVA) | payer OTHER, MEDICAID, SELFPAY | PROVIDERS: PCP Internal Medicine; Visit Provider Family Medicine | DX: M31.6 Other giant cell arteritis (principal) | CPT/HCPCS: 80053; 80061; 85025 ==

== ENCOUNTER 2025-06-26 13:56 | Outpatient (CLI) | payer OTHER, MEDICAID, SELFPAY ==
--- NOTE | 2025-06-26 14:30 | MRR_ITS ---
PROCEDURE INFORMATION: Exam: MR Lumbar Spine Without Contrast Exam date and time: 06/26/2025 2:28 PM Age: 79 years old Clinical indication: Low back pain TECHNIQUE: Imaging protocol: Magnetic resonance imaging of the lumbar spine without contrast. COMPARISON: CT lumbar spine wo con* [id number] 01/25/2021 3:39 PM FINDINGS: Bones/joints: There is a mild levoscoliosis of the lumbar spine centered at L2-L3. There is anterior degenerative spondylosis at L1-S1. Spinal cord: Visualized cord, conus medullaris and cauda equina are unremarkable without compression. Conus medullaris is located at the T12-L1 level and is normal in signal intensity. Disc spaces: There is disc desiccation at L3-L4, L4-L5, and L5-S1. Disc space heights: There is decreased disc space height at L3-L4 and L4-L5. L1-L2: No significant disc bulge or herniation. No severe spinal canal stenosis. No significant neural foraminal narrowing. L2-L3: No significant disc bulge or herniation. There is moderate bilateral facet arthrosis but no spinal canal or neural foraminal stenosis. L3-L4: There is moderate bilateral facet arthrosis with a mild disc bulge that does not cause significant spinal canal or neural foraminal stenosis. L4-L5: There is moderate bilateral facet arthrosis with a mild left foraminal disc bulge causing mild left neural foraminal stenosis without right neural foraminal stenosis or nerve root compression. L5-S1: There is moderate bilateral facet arthrosis with a left foraminal disc bulge causing mild left neural foraminal stenosis without spinal canal stenosis or right neural foraminal stenosis. Soft tissues: Unremarkable. Retroperitoneum: There are small bilateral renal cysts. MR/MR lumbar spine wo con* [id number] IMPRESSION: 1. Mild levoscoliosis of the lumbar spine. 2. Degenerative spondylosis as above. 3. Disc desiccation at L3-L4, L4-L5, and L5-S1 with disc space narrowing at L3-L4 and L4-L5. 4. Mild left foraminal disc bulge at L4-L5 and L5-S1 causing mild left neural foraminal stenosis without spinal canal stenosis or right neural foraminal stenosis. 5. Small bilateral renal cysts. No follow-up is needed. Bosniak I and II: No follow-up is typically required unless the cyst becomes symptomatic. These cysts are considered benign and have a very low risk of malignancy. COMMENTS: Consistent with the [employer]'s Incidental Findings Committee white paper (J Am Ezio Radiol 2018): Any incidental renal lesion less than 1 cm or classified as too small to characterize, or any incidental cystic renal lesion characterized as simple-appearing, is likely benign. No follow-up imaging is recommended for these lesions per consensus recommendations based on imaging criteria.
== END 2025-06-26 13:57 | disposition home or self-care (01) ==
LOC: RAD 13:58
PROVIDERS: PCP Family Medicine; Visit Provider Orthopaedic Surgery
DX: M48.061 Spinal stenosis, lumbar region without neurogenic claudication (principal); M41.86 Other forms of scoliosis, lumbar region; M47.812 Spondylosis without myelopathy or radiculopathy, cervical region; M51.369 Other intervertebral disc degeneration, lumbar region without mention of lumbar back pain or lower extremity pain; N28.1 Cyst of kidney, acquired; M47.896 Other spondylosis, lumbar region; M47.817 Spondylosis without myelopathy or radiculopathy, lumbosacral region; M48.07 Spinal stenosis, lumbosacral region
CPT/HCPCS: 72148

== ENCOUNTER → 2025-07-04 13:48 | Outpatient (BNVA) | payer OTHER, MEDICAID, SELFPAY | PROVIDERS: PCP Family Medicine; Visit Provider Nurse Practitioner Family | DX: M79.18 Myalgia, other site (principal); M54.16 Radiculopathy, lumbar region; G89.29 Other chronic pain; M25.552 Pain in left hip | CPT/HCPCS: 20553; 99214; J1010; J3490 ==

== ENCOUNTER → 2025-07-09 14:02 | Outpatient (BNVA) | payer MEDICARE, MEDICAID, SELFPAY | PROVIDERS: PCP Family Medicine; Visit Provider Orthopaedic Surgery | DX: S76.312D Strain of muscle, fascia and tendon of the posterior muscle group at thigh level, left thigh, subsequent encounter (principal); Z51.89 Encounter for other specified aftercare; X58.XXXD Exposure to other specified factors, subsequent encounter | CPT/HCPCS: 99213 ==

== ENCOUNTER → 2025-07-18 09:26 | Outpatient (BNVA) | payer MEDICARE, MEDICAID, SELFPAY | PROVIDERS: PCP Family Medicine; Visit Provider Nurse Practitioner Family | DX: M54.16 Radiculopathy, lumbar region (principal); G89.29 Other chronic pain; M25.552 Pain in left hip | CPT/HCPCS: 99214 ==

== ENCOUNTER 2025-07-23 10:53 | Outpatient (RCR) | payer MEDICARE, MEDICAID, SELFPAY | END 2025-07-31 23:59 | disposition home or self-care (01) | LOC: APT 10:53 | PROVIDERS: PCP Family Medicine; Visit Provider Orthopaedic Surgery | DX: S76.302D Unspecified injury of muscle, fascia and tendon of the posterior muscle group at thigh level, left thigh, subsequent encounter (principal); X58.XXXD Exposure to other specified factors, subsequent encounter | CPT/HCPCS: 97110; 97162 ==